=== PATIENT | female | born 1995 | race Caucasian/White ===

== ENCOUNTER 2016-11-18 17:32 | Emergency (ER) | payer OTHER ==
[~2016-11-18 17:32] MED LIST: PRENTAB40 PO
[2016-11-18] MEDS ORDERED: ACETAMINOPHEN 325 MG TAB As Ordered ONE (19:45)
[2016-11-18] MEDS ORDERED: METOCLOPRAMIDE INJ 10MG/2ML VIAL (J2765) As Ordered ONE (19:45)
[2016-11-18] MEDS ORDERED: AZITHROMYCIN 250 MG TAB As Ordered ONE (21:35)
--- NOTE | 2016-11-18 21:46 | EDDOCDS ---
Nurse's Notes [facility] Name: Debbie Akbar Age: 21 yrs Sex: Female : 1995 Arrival Date: 11/18/2016 Time: 17:32 Bed I3 / M3 Private MD: Frances Jones M. Diagnosis: Otitis media, unspecified, left ear;Nausea;Other specified related conditions Presentation: 11/18 17:36 Presenting complaint: Patient states: Patient reports that she has an earache, pain jmb present x 1 week. Patient reports feeling dizzy and nausea's. Patient reports symptoms just get worse since start. Adult Sepsis Screening: The patient does not have new or worsening altered mentation. Patient's respiratory rate is less than 22. Systolic blood pressure is greater than 100. Patient has a qSOFA score of 0- Negative Sepsis Screen. Suicide/Homicide risk assessment- the patient denies having any suicidal and/or homicidal ideations and does not present with any other emotional, behavioral or mental health complaints. Status: Patient is not a school services officer or dependent. Transition of care: patient was not received from another setting of care. 17:36 Acuity: RENEE Level 4 b 17:36 Method Of Arrival: Walkin/Carried/Asstd b Triage Assessment: 17:37 General: Appears in no apparent distress, Behavior is appropriate for age, cooperative. jmb Pain: Location: left ear Pain currently is 9 out of 10 on a pain scale. HIV screening NA for this visit Offered previously. Neurological: Level of Consciousness is awake, alert, obeys commands, Oriented to person, place, time, Speech is normal, Facial symmetry appears normal, Facial symmetry: tongue is midline. Respiratory: Airway is patent Respiratory effort is even, unlabored, Respiratory pattern is regular, symmetrical. Derm: Skin is pink, warm & dry. Musculoskeletal: Range of motion intact in all extremities. 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 albuterol sulfate 90 mcg/actuation Inhl HFAA every 4-6 hours prn 2. Vitamin Oral tab 1 tab once daily not taking due to nausea 3. Reglan 10 mg Oral tab 1 tab 4 times per day - PMHx: Asthma; Ovarian cyst; Seasonal Allergies; - PSHx: ; Tonsillectomy; - Social history: Smoking status: Patient states was never smoker of tobacco. No barriers to communication noted, The patient speaks fluent Divehi, Speaks appropriately for age. - Family history: Not pertinent. - : The pt / caregiver states he / she is not on anticoagulants. Home medication list is obtained from the patient. - Exposure Risk Screening:: None identified. Screenin:34 Infection Control. elp 19:42 Screening information is obtained from the patient. Fall risk: No risks identified. af2 Assistance ADL's: requires no assistance with activities of daily living. Abuse/DV Screen: The patient / caregiver reports he/she is: not in a situation that causes fear, pain or injury. Nutritional screening: No deficits noted. Advance Directives: Currently, there is no health care proxy. home support is adequate. Assessment: 19:43 General: Appears in no apparent distress, Behavior is appropriate for age, cooperative, af2 pleasant. Pain: Location: abdomen Pain currently is 4 out of 10 on a pain scale. Neurological: Level of Consciousness is awake, alert. Respiratory: Airway is patent Respiratory effort is even, unlabored. GI: Reports lower abdominal pain, upper abd pain. Musculoskeletal: Reports pain in back. 20:18 General: Appears in no apparent distress, Behavior is appropriate for age, pt lying on af2 stretcher resting quietly with eyes closed, offers no complaints. fluids infusing per order.. 21:42 Adult Sepsis Screening: The patient does not have new or worsening altered mentation. ms2 Patient's respiratory rate is less than 22. Systolic blood pressure is greater than 100. Patient has a qSOFA score of 0- Negative Sepsis Screen. General: Appears in no apparent distress. Pain: Pain currently is 5 out of 10 on a pain scale. Neurological: Level of Consciousness is awake, alert, obeys commands. Respiratory: No deficits noted. Airway is patent Respiratory effort is even, unlabored, Respiratory pattern is regular, symmetrical. Derm: Skin is pink, warm & dry. Musculoskeletal: Range of motion intact in all extremities. Vital Signs: 17:34 BP 132 / 63; Pulse 101; Resp 18; Temp 98.9(O); Pulse Ox 98% on R/A; Weight 61.69 kg elp (M); Height 5 ft. 3 in. (160.02 cm); Pain 9/10; 19:44 BP 94 / 52 RA Supine (auto/); Pulse 86; ajs 19:44 BP 105 / 55 RA Sitting (auto/); Pulse 86; ajs 19:44 BP 107 / 56 RA Standing (auto/); Pulse 95; ajs 21:43 BP 107 / 59; Pulse 82; Resp 20 S; Temp 96.7(O); Pulse Ox 99% on R/A; Pain 5/10; ms2 17:34 Body Mass Index 24.09 (61.69 kg, 160.02 cm) elp Vitals: 17:34 Log In Time: November 18, 2016 at 17:32. elp 20:01 Heart Tones 170BPM. af2 ED Course: 17:33 Patient visited by Iris Reno PCA. elp 17:33 Frances Jones is Private Physician. elp 17:33 Patient moved to Waiting elp 17:35 Patient visited by Iris Reno PCA. elp 17:35 Patient moved to Pre RCE elp 17:37 Triage Initiated jmb 19:08 Patient moved to Triage 3 jmb 19:21 [facility] ck7 19:21 Kory Mcmullen DO is Attending Physician. ck7 19:21 Patient visited by Justin Kaba RPA-C. ck7 19:30 Patient moved to I3 / M3 ms18 19:42 The patient / caregiver is instructed regarding the plan of care and ED course. Patient af2 has correct armband on for positive identification. Placed in gown. 19:43 Inserted saline lock: 20 gauge in left antecubital area and blood collected. The af2 patient tolerated the procedure well. 19:44 Patient visited by Nicki Mccormack RN. af2 19:45 Patient visited by Tania Gordillo. ajs 19:47 [facility] Payment Agreement was scanned into [employer] and attached to record. ks16 20:01 Patient visited by Nicki Mccormack RN. af2 20:19 Patient visited by Nicki Mccormack RN. af2 20:48 Wet Prep Sent. af2 20:48 GC & Chlamydia Amplification Sent. af2 20:50 Patient visited by Nicki MccormackRN. af2 20:51 Patient visited by Nicki Mccormack RN. af2 20:51 Assist provider with pelvic exam:. af2 21:11 Notified physician's producer assistant of PT AMBULATED AROUND ER. PT STATES SHE FEELS FINE. LJ KABA ADVISED. 21:12 Patient visited by Tania Gordillo. ajs 21:44 The patient / caregiver is instructed regarding the plan of care and ED course. ms2 21:44 Discontinued lock intact, bleeding controlled, pressure dressing applied, No ms2 redness/swelling at site. Administered Medications: 19:52 Drug: Acetaminophen 650 mg [acetaminophen 325 mg tablet (2 tabs)] Route: PO; af2 19:52 Drug: Metoclopramide 10 mg [metoclopramide 5 mg/mL injection solution] Route: IV; Rate: af2 40 mg/hr; Infused Over: 15 mins; Site: left antecubital; 20:18 Follow up: IV Status: Completed infusion af2 19:52 Drug: NS 0.9% 1000 ml [sodium chloride 0.9 % intravenous solution] Route: IV; Rate: af2 bolus; Site: left antecubital; 21:37 Drug: azithromycin 500 mg [azithromycin 250 mg tablet (2 tabs)] Route: PO; ms2 Intake: 21:43 PO: 60.00ml; IV: 0.00ml; Total: 60.00ml. ms2 Output: 21:43 Urine: 0.00ml; Total: 0.00ml. ms2 Order Results: Lab Order: Wet Prep; SPEC'M 11/18/16 20:45 Test: WET PREP; Value: WET PREP RESULT; Status: F Test: WET PREP; Value: MODERATE EPITHELIAL CELLS PRESENT; Status: F Test: WET PREP; Value: FEW WBC; Status: F Outcome: 21:35 Discharge ordered by Provider. ck7 21:44 Discharge Assessment: patient administered narcotics - no. The following High Risk ms2 Discharge criteria are identified: None. Discharged to home ambulatory, with significant other. Condition: stable. Discharge instructions given to patient, Instructed on discharge instructions, follow up and referral plans. medication usage, Demonstrated understanding of instructions, medications, Pt was receptive of discharge instructions/ teaching. Prescriptions given X 2 faxed. No special radiology studies were completed. Property sent home with patient. 21:45 Patient left the ED. ms2 Signatures: Jakub Whitehead,RN RN ms2 Duy Justin Victor, RPA-C RPA-Cck7 Patchen, Iris, INTERMEDIATE TEACHER INTERMEDIATE TEACHER elp Ernesto VillarrealRN RN Marija Salinas RN RN ms18 Nicki Mccormack RN RN af2 Lacey Guo, Reg Reg ks16 Corrections: (The following items were deleted from the chart) 17:35 17:34 BP 132 / 63; Pulse 101bpm; Resp 18bpm; Pulse Ox 98%; Temp 98.9F; Height 5 ft. 3 elp in.; Pain 9/10; elp MTDD
--- NOTE | 2016-11-18 21:46 | EDDOCDS ---
Physician Documentation [facility] Name: Debbie Akbar Age: 21 yrs Sex: Female : 1995 Arrival Date: 11/18/2016 Time: 17:32 Bed I3 / M3 Private MD: Frances Jones M. Disposition: 11/18/16 21:35 Discharged to Home/Self Care. Impression: Otitis media, unspecified, left ear, Nausea, Other specified related conditions. - Condition is Stable. - Discharge Instructions: Otitis Media, Adult, Nausea, Adult, Second Trimester of , [id number]. - Prescriptions for Zithromax 250 mg Oral Tablet - take 1 tablet by ORAL route once daily start tomorrow; 4 tablet. Reglan 10 mg Oral Tablet - take 1 tablet by ORAL route every 6 hours take 30 minutes before meals and at bedtime; 20 tablet. - Medication Reconciliation, Local Pharmacy Hours form. - Follow up: Private Physician; When: 2 - 3 days; Reason: Recheck today's complaints, Continuance of care. - Problem is new. - Symptoms have improved. Historical: - Allergies: Amoxicillin (Rash); amoxicillin or tessalon perles caused lip swelling; Latex (Rash); neosporin (Rash); med (Rash); Nuts (Rash); Tessalon Perles; - Home Meds: 1. albuterol sulfate 90 mcg/actuation Inhl HFAA every 4-6 hours prn 2. Vitamin Oral tab 1 tab once daily not taking due to nausea 3. Reglan 10 mg Oral tab 1 tab 4 times per day - PMHx: Asthma; Ovarian cyst; Seasonal Allergies; - PSHx: ; Tonsillectomy; - Social history: Smoking status: Patient states was never smoker of tobacco. No barriers to communication noted, The patient speaks fluent Maltese, Speaks appropriately for age. - Family history: Not pertinent. - : The pt / caregiver states he / she is not on anticoagulants. Home medication list is obtained from the patient. - Exposure Risk Screening:: None identified. 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 3 in. (160.02 cm); Pain 9/10; 19:44 BP 94 / 52 RA Supine (auto/); Pulse 86; ajs 19:44 BP 105 / 55 RA Sitting (auto/); Pulse 86; ajs 19:44 BP 107 / 56 RA Standing (auto/); Pulse 95; ajs 21:43 BP 107 / 59; Pulse 82; Resp 20 S; Temp 96.7(O); Pulse Ox 99% on R/A; Pain 5/10; ms2 17:34 Body Mass Index 24.09 (61.69 kg, 160.02 cm) elp MDM: 19:28 Acetaminophen Tablet 650 mg PO once ordered. ck7 19:28 Metoclopramide 10 mg IV at 40 mg/hr once over 15 mins ordered. ck7 19:28 IV Saline Lock ordered. ck7 19:28 NS 0.9% 1000 ml IV at bolus once ordered. ck7 19:28 Orthostatic VS ordered. ck7 19:28 Heart Tones ordered. ck7 19:28 Set up pelvic ordered. ck7 19:29 GC & Chlamydia Amplification Ordered. EDMS 19:29 Wet Prep Ordered. EDMS 19:47 Financial registration complete. [email or web address] 19:47 [facility] Payment Agreement was scanned into [employer] and attached to record. ks16 21:10 Ambulate Patient to Assess Patient Safety ordered. ck7 21:10 Wet Prep Reviewed. ck7 21:33 azithromycin 500 mg PO once ordered. ck7 Administered Medications: 19:52 Drug: Acetaminophen 650 mg [acetaminophen 325 mg tablet (2 tabs)] Route: PO; af2 19:52 Drug: Metoclopramide 10 mg [metoclopramide 5 mg/mL injection solution] Route: IV; Rate: af2 40 mg/hr; Infused Over: 15 mins; Site: left antecubital; 20:18 Follow up: IV Status: Completed infusion af2 19:52 Drug: NS 0.9% 1000 ml [sodium chloride 0.9 % intravenous solution] Route: IV; Rate: af2 bolus; Site: left antecubital; 21:37 Drug: azithromycin 500 mg [azithromycin 250 mg tablet (2 tabs)] Route: PO; ms2 Signatures: Dispatcher [employer] EDMS Jakub Whitehead,RN RN ms2 Justin Phillips, RPA-C RPA-Cck7 Ernesto Villarreal RN RN Nicki Enciso RN RN af2 Lacey Guo, Reg Reg ks16 The chart was reviewed and I authenticate all verbal orders and agree with the evaluation and treatment provided.Attachments: 19:47 [facility] Payment Agreement [email or web address] MTDD
--- NOTE | 2016-11-20 22:46 | EDDOCDS ---
Physician Documentation [facility] Name: Debbie Akbar Age: 21 yrs Sex: Female : 1995 Arrival Date: 11/18/2016 Time: 17:32 Bed I3 / M3 Private MD: Frances Jones M. Disposition: 11/18/16 21:35 Discharged to Home/Self Care. Impression: Otitis media, unspecified, left ear, Nausea, Other specified related conditions. - Condition is Stable. - Discharge Instructions: Otitis Media, Adult, Nausea, Adult, Second Trimester of , [id number]. - Prescriptions for Zithromax 250 mg Oral Tablet - take 1 tablet by ORAL route once daily start tomorrow; 4 tablet. Reglan 10 mg Oral Tablet - take 1 tablet by ORAL route every 6 hours take 30 minutes before meals and at bedtime; 20 tablet. - Medication Reconciliation, Local Pharmacy Hours form. - Follow up: Private Physician; When: 2 - 3 days; Reason: Recheck today's complaints, Continuance of care. - Problem is new. - Symptoms have improved. Historical: - Allergies: Amoxicillin (Rash); amoxicillin or tessalon perles caused lip swelling; Latex (Rash); neosporin (Rash); med (Rash); Nuts (Rash); Tessalon Perles; - Home Meds: 1. albuterol sulfate 90 mcg/actuation Inhl HFAA every 4-6 hours prn 2. Vitamin Oral tab 1 tab once daily not taking due to nausea 3. Reglan 10 mg Oral tab 1 tab 4 times per day - PMHx: Asthma; Ovarian cyst; Seasonal Allergies; - PSHx: ; Tonsillectomy; - Social history: Smoking status: Patient states was never smoker of tobacco. No barriers to communication noted, The patient speaks fluent Beninese, Speaks appropriately for age. - Family history: Not pertinent. - : The pt / caregiver states he / she is not on anticoagulants. Home medication list is obtained from the patient. - Exposure Risk Screening:: None identified. ARNP: 11/18 17:37 LMP N/A - 17 weeks [facility] Vital Signs: 17:34 BP 132 / 63; Pulse 101; Resp 18; Temp 98.9(O); Pulse Ox 98% on R/A; Weight 61.69 kg / elp 136 lbs (M); Height 5 ft. 3 in. (160.02 cm); Pain 9/10; 19:44 BP 94 / 52 RA Supine (auto/); Pulse 86; ajs 19:44 BP 105 / 55 RA Sitting (auto/); Pulse 86; ajs 19:44 BP 107 / 56 RA Standing (auto/); Pulse 95; ajs 21:43 BP 107 / 59; Pulse 82; Resp 20 S; Temp 96.7(O); Pulse Ox 99% on R/A; Pain 5/10; ms2 17:34 Body Mass Index 24.09 (61.69 kg, 160.02 cm) elp MDM: 19:28 Acetaminophen Tablet 650 mg PO once ordered. ck7 19:28 Metoclopramide 10 mg IV at 40 mg/hr once over 15 mins ordered. ck7 19:28 IV Saline Lock ordered. ck7 19:28 NS 0.9% 1000 ml IV at bolus once ordered. ck7 19:28 Orthostatic VS ordered. ck7 19:28 Heart Tones ordered. ck7 19:28 Set up pelvic ordered. ck7 19:29 GC & Chlamydia Amplification Ordered. EDMS 19:29 Wet Prep Ordered. EDMS 19:47 Financial registration complete. [email or web address] 19:47 [facility] Payment Agreement was scanned into [employer] and attached to record. ks16 21:10 Ambulate Patient to Assess Patient Safety ordered. ck7 21:10 Wet Prep Reviewed. ck7 21:33 azithromycin 500 mg PO once ordered. ck7 11/19 08:14 T-Sheet-- Draft Copy was scanned into [employer] and attached to record. [facility] Administered Medications: 11/18 19:52 Drug: Acetaminophen 650 mg [acetaminophen 325 mg tablet (2 tabs)] Route: PO; af2 19:52 Drug: Metoclopramide 10 mg [metoclopramide 5 mg/mL injection solution] Route: IV; Rate: af2 40 mg/hr; Infused Over: 15 mins; Site: left antecubital; 20:18 Follow up: IV Status: Completed infusion af2 19:52 Drug: NS 0.9% 1000 ml [sodium chloride 0.9 % intravenous solution] Route: IV; Rate: af2 bolus; Site: left antecubital; 21:37 Drug: azithromycin 500 mg [azithromycin 250 mg tablet (2 tabs)] Route: PO; ms2 Signatures: Dispatcher [employer] Jakub LeRN RN ms2 Justin Phillips, TOM-C RPA-Cck7 Ernesto Villarreal RN RN jmb [place], Amber, RN RN af2 Lacey Guo, Reg Reg [email or web address] Yoana Burns [facility] The chart was reviewed and I authenticate all verbal orders and agree with the evaluation and treatment provided.Attachments: 19:47 [facility] Payment Agreement [email or web address] 11/19 08:14 T-Sheet-- Draft Copy [facility] Chart Complete MTDD
--- NOTE | 2016-11-20 22:46 | EDDOCDS ---
Nurse's Notes [facility] Name: Debbie Akbar Age: 21 yrs Sex: Female : 1995 Arrival Date: 11/18/2016 Time: 17:32 Bed I3 / M3 Private MD: Frances Jones M. Diagnosis: Otitis media, unspecified, left ear;Nausea;Other specified related conditions Presentation: 11/18 17:36 Presenting complaint: Patient states: Patient reports that she has an earache, pain jmb present x 1 week. Patient reports feeling dizzy and nausea's. Patient reports symptoms just get worse since start. Adult Sepsis Screening: The patient does not have new or worsening altered mentation. Patient's respiratory rate is less than 22. Systolic blood pressure is greater than 100. Patient has a qSOFA score of 0- Negative Sepsis Screen. Suicide/Homicide risk assessment- the patient denies having any suicidal and/or homicidal ideations and does not present with any other emotional, behavioral or mental health complaints. Status: Patient is not a client service consultant or dependent. Transition of care: patient was not received from another setting of care. 17:36 Acuity: RENEE Level 4 b 17:36 Method Of Arrival: Walkin/Carried/Asstd b Triage Assessment: 17:37 General: Appears in no apparent distress, Behavior is appropriate for age, cooperative. jmb Pain: Location: left ear Pain currently is 9 out of 10 on a pain scale. HIV screening NA for this visit Offered previously. Neurological: Level of Consciousness is awake, alert, obeys commands, Oriented to person, place, time, Speech is normal, Facial symmetry appears normal, Facial symmetry: tongue is midline. Respiratory: Airway is patent Respiratory effort is even, unlabored, Respiratory pattern is regular, symmetrical. Derm: Skin is pink, warm & dry. Musculoskeletal: Range of motion intact in all extremities. DIE TURNER: 17:37 LMP N/A - 17 weeks jmb Historical: - Allergies: Amoxicillin (Rash); amoxicillin or tessalon perles caused lip swelling; Latex (Rash); neosporin (Rash); med (Rash); Nuts (Rash); Tessalon Perles; - Home Meds: 1. albuterol sulfate 90 mcg/actuation Inhl HFAA every 4-6 hours prn 2. Vitamin Oral tab 1 tab once daily not taking due to nausea 3. Reglan 10 mg Oral tab 1 tab 4 times per day - PMHx: Asthma; Ovarian cyst; Seasonal Allergies; - PSHx: ; Tonsillectomy; - Social history: Smoking status: Patient states was never smoker of tobacco. No barriers to communication noted, The patient speaks fluent Albanian, Speaks appropriately for age. - Family history: Not pertinent. - : The pt / caregiver states he / she is not on anticoagulants. Home medication list is obtained from the patient. - Exposure Risk Screening:: None identified. Screenin:34 Infection Control. elp 19:42 Screening information is obtained from the patient. Fall risk: No risks identified. af2 Assistance ADL's: requires no assistance with activities of daily living. Abuse/DV Screen: The patient / caregiver reports he/she is: not in a situation that causes fear, pain or injury. Nutritional screening: No deficits noted. Advance Directives: Currently, there is no health care proxy. home support is adequate. Assessment: 19:43 General: Appears in no apparent distress, Behavior is appropriate for age, cooperative, af2 pleasant. Pain: Location: abdomen Pain currently is 4 out of 10 on a pain scale. Neurological: Level of Consciousness is awake, alert. Respiratory: Airway is patent Respiratory effort is even, unlabored. GI: Reports lower abdominal pain, upper abd pain. Musculoskeletal: Reports pain in back. 20:18 General: Appears in no apparent distress, Behavior is appropriate for age, pt lying on af2 stretcher resting quietly with eyes closed, offers no complaints. fluids infusing per order.. 21:42 Adult Sepsis Screening: The patient does not have new or worsening altered mentation. ms2 Patient's respiratory rate is less than 22. Systolic blood pressure is greater than 100. Patient has a qSOFA score of 0- Negative Sepsis Screen. General: Appears in no apparent distress. Pain: Pain currently is 5 out of 10 on a pain scale. Neurological: Level of Consciousness is awake, alert, obeys commands. Respiratory: No deficits noted. Airway is patent Respiratory effort is even, unlabored, Respiratory pattern is regular, symmetrical. Derm: Skin is pink, warm & dry. Musculoskeletal: Range of motion intact in all extremities. Vital Signs: 17:34 BP 132 / 63; Pulse 101; Resp 18; Temp 98.9(O); Pulse Ox 98% on R/A; Weight 61.69 kg elp (M); Height 5 ft. 3 in. (160.02 cm); Pain 9/10; 19:44 BP 94 / 52 RA Supine (auto/); Pulse 86; ajs 19:44 BP 105 / 55 RA Sitting (auto/); Pulse 86; ajs 19:44 BP 107 / 56 RA Standing (auto/); Pulse 95; ajs 21:43 BP 107 / 59; Pulse 82; Resp 20 S; Temp 96.7(O); Pulse Ox 99% on R/A; Pain 5/10; ms2 17:34 Body Mass Index 24.09 (61.69 kg, 160.02 cm) elp Vitals: 17:34 Log In Time: November 18, 2016 at 17:32. elp 20:01 Heart Tones 170BPM. af2 ED Course: 17:33 Patient visited by Iris Reno PCA. elp 17:33 Frances Jones is Private Physician. elp 17:33 Patient moved to Waiting elp 17:35 Patient visited by Iris Reno PCA. elp 17:35 Patient moved to Pre RCE elp 17:37 Triage Initiated jmb 19:08 Patient moved to Triage 3 jmb 19:21 [facility] ck[facility] 19:21 Kory Mcmullen DO is Attending Physician. ck7 19:21 Patient visited by Justin Kaba RPA-C. ck7 19:30 Patient moved to I3 / M3 ms18 19:42 The patient / caregiver is instructed regarding the plan of care and ED course. Patient af2 has correct armband on for positive identification. Placed in gown. 19:43 Inserted saline lock: 20 gauge in left antecubital area and blood collected. The af2 patient tolerated the procedure well. 19:44 Patient visited by Nicki Mccormack RN. af2 19:45 Patient visited by Tania Gordillo. ajs 19:47 [facility] Payment Agreement was scanned into [employer] and attached to record. ks16 20:01 Patient visited by Nicki Mccormack RN. af2 20:19 Patient visited by Nicki Mccormack RN. af2 20:48 Wet Prep Sent. af2 20:48 GC & Chlamydia Amplification Sent. af2 20:50 Patient visited by Nicki Mccormack,RN. af2 20:51 Patient visited by Nicki MccormackRN. af2 20:51 Assist provider with pelvic exam:. af2 21:11 Notified physician's itinerant teacher assistant of PT AMBULATED AROUND ER. PT STATES SHE FEELS FINE. LJ KABA ADVISED. 21:12 Patient visited by Tania Gordillo. ajs 21:44 The patient / caregiver is instructed regarding the plan of care and ED course. ms2 21:44 Discontinued lock intact, bleeding controlled, pressure dressing applied, No ms2 redness/swelling at site. 11/19 08:14 T-Sheet-- Draft Copy was scanned into [employer] and attached to record. [facility] Administered Medications: 11/18 19:52 Drug: Acetaminophen 650 mg [acetaminophen 325 mg tablet (2 tabs)] Route: PO; af2 19:52 Drug: Metoclopramide 10 mg [metoclopramide 5 mg/mL injection solution] Route: IV; Rate: af2 40 mg/hr; Infused Over: 15 mins; Site: left antecubital; 20:18 Follow up: IV Status: Completed infusion af2 19:52 Drug: NS 0.9% 1000 ml [sodium chloride 0.9 % intravenous solution] Route: IV; Rate: af2 bolus; Site: left antecubital; 21:37 Drug: azithromycin 500 mg [azithromycin 250 mg tablet (2 tabs)] Route: PO; ms2 Intake: 21:43 PO: 60.00ml; IV: 0.00ml; Total: 60.00ml. ms2 Output: 21:43 Urine: 0.00ml; Total: 0.00ml. ms2 Order Results: Lab Order: GC & Chlamydia Amplification; SPEC'M 11/18/16 20:45 Test: CHLAMYDIA DNA AMPLIFICATION; Value: NEGATIVE; Range: NEGATIVE; Status: F Test: GC DNA AMPLIFICATION; Value: NEGATIVE; Range: NEGATIVE; Status: F Lab Order: Wet Prep; SPEC'M 11/18/16 20:45 Test: WET PREP; Value: WET PREP RESULT; Status: F Test: WET PREP; Value: MODERATE EPITHELIAL CELLS PRESENT; Status: F Test: WET PREP; Value: FEW WBC; Status: F Outcome: 21:35 Discharge ordered by Provider. ck7 21:44 Discharge Assessment: patient administered narcotics - no. The following High Risk ms2 Discharge criteria are identified: None. Discharged to home ambulatory, with significant other. Condition: stable. Discharge instructions given to patient, Instructed on discharge instructions, follow up and referral plans. medication usage, Demonstrated understanding of instructions, medications, Pt was receptive of discharge instructions/ teaching. Prescriptions given X 2 faxed. No special radiology studies were completed. Property sent home with patient. 21:45 Patient left the ED. ms2 Signatures: Jakub Whitehead,RN RN ms2 Duy, Justin Victor, RPA-C RPA-Cck7 Patchen, Iris, LENS FINISHER LENS FINISHER elp Ernesto Villarreal,RN RN Marija Salinas RN RN ms18 Nicki MccormackRN RN af2 Lacey Guo, Reg Reg ks16 Katy, Yoana ngo Corrections: (The following items were deleted from the chart) 17:35 17:34 BP 132 / 63; Pulse 101bpm; Resp 18bpm; Pulse Ox 98%; Temp 98.9F; Height 5 ft. 3 elp in.; Pain 9/10; elp Chart Complete MTDD
--- NOTE | 2016-11-20 22:46 | EDDOCDS ---
Physician Documentation [facility] Name: Debbie Akbar Age: 21 yrs Sex: Female : 1995 Arrival Date: 11/18/2016 Time: 17:32 Bed I3 / M3 Private MD: Frances Jones M. Disposition: 11/18/16 21:35 Discharged to Home/Self Care. Impression: Otitis media, unspecified, left ear, Nausea, Other specified related conditions. - Condition is Stable. - Discharge Instructions: Otitis Media, Adult, Nausea, Adult, Second Trimester of , [id number]. - Prescriptions for Zithromax 250 mg Oral Tablet - take 1 tablet by ORAL route once daily start tomorrow; 4 tablet. Reglan 10 mg Oral Tablet - take 1 tablet by ORAL route every 6 hours take 30 minutes before meals and at bedtime; 20 tablet. - Medication Reconciliation, Local Pharmacy Hours form. - Follow up: Private Physician; When: 2 - 3 days; Reason: Recheck today's complaints, Continuance of care. - Problem is new. - Symptoms have improved. Historical: - Allergies: Amoxicillin (Rash); amoxicillin or tessalon perles caused lip swelling; Latex (Rash); neosporin (Rash); med (Rash); Nuts (Rash); Tessalon Perles; - Home Meds: 1. albuterol sulfate 90 mcg/actuation Inhl HFAA every 4-6 hours prn 2. Vitamin Oral tab 1 tab once daily not taking due to nausea 3. Reglan 10 mg Oral tab 1 tab 4 times per day - PMHx: Asthma; Ovarian cyst; Seasonal Allergies; - PSHx: ; Tonsillectomy; - Social history: Smoking status: Patient states was never smoker of tobacco. No barriers to communication noted, The patient speaks fluent Israeli, Speaks appropriately for age. - Family history: Not pertinent. - : The pt / caregiver states he / she is not on anticoagulants. Home medication list is obtained from the patient. - Exposure Risk Screening:: None identified. 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 3 in. (160.02 cm); Pain 9/10; 19:44 BP 94 / 52 RA Supine (auto/); Pulse 86; ajs 19:44 BP 105 / 55 RA Sitting (auto/); Pulse 86; ajs 19:44 BP 107 / 56 RA Standing (auto/); Pulse 95; ajs 21:43 BP 107 / 59; Pulse 82; Resp 20 S; Temp 96.7(O); Pulse Ox 99% on R/A; Pain 5/10; ms2 17:34 Body Mass Index 24.09 (61.69 kg, 160.02 cm) elp MDM: 19:28 Acetaminophen Tablet 650 mg PO once ordered. ck7 19:28 Metoclopramide 10 mg IV at 40 mg/hr once over 15 mins ordered. ck7 19:28 IV Saline Lock ordered. ck7 19:28 NS 0.9% 1000 ml IV at bolus once ordered. ck7 19:28 Orthostatic VS ordered. ck7 19:28 Heart Tones ordered. ck7 19:28 Set up pelvic ordered. ck7 19:29 GC & Chlamydia Amplification Ordered. EDMS 19:29 Wet Prep Ordered. EDMS 19:47 Financial registration complete. ks16 19:47 PENDING SALE TO [facility] Payment Agreement was scanned into [employer] and attached to record. ks16 21:10 Ambulate Patient to Assess Patient Safety ordered. ck7 21:10 Wet Prep Reviewed. ck7 21:33 azithromycin 500 mg PO once ordered. ck7 11/19 08:14 T-Sheet-- Draft Copy was scanned into [employer] and attached to record. [facility] Administered Medications: 11/18 19:52 Drug: Acetaminophen 650 mg [acetaminophen 325 mg tablet (2 tabs)] Route: PO; af2 19:52 Drug: Metoclopramide 10 mg [metoclopramide 5 mg/mL injection solution] Route: IV; Rate: af2 40 mg/hr; Infused Over: 15 mins; Site: left antecubital; 20:18 Follow up: IV Status: Completed infusion af2 19:52 Drug: NS 0.9% 1000 ml [sodium chloride 0.9 % intravenous solution] Route: IV; Rate: af2 bolus; Site: left antecubital; 21:37 Drug: azithromycin 500 mg [azithromycin 250 mg tablet (2 tabs)] Route: PO; ms2 Signatures: Dispatcher [employer] Jakub LeRN RN ms2 Justin Phillips, TOM-C RPA-Cck7 Ernesto Villarreal RN RN jmb F[place]on, Amber, RN RN af2 Lacey Guo, Reg Reg ks16 Yoana Burns [facility] The chart was reviewed and I authenticate all verbal orders and agree with the evaluation and treatment provided.Attachments: 19:47 PENDING SALE TO [facility] Payment Agreement ks16 11/19 08:14 T-Sheet-- Draft Copy [facility] Chart Complete MTDD
== END 2016-11-18 21:45 | disposition home or self-care (01) ==
LOC: M ED 17:32
DX: R11.0 Nausea (principal); H66.92 Otitis media, unspecified, left ear; J45.909 Unspecified asthma, uncomplicated; Z90.89 Acquired absence of other organs; Z79.899 Other long term (current) drug therapy; Z88.1 Allergy status to other antibiotic agents; Z88.8 Allergy status to other drugs, medicaments and biological substances; Z91.040 Latex allergy status; Z91.010 Allergy to peanuts; Z91.09 Other allergy status, other than to drugs and biological substances

== ENCOUNTER → 2016-11-23 | Outpatient (REF) | payer OTHER | LOC: M LAB REF 17:10 | PROVIDERS: ATTEND Advanced Practice Midwife | DX: N39.0 Urinary tract infection, site not specified (principal); B95.2 Enterococcus as the cause of diseases classified elsewhere ==

== ENCOUNTER → 2016-12-11 | Outpatient (CLI) | payer OTHER ==
--- NOTE | 2016-12-12 03:42 | REP ---
Clinical: Anatomical evaluation. Comparison: 10/15/2016 . Findings: Examination demonstrates a single live intrauterine in breech presentation. motion is identified by technologist. Placenta is noted posteriorly and grade zero without evidence for placenta previa or abruption. Amniotic fluid volume is normal. Cervix measures 4.2 cm in length and appears closed. Gestational age by first ultrasound 20 weeks 2 days with MIR 04/28/2017 . Gestational age by current measurements 20 weeks 2 days with MIR 04/28/2017 . FHR equals 147 beats per minute. BPD 4.7 cm 20 weeks 1 day HC 18.0 cm 20 weeks 3 days AC 16.0 cm 21 weeks 1 day FL 3.4 cm 20 weeks 4 days HL 3.3 cm 21 weeks 0 days HC/AC ratio 1.13 Estimated weight 378 grams ( 62nd percentile). Anatomical assessment demonstrates normal structures including cranium, choroid plexus, cavum, cerebellum/posterior fossa, facial features, lungs, four-chamber heart/ventricular outflow tracts, diaphragm, stomach, cord insertion/three-vessel cord, kidneys/bladder, spine, and extremities. Impression: Single live intrauterine in breech presentation demonstrating appropriate interval growth. Nuchal cord cannot be excluded. Anatomical assessment is complete and normal. Signed by Juan Alberto Hobson MD 12/12/2016 03:33 A
== END ==
LOC: M SMT 12:51
PROVIDERS: ATTEND Advanced Practice Midwife
DX: Z36 Encounter for antenatal screening of mother (principal); Z3A.20 20 weeks gestation of pregnancy

== ENCOUNTER 2016-12-18 17:52 | Emergency (ER) | payer OTHER ==
--- NOTE | 2016-12-18 20:25 | EDDOCDS ---
Nurse's Notes [facility] Name: Debbie Akbar Age: 21 yrs Sex: Female : 1995 Arrival Date: 12/18/2016 Time: 17:52 Bed TR8 Private MD: [facility] Diagnosis: Other chest pain Presentation: 12/18 18:02 Presenting complaint: Patient states: Pt presents with c/o chest pain and SOB since she dls was dx with heart murmur on Sunday. Pt is scheduled for ultrasound on Sunday. Aspirin was not taken prior to arrival. Adult Sepsis Screening: The patient does not have new or worsening altered mentation. Patient's respiratory rate is less than 22. Systolic blood pressure is greater than 100. Patient has a qSOFA score of 0- Negative Sepsis Screen. Suicide/Homicide risk assessment- the patient denies having any suicidal and/or homicidal ideations and does not present with any other emotional, behavioral or mental health complaints. Status: Patient is not a teleservices representative or dependent. Transition of care: patient was not received from another setting of care. 18:02 Acuity: RENEE Level 3 dls 18:02 Method Of Arrival: Walkin/Carried/Asstd dls 18:06 Presenting complaint: Patient states: Pt is 21 weeks . dls Triage Assessment: 18:06 General: Appears in no apparent distress, well developed, well nourished, Behavior is dls cooperative. Pain: Pain currently is 8 out of 10 on a pain scale. HIV screening NA for this visit Offered previously. CAT OPERATOR: 18:06 2, Full Term 0, Premature 1, 0, Living 1, LMP 07/07/2016, dls Verified, EDC 04/13/2017, Gestational age from LMP: 23 weeks 3 days Historical: - Allergies: Amoxicillin (Rash); amoxicillin or tessalon perles caused lip swelling; Latex (Rash); neosporin (Rash); med (Rash); Nuts (Rash); Tessalon Perles; - Home Meds: 1. albuterol sulfate 90 mcg/actuation Inhl HFAA every 4-6 hours prn 2. Vitamin Oral tab 1 tab once daily not taking due to nausea 3. Reglan 10 mg Oral tab 1 tab 4 times per day - PMHx: Asthma; Ovarian cyst; Seasonal Allergies; - PSHx: ; Tonsillectomy; - Social history: Smoking status: Patient/guardian denies using No barriers to communication noted, The patient speaks fluent Pakistani. - : The pt / caregiver states he / she is not on anticoagulants. Home medication list is obtained from the patient. - Exposure Risk Screening:: None identified. Screenin:57 Infection Control. gr2 20:24 Screening information is obtained from the patient. Fall risk: No risks identified. jjr Assistance ADL's: requires no assistance with activities of daily living. Abuse/DV Screen: The patient / caregiver reports he/she is: not in a situation that causes fear, pain or injury. Nutritional screening: No deficits noted. Advance Directives: There is no active DNR order. home support is adequate. Assessment: 20:23 General: Appears in no apparent distress, well nourished, well groomed, Behavior is jjr appropriate for age. Neurological: No deficits noted. Cardiovascular: Rhythm is regular. Respiratory: Airway is patent Respiratory effort is even, unlabored, Respiratory pattern is regular. Derm: No deficits noted. Vital Signs: 17:55 BP 129 / 65; Pulse 108; Resp 18 S; Temp 98.0(O); Pulse Ox 99% on R/A; Weight 63.96 kg gr2 (R); Height 5 ft. 3 in. (160.02 cm) (R); Pain 6/10; 20:19 BP 130 / 67; Pulse 83; Resp 18; Temp 98.7(TE); Pulse Ox 99% on R/A; Pain 7/10; kb5 17:55 Body Mass Index 24.98 (63.96 kg, 160.02 cm) gr2 Vitals: 17:55 Log In Time: December 18, 2016 at 17:55. gr2 ED Course: 17:54 Patient visited by Frankie Trinh. gr2 17:54 Patient moved to Waiting gr2 17:55 [facility] is Private Physician. gr2 17:57 Patient visited by Frankie Trinh. gr2 17:57 Patient moved to Pre RCE gr2 18:04 Triage Initiated dls 19:50 Patient moved to Triage 3 ead 19:52 Stalin Ovalle PA is PHCP. mo1 19:52 Kory Mcmullen DO is Attending Physician. mo1 19:53 Patient visited by Toña Sanchez,AARON. ead 19:58 Patient visited by Stalin Ovalle PA. mo1 20:14 Patient visited by Ronald Yanez PCA. kb5 20:14 EKG done. (by ED staff). Reviewed by Stalin CALHOUN. kb5 20:15 [facility] is Referral Physician. mo1 20:20 Patient visited by Ronald Yanez PCA. kb5 20:22 Patient moved to [facility] jjr 20:24 The patient / caregiver is instructed regarding the plan of care and ED course. Cardiac jjr monitoring not applicable on this patient. 20:24 No IV's were initiated during this patient's visit. No procedures done that require jjr assistance. Order Results: There are currently no results for this order. Outcome: 20:15 Discharge ordered by Provider. mo1 20:24 Discharge Assessment: patient administered narcotics - no. The following High Risk jjr Discharge criteria are identified: None. Discharged to home ambulatory, with significant other. Condition: stable. Discharge instructions given to patient, Instructed on discharge instructions, follow up and referral plans. Demonstrated understanding of instructions. No special radiology studies were completed. Property sent home with patient. 20:24 Patient left the ED. jjr Signatures: Karina Mao, RN Ronald Hurt PCA CAP AND HAT PRODUCTION SUPERVISOR kb5 Kallie Trinh RN RN jjr Raymond, Gainslee gr2 Stalin Ovalle PA PA mo1 Toña Sanchez,AARON rubio MTDD
--- NOTE | 2016-12-18 20:25 | EDDOCDS ---
Physician Documentation [facility] Name: Debbie Akbar Age: 21 yrs Sex: Female : 1995 Arrival Date: 12/18/2016 Time: 17:52 Bed TR8 Private MD: [facility] Disposition: 12/18/16 20:15 Discharged to Home/Self Care. Impression: Other chest pain. - Condition is Stable. - Discharge Instructions: Nonspecific Chest Pain, Chest Wall Pain. - Medication Reconciliation, Local Pharmacy Hours form. - Follow up: [facility]; When: Call to arrange an appointment; Reason: Recheck today's complaints, Continuance of care. - Problem is new. - Symptoms are unchanged. Historical: - Allergies: Amoxicillin (Rash); amoxicillin or tessalon perles caused lip swelling; Latex (Rash); neosporin (Rash); med (Rash); Nuts (Rash); Tessalon Perles; - Home Meds: 1. albuterol sulfate 90 mcg/actuation Inhl HFAA every 4-6 hours prn 2. Vitamin Oral tab 1 tab once daily not taking due to nausea 3. Reglan 10 mg Oral tab 1 tab 4 times per day - PMHx: Asthma; Ovarian cyst; Seasonal Allergies; - PSHx: ; Tonsillectomy; - Social history: Smoking status: Patient/guardian denies using No barriers to communication noted, The patient speaks fluent Divehi. - : The pt / caregiver states he / she is not on anticoagulants. Home medication list is obtained from the patient. - Exposure Risk Screening:: None identified. 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 3 in. (160.02 cm) (R); Pain 6/10; 20:19 BP 130 / 67; Pulse 83; Resp 18; Temp 98.7(TE); Pulse Ox 99% on R/A; Pain 7/10; kb5 17:55 Body Mass Index 24.98 (63.96 kg, 160.02 cm) gr2 MDM: 20:02 ECG WITH READING ER PHYS+CARDIAG ordered. EDMS 20:24 Financial registration complete. zo Signatures: Dispatcher [employer] EDMS Karina Mao RN RN dls Olin, Zoeann zo Raymond, Jessica, RN RN jjr O'Hagan, Michael, PA PA mo1 MTDD
--- NOTE | 2016-12-19 08:10 | ECGEPIP ---
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
--- NOTE | 2016-12-20 21:25 | EDDOCDS ---
Physician Documentation [facility] Name: Debbie Akbar Age: 21 yrs Sex: Female : 1995 Arrival Date: 12/18/2016 Time: 17:52 Bed TR8 Private MD: [facility] - Adults Disposition: 12/18/16 20:15 Discharged to Home/Self Care. Impression: Other chest pain. - Condition is Stable. - Discharge Instructions: Nonspecific Chest Pain, Chest Wall Pain. - Medication Reconciliation, Local Pharmacy Hours form. - Follow up: [facility] - Adults; When: Call to arrange an appointment; Reason: Recheck today's complaints, Continuance of care. - Problem is new. - Symptoms are unchanged. Historical: - Allergies: Amoxicillin (Rash); amoxicillin or tessalon perles caused lip swelling; Latex (Rash); neosporin (Rash); med (Rash); Nuts (Rash); Tessalon Perles; - Home Meds: 1. albuterol sulfate 90 mcg/actuation Inhl HFAA every 4-6 hours prn 2. Vitamin Oral tab 1 tab once daily not taking due to nausea 3. Reglan 10 mg Oral tab 1 tab 4 times per day - PMHx: Asthma; Ovarian cyst; Seasonal Allergies; - PSHx: ; Tonsillectomy; - Social history: Smoking status: Patient/guardian denies using No barriers to communication noted, The patient speaks fluent Mohawk. - : The pt / caregiver states he / she is not on anticoagulants. Home medication list is obtained from the patient. - Exposure Risk Screening:: None identified. 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 3 in. (160.02 cm) (R); Pain 6/10; 20:19 BP 130 / 67; Pulse 83; Resp 18; Temp 98.7(TE); Pulse Ox 99% on R/A; Pain 7/10; kb5 17:55 Body Mass Index 24.98 (63.96 kg, 160.02 cm) gr2 MDM: 20:02 ECG WITH READING ER PHYS+CARDIAG ordered. EDMS 20:24 Financial registration complete. zo 20:58 [facility] Payment Agreement was scanned into MEDHOST and attached to record. zo 12/19 09:50 T-Sheet-- Draft Copy was scanned into MEDHOST and attached to record. gb 09:50 ECG/EKG was scanned into MEDHOST and attached to record. gb Signatures: Dispatcher MedHost EDMS Karina Mao RN RN Evangelina Ramos, Maile Guerin Jessica, RN RN fernandor Stalin Ovalle PA PA mo1 The chart was reviewed and I authenticate all verbal orders and agree with the evaluation and treatment provided.Attachments: 12/18 20:58 [facility] Payment Agreement zo 12/19 09:50 T-Sheet-- Draft Copy gb 09:50 ECG/EKG gb Chart Complete MTDD
--- NOTE | 2016-12-20 21:25 | EDDOCDS ---
Physician Documentation [facility] Name: Debbie Akbar Age: 21 yrs Sex: Female : 1995 Arrival Date: 12/18/2016 Time: 17:52 Bed TR8 Private MD: [facility] - Adults Disposition: 12/18/16 20:15 Discharged to Home/Self Care. Impression: Other chest pain. - Condition is Stable. - Discharge Instructions: Nonspecific Chest Pain, Chest Wall Pain. - Medication Reconciliation, Local Pharmacy Hours form. - Follow up: [facility] - Adults; When: Call to arrange an appointment; Reason: Recheck today's complaints, Continuance of care. - Problem is new. - Symptoms are unchanged. Historical: - Allergies: Amoxicillin (Rash); amoxicillin or tessalon perles caused lip swelling; Latex (Rash); neosporin (Rash); med (Rash); Nuts (Rash); Tessalon Perles; - Home Meds: 1. albuterol sulfate 90 mcg/actuation Inhl HFAA every 4-6 hours prn 2. Vitamin Oral tab 1 tab once daily not taking due to nausea 3. Reglan 10 mg Oral tab 1 tab 4 times per day - PMHx: Asthma; Ovarian cyst; Seasonal Allergies; - PSHx: ; Tonsillectomy; - Social history: Smoking status: Patient/guardian denies using No barriers to communication noted, The patient speaks fluent Arabic. - : The pt / caregiver states he / she is not on anticoagulants. Home medication list is obtained from the patient. - Exposure Risk Screening:: None identified. 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 3 in. (160.02 cm) (R); Pain 6/10; 20:19 BP 130 / 67; Pulse 83; Resp 18; Temp 98.7(TE); Pulse Ox 99% on R/A; Pain 7/10; kb5 17:55 Body Mass Index 24.98 (63.96 kg, 160.02 cm) gr2 MDM: 20:02 ECG WITH READING ER PHYS+CARDIAG ordered. EDMS 20:24 Financial registration complete. zo 20:58 [facility] Payment Agreement was scanned into MEDHOST and attached to record. zo 12/19 09:50 T-Sheet-- Draft Copy was scanned into MEDHOST and attached to record. gb 09:50 ECG/EKG was scanned into MEDHOST and attached to record. gb Signatures: Dispatcher MedHost EDMS Karina Mao RN RN Evangelina Ramos, Maile Guerin Jessica, RN RN fernandor Stalin Ovalle PA PA mo1 The chart was reviewed and I authenticate all verbal orders and agree with the evaluation and treatment provided.Attachments: 12/18 20:58 [facility] Payment Agreement zo 12/19 09:50 T-Sheet-- Draft Copy gb 09:50 ECG/EKG gb Chart Complete MTDD
--- NOTE | 2016-12-20 21:25 | EDDOCDS ---
Nurse's Notes [facility] Name: Debbie Young Age: 21 yrs Sex: Female : 1995 Arrival Date: 12/18/2016 Time: 17:52 Bed TR8 Private MD: [facility] - Adults Diagnosis: Other chest pain Presentation: 12/18 18:02 Presenting complaint: Patient states: Pt presents with c/o chest pain and SOB since she dls was dx with heart murmur on Sunday. Pt is scheduled for ultrasound on Sunday. Aspirin was not taken prior to arrival. Adult Sepsis Screening: The patient does not have new or worsening altered mentation. Patient's respiratory rate is less than 22. Systolic blood pressure is greater than 100. Patient has a qSOFA score of 0- Negative Sepsis Screen. Suicide/Homicide risk assessment- the patient denies having any suicidal and/or homicidal ideations and does not present with any other emotional, behavioral or mental health complaints. Status: Patient is not a automotive service consultant or dependent. Transition of care: patient was not received from another setting of care. 18:02 Acuity: RENEE Level 3 dls 18:02 Method Of Arrival: Walkin/Carried/Asstd dls 18:06 Presenting complaint: Patient states: Pt is 21 weeks . dls Triage Assessment: 18:06 General: Appears in no apparent distress, well developed, well nourished, Behavior is dls cooperative. Pain: Pain currently is 8 out of 10 on a pain scale. HIV screening NA for this visit Offered previously. 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 albuterol sulfate 90 mcg/actuation Inhl HFAA every 4-6 hours prn 2. Vitamin Oral tab 1 tab once daily not taking due to nausea 3. Reglan 10 mg Oral tab 1 tab 4 times per day - PMHx: Asthma; Ovarian cyst; Seasonal Allergies; - PSHx: ; Tonsillectomy; - Social history: Smoking status: Patient/guardian denies using No barriers to communication noted, The patient speaks fluent [place]. - : The pt / caregiver states he / she is not on anticoagulants. Home medication list is obtained from the patient. - Exposure Risk Screening:: None identified. Screenin:57 Infection Control. gr2 20:24 Screening information is obtained from the patient. Fall risk: No risks identified. jjr Assistance ADL's: requires no assistance with activities of daily living. Abuse/DV Screen: The patient / caregiver reports he/she is: not in a situation that causes fear, pain or injury. Nutritional screening: No deficits noted. Advance Directives: There is no active DNR order. home support is adequate. Assessment: 20:23 General: Appears in no apparent distress, well nourished, well groomed, Behavior is jjr appropriate for age. Neurological: No deficits noted. Cardiovascular: Rhythm is regular. Respiratory: Airway is patent Respiratory effort is even, unlabored, Respiratory pattern is regular. Derm: No deficits noted. Vital Signs: 17:55 BP 129 / 65; Pulse 108; Resp 18 S; Temp 98.0(O); Pulse Ox 99% on R/A; Weight 63.96 kg gr2 (R); Height 5 ft. 3 in. (160.02 cm) (R); Pain 6/10; 20:19 BP 130 / 67; Pulse 83; Resp 18; Temp 98.7(TE); Pulse Ox 99% on R/A; Pain 7/10; kb5 17:55 Body Mass Index 24.98 (63.96 kg, 160.02 cm) gr2 Vitals: 17:55 Log In Time: December 18, 2016 at 17:55. gr2 ED Course: 17:54 Patient visited by Frankie Trinh. gr2 17:54 Patient moved to Waiting gr2 17:55 [facility] is Private Physician. gr2 17:57 Patient visited by Frankie Trinh. gr2 17:57 Patient moved to Pre RCE gr2 18:04 Triage Initiated dls 19:50 Patient moved to Triage 3 ead 19:52 Caitlyn Ovalle PA is PHCP. mo1 19:52 Kory Mcmullen DO is Attending Physician. mo1 19:53 Patient visited by Toña Sanchez RN. ead 19:58 Patient visited by Caitlyn Ovalle PA. mo1 20:14 Patient visited by Ronald Yanez PCA. kb5 20:14 EKG done. (by ED staff). Reviewed by Caitlyn CALHOUN. kb5 20:15 [facility] is Referral Physician. mo1 20:20 Patient visited by Ronald Yanez PCA. kb5 20:22 Patient moved to TR8 jjr 20:24 The patient / caregiver is instructed regarding the plan of care and ED course. Cardiac jjr monitoring not applicable on this patient. 20:24 No IV's were initiated during this patient's visit. No procedures done that require jjr assistance. 20:58 [facility] Payment Agreement was scanned into Linch[employer] and attached to record. zo 12/19 08:40 EKG-ADULT Returned. EDMS 09:50 T-Sheet-- Draft Copy was scanned into Linchpin and attached to record. gb 09:50 ECG/EKG was scanned into Linchpin and attached to record. 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 mo1 20:24 Discharge Assessment: patient administered narcotics - no. The following High Risk jjr Discharge criteria are identified: None. Discharged to home ambulatory, with significant other. Condition: stable. Discharge instructions given to patient, Instructed on discharge instructions, follow up and referral plans. Demonstrated understanding of instructions. No special radiology studies were completed. Property sent home with patient. 20:24 Patient left the ED. [email or web address] Signatures: Dispatcher MedHost EDKarina Alegre, RN RN dls Evangelina Tejeda, Reg Reg gb Jose Angel, Maile zo Ronald Yanez, UPSETTER HELPER UPSETTER HELPER kb5 Kallie Trinh, RN RN Frankie Solorio gr2 Caitlyn Ovalle PA PA mo1 Toña Sanchez,RN RN joanne Chart Complete MTDD
== END 2016-12-18 20:24 | disposition home or self-care (01) ==
LOC: M ED 17:52
DX: O26.892 Other specified pregnancy related conditions, second trimester (principal); R07.89 Other chest pain; O99.512 Diseases of the respiratory system complicating pregnancy, second trimester; J45.909 Unspecified asthma, uncomplicated; Z87.42 Personal history of other diseases of the female genital tract; Z3A.23 23 weeks gestation of pregnancy; Z79.899 Other long term (current) drug therapy; Z88.0 Allergy status to penicillin; Z91.040 Latex allergy status; Z91.018 Allergy to other foods; Z88.8 Allergy status to other drugs, medicaments and biological substances; Z91.09 Other allergy status, other than to drugs and biological substances

== ENCOUNTER → 2016-12-20 | Outpatient (CLI) | payer OTHER ==
[2016-12-20 11:48] LABS: MEAN CORPUSCULAR HEMOGLOBIN 31.3 pg (27.0-33.0); MEAN CORPUSCULAR HGB CONC 34.9 g/dl (32.0-36.5); MEAN CORPUSCULAR VOLUME 89.4 fl (80.0-96.0); RED CELL DISTRIBUTION WIDTH 14.1 % (11.5-14.5); WHITE BLOOD COUNT 5.5 K/mm3 (4.0-10.0)
[2016-12-20 12:59] LABS: ALBUMIN 3.1 GM/DL (3.2-5.2); ALBUMIN/GLOBULIN RATIO 1.11 (1.00-1.93); ALKALINE PHOSPHATASE 64 U/L (45-117); ALT/SGPT 10 U/L (12-78); ANION GAP 6 MEQ/L (8-16); AST/SGOT 10 U/L (15-37); BILIRUBIN,TOTAL 0.2 MG/DL (0.2-1.0); BLOOD UREA NITROGEN 7 MG/DL (7-18); CALCIUM LEVEL 8.1 MG/DL (8.5-10.1); CARBON DIOXIDE LEVEL 26 MEQ/L (21-32); CHLORIDE LEVEL 108 MEQ/L (98-107); GLOMERULAR FILTRATION RATE > 60.0 (>60); GLUCOSE, FASTING 87 MG/DL (70-105); POTASSIUM SERUM 3.8 MEQ/L (3.5-5.1); SODIUM LEVEL 140 MEQ/L (136-145); TOTAL PROTEIN 5.9 GM/DL (6.4-8.2)
--- NOTE | 2016-12-21 22:26 | ECHO ---
DATE OF PROCEDURE: 12/20/2016 AGE: 21 GENDER: Female HEIGHT: 63 inches WEIGHT: 142 pounds BODY SURFACE AREA: 1.67 m/s PATIENT LOCATION: Outpatient. REFERRING PHYSICIAN: India Messina NP INDICATION: Murmur. 2-D MEASUREMENTS: RV: 2.8 cm LV: 4.2 cm Septum: 0.8 cm Posterior wall: 0.8 cm Aortic root: 2.6 cm LA: 3.2 cm LVEF: 60% DOPPLER MEASUREMENTS: AV: 1.2 m/s LVOT: 0.87 m/s LVOT diameter: 2.0 cm MV-E: 100, A: 60, EA ratio: 1.7 Early mitral deceleration time: 176 ms E prime: 8.5, A prime: 7, EE prime ratio: 12 PV: 1.0 m/s Pulmonary artery acceleration time: 137 ms RVSP: 30 mmHg IVC: 1.7 cm COMMENTS: Normal sinus rhythm without intraventricular conduction disturbance. Normal cardiac chamber sizes and wall thickness. On real-time imaging from the parasternal and apical projections wall motion was symmetrical and normal. Normal appearing mitral valvular apparatus and leaflet excursion with no posterior systolic buckling. Three equal size aortic cusps of normal thickness and cusp separation. Normal aortic root size. No apparent intracardiac mass or pericardial effusion. Color flow Doppler study taken from the parasternal and apical projection showed very mild mitral and mild tricuspid but no aortic insufficiency. These would be considered physiological findings. Guided continuous wave Doppler of her aortic valve showed a normal peak systolic velocity against LV outflow tract obstruction. Pulsed and continuous wave Doppler of her LV inflow tract taken from the apical four-chamber projection showed normal diastolic filling velocities and pattern against mitral stenosis or LV diastolic dysfunction. Pulsed and continuous wave Doppler of her pulmonary trunk showed a normal peak systolic velocity against RV outflow tract obstruction. Her pulmonary artery acceleration time was normal against an elevated pulmonary vascular resistance. Guided continuous wave Doppler of her tricuspid valve allowed our estimation of her right ventricular systolic pressure (upper limits of normal to borderline increased). Normal IVC size and collapse against an elevated central venous pressure. CONCLUSIONS: Unable to detect a structural or functional cause for the patient's heart murmur. Suspected to be physiologic or flow related. Normal-appearing echocardiogram.
== END ==
LOC: M CARPUL 10:25
PROVIDERS: ATTEND Nurse Practitioner Family
DX: O99.89 Other specified diseases and conditions complicating pregnancy, childbirth and the puerperium (principal); R01.1 Cardiac murmur, unspecified; O21.9 Vomiting of pregnancy, unspecified; Z3A.00 Weeks of gestation of pregnancy not specified

== ENCOUNTER 2017-01-22 17:34 | Emergency (ER) | payer OTHER ==
[~2017-01-22] VITALS: Ht 160 cm; Wt 66.7 kg
[2017-01-22] MEDS ORDERED: ACETAMINOPHEN 325 MG TAB PO ONE (19:45)
[2017-01-22 20:00] LABS: BASO % 0.3 % (0.0-1.0); EOS # 0.3 K/mm3 (0.0-0.50); EOS % 4.9 % (0.0-3.0); LARGE UNSTAINED CELL # 0.1 K/mm3 (0.0-0.4); LARGE UNSTAINED CELL % 1.7 % (0.0-4.0); LYMPH % 27.4 % (24.0-44.0); MEAN CORPUSCULAR HEMOGLOBIN 30.3 pg (27.0-33.0); MEAN CORPUSCULAR HGB CONC 34.4 g/dl (32.0-36.5); MEAN CORPUSCULAR VOLUME 88.1 fl (80.0-96.0); MONO # 0.5 K/mm3 (0.0-0.8); MONO % 7.9 % (0.0-5.0); NEUTROPHILS % 57.9 % (36.0-66.0); PLATELET COUNT, AUTOMATED 286 k/mm3 (150-450); RED CELL DISTRIBUTION WIDTH 13.3 % (11.5-14.5); WHITE BLOOD COUNT 6.9 K/mm3 (4.0-10.0)
[2017-01-22 20:24] LABS: ALBUMIN 3.2 GM/DL (3.2-5.2); ALBUMIN/GLOBULIN RATIO 0.84 (1.00-1.93); ALKALINE PHOSPHATASE 81 U/L (45-117); ALT/SGPT 9 U/L (12-78); ANION GAP 7 MEQ/L (8-16); AST/SGOT 12 U/L (15-37); BILIRUBIN,TOTAL 0.2 MG/DL (0.2-1.0); BLOOD UREA NITROGEN 12 MG/DL (7-18); CALCIUM LEVEL 8.4 MG/DL (8.5-10.1); CARBON DIOXIDE LEVEL 27 MEQ/L (21-32); CHLORIDE LEVEL 106 MEQ/L (98-107); CREATININE FOR GFR 0.41 MG/DL (0.55-1.02); GLOMERULAR FILTRATION RATE > 60.0 (>60); GLUCOSE, FASTING 82 MG/DL (70-105); POTASSIUM SERUM 3.9 MEQ/L (3.5-5.1); SODIUM LEVEL 140 MEQ/L (136-145)
[2017-01-22 21:00] VITALS: BP 130/59
== END 2017-01-22 21:03 | disposition home or self-care (01) ==
LOC: M ED 18:26
DX: O99.89 Other specified diseases and conditions complicating pregnancy, childbirth and the puerperium (principal); H92.02 Otalgia, left ear; R51 Headache; Z3A.25 25 weeks gestation of pregnancy; Z91.010 Allergy to peanuts; Z79.899 Other long term (current) drug therapy; Z91.040 Latex allergy status

== ENCOUNTER → 2017-01-26 | Outpatient (CLI) | payer OTHER ==
[2017-01-26 14:06] LABS: MEAN CORPUSCULAR HEMOGLOBIN 31.3 pg (27.0-33.0); MEAN CORPUSCULAR HGB CONC 34.9 g/dl (32.0-36.5); MEAN CORPUSCULAR VOLUME 89.5 fl (80.0-96.0); RED CELL DISTRIBUTION WIDTH 13.4 % (11.5-14.5); WHITE BLOOD COUNT 7.3 K/mm3 (4.0-10.0)
== END ==
LOC: M LAB 12:30
PROVIDERS: ATTEND Advanced Practice Midwife
DX: Z36 Encounter for antenatal screening of mother (principal); Z3A.00 Weeks of gestation of pregnancy not specified

== ENCOUNTER 2017-02-24 17:01 | Emergency (ER) | payer OTHER ==
[~2017-02-24] VITALS: Ht 160 cm; Wt 68.5 kg
[2017-02-24 17:01] VITALS: BP 136/64
--- NOTE | 2017-02-25 08:29 | REP ---
Fifth digit left hand four views: There is slight subluxation of the base of the distal phalange toward the radial aspect of the middle phalangeal head. This may represent ligamentous laxity or ligamentous injury. There is no fracture or dislocation. Mineralization joint spaces otherwise are unremarkable Signed by Devan Sun MD 02/25/2017 08:21 A
== END 2017-02-24 17:49 | disposition home or self-care (01) ==
LOC: M ED 17:33
DX: S60.052A Contusion of left little finger without damage to nail, initial encounter (principal); W23.0XXA Caught, crushed, jammed, or pinched between moving objects, initial encounter; Y92.019 Unspecified place in single-family (private) house as the place of occurrence of the external cause; Y93.89 Activity, other specified; Y99.8 Other external cause status; Z91.018 Allergy to other foods; Z88.1 Allergy status to other antibiotic agents; Z91.040 Latex allergy status

== ENCOUNTER 2017-02-26 12:23 | Outpatient (CLI) | payer OTHER ==
[~2017-02-26] VITALS: Ht 160 cm; Wt 65.0 kg
[2017-02-26] VITALS (10 sets, daily range): BP systolic 99–129; BP diastolic 57–78
[2017-02-26] MEDS ORDERED: ACET50TA PO (12:35)
[2017-02-26] MEDS ORDERED: MAKE250I IM (12:49)
[2017-02-26] MEDS ORDERED: MAGNESIUM SULFATE 4% INJ 20GM/500ML (40MG/ML) (J3475) As Ordered ONE (15:35)
[2017-02-26] MEDS ORDERED: LR 1,000 ML IV SCH (15:39)
[2017-02-26] MEDS ORDERED: CALCIUM GLUCONATE 1,000 MG in D5W MINI-BAG PLUS 100 ML IV PRN (15:45)
[2017-02-26] MEDS ORDERED: diphenhydrAMINE 25 MG CAP PO PRN (15:45)
[2017-02-26] MEDS ORDERED: ONDANSETRON 4MG/2ML VIAL (J2405) IV PRN (15:45)
[2017-02-26] MEDS ORDERED: MAG Sulf (OBGYN) 20GM/500ML 20,000 MG in APPROPRIATE DILUENT 1 EA IV SCH (15:59)
[2017-02-26] MEDS ORDERED: AMPICILLIN SOD 2 GM in D5W MINI-BAG PLUS 100 ML IV ONE (16:15)
[2017-02-26] MEDS ORDERED: MAG Sulf (L&D) 4 GM/100 ML 6 GM in APPROPRIATE DILUENT 1 EA IV ONE (16:15)
[2017-02-26] MEDS ORDERED: BETAMETHASONE SOLUSPAN 6MG/ML INJ 5ML (J0702) IM SCH (16:30)
[2017-02-26] MEDS ORDERED: AMPICILLIN SOD 1 GM in D5W MINI-BAG PLUS 50 ML IV SCH (20:00)
== END 2017-02-26 17:38 | disposition home or self-care (01) ==
LOC: M LDO 12:23
PROVIDERS: ATTEND Obstetrics & Gynecology
DX: O62.0 Primary inadequate contractions (principal); O26.873 Cervical shortening, third trimester; O41.8X30 Other specified disorders of amniotic fluid and membranes, third trimester, not applicable or unspecified; O34.33 Maternal care for cervical incompetence, third trimester; Z3A.31 31 weeks gestation of pregnancy

== ENCOUNTER 2017-03-04 04:27 | Inpatient (IN) | payer OTHER ==
[2017-03-04] VITALS (9 sets, daily range): BP systolic 96–125; BP diastolic 51–70
[~2017-03-04] VITALS: Ht 160 cm; Wt 69.0 kg
[~2017-03-04 04:27] MED LIST changes: +ACET50TA PO; +MAKE250I IM
[2017-03-04] MEDS ORDERED: METR500T10 PO (04:54)
[2017-03-04] MEDS ORDERED: FERR325T3 PO (04:54)
[2017-03-04] MEDS ORDERED: LACTATED RINGER'S 1000 ML IV STA (05:12)
[2017-03-04] MEDS ORDERED: LR 1,000 ML IV SCH ×2 (05:12→07:45)
[2017-03-04] MEDS ORDERED: BICITRA 30ML SOLN UDC PO ONE (05:15)
[2017-03-04] MEDS ORDERED: MORPHINE PRES-FREE INJ 10 MG/10 ML VIAL (J2274) As Ordered ONE (05:38)
[2017-03-04 05:41] LABS: MEAN CORPUSCULAR HEMOGLOBIN 29.8 pg (27.0-33.0); MEAN CORPUSCULAR HGB CONC 33.4 g/dl (32.0-36.5); MEAN CORPUSCULAR VOLUME 89.4 fl (80.0-96.0); RED CELL DISTRIBUTION WIDTH 13.1 % (11.5-14.5); WHITE BLOOD COUNT 14.8 K/mm3 (4.0-10.0)
[2017-03-04] MEDS ORDERED: METOCLOPRAMIDE INJ 10MG/2ML VIAL (J2765) IV PRN ×2 (06:00→07:45)
[2017-03-04] MEDS ORDERED: NALBUPHINE HCL 10 MG/ML AMP (J2300) IV PRN (06:00)
[2017-03-04] MEDS ORDERED: ONDANSETRON 4MG/2ML VIAL (J2405) IV PRN ×2 (06:00→07:45)
[2017-03-04] MEDS ORDERED: NALOXONE INJ 0.4 MG/1 ML VIAL (J2310) IV PRN ×2 (06:00)
[2017-03-04] MEDS ORDERED: OXYTOCIN INJ 10 UNITS/ML VIAL (J2590) As Ordered ONE (06:25)
[2017-03-04] MEDS ORDERED: ePHEDrine SULFATE 25 MG/5 ML(5MG/ML) SYRINGE As Ordered ONE (06:25)
[2017-03-04] MEDS ORDERED: PHENYLephrine HCL 500 MCG/5 ML (100MCG/ML) SYRINGE (J2370) As Ordered ONE (06:25)
[2017-03-04] MEDS ORDERED: ONDANSETRON 4MG/2ML VIAL (J2405) As Ordered ONE (06:26)
[2017-03-04] MEDS ORDERED: KETOROLAC 60 MG/2 ML VIAL (J1885) As Ordered ONE (06:26)
--- NOTE | 2017-03-04 07:19 | HPE ---
DATE OF ADMISSION: 03/04/2017 Debbie is a 21-year-old, 2, para 0-1-0-1, at 32-1/7 weeks gestation with an expected date of confinement (EDC) of 04/28/2017 based on first trimester ultrasound. She presents to labor and delivery today with a report of stabbing cramping that started at approximately 0030. She does report positive bloody show. Denies leakage of fluid, fetus has been active. care initiated at [facility] in the first trimester. course complicated by a history of a delivery at 27 weeks following premature rupture of membranes (PPROM) at [facility], prior section and asthma with rare inhaler use. Recently last week she was seen on labor and delivery for contractions and advanced dilation and was transferred to [facility]. She is beta complete. She was discharged from [place] yesterday and desires to have repeat section. OBSTETRICAL HISTORY: April 2014 at 27-2/7 weeks, she had a delivery for a 2 pound 1 ounce female following PPROM. OB LABS: Blood type is O positive, antibody screen negative, rubella immune, VDRL nonreactive. Urine culture no growth. Hepatitis B surface antigen negative. HIV negative. Hepatitis C nonreactive. Gonorrhea and chlamydia negative. Diabetic screening 98. Her GBS is unknown. PAST MEDICAL HISTORY: Asthma. SURGERIES: section, tonsillectomy and wisdom teeth. FAMILY HISTORY: Noncontributory. SOCIAL HISTORY: She is . She is a nonsmoker. Denies alcohol and drug use. No history of any sexually transmitted infections. Denies history of abuse physical, sexual and emotional. ALLERGIES: - ALMONDS - BACITRACIN - NEOMYCIN - POLYMYXIN B - LATEX CURRENT MEDICATIONS: - Lara injections - ferrous sulfate - Reglan - vitamin - Zoloft OBJECTIVE: Temperature has not been taken, pulse is 115, blood pressure 111/67. heart rate 150 with moderate variability, positive accelerations, no decelerations observed. She is rosemary every 1-3 minutes, they are lasting approximately 30 seconds. Sterile Vaginal Exam: 8-9 cm dilated, 100% effaced, -3 station, with bulging bag of water. Cephalic presentation confirmed with bedside ultrasound. Estimated weight 3-1/2 pounds. ASSESSMENT: 1. Intrauterine at 32-1/7 weeks gestation. 2. heart rate category one. 3. labor. 4. Advanced dilation. PLAN: Admit the patient to labor and delivery. Preoperative orders have been ordered. Consult Dr. Parson for surgical delivery. Neonatology and anesthesiology notified. ANJELICA
[2017-03-04] MEDS ORDERED: MOM 30ML SUSPENSION UDC PO PRN (07:30)
[2017-03-04] MEDS ORDERED: PERCOCET 5MG/325MG TAB PO PRN ×2 (07:30→07:45)
[2017-03-04] MEDS ORDERED: OXYTOCIN 30 UNITS IN 0.9% NaCl 500ML IV BAG (J2590) As Ordered ONE (07:30)
[2017-03-04] MEDS ORDERED: RHOGAM 300 MCG (1500 IU) INJ (J2790) IM SCH (07:30)
[2017-03-04] MEDS ORDERED: fentaNYL 100 MCG/2 ML INJECTION (J3010) IV PRN (07:45)
[2017-03-04] MEDS ORDERED: OXYTOCIN DRIP 30 UNITS in APPROPRIATE DILUENT 1 EA IV ONE (08:00)
[2017-03-04] MEDS: PRENATAL VITAMIN TAB PO SCH (09:00)
[2017-03-04] MEDS: LR 1,000 ML IV SCH ×3 (09:50→23:17)
[2017-03-04] MEDS: KETOROLAC 30 MG/ML VIAL (J1885) IV SCH ×2 (12:54→18:43)
[2017-03-05] MEDS: KETOROLAC 30 MG/ML VIAL (J1885) IV SCH ×2 (00:31→06:07)
[2017-03-05 01:25] VITALS: BP 111/57
[2017-03-05 05:31] VITALS: BP 106/56
--- NOTE | 2017-03-05 06:17 | RO ---
DATE OF PROCEDURE: 03/04/2017 PREPROCEDURE DIAGNOSES: 1. Active labor at 32 plus weeks. 2. History of a prior section. POSTPROCEDURE DIAGNOSES: 1. Active labor at 32 plus weeks. 2. History of a prior section. PROCEDURE: Elective repeat lower transverse section. SURGEON: Dr. Talita Parson AUTOMOTIVE PARTS COUNTER PERSON: Joanna Gloria CNM ANESTHESIA: Spinal. ESTIMATED BLOOD LOSS: 400 mL. INTRAVENOUS FLUIDS: 2 liters of lactated ringer solution. URINE OUTPUT: 400 mL. PREOPERATIVE ANTIBIOTICS: 2 grams of Ancef. OPERATIVE FINDINGS: Live born male , Apgars 8 and 9, weight 1906 grams. INDICATION FOR PROCEDURE: This patient is a 21-year-old, 2, para 0-1-0-1, that presented at 32 weeks and 1 day with complaints of cramping that started approximately at 1230 this morning. This is a patient with a history of a prior delivery at 27 weeks. She has been managed with weekly [place] injections and recently was transferred to [facility] for labor. She is status post steroids complete for lung maturity. She remained hospitalized for over a week and remained stable and was recently discharged home. On presentation, she was approximately 8 cm dilated with a bulging bag of membranes. She was thoroughly counseled throughout her as well as at the time of presentation regarding her desires for mode of delivery. We discussed trial of labor after section as well as an elective repeat lower transverse section. After consultation, the patient desires to proceed with elective repeat lower transverse section. DESCRIPTION OF PROCEDURE: After informed consent was obtained and written content was reviewed, the patient was brought to the operating room where a spinal anesthesia was placed. She was then placed in lithotomy position with left lateral tilt. A Shah catheter was placed and set to gravity. She was then prepped and draped in a normal sterile fashion. A time out in the operating room was then performed identifying the patient, the procedure to be performed, as well as drug allergies. Anesthesia was then tested and deemed to be adequate. A Pfannenstiel skin incision was made along the previous skin incision and this was carried down to the underlying rectus fascia. The rectus fascia was dissected off the underlying rectus muscles both superiorly and inferiorly. The rectus muscles were in the midline. The peritoneum was then entered sharply. The vesicouterine peritoneum was then identified, was tented and excised creating a bladder flap. The bladder blade was then placed retracting back the bladder. A curvilinear incision was then made in the lower uterine segment. Amniotomy was then performed productive of clear fluid. The head was brought to the level of the incision atraumatically and delivered, followed by delivery of shoulders and corpus. The cord was clamped times two and was cut. The was taken over to the warmer with a good cry where Dr. Snider, fur dry cleaner hand, waited secondary to infant's prematurity. Cord blood was then obtained. The placenta was then drained and delivered grossly intact. The uterus then exteriorized and cleared of all clots and debris. The uterine incision was then closed in two layers using #0 Vicryl, the first layer in a running locking fashion, followed by a second layer for imbrication in a running nonlocking fashion. Several [id number] stitches were placed for hemostasis. The uterus was then returned in the patient's abdomen, was inspected and noted to be hemostatic. The anterior peritoneum was then reapproximated with #3-0 Vicryl. The fascia was then closed using #0 Vicryl in a running nonlocking fashion. The subcutaneous tissue was then reapproximated using #3-0 Vicryl and the skin was then closed with #4-0 Monocryl in a subcuticular fashion. The incision was then cleaned and dried. Mastisol was applied above and below the incision. Steri-Strips were applied over the incision. The incision was then dressed. The patient was then taken to recovery in stable condition. Counts were correct. The couple has decided to name their son, Saud. ZAIRARamy
[2017-03-05 07:15] LABS: MEAN CORPUSCULAR HEMOGLOBIN 31.3 pg (27.0-33.0); MEAN CORPUSCULAR HGB CONC 35.8 g/dl (32.0-36.5); MEAN CORPUSCULAR VOLUME 87.4 fl (80.0-96.0); RED CELL DISTRIBUTION WIDTH 12.8 % (11.5-14.5); WHITE BLOOD COUNT 14.2 K/mm3 (4.0-10.0)
[2017-03-05] MEDS: LR 1,000 ML IV SCH ×2 (07:17→15:17)
[2017-03-05] MEDS: PRENATAL VITAMIN TAB PO SCH (09:00)
[2017-03-05 10:31] VITALS: BP 115/56
[2017-03-05 14:14] VITALS: BP 106/55
[2017-03-05] MEDS: PERCOCET 5MG/325MG TAB PO PRN ×2 (14:14→19:25)
[2017-03-05] MEDS: IBUPROFEN 800 MG TAB PO SCH ×2 (15:28→23:12)
[2017-03-05 18:00] VITALS: BP 114/62
[2017-03-05 22:04] VITALS: BP_SYST 104; BP_SYST 95; BP_DIAS 46; BP_DIAS 53
[2017-03-06 02:00] VITALS: BP_SYST 110; BP_SYST 96; BP_DIAS 54; BP_DIAS 62
[2017-03-06 05:35] VITALS: BP_SYST 102; BP_SYST 92; BP_DIAS 46; BP_DIAS 51
[2017-03-06] MEDS: PRENATAL VITAMIN TAB PO SCH (09:06)
[2017-03-06] MEDS: IBUPROFEN 800 MG TAB PO SCH ×2 (09:07→17:26)
[2017-03-06 10:00] VITALS: BP 99/52
[2017-03-06 13:59] VITALS: BP 133/68
[2017-03-06 18:08] VITALS: BP 124/68
--- NOTE | 2017-03-06 20:33 | DSES ---
DATE OF ADMISSION: 03/04/2017 DATE OF DISCHARGE: 03/06/2017 DISCHARGE DIAGNOSIS: labor with a history of prior section status post elective repeat section. DISCHARGE CONDITION: Stable. PROCEDURES PERFORMED WHILE IN HOSPITAL: 1. Spinal anesthesia. 2. section. HISTORY AND HOSPITAL COURSE: Mrs. Akbar is a 21-year-old 2, para 0-1-0-1 who presents at 32+ weeks in active labor. Her cervical exam was significant for 8 cm dilation, completely effaced, bulging bag of fluid. Her history was significant for previous delivery at 27 weeks. She underwent a section for that delivery secondary to breech presentation. This current was complicated by a labor. She was recently admitted and completed a course of steroids for lung maturity. She had remained stable for several days and was discharged home. She had previously been counseled for mode of delivery as well as on day of presentation to include elective repeat low transverse section or trial of labor after section. After consultation, she opted for elective repeat low transverse section which was uncomplicated. Mrs. Akbar did well postoperatively. She did spike a fever of 101 on her postoperative day #1, remained afebrile for greater than 24 hours, and was discharged home in stable condition. PHYSICAL EXAMINATION: On day of discharge: Her vital signs are stable. She is afebrile. General appearance is well-appearing, in no acute distress. Her abdomen is soft, nontender, nondistended. Her fundus is firm below umbilicus. Her incision is clean, dry, and intact, well-approximated, and nonerythematous. Steri-strips are in place. Extremities are negative for calf tenderness. DISCHARGE MEDICATIONS: - ibuprofen - Percocet DISCHARGE INSTRUCTIONS: 1. She was instructed to remain on pelvic rest for 6 weeks. 2. Report severe pain, heavy vaginal bleeding, fever, or incisional issues. 3. She will followup in 2 weeks for incision check.
[2017-03-06] MEDS ORDERED: ADVI200T PO (20:45)
[2017-03-06] MEDS ORDERED: OXYC1TAB23 PO (20:45)
[2017-03-06] MEDS ORDERED: MILKSUS PO (20:45)
== END 2017-03-06 21:14 | disposition home or self-care (01) | DRG 540 ==
LOC: M LDO 04:27 → M LDI 05:04 → M OBS 08:44
PROVIDERS: ADMIT Advanced Practice Midwife; ATTEND Obstetrics & Gynecology
PROC: 10D00Z1 Extraction of Products of Conception, Low, Open Approach (ICD-10-PCS; principal; 2017-03-04 06:15)
DX: O60.14X0 Preterm labor third trimester with preterm delivery third trimester, not applicable or unspecified (principal); Z3A.32 32 weeks gestation of pregnancy; O34.211 Maternal care for low transverse scar from previous cesarean delivery; O86.4 Pyrexia of unknown origin following delivery; Z37.0 Single live birth

== ENCOUNTER 2017-03-31 21:00 | Emergency (ER) | payer OTHER ==
[~2017-03-31] VITALS: Ht 160 cm; Wt 63.0 kg
[2017-03-31 21:00] VITALS: BP 120/66
[~2017-03-31 21:00] MED LIST changes: +ADVI200T PO; +FERR325T3 PO; +METR500T10 PO; +MILKSUS PO; +OXYC1TAB23 PO
[2017-03-31] MEDS ORDERED: NAPR500T PO (22:43)
[2017-03-31] MEDS ORDERED: NAPROXEN 250 MG TAB PO ONE (22:45)
== END 2017-03-31 22:55 | disposition home or self-care (01) ==
LOC: M ED 22:02
DX: S93.601A Unspecified sprain of right foot, initial encounter (principal); W10.9XXA Fall (on) (from) unspecified stairs and steps, initial encounter; Y92.019 Unspecified place in single-family (private) house as the place of occurrence of the external cause; Z88.1 Allergy status to other antibiotic agents; Z88.8 Allergy status to other drugs, medicaments and biological substances; Z91.040 Latex allergy status; Z91.018 Allergy to other foods; Z91.09 Other allergy status, other than to drugs and biological substances; Z79.899 Other long term (current) drug therapy

== ENCOUNTER 2017-04-06 21:04 | Emergency (ER) | payer OTHER ==
[~2017-04-06] VITALS: Ht 160 cm; Wt 63.0 kg
[~2017-04-06 21:04] MED LIST changes: +NAPR500T PO
[2017-04-06 21:05] VITALS: BP 122/60
--- NOTE | 2017-04-07 08:08 | REP ---
RIGHT FOOT, FOUR VIEWS: HISTORY: Pain. There is no acute fracture or dislocation. The joint spaces are normal in appearance. IMPRESSION: There is no acute fracture or dislocation. Signed by Minh Pittman MD 04/07/2017 09:01 A
== END 2017-04-07 00:06 | disposition home or self-care (01) ==
LOC: M ED 22:05
DX: S90.31XA Contusion of right foot, initial encounter (principal); W10.8XXD Fall (on) (from) other stairs and steps, subsequent encounter; Y92.009 Unspecified place in unspecified non-institutional (private) residence as the place of occurrence of the external cause; J45.909 Unspecified asthma, uncomplicated; D64.9 Anemia, unspecified; Z79.1 Long term (current) use of non-steroidal anti-inflammatories (NSAID); Z88.3 Allergy status to other anti-infective agents; Z91.040 Latex allergy status; Z91.018 Allergy to other foods; Z91.09 Other allergy status, other than to drugs and biological substances

== ENCOUNTER 2017-04-29 17:26 | Emergency (ER) | payer OTHER ==
[~2017-04-29] VITALS: Ht 162.6 cm; Wt 64.7 kg
[~2017-04-29 17:26] MED LIST changes: +METR1TAB66 PO; -METR500T10 PO
[2017-04-29 17:28] VITALS: BP 121/68
[2017-04-29] MEDS ORDERED: Birth control pill PO (17:46)
[2017-04-29] MEDS ORDERED: AMOX500C PO (17:58)
[2017-04-29] MEDS ORDERED: ACETAMINOPHEN TAB 650MG DOSE (2X325MG) PO ONE (18:00)
[2017-04-29] MEDS ORDERED: AMOXICILLIN 500 MG CAP PO ONE (18:00)
[2017-08-28] MEDS ORDERED: MECL-68 PO (19:26)
[2017-08-28] MEDS ORDERED: TRAZ50TA11 PO (19:26)
[2017-08-29] MEDS ORDERED: PERC5TAB12 PO (02:52)
== END 2017-04-29 18:08 | disposition home or self-care (01) ==
LOC: M ED 18:00
DX: J02.0 Streptococcal pharyngitis (principal); F99 Mental disorder, not otherwise specified; Z79.899 Other long term (current) drug therapy; Z91.018 Allergy to other foods; Z88.3 Allergy status to other anti-infective agents; Z91.09 Other allergy status, other than to drugs and biological substances; Z91.040 Latex allergy status

== ENCOUNTER 2017-06-01 21:54 | Emergency (ER) | payer OTHER ==
[~2017-06-01] VITALS: Ht 160 cm; Wt 65.5 kg
[~2017-06-01 21:54] MED LIST changes: +AMOX500C PO; +Birth control pill PO
[2017-06-02] MEDS ORDERED: KETOROLAC 60 MG/2 ML VIAL (J1885) IM ONE (02:00)
[2017-06-02] MEDS ORDERED: KETO10TAB PO (03:39)
[2017-06-02 03:50] VITALS: BP 124/69
--- NOTE | 2017-06-02 08:19 | REP ---
REASON: Pain. No prior right shoulder for comparison. FINDINGS: Three views of the right shoulder were performed. The acromioclavicular and glenohumeral relationships are within normal limits. There is no acute fracture or destructive osseous lesion. Signed by Bogdan Varela DO 06/02/2017 10:37 A
[2017-08-28] MEDS ORDERED: MECL-68 PO (19:26)
[2017-08-28] MEDS ORDERED: TRAZ50TA11 PO (19:26)
[2017-08-29] MEDS ORDERED: PERC5TAB12 PO (02:52)
== END 2017-06-02 03:51 | disposition home or self-care (01) ==
LOC: M ED 21:54
DX: M75.81 Other shoulder lesions, right shoulder (principal); J45.909 Unspecified asthma, uncomplicated; D64.9 Anemia, unspecified; Z79.899 Other long term (current) drug therapy; Z88.3 Allergy status to other anti-infective agents; Z91.040 Latex allergy status; Z91.09 Other allergy status, other than to drugs and biological substances; Z91.018 Allergy to other foods
CPT/HCPCS: 73030; 96372; 99283; J1885

== ENCOUNTER → 2017-06-19 | Outpatient (REF) | payer OTHER ==
[~2017-06-19] MED LIST changes: +CETI10TA; +KETO10TAB PO; +MECL-68 PO; +PERC5TAB12 PO; +TRAZ50TA11 PO
[2017-06-19 14:31] LABS: CONTROL LINE HCG INT CTR LINE PRESENT
[2017-06-19 14:42] LABS: MEAN CORPUSCULAR HEMOGLOBIN 28.1 pg (27.0-33.0); MEAN CORPUSCULAR HGB CONC 33.4 g/dl (32.0-36.5); RED CELL DISTRIBUTION WIDTH 14.6 % (11.5-14.5); WHITE BLOOD COUNT 4.9 K/mm3 (4.0-10.0)
[2017-06-19 15:09] LABS: ALBUMIN 3.8 GM/DL (3.2-5.2); ALBUMIN/GLOBULIN RATIO 1.09 (1.00-1.93); ALKALINE PHOSPHATASE 61 U/L (45-117); ALT/SGPT 26 U/L (12-78); ANION GAP 7 MEQ/L (8-16); AST/SGOT 20 U/L (15-37); BILIRUBIN,TOTAL 0.3 MG/DL (0.2-1.0); BLOOD UREA NITROGEN 11 MG/DL (7-18); CALCIUM LEVEL 8.3 MG/DL (8.5-10.1); CARBON DIOXIDE LEVEL 27 MEQ/L (21-32); CHLORIDE LEVEL 106 MEQ/L (98-107); CREATININE FOR GFR 0.53 MG/DL (0.55-1.02); GLOMERULAR FILTRATION RATE > 60.0 (>60); GLUCOSE, FASTING 78 MG/DL (70-105); POTASSIUM SERUM 3.9 MEQ/L (3.5-5.1); SODIUM LEVEL 140 MEQ/L (136-145); TOTAL PROTEIN 7.3 GM/DL (6.4-8.2)
== END ==
LOC: M LAB REF 13:22
PROVIDERS: ATTEND Nurse Practitioner Family
DX: R63.1 Polydipsia (principal); R42 Dizziness and giddiness

== ENCOUNTER → 2017-07-05 | Outpatient (CLI) | payer OTHER ==
--- NOTE | 2017-07-07 09:28 | ECGEPIP ---
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 Within normal limits for age. Electronically Signed On 07-07-2017 9:27:51 EDT by Luke Davila
== END ==
LOC: M EKG 17:00
PROVIDERS: ATTEND Nurse Practitioner Family
DX: R42 Dizziness and giddiness (principal)

== ENCOUNTER → 2017-07-26 | Outpatient (REF) | payer OTHER | LOC: M LAB REF 13:27 | PROVIDERS: ATTEND Obstetrics & Gynecology | DX: Z12.4 Encounter for screening for malignant neoplasm of cervix (principal) ==

== ENCOUNTER 2017-08-04 19:53 | Emergency (ER) | payer OTHER ==
[~2017-08-04] VITALS: Ht 160 cm; Wt 70.0 kg
[~2017-08-04 19:53] MED LIST changes: -CETI10TA; -MECL-68 PO; -PERC5TAB12 PO; -TRAZ50TA11 PO
[2017-08-04 20:08] VITALS: BP 117/67
[2017-08-04] MEDS ORDERED: CETI10TA (20:12)
[2017-08-04] MEDS ORDERED: NAPROXEN 250 MG TAB PO ONE (20:30)
--- NOTE | 2017-08-05 09:17 | REP ---
RIGHT SHOULDER, THREE VIEWS: HISTORY: Pain. COMPARISON: 06/02/2017. There is no acute fracture or dislocation. The joint spaces are normal in appearance. IMPRESSION: There is no acute fracture or dislocation. Signed by Minh Pittman MD 08/05/2017 09:20 A
[2017-08-28] MEDS ORDERED: TRAZ50TA11 PO (19:26)
[2017-08-28] MEDS ORDERED: MECL-68 PO (19:26)
[2017-08-29] MEDS ORDERED: PERC5TAB12 PO (02:52)
== END 2017-08-04 21:19 | disposition home or self-care (01) ==
LOC: M ED 19:53
DX: S46.011A Strain of muscle(s) and tendon(s) of the rotator cuff of right shoulder, initial encounter (principal); W01.198A Fall on same level from slipping, tripping and stumbling with subsequent striking against other object, initial encounter; Y92.019 Unspecified place in single-family (private) house as the place of occurrence of the external cause; Y93.01 Activity, walking, marching and hiking; Y99.8 Other external cause status; J45.909 Unspecified asthma, uncomplicated; D64.9 Anemia, unspecified; Z79.899 Other long term (current) drug therapy; Z91.018 Allergy to other foods; Z88.1 Allergy status to other antibiotic agents; Z88.8 Allergy status to other drugs, medicaments and biological substances; Z91.040 Latex allergy status; Z91.048 Other nonmedicinal substance allergy status

== ENCOUNTER → 2017-09-18 | Outpatient (CLI) | payer OTHER ==
[~2017-09-18] MED LIST changes: +CETI10TA; +CYCL10TA PO; +IBUP-1022 PO; +MECL-68 PO; +PERC5TAB12 PO; +TRAZ50TA11 PO
--- NOTE | 2017-09-18 12:02 | REP ---
ULTRASOUND RIGHT UPPER QUADRANT: Real-time sonographic evaluation of the right upper quadrant performed and correlated with the CT of 08/29/2017, which showed a hypodense nodule in the liver. The liver demonstrates a cyst in the right lobe superiorly measuring 9 mm in diameter corresponding to the CT abnormality. Gallbladder demonstrates no evidence of intraluminal sludge or calculi, wall thickening or pericholecystic fluid. There is no intrahepatic or extrahepatic biliary dilatation, common bile duct measuring 3 mm in diameter. The pancreas is unremarkable with no mass. Right kidney demonstrates no hydronephrosis or nephrolithiasis with normal size at 10.2 cm in length. IMPRESSION: Cyst in the right lobe of the liver corresponds to the abnormality on the recent CT exam of 08/29/2017. Signed by Devan Bean MD 09/18/2017 01:30 P
== END ==
LOC: M RAD 09:14
PROVIDERS: ATTEND Nurse Practitioner Adult Health
DX: R93.5 Abnormal findings on diagnostic imaging of other abdominal regions, including retroperitoneum (principal)

== ENCOUNTER 2017-09-21 19:38 | Emergency (ER) | payer OTHER ==
[~2017-09-21] VITALS: Ht 160 cm; Wt 73.6 kg
[~2017-09-21 19:38] MED LIST changes: -CYCL10TA PO; -IBUP-1022 PO
[2017-09-21 19:44] VITALS: BP 127/69
[2017-09-21] MEDS ORDERED: CYCL10TA PO (19:49)
[2017-09-21] MEDS ORDERED: IBUP-1022 PO (22:34)
[2017-09-21] MEDS ORDERED: IBUPROFEN 800 MG TAB PO ONE (22:45)
--- NOTE | 2017-09-22 14:58 | REP ---
RIGHT SHOULDER, THREE VIEWS: There is no evidence of an acute fracture, dislocation or intrinsic bone disease. IMPRESSION: No fracture or dislocation. Signed by Devan Bean MD 09/22/2017 04:19 P
--- NOTE | 2017-09-22 14:58 | REP ---
RIGHT CLAVICLE: Two views of the right clavicle are performed and demonstrate no fracture, dislocation, or intrinsic bone disease. IMPRESSION: No acute fracture or dislocation. Signed by Devan Bean MD 09/22/2017 04:19 P
== END 2017-09-21 22:55 | disposition home or self-care (01) ==
LOC: M ED 19:38
DX: S43.51XA Sprain of right acromioclavicular joint, initial encounter (principal); W19.XXXA Unspecified fall, initial encounter; Y92.009 Unspecified place in unspecified non-institutional (private) residence as the place of occurrence of the external cause; Y93.89 Activity, other specified; Y99.8 Other external cause status; J45.909 Unspecified asthma, uncomplicated; D64.9 Anemia, unspecified; Z79.899 Other long term (current) drug therapy; Z91.018 Allergy to other foods; Z88.1 Allergy status to other antibiotic agents; Z91.040 Latex allergy status; Z91.048 Other nonmedicinal substance allergy status

== ENCOUNTER → 2017-10-11 | Outpatient (CLI) | payer OTHER ==
[~2017-10-11] MED LIST changes: +CYCL10TA PO; +IBUP-1022 PO
--- NOTE | 2017-10-11 21:43 | REP ---
PELVIC ULTRASOUND: CLINICAL: Pelvic pain and history of ovarian cyst. TECHNIQUE: Transabdominal pelvic ultrasound followed by transvaginal examination for better evaluation of the endometrium and adnexa with color evaluation. FINDINGS: The bladder is normal and measures 7.8 x 6.1 x 4.9 cm. Retroverted uterus measures 7.5 x 4.7 x 6.2 cm. The endometrial complex measures 3.1 mm in thickness. No discrete uterine or endometrial abnormalities are appreciated. Bilateral ovaries are normal in appearance and without evidence for cystic abnormality. The right ovary measures 3.1 x 2.1 x 2.2 cm. Left ovary measures 3.3 x 3.1 x 2.4 cm. Trace pelvic free fluid is nonspecific and likely physiologic. No adnexal mass lesion. IMPRESSION: Essentially normal pelvic ultrasound. Signed by Juan Alberto Hobson MD 10/12/2017 07:34 A
== END ==
LOC: M RAD 15:51
PROVIDERS: ATTEND Obstetrics & Gynecology
DX: N83.201 Unspecified ovarian cyst, right side (principal)

== ENCOUNTER 2017-10-12 11:45 | Outpatient (RCR) | payer OTHER | END 2017-11-04 | LOC: M PT 11:45 | DX: Z51.89 Encounter for other specified aftercare (principal); M25.511 Pain in right shoulder ==

== ENCOUNTER 2017-11-08 17:23 | Emergency (ER) | payer OTHER ==
[2017-11-08] MEDS: ACETAMINOPHEN 325 MG TAB PO (18:27)
[2017-11-08] MEDS: diphenhydrAMINE 25 MG CAP PO (18:27)
== END 2017-11-08 18:34 | disposition home or self-care (01) ==
LOC: M ED 17:23
DX: L23.9 Allergic contact dermatitis, unspecified cause (principal); R51 Headache; Z79.899 Other long term (current) drug therapy; Z91.018 Allergy to other foods; Z88.1 Allergy status to other antibiotic agents; Z91.040 Latex allergy status; Z91.048 Other nonmedicinal substance allergy status; J45.909 Unspecified asthma, uncomplicated; Z98.890 Other specified postprocedural states; Z86.2 Personal history of diseases of the blood and blood-forming organs and certain disorders involving the immune mechanism
CPT/HCPCS: 99283

== ENCOUNTER → 2017-11-12 | Outpatient (REF) | payer OTHER ==
[2017-11-12 18:18] LABS: CONTROL LINE HCG INT CTR LINE PRESENT; HCG, SERUM QUALITATIVE POSITIVE (NEGATIVE)
[2017-11-12 18:51] LABS: IRON (FE) 76 UG/DL (50-170)
[2017-11-12 18:51] LABS: HCG, SERUM QUANTITATIVE 117 MIU/ML
[2017-11-12 19:07] LABS: BASO % 0.4 % (0.0-1.0); EOS # 0.1 10^3/uL (0.0-0.50); HEMOGLOBIN 13.7 g/dl (12.0-16.0); IMMATURE GRANULOCYTE % 0.3 % (0-0); LYMPH # 2.3 10^3/uL (1.5-6.5); LYMPH % 25.6 % (24.0-44.0); MEAN CORPUSCULAR HEMOGLOBIN 29.7 pg (27.0-33.0); MEAN CORPUSCULAR HGB CONC 34.3 g/dl (32.0-36.5); MEAN CORPUSCULAR VOLUME 86.6 fl (80.0-96.0); MONO # 0.9 10^3/uL (0.0-0.8); MONO % 9.4 % (0.0-5.0); NEUTROPHILS # 5.7 10^3/uL (1.8-7.7); NEUTROPHILS % 63.3 % (36.0-66.0); PLATELET COUNT, AUTOMATED 321 10^3/uL (150-450); RED BLOOD COUNT 4.62 10^6/uL (4.00-5.40); WHITE BLOOD COUNT 9.1 10^3/uL (4.0-10.0)
== END ==
LOC: M LAB REF 17:18
DX: N92.5 Other specified irregular menstruation (principal)
CPT/HCPCS: 83540

== ENCOUNTER 2017-11-13 14:16 | Emergency (ER) | payer OTHER | END 2017-11-13 16:30 | disposition home or self-care (01) | LOC: M ED 14:16 | DX: J02.8 Acute pharyngitis due to other specified organisms (principal); J45.909 Unspecified asthma, uncomplicated; Z98.890 Other specified postprocedural states; Z88.1 Allergy status to other antibiotic agents; Z91.040 Latex allergy status; Z91.02 Food additives allergy status; Z91.048 Other nonmedicinal substance allergy status | CPT/HCPCS: 87880 ==

== ENCOUNTER 2017-12-03 18:04 | Emergency (ER) | payer OTHER ==
[2017-12-03] MEDS: METOCLOPRAMIDE INJ 10MG/2ML VIAL (J2765) IV (21:15)
[2017-12-03] MEDS: NS 1,000 ML IV (21:15)
[2017-12-03 21:35] LABS: BASO % 0.5 % (0.0-1.0); EOS # 0.1 10^3/uL (0.0-0.50); EOS % 0.8 % (0.0-3.0); HEMATOCRIT 37.7 % (36.0-47.0); HEMOGLOBIN 13.1 g/dl (12.0-16.0); IMMATURE GRANULOCYTE % 0.4 % (0-0); LYMPH % 35.6 % (24.0-44.0); MEAN CORPUSCULAR HEMOGLOBIN 29.4 pg (27.0-33.0); MEAN CORPUSCULAR HGB CONC 34.7 g/dl (32.0-36.5); MEAN CORPUSCULAR VOLUME 84.5 fl (80.0-96.0); MONO # 0.6 10^3/uL (0.0-0.8); MONO % 7.5 % (0.0-5.0); NEUTROPHILS # 4.7 10^3/uL (1.8-7.7); NEUTROPHILS % 55.2 % (36.0-66.0); PLATELET COUNT, AUTOMATED 420 10^3/uL (150-450); RED BLOOD COUNT 4.46 10^6/uL (4.00-5.40); RED CELL DISTRIBUTION WIDTH 12.3 % (11.5-14.5); WHITE BLOOD COUNT 8.4 10^3/uL (4.0-10.0)
[2017-12-03 21:45] LABS: AMORPHOUS SEDIMENT RFX SMALL (NEGATIVE); KETONE, URINE AUTO RFX TRACE mg/dL (NEGATIVE); LEUKOCYTE ESTERASE UR AUTO RFX NEGATIVE (NEGATIVE); MUCUS, URINE RFX SMALL (NEGATIVE); NITRITE, URINE AUTO RFX NEGATIVE (NEGATIVE); RBC, URINE AUTO RFX 1 /HPF (0-3); SPECIFIC GRAVITY UR AUTO RFX 1.025 (1.002-1.035); SQUAM EPITHELIAL CELL UR AURFX 0 /HPF (0-6); WBC, URINE AUTO RFX 3 /HPF (0-3)
[2017-12-03 22:19] LABS: ANION GAP 7 MEQ/L (8-16); BLOOD UREA NITROGEN 9 MG/DL (7-18); CALCIUM LEVEL 9.1 MG/DL (8.5-10.1); CARBON DIOXIDE LEVEL 27 MEQ/L (21-32); CHLORIDE LEVEL 103 MEQ/L (98-107); CREATININE FOR GFR 0.42 MG/DL (0.55-1.30); GLOMERULAR FILTRATION RATE > 60.0 (>60); GLUCOSE, FASTING 83 MG/DL (70-100); HCG, SERUM QUANTITATIVE 84792 MIU/ML; POTASSIUM SERUM 3.7 MEQ/L (3.5-5.1); SODIUM LEVEL 137 MEQ/L (136-145)
== END 2017-12-03 23:46 | disposition home or self-care (01) ==
LOC: M ED 18:04
DX: O21.9 Vomiting of pregnancy, unspecified (principal); Z3A.00 Weeks of gestation of pregnancy not specified; O99.511 Diseases of the respiratory system complicating pregnancy, first trimester; J45.909 Unspecified asthma, uncomplicated; O99.341 Other mental disorders complicating pregnancy, first trimester; F41.9 Anxiety disorder, unspecified; F33.9 Major depressive disorder, recurrent, unspecified; Z79.899 Other long term (current) drug therapy; Z91.018 Allergy to other foods; Z88.8 Allergy status to other drugs, medicaments and biological substances; Z88.1 Allergy status to other antibiotic agents; Z91.040 Latex allergy status; Z91.048 Other nonmedicinal substance allergy status; Z98.890 Other specified postprocedural states; Z86.2 Personal history of diseases of the blood and blood-forming organs and certain disorders involving the immune mechanism; Z87.820 Personal history of traumatic brain injury
CPT/HCPCS: J2765

== ENCOUNTER → 2017-12-14 | Outpatient (CLI) | payer OTHER ==
[2017-12-14 13:00] LABS: BASO % 0.4 % (0.0-1.0); EOS # 0.2 10^3/uL (0.0-0.50); EOS % 2.9 % (0.0-3.0); HEMATOCRIT 35.6 % (36.0-47.0); HEMOGLOBIN 12.3 g/dl (12.0-16.0); IMMATURE GRANULOCYTE % 0.4 % (0-3.0); LYMPH # 2.2 10^3/uL (1.5-6.5); LYMPH % 30.9 % (24.0-44.0); MEAN CORPUSCULAR HEMOGLOBIN 29.5 pg (27.0-33.0); MEAN CORPUSCULAR HGB CONC 34.6 g/dl (32.0-36.5); MEAN CORPUSCULAR VOLUME 85.4 fl (80.0-96.0); MONO # 0.6 10^3/uL (0.0-0.8); NEUTROPHILS % 56.4 % (36.0-66.0); PLATELET COUNT, AUTOMATED 267 10^3/uL (150-450); RED BLOOD COUNT 4.17 10^6/uL (4.00-5.40); RED CELL DISTRIBUTION WIDTH 13.1 % (11.5-14.5); WHITE BLOOD COUNT 7.1 10^3/uL (4.0-10.0)
[2017-12-14 13:22] LABS: RUBELLA IgG QUALITATIVE IMMUNE (IMMUNE)
[2017-12-14 13:23] LABS: HEPATITIS B SURFACE ANTIGEN NEGATIVE (NEGATIVE)
[2017-12-14 15:05] LABS: HIV 1&2 SCREEN CENTAUR NEGATIVE (NEGATIVE)
== END ==
LOC: M RAD 10:06
DX: Z34.80 Encounter for supervision of other normal pregnancy, unspecified trimester (principal)
CPT/HCPCS: 76801

== ENCOUNTER → 2017-12-22 | Outpatient (CLI) | payer OTHER ==
[2017-12-22 12:15] LABS: APPEARANCE, URINE CLEAR (CLEAR); BACTERIA, URINE AUTO 1+ (NEGATIVE); BILIRUBIN, URINE AUTO NEGATIVE (NEGATIVE); BLOOD, URINE BLOOD NEGATIVE (NEGATIVE); COLOR, URINE YELLOW (YELLOW); GLUCOSE, URINE (UA) AUTO NEGATIVE (NEGATIVE); KETONE, URINE AUTO NEGATIVE (NEGATIVE); LEUKOCYTE ESTERASE, URINE AUTO 2+ (NEGATIVE); NITRITE, URINE AUTO NEGATIVE (NEGATIVE); PROTEIN, URINE AUTO NEGATIVE (NEGATIVE); RBC, URINE AUTO 3 /HPF (0-3); SQUAMOUS EPITHELIAL CELL UR AU 0 /HPF (0-6); UROBILINOGEN, URINE AUTO 0.2 mg/dL (0.0-2.0); WBC, URINE AUTO 2 /HPF (0-3)
== END ==
LOC: M LAB 10:30
DX: Z34.81 Encounter for supervision of other normal pregnancy, first trimester (principal)
CPT/HCPCS: 36415

== ENCOUNTER 2017-12-29 15:12 | Emergency (ER) | payer OTHER ==
[2017-12-29 18:22] LABS: INFLUENZA A AMPLIFICATION POSITIVE (NEGATIVE); INFLUENZA B AMPLIFICATION NEGATIVE (NEGATIVE)
[2017-12-29] MEDS: NS 1,000 ML IV (18:45)
[2017-12-29 19:00] LABS: BASO % 0.3 % (0.0-1.0); HEMATOCRIT 33.1 % (36.0-47.0); HEMOGLOBIN 11.5 g/dl (12.0-16.0); IMMATURE GRANULOCYTE % 0.5 % (0-3.0); LYMPH # 0.7 10^3/uL (1.5-6.5); LYMPH % 20.2 % (24.0-44.0); MEAN CORPUSCULAR HEMOGLOBIN 29.6 pg (27.0-33.0); MEAN CORPUSCULAR HGB CONC 34.7 g/dl (32.0-36.5); MEAN CORPUSCULAR VOLUME 85.3 fl (80.0-96.0); MONO # 0.5 10^3/uL (0.0-0.8); MONO % 14.2 % (0.0-5.0); NEUTROPHILS # 2.4 10^3/uL (1.8-7.7); NEUTROPHILS % 64.8 % (36.0-66.0); PLATELET COUNT, AUTOMATED 217 10^3/uL (150-450); RED BLOOD COUNT 3.88 10^6/uL (4.00-5.40); RED CELL DISTRIBUTION WIDTH 13.2 % (11.5-14.5); WHITE BLOOD COUNT 3.7 10^3/uL (4.0-10.0)
[2017-12-29 19:07] LABS: APPEARANCE, URINE CLEAR (CLEAR); BACTERIA, URINE AUTO NEGATIVE (NEGATIVE); BILIRUBIN, URINE AUTO NEGATIVE (NEGATIVE); BLOOD, URINE BLOOD NEGATIVE (NEGATIVE); COLOR, URINE YELLOW (YELLOW); GLUCOSE, URINE (UA) AUTO NEGATIVE (NEGATIVE); KETONE, URINE AUTO 2+ mg/dL (NEGATIVE); LEUKOCYTE ESTERASE, URINE AUTO TRACE (NEGATIVE); MUCUS, URINE SMALL (NEGATIVE); NITRITE, URINE AUTO NEGATIVE (NEGATIVE); PROTEIN, URINE AUTO 1+ mg/dL (NEGATIVE); RBC, URINE AUTO 3 /HPF (0-3); SPECIFIC GRAVITY URINE AUTO 1.027 (1.002-1.035); SQUAMOUS EPITHELIAL CELL UR AU 0 /HPF (0-6); UROBILINOGEN, URINE AUTO 0.2 mg/dL (0.0-2.0); WBC, URINE AUTO 3 /HPF (0-3)
[2017-12-29 19:27] LABS: ALBUMIN/GLOBULIN RATIO 1.25 (1.00-1.93); ALKALINE PHOSPHATASE 47 U/L (45-117); ALT/SGPT 16 U/L (12-78); ANION GAP 11 MEQ/L (8-16); AST/SGOT 11 U/L (7-37); BILIRUBIN,TOTAL 0.2 MG/DL (0.2-1.0); BLOOD UREA NITROGEN 6 MG/DL (7-18); CALCIUM LEVEL 8.5 MG/DL (8.5-10.1); CARBON DIOXIDE LEVEL 23 MEQ/L (21-32); CHLORIDE LEVEL 101 MEQ/L (98-107); CREATININE FOR GFR 0.47 MG/DL (0.55-1.30); GLOMERULAR FILTRATION RATE > 60.0 (>60); GLUCOSE, FASTING 77 MG/DL (70-100); POTASSIUM SERUM 3.6 MEQ/L (3.5-5.1); SODIUM LEVEL 135 MEQ/L (136-145); TOTAL PROTEIN 7.2 GM/DL (6.4-8.2)
[2017-12-29] MEDS: OSELTAMIVIR PHOSPHATE 75 MG CAP (TAMIFLU) PO (19:45)
== END 2017-12-29 20:02 | disposition home or self-care (01) ==
LOC: M ED 20:02
DX: O99.511 Diseases of the respiratory system complicating pregnancy, first trimester (principal); J09.X2 Influenza due to identified novel influenza A virus with other respiratory manifestations; J45.909 Unspecified asthma, uncomplicated; O99.341 Other mental disorders complicating pregnancy, first trimester; F41.9 Anxiety disorder, unspecified; F33.9 Major depressive disorder, recurrent, unspecified; O99.011 Anemia complicating pregnancy, first trimester; D64.9 Anemia, unspecified; Z3A.11 11 weeks gestation of pregnancy; Z79.899 Other long term (current) drug therapy; Z91.018 Allergy to other foods; Z88.1 Allergy status to other antibiotic agents; Z88.8 Allergy status to other drugs, medicaments and biological substances; Z91.048 Other nonmedicinal substance allergy status; Z91.040 Latex allergy status; Z87.09 Personal history of other diseases of the respiratory system; Z98.890 Other specified postprocedural states
CPT/HCPCS: 76801

== ENCOUNTER → 2018-03-12 | Outpatient (CLI) | payer OTHER | LOC: M RAD 16:34 | DX: Z36.89 Encounter for other specified antenatal screening (principal); Z3A.21 21 weeks gestation of pregnancy | CPT/HCPCS: 76816 ==

== ENCOUNTER 2018-03-16 10:41 | Emergency (ER) | payer OTHER ==
[2018-03-16] MEDS: diphenhydrAMINE 25 MG CAP PO (11:12)
== END 2018-03-16 11:14 | disposition home or self-care (01) ==
LOC: M ED 10:41
DX: O99.89 Other specified diseases and conditions complicating pregnancy, childbirth and the puerperium (principal); T80.89XA Other complications following infusion, transfusion and therapeutic injection, initial encounter; Y92.9 Unspecified place or not applicable; Y93.9 Activity, unspecified; Z3A.21 21 weeks gestation of pregnancy; Z79.899 Other long term (current) drug therapy; Z91.040 Latex allergy status; Z91.018 Allergy to other foods; Z88.8 Allergy status to other drugs, medicaments and biological substances; Z91.89 Other specified personal risk factors, not elsewhere classified; Z88.1 Allergy status to other antibiotic agents
CPT/HCPCS: 99283

== ENCOUNTER → 2018-04-24 | Outpatient (CLI) | payer OTHER ==
[2018-04-24 13:53] LABS: BASO % 0.2 % (0.0-1.0); EOS # 0.1 10^3/uL (0.0-0.50); EOS % 0.9 % (0.0-3.0); HEMATOCRIT 30.4 % (36.0-47.0); HEMOGLOBIN 10.3 g/dl (12.0-15.5); IMMATURE GRANULOCYTE % 0.5 % (0-3.0); LYMPH # 1.8 10^3/uL (1.5-6.5); LYMPH % 21.9 % (24.0-44.0); MEAN CORPUSCULAR HEMOGLOBIN 29.9 pg (27.0-33.0); MEAN CORPUSCULAR HGB CONC 33.9 g/dl (32.0-36.5); MEAN CORPUSCULAR VOLUME 88.1 fl (80.0-96.0); MONO # 0.6 10^3/uL (0.0-0.8); MONO % 7.5 % (0.0-5.0); NEUTROPHILS # 5.6 10^3/uL (1.8-7.7); PLATELET COUNT, AUTOMATED 226 10^3/uL (150-450); RED BLOOD COUNT 3.45 10^6/uL (4.00-5.40); RED CELL DISTRIBUTION WIDTH 13.2 % (11.5-14.5); WHITE BLOOD COUNT 8.1 10^3/uL (4.0-10.0)
[2018-04-24 14:15] LABS: GLUCOSE CHALLENGE TEST 1 HOUR 109 MG/DL (LESS THAN 140)
== END ==
LOC: M LAB 11:49
DX: O09.212 Supervision of pregnancy with history of pre-term labor, second trimester (principal); Z3A.00 Weeks of gestation of pregnancy not specified
CPT/HCPCS: 82950

== ENCOUNTER 2018-05-29 10:55 | Outpatient (CLI) | payer OTHER ==
[2018-05-29 13:17] LABS: AMORPHOUS SEDIMENT SMALL (NEGATIVE); APPEARANCE, URINE CLEAR (CLEAR); BACTERIA, URINE AUTO NEGATIVE (NEGATIVE); BILIRUBIN, URINE AUTO NEGATIVE (NEGATIVE); BLOOD, URINE BLOOD NEGATIVE (NEGATIVE); COLOR, URINE YELLOW (YELLOW); GLUCOSE, URINE (UA) AUTO NEGATIVE (NEGATIVE); KETONE, URINE AUTO NEGATIVE (NEGATIVE); LEUKOCYTE ESTERASE, URINE AUTO 2+ (NEGATIVE); NITRITE, URINE AUTO NEGATIVE (NEGATIVE); PROTEIN, URINE AUTO NEGATIVE (NEGATIVE); RBC, URINE AUTO 1 /HPF (0-3); SPECIFIC GRAVITY URINE AUTO 1.009 (1.002-1.035); SQUAMOUS EPITHELIAL CELL UR AU 1 /HPF (0-6); UROBILINOGEN, URINE AUTO 0.2 mg/dL (0.0-2.0); WBC, URINE AUTO 33 /HPF (0-3)
== END 2018-05-29 13:29 | disposition home or self-care (01) ==
LOC: M LDO 10:55
DX: O99.89 Other specified diseases and conditions complicating pregnancy, childbirth and the puerperium (principal); Z3A.31 31 weeks gestation of pregnancy; O23.13 Infections of bladder in pregnancy, third trimester; Z87.51 Personal history of pre-term labor
CPT/HCPCS: 76817

== ENCOUNTER 2018-08-17 13:22 | Emergency (ER) | payer OTHER | END 2018-08-17 14:02 | disposition home or self-care (01) | LOC: M ED 13:22 | DX: S90.112A Contusion of left great toe without damage to nail, initial encounter (principal); W22.8XXA Striking against or struck by other objects, initial encounter; Y92.019 Unspecified place in single-family (private) house as the place of occurrence of the external cause | CPT/HCPCS: 73630 ==

== ENCOUNTER 2018-09-17 18:51 | Emergency (ER) | payer OTHER ==
[2018-09-17 19:48] LABS: BASO # 0.1 10^3/uL (0.0-0.2); BASO % 0.8 % (0.0-1.0); EOS # 0.3 10^3/uL (0.0-0.50); EOS % 3.8 % (0.0-3.0); HEMATOCRIT 36.7 % (36.0-47.0); HEMOGLOBIN 12.2 g/dl (12.0-15.5); IMMATURE GRANULOCYTE % 0.4 % (0-3.0); LYMPH # 3.3 10^3/uL (1.5-6.5); LYMPH % 42.9 % (24.0-44.0); MEAN CORPUSCULAR HGB CONC 33.2 g/dl (32.0-36.5); MEAN CORPUSCULAR VOLUME 87.2 fl (80.0-96.0); MONO # 0.8 10^3/uL (0.0-0.8); NEUTROPHILS # 3.2 10^3/uL (1.8-7.7); NEUTROPHILS % 42.1 % (36.0-66.0); PLATELET COUNT, AUTOMATED 315 10^3/uL (150-450); RED BLOOD COUNT 4.21 10^6/uL (4.00-5.40); RED CELL DISTRIBUTION WIDTH 14.1 % (11.5-14.5); WHITE BLOOD COUNT 7.6 10^3/uL (4.0-10.0)
[2018-09-17 20:08] LABS: ALBUMIN 4.1 GM/DL (3.2-5.2); ALBUMIN/GLOBULIN RATIO 1.24 (1.00-1.93); ALKALINE PHOSPHATASE 81 U/L (45-117); ALT/SGPT 39 U/L (12-78); ANION GAP 6 MEQ/L (8-16); AST/SGOT 20 U/L (7-37); BILIRUBIN,DIRECT < 0.1 MG/DL (0.0-0.2); BILIRUBIN,TOTAL 0.1 MG/DL (0.2-1.0); BLOOD UREA NITROGEN 12 MG/DL (7-18); CALCIUM LEVEL 9.1 MG/DL (8.5-10.1); CARBON DIOXIDE LEVEL 28 MEQ/L (21-32); CHLORIDE LEVEL 105 MEQ/L (98-107); CREATININE FOR GFR 0.62 MG/DL (0.55-1.30); GLOMERULAR FILTRATION RATE > 60.0 (>60); GLUCOSE, FASTING 103 MG/DL (70-100); LIPASE 102 U/L (73-393); POTASSIUM SERUM 3.9 MEQ/L (3.5-5.1); SODIUM LEVEL 139 MEQ/L (136-145); TOTAL PROTEIN 7.4 GM/DL (6.4-8.2)
[2018-09-17 22:04] LABS: D-DIMER QUANT 315.3 ng/ml (<500)
[2018-09-17 22:16] LABS: CK-MB VALUE MASS < 1.0 NG/ML (<3.6); CPK CREATINE PHOSPHOKINASE 73 U/L (26-192); MB/CK RELATIVE INDEX 1.37 (< OR =4); TROPONIN I < 0.02 NG/ML (< 0.10)
== END 2018-09-17 23:15 | disposition home or self-care (01) ==
LOC: M ED 18:51
DX: R07.89 Other chest pain (principal); R06.02 Shortness of breath; Z91.018 Allergy to other foods; Z88.1 Allergy status to other antibiotic agents; Z91.040 Latex allergy status; Z91.048 Other nonmedicinal substance allergy status; Z79.899 Other long term (current) drug therapy; Z79.1 Long term (current) use of non-steroidal anti-inflammatories (NSAID); Z79.3 Long term (current) use of hormonal contraceptives
CPT/HCPCS: 71046

== ENCOUNTER 2018-10-01 21:28 | Emergency (ER) | payer OTHER ==
[2018-10-01] MEDS: predniSONE 20 MG TAB PO (23:38)
== END 2018-10-01 23:47 | disposition home or self-care (01) ==
LOC: M ED 21:28
DX: G56.01 Carpal tunnel syndrome, right upper limb (principal); J45.909 Unspecified asthma, uncomplicated; D64.9 Anemia, unspecified; F41.9 Anxiety disorder, unspecified; F32.9 Major depressive disorder, single episode, unspecified; Z91.018 Allergy to other foods; Z88.1 Allergy status to other antibiotic agents; Z91.048 Other nonmedicinal substance allergy status; Z91.040 Latex allergy status; Z79.899 Other long term (current) drug therapy; Z79.1 Long term (current) use of non-steroidal anti-inflammatories (NSAID)
CPT/HCPCS: 99284

== ENCOUNTER 2018-10-17 14:24 | Outpatient (RCR) | payer OTHER ==
[~2018-10-17 14:24] MED LIST changes: -ACET50TA PO; +BENA25CA4 PO; +MACR100C43 PO; +MAPA500T17 PO; +MECL1CHW2 PO; +MILK12002 PO; -MILKSUS PO; +NAPR-49 PO; +NAPR1TAB86 PO; -NAPR500T PO; +ONDA4TAB5; +OSEL75CA PO; +PRED20TA PO; +PRENCHW PO; +PROT1TAB2 PO; +SALI0.6528; +SERT25TA88; +TRAZ-160 PO; -TRAZ50TA11 PO; +TRI-1TAB5 PO; +TRIA1CR TOP; +TYLE325T5 PO; +ZOLO25TA PO
[2018-11-03] MEDS ORDERED: ROBA500T PO (21:58)
[2018-11-03] MEDS ORDERED: NAPR1TAB86 PO (21:58)
== END 2018-11-04 ==
LOC: M PT 14:24
PROVIDERS: ATTEND Physician Assistant
DX: M54.2 Cervicalgia (principal)

== ENCOUNTER 2018-11-03 18:33 | Emergency (ER) | payer OTHER ==
[~2018-11-03] VITALS: Ht 160 cm; Wt 76.4 kg
[~2018-11-03 18:33] MED LIST changes: -MAPA500T17 PO; +MAPA500T2 PO; +METR-201 PO; -METR1TAB66 PO; +MILK120011 PO; -MILK12002 PO; -NAPR-49 PO; +NAPR-50 PO
[2018-11-03 18:34] VITALS: BP 143/70
[2018-11-03] MEDS ORDERED: NAPROXEN 250 MG TAB PO ONE (20:30)
[2018-11-03] MEDS ORDERED: METHOCARBAMOL 500 MG TAB PO ONE (20:30)
[2018-11-03] MEDS ORDERED: PERCOCET 5MG/325MG TAB PO ONE (20:30)
--- NOTE | 2018-11-03 20:46 | REP ---
Clinical: Sudden cervical neck pain. Technique: Axial noncontrast images from the skull base to the thoracic inlet with coronal and sagittal re-formations Findings: Sagittal re-formations demonstrate very subtle reversal of normal lordosis which may be secondary to positioning versus pain/spasm. Normal alignment is maintained and there is no evidence for acute fracture / compression injury or subluxation. Cervical vertebral bodies including transverse processes and spinous processes are intact. Spinal canal is patent. Posterior elements are intact. Paravertebral soft tissues are normal. Impression: Subtle reversal of normal lordosis may be secondary to positioning versus pain/spasm. Otherwise normal noncontrast cervical spine CT. Electronically Signed by Juan Alberto Hobson MD 11/03/2018 08:37 P
[2018-11-03] MEDS ORDERED: NAPR1TAB86 PO (21:58)
[2018-11-03] MEDS ORDERED: ROBA500T PO (21:58)
[2018-11-03] MEDS ORDERED: OXYCODONE/APAP 5MG/325MG(BULK FOR ED) 1 TABLET PO ONE (22:00)
== END 2018-11-03 22:15 | disposition home or self-care (01) ==
LOC: M ED 18:33
DX: S16.1XXA Strain of muscle, fascia and tendon at neck level, initial encounter (principal); X50.1XXA Overexertion from prolonged static or awkward postures, initial encounter; Y92.89 Other specified places as the place of occurrence of the external cause; M54.2 Cervicalgia; G89.29 Other chronic pain; F32.9 Major depressive disorder, single episode, unspecified; F41.9 Anxiety disorder, unspecified; D64.9 Anemia, unspecified; Z86.69 Personal history of other diseases of the nervous system and sense organs; Z91.018 Allergy to other foods; Z88.1 Allergy status to other antibiotic agents; Z91.040 Latex allergy status; Z91.048 Other nonmedicinal substance allergy status; Z79.899 Other long term (current) drug therapy; Z79.3 Long term (current) use of hormonal contraceptives

== ENCOUNTER 2018-11-07 19:18 | Emergency (ER) | payer OTHER ==
[~2018-11-07] VITALS: Ht 160 cm; Wt 81.4 kg
[~2018-11-07 19:18] MED LIST changes: +ROBA500T PO
[2018-11-07 19:19] VITALS: BP 134/77
[2018-11-07] MEDS ORDERED: AMOX500C PO (20:26)
[2018-11-07] MEDS ORDERED: NAPROXEN 250 MG TAB PO ONE (20:30)
[2018-11-07] MEDS ORDERED: AMOXICILLIN 500 MG CAP PO ONE (20:30)
== END 2018-11-07 20:53 | disposition home or self-care (01) ==
LOC: M ED 19:18
DX: J02.0 Streptococcal pharyngitis (principal); J45.909 Unspecified asthma, uncomplicated; F41.9 Anxiety disorder, unspecified; F32.9 Major depressive disorder, single episode, unspecified; Z79.899 Other long term (current) drug therapy; Z91.018 Allergy to other foods; Z91.89 Other specified personal risk factors, not elsewhere classified; Z88.1 Allergy status to other antibiotic agents; Z88.8 Allergy status to other drugs, medicaments and biological substances; Z91.040 Latex allergy status

== ENCOUNTER 2018-12-12 12:06 | Emergency (ER) | payer OTHER ==
[~2018-12-12] VITALS: Ht 160 cm; Wt 81.8 kg
[2018-12-12] MEDS ORDERED: VENTAER (12:12)
[2018-12-12] MEDS ORDERED: FERR1TAB8 (12:12)
[2018-12-12] MEDS ORDERED: PRENTAB29 (12:12)
[2018-12-12] MEDS ORDERED: MECL-68 (12:12)
[2018-12-12] MEDS ORDERED: NAPR-885 (12:12)
[2018-12-12] MEDS ORDERED: SERT-155 (12:12)
[2018-12-12 13:02] LABS: INFLUENZA A AMPLIFICATION NEGATIVE (NEGATIVE); INFLUENZA B AMPLIFICATION NEGATIVE (NEGATIVE)
[2018-12-12] MEDS ORDERED: PROAAER10 INH (13:38)
[2018-12-12] MEDS ORDERED: ZITHTAB PO (13:38)
[2018-12-12] MEDS ORDERED: CLAR5TAB7 PO (13:38)
[2018-12-12 13:47] VITALS: BP 129/64
== END 2018-12-12 13:49 | disposition home or self-care (01) ==
LOC: M ED 12:06
DX: J41.1 Mucopurulent chronic bronchitis (principal); J01.90 Acute sinusitis, unspecified; R06.02 Shortness of breath; Z79.899 Other long term (current) drug therapy; Z91.018 Allergy to other foods; Z91.040 Latex allergy status; Z91.89 Other specified personal risk factors, not elsewhere classified; Z88.8 Allergy status to other drugs, medicaments and biological substances

== ENCOUNTER 2019-01-14 17:54 | Emergency (ER) | payer OTHER ==
[~2019-01-14 17:54] MED LIST changes: +CLAR5TAB7 PO; +FERR1TAB8; +MECL-68; +NAPR-885; +PRENTAB29; +PROAAER10 INH; +SERT-155; +VENTAER; +ZITHTAB PO
[2019-01-14] MEDS ORDERED: IBUPROFEN 800 MG TAB PO ONE (18:45)
--- NOTE | 2019-01-14 19:10 | REP ---
Right ankle four views : There is no fracture or dislocation. Mineralization and joint spaces are normal. There are no calcifications or foreign bodies. Impression: Negative right ankle . Electronically Signed by Devan Sun MD 01/14/2019 07:01 P
[2019-01-14 20:10] VITALS: BP 124/63
== END 2019-01-14 20:10 | disposition home or self-care (01) ==
LOC: M ED 17:54
DX: S93.401A Sprain of unspecified ligament of right ankle, initial encounter (principal); X50.9XXA Other and unspecified overexertion or strenuous movements or postures, initial encounter; Y92.018 Other place in single-family (private) house as the place of occurrence of the external cause; D64.9 Anemia, unspecified; Z79.899 Other long term (current) drug therapy; Z88.1 Allergy status to other antibiotic agents; Z88.8 Allergy status to other drugs, medicaments and biological substances; Z91.018 Allergy to other foods; Z91.040 Latex allergy status; Z91.048 Other nonmedicinal substance allergy status

== ENCOUNTER 2019-01-23 10:12 | Emergency (ER) | payer OTHER ==
[~2019-01-23] VITALS: Ht 160 cm; Wt 84.2 kg
[~2019-01-23 10:12] MED LIST changes: +TRIA0.1C60 TOP; -TRIA1CR TOP
[2019-01-23] MEDS ORDERED: [UNRECOGNIZED DRUG - OTHER] (10:19)
[2019-01-23] MEDS ORDERED: NS 1,000 ML IV ONE ×2 (10:45)
[2019-01-23 11:04] LABS: BASO % 0.6 % (0.0-1.0); EOS # 0.3 10^3/uL (0.0-0.50); EOS % 4.2 % (0.0-3.0); HEMATOCRIT 36.3 % (36.0-47.0); HEMOGLOBIN 12.5 g/dl (12.0-15.5); LYMPH % 31.2 % (24.0-44.0); MEAN CORPUSCULAR HEMOGLOBIN 29.6 pg (27.0-33.0); MEAN CORPUSCULAR HGB CONC 34.4 g/dl (32.0-36.5); MONO # 0.5 10^3/uL (0.0-0.8); MONO % 8.3 % (0.0-5.0); NEUTROPHILS # 3.5 10^3/uL (1.8-7.7); NEUTROPHILS % 55.2 % (36.0-66.0); PLATELET COUNT, AUTOMATED 332 10^3/uL (150-450); RED BLOOD COUNT 4.22 10^6/uL (4.00-5.40); WHITE BLOOD COUNT 6.4 10^3/uL (4.0-10.0)
[2019-01-23 11:29] LABS: ALBUMIN 3.7 GM/DL (3.2-5.2); ALT/SGPT 43 U/L (12-78); AMYLASE 23 U/L (25-115); BILIRUBIN,DIRECT < 0.1 MG/DL (0.0-0.2); BILIRUBIN,TOTAL 0.3 MG/DL (0.2-1.0); BLOOD UREA NITROGEN 12 MG/DL (7-18); CALCIUM LEVEL 8.6 MG/DL (8.5-10.1); CARBON DIOXIDE LEVEL 27 MEQ/L (21-32); CHLORIDE LEVEL 106 MEQ/L (98-107); CREATININE FOR GFR 0.51 MG/DL (0.55-1.30); GLOMERULAR FILTRATION RATE > 60.0 (>60); GLUCOSE, FASTING 85 MG/DL (70-100); LIPASE 58 U/L (73-393); POTASSIUM SERUM 4.1 MEQ/L (3.5-5.1); SODIUM LEVEL 140 MEQ/L (136-145); TOTAL PROTEIN 7.1 GM/DL (6.4-8.2)
[2019-01-23 12:12] LABS: HCG, SERUM QUALITATIVE NEGATIVE (NEGATIVE)
[2019-01-23] MEDS ORDERED: KETOROLAC 30 MG/ML VIAL (J1885) IV ONE (12:15)
--- NOTE | 2019-01-23 13:17 | REP ---
Pelvic sonography: History: Pelvic pain. Findings: Transabdominal and transvaginal scanning are performed. Uterine dimensions are 8.5 x 4.5 x 6.3 cm. Endometrial echo 0.7 cm thick. There is a trace of physiologic fluid in the cul-de-sac. No focal uterine mass mass is seen. scar is seen. Right ovary measures 3.6 x 3.0 3.2 cm. There is a 1.2 cm involuting follicle cyst in the right ovary. Doppler flow is normal in the right ovary. Resistive index is 0.58. Left ovary dimensions are 3.5 x 2.4 x 2.0 cm. Its Doppler flow is normal, resistive index 0.43. Impression: No significant morphologic abnormality. Electronically Signed by Javy Hansen MD 01/23/2019 01:09 P
[2019-01-23 13:31] VITALS: BP 120/65
[2019-01-23] MEDS ORDERED: MIRA3350 PO (13:40)
[2019-01-23] MEDS ORDERED: SIME180C PO (13:40)
--- NOTE | 2019-01-23 13:47 | REP ---
KUB ABDOMEN AND PELVIS: Two KUB films of the abdomen and pelvis performed. The stomach is not dilated. There is mild air and fecal material scattered throughout the colon. I do not see significantly dilated small bowel loops, with no evidence of small bowel obstruction. No abnormal calcifications are seen. Visualized osseous structures are unremarkable. IMPRESSION: No evidence of bowel obstruction. Electronically Signed by Devan Bean MD 01/23/2019 04:05 P
== END 2019-01-23 13:50 | disposition home or self-care (01) ==
LOC: M ED 10:12
DX: R10.30 Lower abdominal pain, unspecified (principal); K59.00 Constipation, unspecified; J45.909 Unspecified asthma, uncomplicated; D64.9 Anemia, unspecified; F41.9 Anxiety disorder, unspecified; F32.9 Major depressive disorder, single episode, unspecified; Z91.018 Allergy to other foods; Z88.1 Allergy status to other antibiotic agents; Z91.040 Latex allergy status; Z91.048 Other nonmedicinal substance allergy status; Z79.899 Other long term (current) drug therapy; Z79.3 Long term (current) use of hormonal contraceptives
CPT/HCPCS: 74018; 76830; 76856; 80048; 80076; 81001; 82150; 83690; 84703; 85025; 93976; 96374; 99284; J1885

== ENCOUNTER 2019-05-28 20:53 | Emergency (ER) | payer OTHER ==
[~2019-05-28] VITALS: Ht 157.5 cm; Wt 94.3 kg
[~2019-05-28 20:53] MED LIST changes: +MECL1CHW PO; -MECL1CHW2 PO; -METR-201 PO; +METR-265 PO; +MIRA3350 PO; -NAPR-50 PO; +NAPR-837 PO; +SIME180C PO; -TRAZ-160 PO; +TRAZ-252 PO; +[UNRECOGNIZED DRUG - OTHER]
[2019-05-28] MEDS ORDERED: NS 1,000 ML IV ONE (21:30)
[2019-05-28 21:49] LABS: BASO % 0.5 % (0.0-1.0); EOS # 0.1 10^3/uL (0.0-0.50); EOS % 1.6 % (0.0-3.0); HEMATOCRIT 34.8 % (36.0-47.0); HEMOGLOBIN 11.9 g/dl (12.0-15.5); LYMPH # 3.1 10^3/uL (1.5-6.5); LYMPH % 35.4 % (24.0-44.0); MEAN CORPUSCULAR HEMOGLOBIN 28.8 pg (27.0-33.0); MEAN CORPUSCULAR HGB CONC 34.2 g/dl (32.0-36.5); MEAN CORPUSCULAR VOLUME 84.3 fl (80.0-96.0); MONO # 0.6 10^3/uL (0.0-0.8); MONO % 6.6 % (0.0-5.0); NEUTROPHILS # 4.8 10^3/uL (1.8-7.7); NEUTROPHILS % 55.4 % (36.0-66.0); PLATELET COUNT, AUTOMATED 317 10^3/uL (150-450); RED BLOOD COUNT 4.13 10^6/uL (4.00-5.40); WHITE BLOOD COUNT 8.6 10^3/uL (4.0-10.0)
[2019-05-28 22:18] LABS: ACETAMINOPHEN LEVEL < 2.0 UG/ML (10.0-30.0); ALBUMIN 3.8 GM/DL (3.2-5.2); ALT/SGPT 31 U/L (12-78); BILIRUBIN,DIRECT < 0.1 MG/DL (0.0-0.2); BILIRUBIN,TOTAL 0.1 MG/DL (0.2-1.0); BLOOD UREA NITROGEN 13 MG/DL (7-18); C REACTIVE PROTEIN QUANTITATIV 0.92 MG/DL (0.00-0.30); CALCIUM LEVEL 8.5 MG/DL (8.5-10.1); CARBON DIOXIDE LEVEL 28 MEQ/L (21-32); CHLORIDE LEVEL 107 MEQ/L (98-107); CK-MB VALUE MASS < 1.0 NG/ML (<3.6); CPK CREATINE PHOSPHOKINASE 99 U/L (26-192); CREATININE FOR GFR 0.72 MG/DL (0.55-1.30); ETHYL ALCOHOL (ETHANOL) < 0.003 % (0.000-0.010); GLOMERULAR FILTRATION RATE > 60.0 (>60); GLUCOSE, FASTING 96 MG/DL (70-100); MB/CK RELATIVE INDEX 1.01 (< OR =4); SALICYLATE LEVEL < 1.7 MG/DL (5.0-30.0); SODIUM LEVEL 140 MEQ/L (136-145); TOTAL PROTEIN 7.3 GM/DL (6.4-8.2); TROPONIN I < 0.02 NG/ML (< 0.10)
[2019-05-28 22:22] LABS: AMPHETAMINES LEVEL URINE NEGATIVE (NEGATIVE); BARBITURATES URINE NEGATIVE (NEGATIVE); BENZODIAZEPINES URINE NEGATIVE (NEGATIVE); CANNABINOIDS URINE NEGATIVE (NEGATIVE); COCAINE METABOLITE URINE NEGATIVE (NEGATIVE); METHADONE URINE NEGATIVE (NEGATIVE); OPIATES URINE NEGATIVE (NEGATIVE); PHENCYCLIDINE URINE NEGATIVE (NEGATIVE)
--- NOTE | 2019-05-28 23:48 | REPVR ---
EXAM: CT Head Without Contrast EXAM DATE/TIME: 05/28/2019 10:49 PM CLINICAL HISTORY: 23 years old, female; Altered mental status/memory loss TECHNIQUE: Imaging protocol: Computed tomography images of the head without contrast. Radiation optimization: All CT scans at this facility use at least one of these dose optimization techniques: automated exposure control; mA and/or kV adjustment per patient size (includes targeted exams where dose is matched to clinical indication); or iterative reconstruction. COMPARISON: CT Head without contrast 08/16/2015 9:41 PM FINDINGS: Brain: No CT evidence of acute intracranial hemorrhage or acute territorial infarction. No significant mass effect or midline shift. Basal cisterns patent. Ventricles: Normal in size and configuration. Bones/joints: No acute osseous abnormality. Sinuses: Grossly unremarkable. Mastoid air cells: Grossly unremarkable. Soft tissues: Right frontal scalp sebaceous cyst. IMPRESSION: 1. No CT evidence of acute intracranial pathology. 2. Additional findings, as above. Electronically signed by: Stalin Brooke On 05/28/2019 23:48:13 PM
--- NOTE | 2019-05-28 23:53 | REPVR ---
EXAM: CT Cervical Spine Without Contrast EXAM DATE/TIME: 05/28/2019 10:49 PM CLINICAL HISTORY: 23 years old, female; Other: AMS; Additional info: Neck pain, AMS TECHNIQUE: Imaging protocol: Computed tomography images of the cervical spine without contrast. Coronal and sagittal reformatted images were created and reviewed. Radiation optimization: All CT scans at this facility use at least one of these dose optimization techniques: automated exposure control; mA and/or kV adjustment per patient size (includes targeted exams where dose is matched to clinical indication); or iterative reconstruction. COMPARISON: CT Spine,cervical w/o contrast 11/03/2018 8:22 PM FINDINGS: Vertebrae: Straightening of the normal cervical lordosis. Alignment anatomic. No CT evidence of acute fracture, dislocation or subluxation. Vertebral body heights maintained. Discs/Spinal canal/Neural foramina: Intervertebral disc spaces preserved. No significant spinal canal or neural foraminal stenosis. Soft tissues: Grossly unremarkable. Lungs: Grossly unremarkable. IMPRESSION: 1. No CT evidence of acute cervical spine traumatic injury. 2. Additional findings, as above. Electronically signed by: Stalin Brooke On 05/28/2019 23:53:14 PM
--- NOTE | 2019-05-29 01:51 | REP ---
Clinical: Altered mental status . Comparison: 09/17/2018 . Findings: The mediastinum and cardiac silhouette are stable and within normal limits for portable technique. The lung gregory are clear without acute consolidation, effusion, or pneumothorax. Skeletal structures are intact. Impression: No acute cardiopulmonary process appreciated. Electronically Signed by Juan Alberto Hobson MD 05/29/2019 01:44 A
[2019-05-29 02:06] VITALS: BP 140/80
--- NOTE | 2019-05-29 05:42 | ECGEPIP ---
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
== END 2019-05-29 02:04 | disposition home or self-care (01) ==
LOC: M ED 20:53
DX: F44.6 Conversion disorder with sensory symptom or deficit (principal); J45.909 Unspecified asthma, uncomplicated; L72.3 Sebaceous cyst; Z79.899 Other long term (current) drug therapy; Z91.018 Allergy to other foods; Z91.040 Latex allergy status; Z91.89 Other specified personal risk factors, not elsewhere classified; Z88.1 Allergy status to other antibiotic agents; Z88.8 Allergy status to other drugs, medicaments and biological substances
CPT/HCPCS: 51701; 70450; 71045; 72125; 80047; 80048; 80076; 80307; 81001; 82140; 82550; 82553; 83605; 84443; 84702; 85025; 86140; 87088; 87186; 93005; 93041; 94760; 99285; G0480

== ENCOUNTER 2019-07-07 09:11 | Emergency (ER) | payer OTHER ==
[~2019-07-07] VITALS: Ht 160 cm; Wt 91.1 kg
[2019-07-07 09:11] VITALS: BP 145/78
[2019-07-07] MEDS ORDERED: VITA1CAP25 (09:23)
[2019-07-07] MEDS ORDERED: SERT-138 (09:23)
[2019-07-07] MEDS ORDERED: MELO15TA28 (09:23)
[2019-07-07] MEDS ORDERED: TRI-1TAB20 (09:23)
[2019-07-07] MEDS ORDERED: TRAZ-252 (09:23)
[2019-07-07] MEDS ORDERED: CYCL5TAB PO (09:56)
[2019-07-07] MEDS ORDERED: LIDO5DIS41 TD (09:56)
[2019-07-07] MEDS ORDERED: IBUP-1022 PO (09:56)
[2019-07-07] MEDS ORDERED: ACET-683 PO (09:56)
[2019-07-07] MEDS ORDERED: CYCLOBENZAPRINE 5MG TABLET PO ONE (10:00)
[2019-07-07] MEDS ORDERED: IBUPROFEN 800 MG TAB PO ONE (10:00)
[2019-07-07] MEDS ORDERED: LIDOCAINE 5% (LIDODERM) PATCH TD ONE (10:00)
== END 2019-07-07 10:17 | disposition home or self-care (01) ==
LOC: M ED 09:11
DX: M50.10 Cervical disc disorder with radiculopathy, unspecified cervical region (principal); M25.511 Pain in right shoulder; J45.909 Unspecified asthma, uncomplicated; D64.9 Anemia, unspecified; Z91.018 Allergy to other foods; Z88.1 Allergy status to other antibiotic agents; Z91.048 Other nonmedicinal substance allergy status; Z91.040 Latex allergy status

== ENCOUNTER 2019-07-22 20:05 | Emergency (ER) | payer OTHER ==
[~2019-07-22] VITALS: Ht 160 cm; Wt 92.3 kg
[~2019-07-22 20:05] MED LIST changes: +ACET-683 PO; +CYCL5TAB PO; +LIDO5DIS41 TD; +MELO15TA28; +SERT-138; +TRAZ-252; +TRI-1TAB20; +VITA1CAP25
[2019-07-23] MEDS ORDERED: AMOX875T PO (00:49)
[2019-07-23 00:59] VITALS: BP 131/60
[2019-07-23] MEDS ORDERED: AMOXICILLIN 500 MG CAP PO ONE (01:00)
--- NOTE | 2019-07-23 01:51 | REP ---
Clinical: Cough . Comparison: 05/28/2019 . Technique: PA and lateral. Findings: The mediastinum and cardiac silhouette are normal. The lung gregory are clear and without acute consolidation, effusion, or pneumothorax. The skeletal structures are intact and normal. Impression: 1. No acute cardiopulmonary process. Electronically Signed by Juan Alberto Hobson MD 07/23/2019 01:42 A
== END 2019-07-23 01:00 | disposition home or self-care (01) ==
LOC: M ED 20:05
DX: J06.9 Acute upper respiratory infection, unspecified (principal); J45.20 Mild intermittent asthma, uncomplicated; Z88.3 Allergy status to other anti-infective agents; Z91.018 Allergy to other foods; Z91.040 Latex allergy status; Z91.048 Other nonmedicinal substance allergy status; Z79.899 Other long term (current) drug therapy; Z79.3 Long term (current) use of hormonal contraceptives

== ENCOUNTER 2019-08-12 20:55 | Emergency (ER) | payer OTHER ==
[~2019-08-12] VITALS: Ht 160 cm; Wt 90.0 kg
[~2019-08-12 20:55] MED LIST changes: +AMOX875T PO; -SERT-155; +SERT25TA21; -SERT25TA88; +SERT50TA29
[2019-08-12 21:29] LABS: BASO # 0.1 10^3/uL (0.0-0.2); BASO % 0.7 % (0.0-1.0); EOS # 0.2 10^3/uL (0.0-0.5); EOS % 1.8 % (0.0-3.0); HEMATOCRIT 36.3 % (36.0-47.0); HEMOGLOBIN 12.4 g/dl (12.0-15.5); LYMPH # 3.4 10^3/uL (1.5-5.0); LYMPH % 36.3 % (24.0-44.0); MEAN CORPUSCULAR HEMOGLOBIN 28.7 pg (27.0-33.0); MEAN CORPUSCULAR HGB CONC 34.2 g/dl (32.0-36.5); MONO # 0.9 10^3/uL (0.0-0.8); MONO % 9.2 % (0.0-5.0); NEUTROPHILS # 4.8 10^3/uL (1.5-8.5); NEUTROPHILS % 51.7 % (36.0-66.0); PLATELET COUNT, AUTOMATED 332 10^3/uL (150-450); RED BLOOD COUNT 4.32 10^6/uL (4.00-5.40); WHITE BLOOD COUNT 9.2 10^3/uL (4.0-10.0)
[2019-08-12 21:50] LABS: ALBUMIN 3.9 GM/DL (3.2-5.2); ALT/SGPT 22 U/L (12-78); BILIRUBIN,DIRECT < 0.1 MG/DL (0.0-0.2); BILIRUBIN,TOTAL 0.2 MG/DL (0.2-1.0); BLOOD UREA NITROGEN 11 MG/DL (7-18); CALCIUM LEVEL 8.7 MG/DL (8.5-10.1); CARBON DIOXIDE LEVEL 29 MEQ/L (21-32); CHLORIDE LEVEL 105 MEQ/L (98-107); GLOMERULAR FILTRATION RATE > 60.0 (>60); GLUCOSE, FASTING 86 MG/DL (70-100); LIPASE 51 U/L (73-393); POTASSIUM SERUM 3.8 MEQ/L (3.5-5.1); SODIUM LEVEL 140 MEQ/L (136-145); TOTAL PROTEIN 7.1 GM/DL (6.4-8.2)
[2019-08-12 22:15] LABS: URINE PREG TEST NEGATIVE (NEGATIVE)
[2019-08-12] MEDS ORDERED: KETOROLAC 30 MG/ML VIAL (J1885) IV ONE (22:30)
[2019-08-12] MEDS ORDERED: HYDR50CA2 PO (23:31)
--- NOTE | 2019-08-13 00:35 | REPVR ---
PROCEDURE INFORMATION: Exam: US Abdomen Limited, Right Upper Quadrant Exam date and time: 08/12/2019 12:03 AM Clinical history: 23 years old, female; Abdominal pain; Acute; Additional info: Ruq pain R/O cholecystitis TECHNIQUE: Imaging protocol: Real-time ultrasound of the abdomen with image documentation. Examination was focused on the right upper quadrant. COMPARISON: Abdomen, limited US 09/18/2017 9:36 AM FINDINGS: Liver: Hypoechoic area in the right lobe of the liver measuring 9.4 x 6.5 x 8.6 mm. Gallbladder: Evaluation of the gallbladder is difficult secondary to contracted gallbladder. No obvious stones are seen. Gallbladder wall thickness is normal measuring 2.1 mm. No pericholecystic fluid. Common bile duct: Common bile duct is normal measuring up to 4 mm. Pancreas: Visualized pancreas is unremarkable. Right kidney: Right kidney is unremarkable measuring 11.1 cm. IMPRESSION: Hypoechoic area in the right lobe of the liver measuring 9.4 x 6.5 x 8.6 mm. findings appears to be stable and likely cyst. Electronically signed by: Marbella Hopper On 08/13/2019 00:34:56 AM
[2019-08-13 01:55] VITALS: BP 120/64
--- NOTE | 2019-08-13 07:09 | ECGEPIP ---
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
--- NOTE | 2019-08-13 08:01 | REP ---
PA and lateral chest: Comparison is 07/22/2019. The lung gregory are clear. The cardiac size is normal. The thierno, mediastinum, and skeletal structures are unremarkable. Impression: Negative PA and lateral chest. There is no interval change. Electronically Signed by Devan Sun MD 08/13/2019 07:53 A
== END 2019-08-13 01:55 | disposition home or self-care (01) ==
LOC: M ED 20:55
DX: R10.9 Unspecified abdominal pain (principal); J45.909 Unspecified asthma, uncomplicated; F41.9 Anxiety disorder, unspecified; F32.9 Major depressive disorder, single episode, unspecified; Z91.018 Allergy to other foods; Z88.1 Allergy status to other antibiotic agents; Z91.048 Other nonmedicinal substance allergy status; Z91.040 Latex allergy status; Z79.899 Other long term (current) drug therapy
CPT/HCPCS: 36415; 71046; 76705; 80048; 80076; 81001; 83690; 84703; 85025; 85379; 93005; 96374; 99284; J1885

== ENCOUNTER 2019-09-08 18:49 | Emergency (ER) | payer OTHER ==
[~2019-09-08] VITALS: Ht 160 cm; Wt 90.1 kg
[~2019-09-08 18:49] MED LIST changes: +HYDR50CA2 PO
[2019-09-08 19:37] LABS: BASO # 0.1 10^3/uL (0.0-0.2); BASO % 0.7 % (0.0-1.0); EOS # 0.1 10^3/uL (0.0-0.5); EOS % 1.6 % (0.0-3.0); HEMATOCRIT 38.6 % (36.0-47.0); HEMOGLOBIN 12.8 g/dl (12.0-15.5); LYMPH # 3.2 10^3/uL (1.5-5.0); LYMPH % 46.4 % (24.0-44.0); MEAN CORPUSCULAR HEMOGLOBIN 28.2 pg (27.0-33.0); MEAN CORPUSCULAR HGB CONC 33.2 g/dl (32.0-36.5); MONO # 0.6 10^3/uL (0.0-0.8); MONO % 7.9 % (0.0-5.0); NEUTROPHILS % 43.1 % (36.0-66.0); PLATELET COUNT, AUTOMATED 352 10^3/uL (150-450); RED BLOOD COUNT 4.54 10^6/uL (4.00-5.40); WHITE BLOOD COUNT 6.9 10^3/uL (4.0-10.0)
[2019-09-08 20:10] LABS: ALBUMIN 4.2 GM/DL (3.2-5.2); ALT/SGPT 21 U/L (12-78); BILIRUBIN,DIRECT < 0.1 MG/DL (0.0-0.2); BILIRUBIN,TOTAL 0.3 MG/DL (0.2-1.0); LIPASE 71 U/L (73-393)
--- NOTE | 2019-09-08 20:35 | REPVR ---
PROCEDURE INFORMATION: Exam: CT Abdomen And Pelvis Without Contrast Exam date and time: 09/08/2019 7:51 PM Clinical history: 23 years old, female; Abdominal pain; Flank; Left; Additional info: Left flank pain R/O kidney stone TECHNIQUE: Imaging protocol: Computed tomography of the abdomen and pelvis without contrast. Radiation optimization: All CT scans at this facility use at least one of these dose optimization techniques: automated exposure control; mA and/or kV adjustment per patient size (includes targeted exams where dose is matched to clinical indication); or iterative reconstruction. COMPARISON: CT ABD PELVIS W/O CONTRAST 07/13/2016 2:51 PM FINDINGS: Lungs: Minimal right middle lobe atelectasis or scar. Liver: There are a few probable hepatic cysts measuring up to 12 mm with a Hounsfield measurement of -4. Gallbladder and bile ducts: The gallbladder is contracted with no stones. Pancreas: Normal. No ductal dilation. Spleen: Normal. No splenomegaly. Adrenals: Normal. No mass. Kidneys and ureters: There is a left renal cyst measuring up to 2.4 cm. Stomach and bowel: Unremarkable. No obstruction. No mucosal thickening. Appendix: A normal appendix is seen. Intraperitoneal space: Trace fluid in the pelvis which is physiologic in amount. Vasculature: Unremarkable. No abdominal aortic aneurysm. Lymph nodes: Small central mesenteric nodes which are within normal limits. Bladder: Unremarkable as visualized. Reproductive: Unremarkable as visualized. Bones/joints: Unremarkable. No acute fracture. Soft tissues: Unremarkable. IMPRESSION: Negative CT abdomen/pelvis. No renal or ureteral calculi are evident and there is no evidence of obstructive uropathy. Electronically signed by: Herson De La Torre On 09/08/2019 20:34:58 PM
[2019-09-08 20:54] VITALS: BP 117/64
== END 2019-09-08 20:57 | disposition home or self-care (01) ==
LOC: M ED 18:49
DX: R10.9 Unspecified abdominal pain (principal); Z79.899 Other long term (current) drug therapy

== ENCOUNTER 2019-09-12 18:26 | Emergency (ER) | payer OTHER ==
[~2019-09-12] VITALS: Ht 160 cm; Wt 90.5 kg
[2019-09-12 18:27] VITALS: BP 129/72
[2019-09-12] MEDS ORDERED: MUCI60TA7 PO (19:18)
== END 2019-09-12 19:23 | disposition home or self-care (01) ==
LOC: M ED 18:26
DX: J20.9 Acute bronchitis, unspecified (principal)

== ENCOUNTER 2019-10-03 09:09 | Emergency (ER) | payer OTHER ==
[~2019-10-03] VITALS: Ht 160 cm; Wt 90.2 kg
[~2019-10-03 09:09] MED LIST changes: +MUCI60TA7 PO
[2019-10-03] MEDS ORDERED: FLUO10CA8 (09:22)
[2019-10-03 10:27] LABS: BILIRUBIN, URINE MANUAL NEGATIVE (NEGATIVE); GLUCOSE, URINE (UA) MANUAL NEGATIVE (NEGATIVE); KETONE, URINE MANUAL NEGATIVE (NEGATIVE); UROBILINOGEN, URINE MANUAL NORMAL (NORMAL)
[2019-10-03 10:46] LABS: RBC, URINE NONE SEEN /hpf (0-3); SQUAMOUS EPITHELIAL CELL URINE SMALL AMOUNT /hpf (SMALL AMT)
[2019-10-03 10:47] LABS: BACTERIA, URINE MOD AMOUNT; HYALINE CAST, URINE NONE SEEN /lpf (0-1); MUCUS, URINE MOD AMOUNT (NEGATIVE)
[2019-10-03] MEDS ORDERED: CIPR-249 PO (10:58)
[2019-10-03 11:02] VITALS: BP 130/83
== END 2019-10-03 11:03 | disposition home or self-care (01) ==
LOC: M ED 09:09
DX: N39.0 Urinary tract infection, site not specified (principal); Z32.02 Encounter for pregnancy test, result negative; Z79.899 Other long term (current) drug therapy; Z91.018 Allergy to other foods; Z91.040 Latex allergy status; Z91.89 Other specified personal risk factors, not elsewhere classified; Z88.8 Allergy status to other drugs, medicaments and biological substances; Z88.1 Allergy status to other antibiotic agents

== ENCOUNTER 2019-10-05 16:58 | Emergency (ER) | payer OTHER ==
[~2019-10-05] VITALS: Ht 160 cm; Wt 90.7 kg
[~2019-10-05 16:58] MED LIST changes: +CIPR-249 PO; +FLUO10CA8
[2019-10-05] MEDS ORDERED: NS 1,000 ML IV ONE (17:45)
[2019-10-05] MEDS ORDERED: KETOROLAC 30 MG/ML VIAL (J1885) IV ONE (17:45)
[2019-10-05 18:09] LABS: BASO # 0.1 10^3/uL (0.0-0.2); BASO % 0.7 % (0.0-1.0); EOS # 0.2 10^3/uL (0.0-0.5); EOS % 2.2 % (0.0-3.0); HEMATOCRIT 39.4 % (36.0-47.0); LYMPH # 3.2 10^3/uL (1.5-5.0); LYMPH % 46.5 % (24.0-44.0); MEAN CORPUSCULAR HEMOGLOBIN 27.8 pg (27.0-33.0); MEAN CORPUSCULAR VOLUME 84.2 fl (80.0-96.0); MONO # 0.5 10^3/uL (0.0-0.8); MONO % 7.4 % (0.0-5.0); NEUTROPHILS # 2.9 10^3/uL (1.5-8.5); NEUTROPHILS % 42.9 % (36.0-66.0); PLATELET COUNT, AUTOMATED 359 10^3/uL (150-450); RED BLOOD COUNT 4.68 10^6/uL (4.00-5.40); WHITE BLOOD COUNT 6.8 10^3/uL (4.0-10.0)
[2019-10-05 18:49] LABS: ALT/SGPT 30 U/L (12-78); BILIRUBIN,DIRECT < 0.1 MG/DL (0.0-0.2); BILIRUBIN,TOTAL 0.3 MG/DL (0.2-1.0); BLOOD UREA NITROGEN 11 MG/DL (7-18); CALCIUM LEVEL 9.5 MG/DL (8.5-10.1); CARBON DIOXIDE LEVEL 28 MEQ/L (21-32); CHLORIDE LEVEL 104 MEQ/L (98-107); CREATININE FOR GFR 0.67 MG/DL (0.55-1.30); GLOMERULAR FILTRATION RATE > 60.0 (>60); GLUCOSE, FASTING 82 MG/DL (70-100); LIPASE 64 U/L (73-393); POTASSIUM SERUM 4.3 MEQ/L (3.5-5.1); SODIUM LEVEL 142 MEQ/L (136-145); TOTAL PROTEIN 7.6 GM/DL (6.4-8.2)
[2019-10-05 18:53] LABS: HCG, SERUM QUALITATIVE NEGATIVE (NEGATIVE)
[2019-10-05] MEDS ORDERED: ISOVUE-370 76% 100ML VIAL (Q9967) As Ordered ONE (19:09)
--- NOTE | 2019-10-05 20:21 | REPVR ---
PROCEDURE INFORMATION: Exam: CT Abdomen And Pelvis With Contrast Exam date and time: 10/05/2019 7:19 PM Age: 23 years old Clinical history: Abdominal pain; Flank; Right; Additional info: Right flank/abdomen pain TECHNIQUE: Imaging protocol: Computed tomography of the abdomen and pelvis with intravenous contrast. Radiation optimization: All CT scans at this facility use at least one of these dose optimization techniques: automated exposure control; mA and/or kV adjustment per patient size (includes targeted exams where dose is matched to clinical indication); or iterative reconstruction. Contrast material: ISOVUE 370; Contrast volume: 100 ml; Contrast route: IV; COMPARISON: CT ABD PELVIS W/O CONTRAST 09/08/2019 7:50 PM FINDINGS: Lungs: Minimal bibasilar fibro-atelectatic change, greatest in the right middle lobe. Liver: Small hepatic cysts measuring up to 13 mm adjacent to the falciform ligament with a Hounsfield measurement of 4. The liver attenuation is 83 Hounsfield units and the spleen is 118 Hounsfield units. Gallbladder and bile ducts: The gallbladder is contracted with no stones. Pancreas: Normal. No ductal dilation. Spleen: Normal. No splenomegaly. Adrenals: Normal. No mass. Kidneys and ureters: There is a left renal cyst measuring up to 24 mm. Stomach and bowel: Unremarkable. No obstruction. No mucosal thickening. Appendix: A normal appendix is seen. Intraperitoneal space: Trace fluid in the cul-de-sac which is physiologic in amount. Vasculature: Unremarkable. No abdominal aortic aneurysm. Lymph nodes: Unremarkable. No enlarged lymph nodes. Bladder: Unremarkable as visualized. Reproductive: Left ovarian cysts or follicles measuring up to 30 mm. Bones/joints: Unremarkable. No acute fracture. Soft tissues: Unremarkable. IMPRESSION: 1. Left ovarian cyst measuring 30 mm, slightly increased since 09/08/2019. 2. Mild fatty infiltration of the liver. 3. Otherwise negative CT abdomen/pelvis. No renal or ureteral calculi are evident and there is no evidence of obstructive uropathy. Electronically signed by: Herson De La Torre On 10/05/2019 20:20:40 PM
[2019-10-05] MEDS ORDERED: NAPR-837 PO (20:49)
[2019-10-05] MEDS ORDERED: CYCL5TAB PO (20:49)
[2019-10-05 21:15] VITALS: BP 110/61
== END 2019-10-05 21:16 | disposition home or self-care (01) ==
LOC: M ED 16:58
DX: R10.9 Unspecified abdominal pain (principal); J45.909 Unspecified asthma, uncomplicated; M54.9 Dorsalgia, unspecified; F41.9 Anxiety disorder, unspecified; F32.9 Major depressive disorder, single episode, unspecified; N83.292 Other ovarian cyst, left side; Z79.899 Other long term (current) drug therapy; Z91.018 Allergy to other foods; Z88.8 Allergy status to other drugs, medicaments and biological substances; Z91.89 Other specified personal risk factors, not elsewhere classified; Z88.1 Allergy status to other antibiotic agents
CPT/HCPCS: 36415; 74177; 80048; 80076; 81001; 83690; 84703; 85025; 96361; 96374; 99284; J1885; Q9967

== ENCOUNTER 2019-11-16 17:11 | Emergency (ER) | payer OTHER ==
[~2019-11-16] VITALS: Ht 160 cm; Wt 94.1 kg
[~2019-11-16 17:11] MED LIST changes: +FLUO10CA15; -FLUO10CA8; -MECL-68; -MECL-68 PO; +MECL1TAB31; +MECL1TAB31 PO; +ONDA-83; -ONDA4TAB5
[2019-11-16] MEDS ORDERED: ONDANSETRON 4 MG ORAL DISINTEGRATING TAB (Q0162 PER 1MG) PO ONE (18:15)
--- NOTE | 2019-11-16 19:16 | REPVR ---
PROCEDURE INFORMATION: Exam: US Pelvis Complete, Transabdominal Exam date and time: 11/16/2019 6:29 PM Age: 24 years old Clinical indication: Pelvic pain; Additional info: Lower abd pain/hx ovarian cyst TECHNIQUE: Imaging protocol: Real-time transabdominal pelvic ultrasound with image documentation. Complete exam. COMPARISON: US PELVIC NON-OB COMPLETE 01/23/2019 12:28 PM FINDINGS: Uterus measures 8.8 x 4.6 x 4.6 cm in size. No focal uterine mass. There may be punctate uterine calcifications. Endometrial stripe appears homogeneous, measuring 12 mm in thickness. Right ovary measures 2.9 x 2.3 x 2.9 cm in size. No dominant mass or cyst. Left ovary measures 3.8 x 2.9 x 3.2 cm in size. 19 mm left ovary simple cyst. Doppler flow is documented in both ovaries. Resistive indices 0.51 right and 0.61 left No abnormal volume of free fluid within the pelvis. IMPRESSION: Left ovarian 2 cm simple cyst without evidence of torsion or other complication. Electronically signed by: Oscar Lay On 11/16/2019 19:15:52 PM
[2019-11-16 19:46] VITALS: BP 113/68
== END 2019-11-16 19:47 | disposition home or self-care (01) ==
LOC: M ED 17:11
DX: N83.202 Unspecified ovarian cyst, left side (principal); Z91.040 Latex allergy status; Z88.8 Allergy status to other drugs, medicaments and biological substances; Z91.010 Allergy to peanuts
CPT/HCPCS: 36415; 76830; 76856; 81001; 84702; 93976; 99284; Q0162

== ENCOUNTER 2019-11-25 13:30 | Emergency (ER) | payer OTHER ==
[~2019-11-25] VITALS: Ht 160 cm; Wt 90.0 kg
[2019-11-25 13:31] VITALS: BP 126/76
[2019-11-25] MEDS ORDERED: ONDA4TAB6 PO (21:48)
== END 2019-11-25 17:42 | disposition left against medical advice (07) ==
LOC: M ED 13:30
DX: Z53.21 Procedure and treatment not carried out due to patient leaving prior to being seen by health care provider (principal)

== ENCOUNTER 2019-11-25 17:53 | Emergency (ER) | payer OTHER ==
[~2019-11-25] VITALS: Ht 160 cm; Wt 90.0 kg
[2019-11-25] MEDS ORDERED: ONDA4TAB6 PO (21:48)
[2019-11-25 22:10] VITALS: BP 133/85
== END 2019-11-25 22:12 | disposition home or self-care (01) ==
LOC: M ED 17:53
DX: R19.7 Diarrhea, unspecified (principal); R11.0 Nausea; Z79.51 Long term (current) use of inhaled steroids; Z79.899 Other long term (current) drug therapy; Z88.8 Allergy status to other drugs, medicaments and biological substances; Z91.040 Latex allergy status; Z91.018 Allergy to other foods

== ENCOUNTER 2019-12-09 19:06 | Emergency (ER) | payer OTHER ==
[~2019-12-09] VITALS: Ht 160 cm; Wt 89.2 kg
[~2019-12-09 19:06] MED LIST changes: +ONDA4TAB6 PO
[2019-12-09 19:07] VITALS: BP 138/74
[2019-12-09] MEDS ORDERED: NAPR-837 PO (22:03)
[2019-12-09] MEDS ORDERED: NAPROXEN 250 MG TAB PO ONE (22:15)
== END 2019-12-09 22:18 | disposition home or self-care (01) ==
LOC: M ED 19:06
DX: M25.512 Pain in left shoulder (principal); Z79.899 Other long term (current) drug therapy; Z88.8 Allergy status to other drugs, medicaments and biological substances; Z91.040 Latex allergy status; Z91.010 Allergy to peanuts

== ENCOUNTER 2020-01-13 19:05 | Emergency (ER) | payer OTHER ==
[~2020-01-13] VITALS: Ht 160 cm; Wt 88.6 kg
[~2020-01-13 19:05] MED LIST changes: +NORG1TAB37 PO; -TRI-1TAB5 PO
[2020-01-13 20:03] LABS: BASO # 0.1 10^3/uL (0.0-0.2); BASO % 0.9 % (0.0-1.0); EOS # 0.3 10^3/uL (0.0-0.5); EOS % 3.7 % (0.0-3.0); HEMATOCRIT 35.9 % (36.0-47.0); HEMOGLOBIN 12.3 g/dl (12.0-15.5); LYMPH # 3.4 10^3/uL (1.5-5.0); LYMPH % 50.9 % (24.0-44.0); MEAN CORPUSCULAR HEMOGLOBIN 28.3 pg (27.0-33.0); MEAN CORPUSCULAR HGB CONC 34.3 g/dl (32.0-36.5); MEAN CORPUSCULAR VOLUME 82.5 fl (80.0-96.0); MONO # 0.6 10^3/uL (0.0-0.8); MONO % 8.5 % (0.0-5.0); NEUTROPHILS # 2.4 10^3/uL (1.5-8.5); NEUTROPHILS % 35.7 % (36.0-66.0); PLATELET COUNT, AUTOMATED 358 10^3/uL (150-450); RED BLOOD COUNT 4.35 10^6/uL (4.00-5.40); WHITE BLOOD COUNT 6.7 10^3/uL (4.0-10.0)
[2020-01-13 20:36] LABS: ALT/SGPT 59 U/L (12-78); BILIRUBIN,DIRECT < 0.1 MG/DL (0.0-0.2); BILIRUBIN,TOTAL 0.2 MG/DL (0.2-1.0); LIPASE 64 U/L (73-393); TOTAL PROTEIN 7.2 GM/DL (6.4-8.2)
[2020-01-13 21:54] VITALS: BP 112/61
[2020-01-13] MEDS ORDERED: NAPR-837 PO (22:08)
--- NOTE | 2020-01-13 22:18 | REPVR ---
PROCEDURE INFORMATION: Exam: US Pelvis Complete, Transabdominal and US Pelvis, Transvaginal and US Duplex Artery and Vein, Ovaries, Complete Exam date and time: 01/13/2020 9:13 PM Age: 24 years old Clinical indication: Pelvic pain; Prior surgery; Surgery date: 6+ months; Surgery type: x3; Additional info: Rlq pain and a HX of ovarian cysts. TECHNIQUE: Imaging protocol: Real-time transabdominal and transvaginal pelvic ultrasound (complete) with image documentation. Transvaginal imaging was used for better evaluation of the endometrium and adnexa. Real-time duplex ultrasound scan of the arterial and venous flow of the ovaries with B-mode, color Doppler flow and spectral waveform analysis. COMPARISON: US PELVIC NON-OB COMPLETE 11/16/2019 6:32 PM FINDINGS: Uterus size: 8.6 cm x 4.2 cm x 5.1 cm Right ovary size: 4.2 cm x 2.1 cm x 3.1 cm Endometrial stripe thickness: 6 mm Left ovary size: 4 cm x 2.8 cm x 3.3 cm Uterus/cervix: The anteverted uterus is normal in appearance. No myometrial mass is noted. The endometrial stripe is normal in appearance. The cervix is unremarkable. Right adnexa: The right ovary is normal in appearance. No right ovarian cyst or right adnexal mass is noted. The arterial and venous color Doppler flow and spectral waveforms within the right ovary are within normal limits, without evidence for right ovarian torsion. Left adnexa: The left ovary is normal in appearance. No left ovarian cyst or left adnexal mass is noted. There is a 10 mm x 8 mm x 8 mm dominant follicle in the left ovary. The arterial and venous color Doppler flow and spectral waveforms within the left ovary are within normal limits, without evidence for left ovarian torsion. Free fluid: None. Bladder: The partially distended urinary bladder is unremarkable. IMPRESSION: Normal pelvic ultrasound without evidence for ovarian torsion or an ovarian cyst. Electronically signed by: Stiven Balderas On 01/13/2020 22:17:42 PM
== END 2020-01-13 22:17 | disposition home or self-care (01) ==
LOC: M ED 19:05
DX: N94.0 Mittelschmerz (principal); L72.3 Sebaceous cyst; M54.9 Dorsalgia, unspecified; R51 Headache; R11.2 Nausea with vomiting, unspecified; R19.7 Diarrhea, unspecified; J45.909 Unspecified asthma, uncomplicated; Z88.1 Allergy status to other antibiotic agents; Z88.8 Allergy status to other drugs, medicaments and biological substances; Z91.018 Allergy to other foods; Z91.048 Other nonmedicinal substance allergy status; Z79.899 Other long term (current) drug therapy; Z79.2 Long term (current) use of antibiotics

== ENCOUNTER 2020-02-16 13:21 | Emergency (ER) | payer OTHER ==
[~2020-02-16] VITALS: Ht 160 cm; Wt 94.0 kg
[~2020-02-16 13:21] MED LIST changes: +CYCL-707 PO; -CYCL10TA PO
[2020-02-16] MEDS ORDERED: MECL-86 (13:54)
[2020-02-16] MEDS ORDERED: KETOROLAC TROMETHAMINE 10 MG TAB PO ONE (14:00)
[2020-02-16 14:18] LABS: BASO # 0.1 10^3/uL (0.0-0.2); BASO % 0.7 % (0.0-1.0); EOS # 0.2 10^3/uL (0.0-0.5); EOS % 3.3 % (0.0-3.0); HEMATOCRIT 38.9 % (36.0-47.0); HEMOGLOBIN 13.1 g/dl (12.0-15.5); LYMPH # 2.7 10^3/uL (1.5-5.0); LYMPH % 39.3 % (24.0-44.0); MEAN CORPUSCULAR HEMOGLOBIN 27.9 pg (27.0-33.0); MEAN CORPUSCULAR HGB CONC 33.7 g/dl (32.0-36.5); MEAN CORPUSCULAR VOLUME 82.9 fl (80.0-96.0); MONO # 0.6 10^3/uL (0.0-0.8); MONO % 8.5 % (0.0-5.0); NEUTROPHILS # 3.3 10^3/uL (1.5-8.5); NEUTROPHILS % 47.9 % (36.0-66.0); PLATELET COUNT, AUTOMATED 340 10^3/uL (150-450); RED BLOOD COUNT 4.69 10^6/uL (4.00-5.40); WHITE BLOOD COUNT 6.9 10^3/uL (4.0-10.0)
[2020-02-16 14:46] LABS: ALT/SGPT 55 U/L (12-78); BILIRUBIN,DIRECT < 0.1 MG/DL (0.0-0.2); BILIRUBIN,TOTAL 0.2 MG/DL (0.2-1.0); LIPASE 74 U/L (73-393)
[2020-02-16] MEDS ORDERED: BACT800T5 PO (15:47)
[2020-02-16 15:57] VITALS: BP 121/73
--- NOTE | 2020-02-16 17:10 | REP ---
REASON: Lower abdominal pain. History of ovarian cysts. COMPARISON: 01/13/2020 which was normal. Transvesical imaging only was performed. The uterus is unchanged in size, shape, and echo pattern measuring 7.8 x 4.3 x 5 cm. The endometrial echo complex is again seen to be unremarkable with a maximal thickness of 2 mm. There is no free fluid in the cul-de-sac. Right ovary measures 3.7 x 2.6 x 3.2 cm with an RI of 0.54. Within the right ovary, there is a complex 2.3 cm sized structure. Left ovary measures 3.8 x 2.7 x 2.3 cm with an RI of 0.62. Left ovary is normal. There is no free fluid in the cul-de-sac. IMPRESSION: Probably resolving small right ovarian cyst or dominant follicle as described above. Electronically Signed by Bogdan Varela DO 02/17/2020 10:53 A
== END 2020-02-16 15:58 | disposition home or self-care (01) ==
LOC: M ED 13:21
DX: N39.0 Urinary tract infection, site not specified (principal); N83.201 Unspecified ovarian cyst, right side; J45.909 Unspecified asthma, uncomplicated; D64.9 Anemia, unspecified; F41.9 Anxiety disorder, unspecified; F32.9 Major depressive disorder, single episode, unspecified; Z88.8 Allergy status to other drugs, medicaments and biological substances; Z88.3 Allergy status to other anti-infective agents; Z91.048 Other nonmedicinal substance allergy status; Z91.040 Latex allergy status; Z91.018 Allergy to other foods; Z79.899 Other long term (current) drug therapy; Z79.1 Long term (current) use of non-steroidal anti-inflammatories (NSAID)

== ENCOUNTER 2020-04-23 22:49 | Emergency (ER) | payer OTHER ==
[~2020-04-23] VITALS: Ht 160 cm; Wt 100.0 kg
[~2020-04-23 22:49] MED LIST changes: +BACT800T5 PO; +MECL-86
[2020-04-24 01:17] VITALS: BP 135/84
[2020-04-24] MEDS ORDERED: IBUPROFEN 600MG TAB PO ONE (01:30)
--- NOTE | 2020-04-24 08:15 | REP ---
Left ankle series: Four views. History: Pain and swelling after inversion injury. Comparison left ankle radiographs are from the second 2016. Findings: Four views of the left ankle demonstrate an intact ankle mortise. No fractures seen. Calcifications are seen along the course of peroneal tendon (os perineum). These were not apparent in 2016. Nevertheless, they are not acute findings. Impression: No fracture or acute bony abnormalities seen. Electronically Signed by Javy Hansen MD 04/24/2020 08:07 A
== END 2020-04-24 01:36 | disposition home or self-care (01) ==
LOC: M ED 22:49
DX: S93.402A Sprain of unspecified ligament of left ankle, initial encounter (principal); X50.1XXA Overexertion from prolonged static or awkward postures, initial encounter; Y92.009 Unspecified place in unspecified non-institutional (private) residence as the place of occurrence of the external cause; D64.9 Anemia, unspecified; F17.200 Nicotine dependence, unspecified, uncomplicated; J45.909 Unspecified asthma, uncomplicated; F41.9 Anxiety disorder, unspecified; F32.9 Major depressive disorder, single episode, unspecified; Z88.1 Allergy status to other antibiotic agents; Z88.8 Allergy status to other drugs, medicaments and biological substances; Z91.018 Allergy to other foods; Z91.040 Latex allergy status; Z91.09 Other allergy status, other than to drugs and biological substances; Z79.899 Other long term (current) drug therapy

== ENCOUNTER 2020-05-11 18:00 | Emergency (ER) | payer OTHER ==
[~2020-05-11] VITALS: Ht 160 cm; Wt 95.6 kg
[~2020-05-11 18:00] MED LIST changes: -FLUO10CA15; +FLUO10CA16
[2020-05-11] MEDS ORDERED: ALBU8.5H (18:30)
[2020-05-11 19:11] LABS: BASO # 0.1 10^3/uL (0.0-0.2); BASO % 0.6 % (0.0-1.0); EOS # 0.1 10^3/uL (0.0-0.5); EOS % 1.3 % (0.0-3.0); HEMATOCRIT 35.4 % (36.0-47.0); HEMOGLOBIN 11.9 g/dl (12.0-15.5); LYMPH # 3.1 10^3/uL (1.5-5.0); MEAN CORPUSCULAR HEMOGLOBIN 27.9 pg (27.0-33.0); MEAN CORPUSCULAR HGB CONC 33.6 g/dl (32.0-36.5); MEAN CORPUSCULAR VOLUME 83.1 fl (80.0-96.0); MONO # 0.7 10^3/uL (0.0-0.8); MONO % 8.4 % (0.0-5.0); NEUTROPHILS # 3.8 10^3/uL (1.5-8.5); NEUTROPHILS % 49.4 % (36.0-66.0); PLATELET COUNT, AUTOMATED 348 10^3/uL (150-450); RED BLOOD COUNT 4.26 10^6/uL (4.00-5.40); WHITE BLOOD COUNT 7.8 10^3/uL (4.0-10.0)
[2020-05-11] MEDS ORDERED: ISOVUE-370 76% 100ML VIAL As Ordered ONE (19:32)
[2020-05-11 19:41] LABS: ALBUMIN 4.1 GM/DL (3.2-5.2); ALT/SGPT 26 U/L (12-78); BILIRUBIN,DIRECT < 0.1 MG/DL (0.0-0.2); BILIRUBIN,TOTAL 0.2 MG/DL (0.2-1.0); LIPASE 73 U/L (73-393); TOTAL PROTEIN 7.5 GM/DL (6.4-8.2)
--- NOTE | 2020-05-11 20:03 | REPVR ---
PROCEDURE INFORMATION: Exam: CT Abdomen And Pelvis With Contrast Exam date and time: 05/11/2020 7:36 PM Age: 24 years old Clinical indication: Abdominal pain; Generalized; Additional info: Abdominal pain; R/O colitis TECHNIQUE: Imaging protocol: Computed tomography of the abdomen and pelvis with intravenous contrast. Radiation optimization: All CT scans at this facility use at least one of these dose optimization techniques: automated exposure control; mA and/or kV adjustment per patient size (includes targeted exams where dose is matched to clinical indication); or iterative reconstruction. Contrast material: ISOVUE 370; Contrast volume: 100 ml; Contrast route: INTRAVENOUS (IV); COMPARISON: CT ABD/PEL W/IV CONTRAST ONLY 10/05/2019 7:16 PM FINDINGS: Liver: There are cysts in the liver measuring up to 1.4 cm in the left lobe. No complex features demonstrated. The liver is otherwise unremarkable. Gallbladder and bile ducts: The gallbladder is incompletely distended. This is most likely related to incomplete fasting. Clinical correlation to exclude gallbladder pathology suggested. Pancreas: Normal. No ductal dilation. Spleen: There is mild splenomegaly with a maximum span of 14 centimeters. No focal abnormalities demonstrated. Adrenals: Normal. No mass. Kidneys and ureters: 2.6 cm simple cyst left kidney. No follow-up suggested. Stomach and bowel: Colon is collapsed with a somewhat boggy appearance of the transverse, left, and sigmoid colon. There is no gross pericolonic inflammation however clinical correlation to exclude colitis suggested. Appendix: No evidence of appendicitis. Intraperitoneal space: There is minimal fluid in the cul-de-sac most likely physiologic. Clinical correlation to exclude other causes of cul-de-sac fluid suggested including endometriosis/PID. Vasculature: Unremarkable. No abdominal aortic aneurysm. Lymph nodes: Unremarkable. No enlarged lymph nodes. Bladder: Unremarkable as visualized. Reproductive: 3.9 cm cyst right ovary likely functional. Bones/joints: Moderate to severe central spinal stenosis L4-L5. Soft tissues: Unremarkable. IMPRESSION: 1. The gallbladder is incompletely distended. This is most likely related to incomplete fasting. Clinical correlation to exclude gallbladder pathology suggested. 2. There is mild splenomegaly with a maximum span of 14 centimeters. No focal abnormalities demonstrated. 3. 2.6 cm simple cyst left kidney. No follow-up suggested. 4. Numerous hepatic cysts measuring up to 1.4 cm as described above. No follow-up suggested. COMMENTS: Consistent with the [employer]'s Incidental Findings Committee white paper (J Am Steven Radiol 2018): Any incidental renal lesion less than 1.0 cm or classified as too small to characterize, or any incidental cystic renal lesion characterized as simple-appearing, is likely benign. No follow-up imaging is recommended for these lesions per consensus recommendations based on imaging criteria. Electronically signed by: Richard Valenzuela On 05/11/2020 20:02:43 PM
[2020-05-11] MEDS ORDERED: DICY20TA11 PO (20:12)
[2020-05-11 20:16] VITALS: BP 122/75
--- NOTE | 2020-05-13 15:13 | ED PDOC ---
Post-Departure Follow-Up huey bland faxed formal report of ct abd/p for fu Jean Shea MD May 13, 2020 15:13
== END 2020-05-11 20:22 | disposition home or self-care (01) ==
LOC: M ED 18:00
DX: R19.7 Diarrhea, unspecified (principal); R10.9 Unspecified abdominal pain; D64.9 Anemia, unspecified; F41.9 Anxiety disorder, unspecified; Z79.899 Other long term (current) drug therapy; Z88.1 Allergy status to other antibiotic agents; Z88.8 Allergy status to other drugs, medicaments and biological substances; Z91.018 Allergy to other foods; Z91.040 Latex allergy status
CPT/HCPCS: 36415; 74177; 80047; 80076; 81001; 83690; 84702; 85025; 99284; Q9967

== ENCOUNTER → 2020-05-13 | Outpatient (REF) | payer OTHER ==
[~2020-05-13] MED LIST changes: +ALBU8.5H; +BUDE10.2; +DICY20TA11 PO; +LORA-674 PO; +M-NA1TAB PO; +PYRI25TA2 PO
== END ==
LOC: M LAB REF 18:23
PROVIDERS: ATTEND Emergency Medicine
DX: Z00.00 Encounter for general adult medical examination without abnormal findings (principal)

== ENCOUNTER 2020-05-16 19:20 | Emergency (ER) | payer OTHER ==
[~2020-05-16] VITALS: Ht 160 cm; Wt 93.2 kg
[~2020-05-16 19:20] MED LIST changes: -BUDE10.2; -LORA-674 PO; -M-NA1TAB PO; -PYRI25TA2 PO
[2020-05-16] MEDS ORDERED: ULIPRISTAL ACETATE 30 MG TAB (ELLA) PO ONE (23:15)
[2020-05-16 23:57] VITALS: BP 120/68
== END 2020-05-17 00:23 | disposition home or self-care (01) ==
LOC: M ED 19:20
DX: T74.21XA Adult sexual abuse, confirmed, initial encounter (principal); S20.01XA Contusion of right breast, initial encounter; S20.02XA Contusion of left breast, initial encounter; Y07.59 Other non-family member, perpetrator of maltreatment and neglect; Y92.9 Unspecified place or not applicable; Y93.9 Activity, unspecified; G89.29 Other chronic pain; J45.909 Unspecified asthma, uncomplicated; Z91.018 Allergy to other foods; Z88.1 Allergy status to other antibiotic agents; Z91.040 Latex allergy status; Z91.048 Other nonmedicinal substance allergy status

== ENCOUNTER 2020-05-22 21:18 | Emergency (ER) | payer OTHER ==
[~2020-05-22] VITALS: Ht 160 cm; Wt 95.5 kg
[2020-05-22] MEDS ORDERED: IBUP-1022 PO (23:12)
[2020-05-22 23:22] VITALS: BP 154/87
== END 2020-05-22 23:25 | disposition home or self-care (01) ==
LOC: M ED 21:18
DX: R09.1 Pleurisy (principal); J45.909 Unspecified asthma, uncomplicated; F41.9 Anxiety disorder, unspecified; Z88.3 Allergy status to other anti-infective agents; Z91.048 Other nonmedicinal substance allergy status; Z91.018 Allergy to other foods; Z91.040 Latex allergy status; Z79.899 Other long term (current) drug therapy

== ENCOUNTER → 2020-06-01 | Emergency (ER) | payer OTHER ==
[~2020-06-01] MED LIST changes: +FLUO10CA15; -FLUO10CA16
== END | disposition left against medical advice (07) ==
LOC: M ED 17:50
DX: Z53.20 Procedure and treatment not carried out because of patient's decision for unspecified reasons (principal)

== ENCOUNTER → 2020-07-16 | Outpatient (CLI) | payer OTHER ==
[~2020-07-16] MED LIST changes: +BUDE10.2; -FLUO10CA15; +FLUO10CA16; +LORA-674 PO; +M-NA1TAB PO; +PYRI25TA2 PO
--- NOTE | 2020-08-06 09:02 | REP ---
RIGHT SHOULDER SERIES CLINICAL: Right shoulder pain. TECHNIQUE: Internal rotation, external rotation, and Y view of the right shoulder. FINDINGS: The acromioclavicular and glenohumeral joints are intact and normal. No acute fracture or dislocation. No overt arthritic changes. The subacromial space is normal. No periarticular calcifications or loose bodies. IMPRESSION: Normal right shoulder radiographs. MTDD
== END ==
LOC: M LAB 08:36
PROVIDERS: ATTEND Family Medicine Addiction Medicine
DX: M25.511 Pain in right shoulder (principal)

== ENCOUNTER 2020-08-27 17:55 | Emergency (ER) | payer OTHER ==
[~2020-08-27] VITALS: Ht 160 cm; Wt 92.2 kg
[~2020-08-27 17:55] MED LIST changes: -BUDE10.2; -LORA-674 PO; -M-NA1TAB PO; -PYRI25TA2 PO
[2020-08-27] MEDS ORDERED: PYRI25TA2 PO (18:53)
[2020-08-27] MEDS ORDERED: M-NA1TAB PO (18:53)
[2020-08-27] MEDS ORDERED: LORA-674 PO (18:53)
[2020-08-27 18:58] LABS: HEMATOCRIT 38.8 % (36.0-47.0); MEAN CORPUSCULAR HEMOGLOBIN 27.3 pg (27.0-33.0); MEAN CORPUSCULAR HGB CONC 33.5 g/dl (32.0-36.5); MEAN CORPUSCULAR VOLUME 81.3 fl (80.0-96.0); PLATELET COUNT, AUTOMATED 361 10^3/uL (150-450); RED BLOOD COUNT 4.77 10^6/uL (4.00-5.40); WHITE BLOOD COUNT 9.9 10^3/uL (4.0-10.0)
[2020-08-27] MEDS ORDERED: NS 1,000 ML IV ONE (19:15)
[2020-08-27] MEDS ORDERED: ONDANSETRON 4MG/2ML VIAL IV ONE (19:15)
[2020-08-27] MEDS ORDERED: ONDA4TAB6 PO (21:19)
[2020-08-27 21:24] VITALS: BP 115/60
== END 2020-08-27 21:48 | disposition home or self-care (01) ==
LOC: M ED 17:55
DX: O21.9 Vomiting of pregnancy, unspecified (principal); O99.511 Diseases of the respiratory system complicating pregnancy, first trimester; O99.011 Anemia complicating pregnancy, first trimester; D64.9 Anemia, unspecified; Z3A.09 9 weeks gestation of pregnancy; Z87.42 Personal history of other diseases of the female genital tract; Z91.018 Allergy to other foods; Z88.8 Allergy status to other drugs, medicaments and biological substances; Z88.3 Allergy status to other anti-infective agents; Z91.040 Latex allergy status; Z91.048 Other nonmedicinal substance allergy status; Z79.899 Other long term (current) drug therapy
CPT/HCPCS: 80047; 81001; 84702; 85027; 96361; 96374; 99284; J2405

== ENCOUNTER 2020-09-14 18:04 | Emergency (ER) | payer OTHER ==
[~2020-09-14] VITALS: Ht 160 cm; Wt 92.3 kg
[~2020-09-14 18:04] MED LIST changes: +LORA-674 PO; +M-NA1TAB PO; +PYRI25TA2 PO
[2020-09-14] MEDS ORDERED: BUDE10.2 (18:18)
[2020-09-14] MEDS ORDERED: ALBU8.5H (18:18)
[2020-09-14 19:16] LABS: BASO % 0.6 % (0.0-1.0); EOS # 0.1 10^3/uL (0.0-0.5); EOS % 0.8 % (0.0-3.0); HEMOGLOBIN 11.1 g/dl (12.0-15.5); LYMPH # 2.9 10^3/uL (1.5-5.0); LYMPH % 39.4 % (24.0-44.0); MEAN CORPUSCULAR HEMOGLOBIN 27.1 pg (27.0-33.0); MEAN CORPUSCULAR HGB CONC 32.6 g/dl (32.0-36.5); MEAN CORPUSCULAR VOLUME 82.9 fl (80.0-96.0); MONO # 0.7 10^3/uL (0.0-0.8); NEUTROPHILS # 3.6 10^3/uL (1.5-8.5); NEUTROPHILS % 49.9 % (36.0-66.0); PLATELET COUNT, AUTOMATED 281 10^3/uL (150-450); WHITE BLOOD COUNT 7.3 10^3/uL (4.0-10.0)
[2020-09-14 19:28] LABS: APPEARANCE, URINE HAZY (CLEAR); BACTERIA, URINE AUTO 1+ (NEGATIVE); BILIRUBIN, URINE AUTO NEGATIVE (NEGATIVE); BLOOD, URINE BLOOD NEGATIVE (NEGATIVE); COLOR, URINE YELLOW (YELLOW); GLUCOSE, URINE (UA) AUTO NEGATIVE (NEGATIVE); KETONE, URINE AUTO NEGATIVE (NEGATIVE); LEUKOCYTE ESTERASE, URINE AUTO NEGATIVE (NEGATIVE); MUCUS, URINE SMALL (NEGATIVE); NITRITE, URINE AUTO NEGATIVE (NEGATIVE); PROTEIN, URINE AUTO NEGATIVE (NEGATIVE); RBC, URINE AUTO 2 /HPF (0-3); SPECIFIC GRAVITY URINE AUTO 1.018 (1.002-1.035); SQUAMOUS EPITHELIAL CELL UR AU 2 /HPF (0-6); WBC, URINE AUTO 1 /HPF (0-3)
[2020-09-14 19:50] LABS: ALBUMIN 3.7 GM/DL (3.2-5.2); ALT/SGPT 27 U/L (12-78); BILIRUBIN,DIRECT < 0.1 MG/DL (0.0-0.2); BILIRUBIN,TOTAL 0.3 MG/DL (0.2-1.0); BLOOD UREA NITROGEN 7 MG/DL (7-18); CALCIUM LEVEL 8.9 MG/DL (8.5-10.1); CARBON DIOXIDE LEVEL 25 MEQ/L (21-32); CHLORIDE LEVEL 105 MEQ/L (98-107); CREATININE FOR GFR 0.56 MG/DL (0.55-1.30); GLOMERULAR FILTRATION RATE > 60.0 (>60); GLUCOSE, FASTING 81 MG/DL (70-100); LIPASE 43 U/L (73-393); POTASSIUM SERUM 3.7 MEQ/L (3.5-5.1); SODIUM LEVEL 137 MEQ/L (136-145); TOTAL PROTEIN 6.8 GM/DL (6.4-8.2)
[2020-09-14 20:10] LABS: HCG, SERUM QUANTITATIVE 117138 MIU/ML
--- NOTE | 2020-09-14 21:01 | REPVR ---
PROCEDURE INFORMATION: Exam: US First Trimester, Transabdominal Exam date and time: 09/14/2020 8:52 PM Age: 24 years old Clinical indication: complicated by abdominal or pelvic pain; Lower; First trimester; Gestational age or lmp: 06/19/20; ; Additional info: Low abd pain preg eval for iup TECHNIQUE: Imaging protocol: Real-time transabdominal obstetrical ultrasound of the maternal pelvis and a first trimester , less than 14 weeks 0 days, with image documentation. COMPARISON: TRANSVAGINAL US 05/29/2018 12:24 PM FINDINGS: Gestation: Single gestational sac within the uterus. Embryonic/ heart rate: heart rate 158 bpm. Placenta: Unremarkable. No subchorionic bleed. Amniotic fluid: Amniotic fluid is normal for gestational age. BIOMETRY: Gestational age (AUA): Gestational age based on crown-rump length is 10 weeks 5 days versus 12 weeks 3 days using LMP of 06/19/2020. [place]-Rump length: Single fetus within this a small sac with a crown-rump length of 3.8 cm. MATERNAL: Uterus: Unremarkable. Cervix: Unremarkable. Right adnexa: Unremarkable. Left adnexa: Unremarkable. Intraperitoneal space: No intraperitoneal free fluid. IMPRESSION: Unremarkable 1st trimester scan at 10 weeks 5 days using crown-rump length versus 12 weeks 3 days based on LMP. Detailed structural survey can be performed between 19-20 weeks if clinically desired. Electronically signed by: Richard Valenzuela On 09/14/2020 21:00:55 PM
--- NOTE | 2020-09-14 21:01 | REPVR ---
PROCEDURE INFORMATION: Exam: US Abdomen; Limited Exam date and time: 09/14/2020 8:52 PM Age: 24 years old Clinical indication: Abdominal pain; Generalized; ; Additional info: Fast exam - [facility] [place] yesterday TECHNIQUE: Imaging protocol: US abdomen. Real time ultrasound with image documentation. Limited exam focused on the region of clinical interest. COMPARISON: GALLBLADDER US 08/12/2019 11:44 PM FINDINGS: Intraperitoneal space: No evidence of ascites demonstrated. IMPRESSION: No ascites demonstrated. Electronically signed by: Richard Valenzuela On 09/14/2020 21:01:41 PM
[2020-09-14 21:45] VITALS: BP 126/69
== END 2020-09-14 21:55 | disposition home or self-care (01) ==
LOC: M ED 18:04
DX: O20.0 Threatened abortion (principal); V43.52XA Car driver injured in collision with other type car in traffic accident, initial encounter; Y92.410 Unspecified street and highway as the place of occurrence of the external cause; O26.891 Other specified pregnancy related conditions, first trimester; M54.5 Low back pain; Z3A.12 12 weeks gestation of pregnancy; Z88.1 Allergy status to other antibiotic agents; Z91.018 Allergy to other foods; Z91.048 Other nonmedicinal substance allergy status; Z79.899 Other long term (current) drug therapy

== ENCOUNTER → 2020-09-21 | Outpatient (CLI) | payer OTHER ==
[~2020-09-21] MED LIST changes: +BUDE10.2
[2020-09-21 11:15] LABS: BASO % 0.3 % (0.0-1.0); EOS # 0.1 10^3/uL (0.0-0.5); EOS % 0.9 % (0.0-3.0); HEMATOCRIT 35.6 % (36.0-47.0); HEMOGLOBIN 11.9 g/dl (12.0-15.5); LYMPH % 30.5 % (24.0-44.0); MEAN CORPUSCULAR HEMOGLOBIN 27.5 pg (27.0-33.0); MEAN CORPUSCULAR HGB CONC 33.4 g/dl (32.0-36.5); MEAN CORPUSCULAR VOLUME 82.2 fl (80.0-96.0); MONO # 0.5 10^3/uL (0.0-0.8); MONO % 7.2 % (0.0-5.0); NEUTROPHILS % 60.8 % (36.0-66.0); PLATELET COUNT, AUTOMATED 302 10^3/uL (150-450); RED BLOOD COUNT 4.33 10^6/uL (4.00-5.40); WHITE BLOOD COUNT 6.6 10^3/uL (4.0-10.0)
[2020-09-21 11:48] LABS: GLUCOSE CHALLENGE TEST 1 HOUR 97 MG/DL (LESS THAN 140)
[2020-09-21 11:56] LABS: CHLAMYDIA DNA AMPLIFICATION NEGATIVE (NEGATIVE); GC DNA AMPLIFICATION NEGATIVE (NEGATIVE)
[2020-09-21 12:05] LABS: HEMOGLOBIN A1c 4.9 %
[2020-09-21 12:39] LABS: HEPATITIS C VIRUS ABY INDEX < 0.0 INDEX (<0.8)
[2020-09-21 12:40] LABS: HIV 1&2 SCREEN CENTAUR NEGATIVE (NEGATIVE)
== END ==
LOC: M LAB 08:44
PROVIDERS: ATTEND Advanced Practice Midwife
DX: O34.211 Maternal care for low transverse scar from previous cesarean delivery (principal); Z3A.00 Weeks of gestation of pregnancy not specified

== ENCOUNTER 2020-10-11 19:41 | Emergency (ER) | payer OTHER ==
[~2020-10-11] VITALS: Ht 160 cm; Wt 89.0 kg
[2020-10-11 21:44] LABS: BASO % 0.4 % (0.0-1.0); EOS # 0.1 10^3/uL (0.0-0.5); EOS % 1.8 % (0.0-3.0); HEMATOCRIT 32.6 % (36.0-47.0); HEMOGLOBIN 11.1 g/dl (12.0-15.5); LYMPH # 2.9 10^3/uL (1.5-5.0); LYMPH % 40.8 % (24.0-44.0); MEAN CORPUSCULAR HEMOGLOBIN 28.1 pg (27.0-33.0); MEAN CORPUSCULAR VOLUME 82.5 fl (80.0-96.0); MONO # 0.6 10^3/uL (0.0-0.8); MONO % 8.5 % (0.0-5.0); NEUTROPHILS # 3.4 10^3/uL (1.5-8.5); NEUTROPHILS % 48.2 % (36.0-66.0); PLATELET COUNT, AUTOMATED 313 10^3/uL (150-450); RED BLOOD COUNT 3.95 10^6/uL (4.00-5.40); WHITE BLOOD COUNT 7.1 10^3/uL (4.0-10.0)
--- NOTE | 2020-10-11 22:16 | REPVR ---
PROCEDURE INFORMATION: Exam: US , Limited Exam date and time: 10/11/2020 9:55 PM Age: 24 years old Clinical indication: complicated by abdominal or pelvic pain; Lower; Second trimester; Gestational age or lmp: 14w4d; ; Additional info: Preg suprapubic pain eval for iup TECHNIQUE: Imaging protocol: Real-time ultrasound of the maternal uterus with image documentation. Exam focused on the clinical indication. COMPARISON: US OB 09/14/2020 8:50 PM FINDINGS: Gestation: Single intrauterine gestation. heart rate: heart rate 147 bpm. Placenta: Anterior placenta. No placenta previa. Amniotic fluid: Normal amniotic fluid. GA 7.1 cm. BIOMETRY: Gestational age (AUA): Gestational age based on LMP of 06/19/2020 is 16 weeks 2 days versus 14 weeks 4 days based on earlier ultrasound. MATERNAL: Cervix: Cervix measures 4.2 cm without evidence of funneling or bulging membranes. Vasculature: Ovary/Vasculature: Right and left ovaries unremarkable. Normal flow. IMPRESSION: Unremarkable limited survey. Electronically signed by: Richard Valenzuela On 10/11/2020 22:16:30 PM
[2020-10-11 22:30] LABS: ALBUMIN 3.3 GM/DL (3.2-5.2); ALT/SGPT 17 U/L (12-78); BILIRUBIN,DIRECT < 0.1 MG/DL (0.0-0.2); BLOOD UREA NITROGEN 10 MG/DL (7-18); CALCIUM LEVEL 8.9 MG/DL (8.5-10.1); CARBON DIOXIDE LEVEL 24 MEQ/L (21-32); CHLORIDE LEVEL 107 MEQ/L (98-107); CREATININE FOR GFR 0.54 MG/DL (0.55-1.30); GLOMERULAR FILTRATION RATE > 60.0 (>60); GLUCOSE, FASTING 83 MG/DL (70-100); HCG, SERUM QUANTITATIVE 51357 MIU/ML; LIPASE 61 U/L (73-393); POTASSIUM SERUM 3.7 MEQ/L (3.5-5.1); SODIUM LEVEL 138 MEQ/L (136-145); TOTAL PROTEIN 6.6 GM/DL (6.4-8.2)
[2020-10-11 22:49] LABS: BILIRUBIN,TOTAL < 0.1 MG/DL (0.2-1.0)
[2020-10-11 23:41] VITALS: BP 123/68
== END 2020-10-11 23:50 | disposition home or self-care (01) ==
LOC: M ED 19:41
DX: O26.892 Other specified pregnancy related conditions, second trimester (principal); R10.9 Unspecified abdominal pain; Z3A.16 16 weeks gestation of pregnancy; Z91.018 Allergy to other foods; Z88.1 Allergy status to other antibiotic agents; Z91.040 Latex allergy status; Z91.048 Other nonmedicinal substance allergy status; Z79.899 Other long term (current) drug therapy

== ENCOUNTER → 2020-11-15 | Outpatient (CLI) | payer OTHER ==
--- NOTE | 2020-11-15 10:37 | REP ---
INDICATION: anatomy scan, EDC 04/09/2021 COMPARISON: 10/11/2020 TECHNIQUE: Transabdominal obstetrical ultrasound with color Doppler evaluation. FINDINGS: Examination demonstrates a single live intrauterine in cephalic presentation. motion is identified by technologist. Placenta is noted anterior and grade 0 without evidence for placenta previa or abruption. Amniotic fluid volume is normal. Cervix measures 3.8 cm in length and appears closed.. Gestational age by LMP 21 weeks 2 days with MIR 03/26/2021. Gestational age by current measurements 19 weeks 2 days with MIR 04/09/2021. FHR equals 139 beats per minute. BPD: 4.3 cm 19 weeks 1 day HC: 16.7 cm 19 weeks 3 days AC: 14.0 cm 19 weeks 3 days FL: 3.0 cm 19 weeks 1 day HL: 2.9 cm 19 weeks 4 days HC/AC: 1.19 Estimated weight 286 grams (32nd percentile based on age by 1st ultrasound and current measurements). Anatomical assessment demonstrates normal structures including cranium, choroid plexus, cavum, cerebellum/posterior fossa, lungs, diaphragm, stomach, cord insertion/three-vessel cord, kidneys/bladder, and lower extremities. Limited evaluation of the facial features, heart/ventricular outflow tracts, spine upper extremities due to motion and maternal body habitus. IMPRESSION: Single live intrauterine in cephalic presentation demonstrating appropriate interval growth compared to 1st ultrasound. Anatomical limitations as noted above may warrant re-evaluation and follow-up. <Electronically signed by Juan Alberto Hobson > 11/15/20 [id number]
== END ==
LOC: M RAD 08:12
PROVIDERS: ATTEND Advanced Practice Midwife
DX: O34.212 Maternal care for vertical scar from previous cesarean delivery (principal); Z3A.19 19 weeks gestation of pregnancy

== ENCOUNTER → 2020-12-23 | Outpatient (CLI) | payer OTHER ==
--- NOTE | 2020-12-23 10:01 | REP ---
INDICATION: F/U ANATOMY COMPARISON: 11/15/2020 TECHNIQUE: Transabdominal obstetrical ultrasound with color Doppler evaluation. FINDINGS: Examination demonstrates a single live intrauterine in cephalic presentation. motion is identified by technologist. Placenta is noted anterior and grade 1 without evidence for placenta previa or abruption. Amniotic fluid volume is normal. Cervix measures 3.8 cm in length and appears closed.. Gestational age by LMP 26 weeks 5 days with MIR 03/26/2021. Gestational age by current measurements 24 weeks 4 days with MIR 04/10/2021. FHR equals 135 beats per minute. Estimated weight 705 grams (32ndpercentile based on age by current measurements). Anatomical assessment demonstrates normal structures including cranium, cerebellum, facial profile, nose/lips, heart/ventricular outflow tracts, diaphragm, stomach, kidneys/bladder, spine, extremities, three-vessel cord and abdominal wall. IMPRESSION: Single live intrauterine in cephalic presentation demonstrating appropriate estimated weight to current age measurements. In conjunction with prior examination anatomical assessment is complete and normal. <Electronically signed by Juan Alberto Hobson > 12/23/20 0948
== END ==
LOC: M WHC 08:37
PROVIDERS: ATTEND Specialist
DX: Z34.92 Encounter for supervision of normal pregnancy, unspecified, second trimester (principal); Z3A.24 24 weeks gestation of pregnancy

== ENCOUNTER → 2021-01-07 | Outpatient (REF) | payer OTHER | LOC: M PLALAB 12:51 | PROVIDERS: ATTEND Obstetrics & Gynecology | DX: Z34.92 Encounter for supervision of normal pregnancy, unspecified, second trimester (principal); Z3A.27 27 weeks gestation of pregnancy; Z53.9 Procedure and treatment not carried out, unspecified reason ==

== ENCOUNTER → 2021-01-21 | Outpatient (CLI) | payer OTHER ==
[2021-01-21 10:40] LABS: HEMATOCRIT 29.3 % (36.0-47.0); HEMOGLOBIN 9.8 g/dl (12.0-15.5); MEAN CORPUSCULAR HEMOGLOBIN 28.5 pg (27.0-33.0); MEAN CORPUSCULAR HGB CONC 33.4 g/dl (32.0-36.5); MEAN CORPUSCULAR VOLUME 85.2 fl (80.0-96.0); PLATELET COUNT, AUTOMATED 250 10^3/uL (150-450); RED BLOOD COUNT 3.44 10^6/uL (4.00-5.40); WHITE BLOOD COUNT 7.9 10^3/uL (4.0-10.0)
== END ==
LOC: M LAB 08:53
PROVIDERS: ATTEND Obstetrics & Gynecology
DX: Z34.92 Encounter for supervision of normal pregnancy, unspecified, second trimester (principal); Z3A.27 27 weeks gestation of pregnancy

== ENCOUNTER → 2021-01-25 | Outpatient (REF) | payer OTHER ==
[2021-01-25 18:46] LABS: AMORPHOUS SEDIMENT LARGE (NEGATIVE); APPEARANCE, URINE TURBID (CLEAR); BACTERIA, URINE AUTO NEGATIVE (NEGATIVE); BILIRUBIN, URINE AUTO NEGATIVE (NEGATIVE); BLOOD, URINE BLOOD NEGATIVE (NEGATIVE); COLOR, URINE YELLOW (YELLOW); GLUCOSE, URINE (UA) AUTO NEGATIVE (NEGATIVE); KETONE, URINE AUTO NEGATIVE (NEGATIVE); LEUKOCYTE ESTERASE, URINE AUTO 2+ (NEGATIVE); MUCUS, URINE SMALL (NEGATIVE); NITRITE, URINE AUTO NEGATIVE (NEGATIVE); PROTEIN, URINE AUTO 1+ mg/dL (NEGATIVE); RBC, URINE AUTO 3 /HPF (0-3); SQUAMOUS EPITHELIAL CELL UR AU 2 /HPF (0-6); WBC, URINE AUTO 1 /HPF (0-3)
== END ==
LOC: M SFHCWAGY 16:46
PROVIDERS: ATTEND Obstetrics & Gynecology
DX: R10.9 Unspecified abdominal pain (principal)

== ENCOUNTER 2021-02-14 14:10 | Outpatient (CLI) | payer OTHER ==
[~2021-02-14] VITALS: Ht 160 cm; Wt 93.4 kg
[~2021-02-14 14:10] MED LIST changes: -SIME180C PO; +SIME180C25 PO
[2021-02-14 14:31] VITALS: BP 116/58
[2021-02-14] MEDS ORDERED: MULTTAB20 PO (14:37)
[2021-02-14] MEDS ORDERED: ACET325C5 PO (14:37)
[2021-02-14] MEDS ORDERED: IRON27TA2 PO (14:37)
--- NOTE | 2021-02-14 15:02 | IPNPDOC ---
Text Note Date of Service The patient was seen on 02/14/21. NOTE Subjective: Saad is a 25-year-old female who is a at 32.2 weeks gestation with an MIR of 04/09/21 based off of her first trimester ultrasound. her has been complicated by 2 deliveries (which she is doing Tammy injections weekly for); stable asthma, anxiety and bipolar disorder, and previous sections x3. She is taking Prozac for anxiety and bipolar. She presents to L&D with complaints of pink spotting this morning and some back pain. Denies bright red bleeding and only noted pink when she wiped. Reports back pain has been ongoing for 2 weeks and hasn't gotten worse. Denies contractions or leaking of fluid. Denies having intercourse in the last 48 hours. Reports active movement. PMHx: asthma, anxiety, depression, anemia SHx: c/s x3; wisdom teeth extraction, tonsillectomy, cyst removed from head FHx: unknown Social Hx: denies being a smoker, denies alcohol use or drug use OB Hx: -04/30/14: 27 weeks c/s of female weighting 2 lbs 1 oz -03/04/17: 32 weeks c/s of male weighting 4 lbs 13 oz -07/15/18: 39 week c/s of female weighting 5 lbs 3 oz Objective: FHR: 130, moderate variability, positive accelerations, no decelerations. [place]: occasional contractions General: Does not appear to be in any distress. Respiratory: Regular rate and rhythm, no use of accessory muscles. Abdomen: gravid and soft to palpation. No tenderness with palpation VS, labs, US: see below. Assessment: IUP at 32.2 weeks , not in labor Plan: UA and culture obtained. Transvaginal US done for cervical length ordered. Reviewed findings with patient and SO. Reviewed comfort measures for back pain. Reviewed with patient that she is dehydrated. Encouraged to increase fluid intake. Discharged to home. Has an appointment this week and encouraged to attend. Reviewed access to care, kick count, labor signs and danger signs to report. VS,Fishbone, I+O VS, Fishbone, I+O Vital Signs Date Time Temp Pulse Resp B/P (MAP) Pulse Ox O2 Delivery O2 Flow Rate FiO2 02/14/21 14:31 97.8 86 16 116/58 (77) Item Value Date Time Urine Color YELLOW 02/14/21 1458 Urine Appearance HAZY 02/14/21 1458 Urine pH 7.0 UNITS 02/14/21 1458 Urine Specific [place] 1.030 02/14/21 1458 Urine Protein 1+ mg/dL H 02/14/21 1458 Urine Glucose (Auto)(UA) NEGATIVE mg/dL 02/14/21 1458 Urine Ketones (Auto) NEGATIVE mg/dL 02/14/21 1458 Urine Blood NEGATIVE 02/14/21 1458 Urine Nitrite NEGATIVE 02/14/21 1458 Urine Bilirubin NEGATIVE 02/14/21 1458 Urine Urobilinogen 2.0 mg/dL H 02/14/21 1458 Urine Leukocyte Esterase (Auto) TRACE H 02/14/21 1458 Urine WBC (Auto) 5 /HPF H 02/14/21 1458 Urine RBC (Auto) 1 /HPF 02/14/21 1458 Urine Hyaline Casts (Auto) 0 /LPF 02/14/21 1458 Urine Bacteria (Auto) NEGATIVE 02/14/21 1458 Urine Squamous Epithelial Cells 2 /HPF 02/14/21 1458 Urine Mucus (Auto) SMALL 02/14/21 1458 NAME: SAAD YOUNG DATE OF : 1995 AGE: 25 SEX: F REPORT #: [id number] [facility]OM: [facility] TECHNOLOGIST: [facility] DOCTOR: BREA PARSON CNM Ordered for Date&Time: 02/14/21 1446 cc: [~ rep ct ivnm] Service Date&Time: 02/14/21 1541 EXAMINATION REQUESTED: TRANSVAGINAL US REASON FOR PATIENT VISIT: LABOR CHECK/BACK PAIN REASON FOR EXAM/COMMENT: spotting and history of -cervical length INDICATION: spotting and history of -cervical length. COMPARISON: 12/23/2020. TECHNIQUE: Real-time sonographic evaluation of gravid uterus performed utilizing transabdominal and endovaginal technique. FINDINGS: There is a single living intrauterine gestation. The estimated gestational age is 32 weeks 2 days, EDC 04/09/2021. position is cephalic. Placenta is anterior and grade 1 with no previa or abruption. heart rate 139 beats per minute. Amniotic fluid within normal limits, GA 12.7, normal range 8.5-24.3. The SD ratio in the umbilical artery is 3.37, normal 1.83-3.84. RI 0.70, normal 0.49-0.75. Cervix is closed and measures 3.4 cm in length. IMPRESSION: Cervix is closed and measures 3.4 cm in length. No placenta previa or abruption. <Electronically signed by Devan Bean > 02/14/21 1607 BREA PARSON CNM Feb 14, 2021 15:02
[2021-02-14 15:15] LABS: APPEARANCE, URINE HAZY (CLEAR); BACTERIA, URINE AUTO NEGATIVE (NEGATIVE); BILIRUBIN, URINE AUTO NEGATIVE (NEGATIVE); BLOOD, URINE BLOOD NEGATIVE (NEGATIVE); COLOR, URINE YELLOW (YELLOW); GLUCOSE, URINE (UA) AUTO NEGATIVE (NEGATIVE); KETONE, URINE AUTO NEGATIVE (NEGATIVE); LEUKOCYTE ESTERASE, URINE AUTO TRACE (NEGATIVE); MUCUS, URINE SMALL (NEGATIVE); NITRITE, URINE AUTO NEGATIVE (NEGATIVE); PROTEIN, URINE AUTO 1+ mg/dL (NEGATIVE); RBC, URINE AUTO 1 /HPF (0-3); SQUAMOUS EPITHELIAL CELL UR AU 2 /HPF (0-6); WBC, URINE AUTO 5 /HPF (0-3)
--- NOTE | 2021-02-14 16:10 | REP ---
INDICATION: spotting and history of -cervical length. COMPARISON: 12/23/2020. TECHNIQUE: Real-time sonographic evaluation of gravid uterus performed utilizing transabdominal and endovaginal technique. FINDINGS: There is a single living intrauterine gestation. The estimated gestational age is 32 weeks 2 days, EDC 04/09/2021. position is cephalic. Placenta is anterior and grade 1 with no previa or abruption. heart rate 139 beats per minute. Amniotic fluid within normal limits, GA 12.7, normal range 8.5-24.3. The SD ratio in the umbilical artery is 3.37, normal 1.83-3.84. RI 0.70, normal 0.49-0.75. Cervix is closed and measures 3.4 cm in length. IMPRESSION: Cervix is closed and measures 3.4 cm in length. No placenta previa or abruption. <Electronically signed by Devan Bean > 02/14/21 1988
[2021-02-14 16:30] VITALS: BP 122/63
== END 2021-02-14 16:38 | disposition home or self-care (01) ==
LOC: M LDO 14:10
PROVIDERS: ATTEND Advanced Practice Midwife
DX: O26.893 Other specified pregnancy related conditions, third trimester (principal); M54.9 Dorsalgia, unspecified; Z3A.32 32 weeks gestation of pregnancy; O26.853 Spotting complicating pregnancy, third trimester; O99.343 Other mental disorders complicating pregnancy, third trimester; F31.9 Bipolar disorder, unspecified; F41.9 Anxiety disorder, unspecified; J45.909 Unspecified asthma, uncomplicated; O34.211 Maternal care for low transverse scar from previous cesarean delivery; O99.513 Diseases of the respiratory system complicating pregnancy, third trimester

== ENCOUNTER → 2021-02-18 | Outpatient (REF) | payer OTHER ==
[~2021-02-18] MED LIST changes: +ACET325C5 PO; +IRON27TA2 PO; +MULTTAB20 PO
== END ==
LOC: M SFHCWAGY 12:52
PROVIDERS: ATTEND Advanced Practice Midwife
DX: Z36.85 Encounter for antenatal screening for Streptococcus B (principal); O34.219 Maternal care for unspecified type scar from previous cesarean delivery; Z3A.00 Weeks of gestation of pregnancy not specified

== ENCOUNTER 2021-02-24 09:25 | Outpatient (CLI) | payer OTHER ==
[~2021-02-24] VITALS: Ht 165.1 cm; Wt 92.4 kg
[2021-02-24 09:36] VITALS: BP 127/69
--- NOTE | 2021-02-24 11:44 | IPNPDOC ---
Text Note Date of Service The patient was seen on 02/24/21. NOTE Labor and Delivery Triage Note: S: 23yo at 33w5d presents with c/o contractions x82dpwd and pelvic pressure. Denies vaginal bleeding or LOF. Reports active movement. O: vss, AF no ctx Cat 1 tracing Gen: well appearing, NAD Abd: gravid, soft, nttp cx: long/ closed SSE: GC culture collected A/P: 23yo not in PTL reassuring status -home with PTL precautions and FKCs. -f/u at nxt OB appt Talita Parson MD VS,Martha, I+O VS, Martha, I+O Vital Signs Date Time Temp Pulse Resp B/P (MAP) Pulse Ox O2 Delivery O2 Flow Rate FiO2 02/24/21 09:36 97.9 82 16 127/69 (88) Room Air TALITA PARSON MD. Feb 24, 2021 11:44
[2021-02-24 13:46] LABS: CHLAMYDIA DNA AMPLIFICATION NEGATIVE (NEGATIVE); GC DNA AMPLIFICATION NEGATIVE (NEGATIVE)
== END 2021-02-24 11:50 | disposition home or self-care (01) ==
LOC: M LDO 09:25
PROVIDERS: ATTEND Obstetrics & Gynecology
DX: O47.03 False labor before 37 completed weeks of gestation, third trimester (principal); Z3A.33 33 weeks gestation of pregnancy; Z91.040 Latex allergy status; Z88.8 Allergy status to other drugs, medicaments and biological substances; Z88.6 Allergy status to analgesic agent; Z91.048 Other nonmedicinal substance allergy status

== ENCOUNTER → 2021-03-17 | Outpatient (REF) | payer OTHER | LOC: M SFHCWAGY 16:48 | PROVIDERS: ATTEND Advanced Practice Midwife | DX: O34.211 Maternal care for low transverse scar from previous cesarean delivery (principal) ==

== ENCOUNTER 2021-03-18 10:05 | Outpatient (CLI) | payer OTHER ==
[~2021-03-18] VITALS: Ht 160 cm; Wt 94.5 kg
[2021-03-18] MEDS ORDERED: LACTATED RINGER'S 1000 ML IV ONE (10:40)
[2021-03-18 11:40] LABS: APPEARANCE, URINE CLEAR (CLEAR); BACTERIA, URINE AUTO 2+ (NEGATIVE); BILIRUBIN, URINE AUTO NEGATIVE (NEGATIVE); BLOOD, URINE BLOOD NEGATIVE (NEGATIVE); COLOR, URINE YELLOW (YELLOW); GLUCOSE, URINE (UA) AUTO NEGATIVE (NEGATIVE); KETONE, URINE AUTO NEGATIVE (NEGATIVE); LEUKOCYTE ESTERASE, URINE AUTO 3+ (NEGATIVE); MUCUS, URINE SMALL (NEGATIVE); NITRITE, URINE AUTO NEGATIVE (NEGATIVE); PROTEIN, URINE AUTO NEGATIVE (NEGATIVE); RBC, URINE AUTO 2 /HPF (0-3); SPECIFIC GRAVITY URINE AUTO 1.006 (1.002-1.035); SQUAMOUS EPITHELIAL CELL UR AU 1 /HPF (0-6); UROBILINOGEN, URINE AUTO 0.2 mg/dL (0.0-2.0); WBC, URINE AUTO 33 /HPF (0-3)
--- NOTE | 2021-03-18 11:54 | IPNPDOC ---
Text Note Date of Service The patient was seen on 03/18/21. NOTE Outpatient 25yo MIR 04/09/2021. Presents @ 36w6d with complaints of lower abdominal cramping "constant" and back/rectal pressure. Reports unable to count contractions "because I hurt all the time." Denies LOF, bleeding. Fetus is active No distress, smiling Cat I tracing, no UC SVE FT/long/-2, midline UA 3+ leuk esterase, 33WBC and 2+ bacteria. Reviewed UTI treatment, need to complete antibiotic series and increase hydration Started keflex in hospital Discharge home. Keep appointment next week. RONN, routine precautions reviewed. Katiuska Bocanegra CNM March 18, 2021 11:54
[2021-03-18] MEDS ORDERED: CEPHALEXIN 500 MG CAP PO SCH ×2 (12:45→16:00)
== END 2021-03-18 13:00 | disposition home or self-care (01) ==
LOC: M LDO 10:05
PROVIDERS: ATTEND Advanced Practice Midwife
DX: O23.43 Unspecified infection of urinary tract in pregnancy, third trimester (principal); Z3A.36 36 weeks gestation of pregnancy; Z91.018 Allergy to other foods; Z91.040 Latex allergy status; Z91.048 Other nonmedicinal substance allergy status; Z88.8 Allergy status to other drugs, medicaments and biological substances

== ENCOUNTER 2021-03-23 15:56 | Outpatient (CLI) | payer OTHER ==
[~2021-03-23] VITALS: Ht 160 cm; Wt 94.6 kg
[2021-03-23 16:19] VITALS: BP 110/56
[2021-03-23] MEDS ORDERED: CEPH500C PO (16:23)
[2021-03-23] MEDS ORDERED: LACTATED RINGER'S 1000 ML IV ONE (16:45)
[2021-03-23] MEDS ORDERED: ONDANSETRON 4MG/2ML VIAL IV PRN (16:45)
[2021-03-23 17:36] LABS: INR 1.01; PARTIAL THROMBOPLASTIN TIME 26.1 SECONDS (24.2-38.5); PROTHROMBIN TIME 13.5 SECONDS (12.5-14.3)
[2021-03-23 18:18] LABS: APPEARANCE, URINE HAZY (CLEAR); BACTERIA, URINE AUTO NEGATIVE (NEGATIVE); BILIRUBIN, URINE AUTO NEGATIVE (NEGATIVE); BLOOD, URINE BLOOD NEGATIVE (NEGATIVE); COLOR, URINE AMBER (YELLOW); GLUCOSE, URINE (UA) AUTO NEGATIVE (NEGATIVE); KETONE, URINE AUTO TRACE mg/dL (NEGATIVE); LEUKOCYTE ESTERASE, URINE AUTO TRACE (NEGATIVE); MUCUS, URINE MODERATE (NEGATIVE); NITRITE, URINE AUTO NEGATIVE (NEGATIVE); PROTEIN, URINE AUTO 1+ mg/dL (NEGATIVE); RBC, URINE AUTO 0 /HPF (0-3); SPECIFIC GRAVITY URINE AUTO 1.029 (1.002-1.035); SQUAMOUS EPITHELIAL CELL UR AU 2 /HPF (0-6); WBC, URINE AUTO 2 /HPF (0-3)
[2021-03-23] MEDS ORDERED: LR 1,000 ML IV SCH (18:30)
[2021-03-23] MEDS ORDERED: D5W 1000ML IV ONE (18:35)
[2021-03-23] MEDS ORDERED: MVI -ADULT INJECTION 10ML VIAL IV ONE (18:35)
[2021-03-23 18:57] VITALS: BP 108/60
--- NOTE | 2021-03-23 22:36 | IPN ---
PROGRESS NOTE DATE: 03/23/2021 SUBJECTIVE: Debbie is a 25-year-old 4, para 1, 2, 0, 3, at 37 weeks gestation, EDC of 04/09/2021 based on first trimester ultrasound. She presents to labor and delivery today with report of nausea, vomiting and dizziness. She does report that she fell and struck her abdomen today just because she was lightheaded. She denies contractions, vaginal bleeding and leakage of fluid. The fetus has been active. [facility] care [facility] at [facility] in the first trimester. Her course was complicated by prior section x3 with plan for a repeat section at term, history of PROM at 27 weeks and a severe first vaginal delivery. She also has had another delivery at 32 weeks. She has been receiving [place] progesterone injections since week 16. She has asthma, anxiety and bipolar; currently stable on 40 mg of Prozac, and anemia which she is taking iron for. OBSTETRIC HISTORY: 1. April 2014 at 27 weeks; 2 pound 1 ounce female section at [facility]. 2. February 2017 at 32 weeks; 4 pounds 13 ounces section at [facility]. 3. July 2018 at 39 weeks; 5 pounds 13 ounces female section at [place]. 4. Current . PAST MEDICAL HISTORY: Bipolar, anxiety, asthma. PAST SURGICAL HISTORY: section, wisdom tooth extraction, tonsillectomy and cyst removal. FAMILY HISTORY: Unknown. SOCIAL HISTORY: She is a nonsmoker. She is . Denies alcohol and drug use. No history of sexually transmitted infections, and she does deny history of abuse, physical, sexual and emotion. MEDICATIONS: Prozac 40 mg, vitamin. ALLERGIES: Benzonatate, Neosporin and latex. OBJECTIVE: Temperature 98.8, pulse 89, respirations 18, blood pressure 110/56. She is alert and oriented x3. She is smiling and talkative, in no distress. She has been here for approximately 5-1/2 hours, has not vomited one time. She has received I.V. Zofran and I.V. fluid bolus. LABORATORY DATA: Her urinalysis returned +1 glucose and negative nitrates. Her KB is 0.0000. PT 13.5, APTT 26.1. Fibrinogen 453. IMPRESSION: Intrauterine at 37 weeks, heart rate category 1, gastroenteritis. PLAN: Discharge the patient home. She is to follow-up at her next scheduled appointment. I did review signs and symptoms of labor, movement counts. Danger signs to report. I reviewed access to care. The patient and her have had their questions answered and are desiring to be discharged home today. ANJELICA
== END 2021-03-23 21:48 | disposition home or self-care (01) ==
LOC: M LDO 15:56
PROVIDERS: ATTEND Advanced Practice Midwife
DX: O21.8 Other vomiting complicating pregnancy (principal); Z3A.37 37 weeks gestation of pregnancy; O26.893 Other specified pregnancy related conditions, third trimester; R42 Dizziness and giddiness; O34.211 Maternal care for low transverse scar from previous cesarean delivery; O99.343 Other mental disorders complicating pregnancy, third trimester; F41.9 Anxiety disorder, unspecified; F31.9 Bipolar disorder, unspecified; O99.513 Diseases of the respiratory system complicating pregnancy, third trimester; J45.909 Unspecified asthma, uncomplicated; O9A.213 Injury, poisoning and certain other consequences of external causes complicating pregnancy, third trimester; S30.1XXA Contusion of abdominal wall, initial encounter; X58.XXXA Exposure to other specified factors, initial encounter; Y92.9 Unspecified place or not applicable; Z88.8 Allergy status to other drugs, medicaments and biological substances; Z91.018 Allergy to other foods; Z91.048 Other nonmedicinal substance allergy status
CPT/HCPCS: 59025; 81001; 85384; 85460; 85610; 85730; 96374; 96375; J2405

== ENCOUNTER 2021-03-27 21:43 | Outpatient (CLI) | payer OTHER ==
[~2021-03-27] VITALS: Ht 160 cm; Wt 93.6 kg
[~2021-03-27 21:43] MED LIST changes: +CEPH500C PO
--- NOTE | 2021-03-27 23:46 | IPNPDOC ---
Text Note Date of Service The patient was seen on 03/27/21. NOTE S: 25 yo female at 38 1/7 weeks by 9 week ultrasound presents with sharp, intermittent pelvic pains today. good movement. no bleeding. O: AVSS NAD Abd: NT, gravid FHT: category one toco: none cx: 1 cm/50%/-2 firm ext: NT A/P 25 yo female at 38 1/7 weeks, not in labor discharge home plan delivery via section as scheduled JERED MONROE MD March 27, 2021 23:34
== END 2021-03-28 00:40 | disposition home or self-care (01) ==
LOC: M LDO 21:43
PROVIDERS: ATTEND Specialist
DX: O26.893 Other specified pregnancy related conditions, third trimester (principal); R10.2 Pelvic and perineal pain; Z3A.38 38 weeks gestation of pregnancy

== ENCOUNTER → 2021-03-31 | Outpatient (CLI) | payer OTHER | LOC: M LABSMTC 09:34 | PROVIDERS: ATTEND Anesthesiology | DX: Z01.812 Encounter for preprocedural laboratory examination (principal); Z11.52 Encounter for screening for COVID-19 ==

== ENCOUNTER 2021-04-05 04:56 | Inpatient (IN) | payer OTHER ==
[2021-04-05] VITALS (7 sets, daily range): BP systolic 110–134; BP diastolic 56–71
[~2021-04-05] VITALS: Ht 160 cm; Wt 93.0 kg
[2021-04-05] MEDS ORDERED: LACTATED RINGER'S 1000 ML IV STA (05:17)
[2021-04-05] MEDS ORDERED: LR 1,000 ML IV SCH ×2 (05:20→09:20)
[2021-04-05] MEDS ORDERED: ceFAZolin SOD 2 GM in IV 1 EA IV ONE (05:20)
[2021-04-05] MEDS ORDERED: BICITRA 30ML SOLN UDC PO ONE (05:20)
[2021-04-05] MEDS ORDERED: TRANEXAMIC ACID INJection 1,000 MG in NS 100 ML IV PRN (05:20)
[2021-04-05] MEDS ORDERED: OXYTOCIN DRIP 30 UNITS in IV 1 EA IV PRN ×4 (05:20)
[2021-04-05] MEDS ORDERED: METHYLERGONOVINE MALEATE 0.2 MG/ML VIAL (J2210) IM PRN (05:20)
[2021-04-05] MEDS ORDERED: CARBOPROST TROMETHAMINE 250 MCG/ML AMP IM PRN (05:20)
[2021-04-05 06:02] LABS: HEMOGLOBIN 10.6 g/dl (12.0-15.5); MEAN CORPUSCULAR HEMOGLOBIN 27.4 pg (27.0-33.0); MEAN CORPUSCULAR HGB CONC 33.1 g/dl (32.0-36.5); MEAN CORPUSCULAR VOLUME 82.7 fl (80.0-96.0); PLATELET COUNT, AUTOMATED 266 10^3/uL (150-450); RED BLOOD COUNT 3.87 10^6/uL (4.00-5.40); WHITE BLOOD COUNT 6.6 10^3/uL (4.0-10.0)
--- NOTE | 2021-04-05 07:17 | HPEPDOC ---
Obstetrical History & Physical General Date of Admission Apr 05, 2021 at 04:56 History of Present Illness 25 yo female at 39 3/7 weeks gestation by 9 week ultrasound (EDC+04/09/2021) presents for a repeat section. She has had 3 prior sections. 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 27 week PPROM 2. 32 week 3. 39 week Social History Marital Status: Single Family situation: Spouse/partner home Psychosocial History: No pertinent psych hx Allergies Coded Allergies: [place] (Verified Allergy, Intermediate, MOUTH SWELLS, 03/22/21) bacitracin (Verified Allergy, Mild, RASH, 03/22/21) latex (Verified Allergy, Mild, RASH, 03/22/21) neomycin (Verified Allergy, Mild, RASH, 03/22/21) nickel (Verified Allergy, Mild, Rash, 03/23/21) polymyxin B (Verified Allergy, Mild, RASH, 03/22/21) benzonatate (Verified Allergy, Unknown, 03/22/21) hard time breathing Medications Scheduled Ferrous Gluconate (Iron) 236 Mg Tablet, 1 TAB PO DAILY No122/Iron/Folic Acid ( Multi Tablet) 1 Each Tablet, 1 TAB PO DAILY Scheduled PRN Acetaminophen (Tylenol) 325 Mg Capsule, 500 MG PO Q6HP PRN for PAIN OR FEVER Miscellaneous Medications Albuterol Sulfate (Albuterol Sulfate Hfa) 8.5 Gm Hfa.aer.ad Physical Examination Physical Examination GENERAL: Alert and oriented times three. BREAST: . ABDOMEN: Gravid and non-tender to touch. FETUS: Is vertex (VTX) by sterile vaginal examination (SVE), fetus is vertex (VTX) by Ozzie. HEART RATE: Regular rate and rhythm. LUNGS: Clear to auscultation (CTA). EXTREMITIES: No edema. No clonus. Deep tendon reflexes (DTRs) + . Vital Signs/I&O Vital Signs Date Time Temp Pulse Resp B/P (MAP) Pulse Ox O2 Delivery O2 Flow Rate FiO2 04/05/21 05:26 98.1 17 Laboratory Data 24H LABS Laboratory Tests 2 04/04/21 21:40: Serology Scanned Report Hepatitis B Testing 04/05/21 05:50: Nucleated Red Blood Cells % (auto) 0.0 CBC/BMP Laboratory Tests 04/05/21 05:50 Assessment Variability: Moderate Accelerations: Positive Decelerations: None Tocometer Contractions: No Assessment/Plan Assessment Pt is a 25-year-old (G)4 para (P)1-2-0-3 at 39+3 weeks by 9-week ultrasound. Presents for repeat section Plan Admit and orient. Sap Pi Architect and consent. plan repeat today JERED MONROE MD Apr 05, 2021 07:17
[2021-04-05] MEDS ORDERED: NALOXONE INJ 0.4MG/1ML VIAL (J2310 PER 1MG) IV PRN ×2 (07:46)
[2021-04-05] MEDS ORDERED: NALBUPHINE HCL 10 MG/ML AMP (J2300) IV PRN (07:46)
[2021-04-05] MEDS ORDERED: ONDANSETRON 4MG/2ML VIAL IV PRN ×3 (07:46→09:20)
[2021-04-05] MEDS ORDERED: METOCLOPRAMIDE INJ 10MG/2ML VIAL (J2765 PER 1) IV PRN ×2 (07:46→09:20)
[2021-04-05] MEDS ORDERED: diphenhydrAMINE 50MG/ML VIAL (J1200) IV PRN (07:46)
[2021-04-05] MEDS ORDERED: MORPHINE PRES-FREE INJ 10 MG/10 ML VIAL (J2274) As Ordered ONE (07:51)
[2021-04-05] MEDS ORDERED: OXYTOCIN INJ 10 UNITS/ML VIAL (J2590) As Ordered ONE (07:51)
[2021-04-05] MEDS ORDERED: ONDANSETRON 4MG/2ML VIAL As Ordered ONE ×2 (07:54→09:49)
[2021-04-05] MEDS ORDERED: FAMOTIDINE/NS 20 MG/50 ML BAG (S0028) As Ordered ONE (07:57)
[2021-04-05] MEDS ORDERED: PHENYLephrine 500MCG 5ML (100MCG/ML) SYRINGE As Ordered ONE (07:58)
[2021-04-05] MEDS ORDERED: MEASLES,MUMPS,RUBELLA VACCINE INJ (MMR-II) (90707) SC SCH (09:10)
[2021-04-05] MEDS ORDERED: RHOGAM 300 MCG (1500 IU) INJ (J2790) IM SCH (09:10)
[2021-04-05] MEDS ORDERED: PERCOCET 5MG/325MG TAB PO PRN ×3 (09:10→09:20)
[2021-04-05] MEDS ORDERED: SIMETHICONE 80MG CHEW TAB PO PRN (09:10)
[2021-04-05] MEDS ORDERED: OXYTOCIN DRIP 30 UNITS in IV 1 EA IV SCH (09:10)
[2021-04-05] MEDS ORDERED: MEPERIDINE INJ 25 MG/ML VIAL (J2175) IV PRN (09:20)
[2021-04-05] MEDS ORDERED: fentaNYL 100 MCG/2 ML INJECTION (J3010) IV PRN (09:20)
[2021-04-05] MEDS ORDERED: KETOROLAC 30 MG/ML 1ML VIAL As Ordered ONE (09:43)
[2021-04-05] MEDS ORDERED: OXYTOCIN 30 UNITS IN 0.9% NaCl 500ML IV BAG (J2590) As Ordered ONE (09:43)
[2021-04-05] MEDS: KETOROLAC 30 MG/ML 1ML VIAL IV SCH ×3 (09:48→21:31)
--- NOTE | 2021-04-05 10:08 | ROOPDOC ---
[facility] Report Of Operation Report of Operation DATE OF PROCEDURE: 04/05/21 Report of operation Preoperative diagnosis: 39 3/7 weeks, prior section x 3 Postoperative diagnosis: same Procedure: Repeat low transverse section Surgeon: Minh Monroe M.D. Asst.: Elsie Javier CNM EBL: 600 ml. Urine output: 100 mL's. Findings: 6 lbs. 7 oz. female infant, 's 9 and 9 g , dense adhesions of uterus to anterior abdominal wall and omentum. Dense adhesion of bladder to lower uterine segment. Surgically absent left fallopian tube. normal ovaries bilaterally. Normal appearing right fallopian tube. Operative summary: Patient taken to the operating room where spinal anesthesia was induced. She was prepped draped sterile fashion in the supine position. A Shah catheter was placed. A Pfannenstiel skin incision was made with scalpel. Fascia was incised and extended bilaterally. The peritoneal cavity was entered. Dense adhesions of the uterus to the anterior abdominal wall and omentum were taken down sharply. A Mobius retractor was placed. A bladder flap was created. A curvilinear incision was made in lower uterine segment until Clear fluid was noted. The incision was extended manually. The infant was delivered from the vertex position without difficulty. Cord was doubly clamped and cut. The infant was handed to the awaiting nurses. The placenta was expressed. Uterus was closed with O-Vicryl in a running locked fashion. A second imbricating layer of Vicryl was placed. Peritoneum was closed with 2-0 Vicryl a running fashion. Fascia was closed with 0 Vicryl in running fashion. Skin was closed 4-0 Monocryl subcuticular sutures. Sponge, instrument and needle counts were correct. Kristine Javier CNM, assisted with all aspects of the procedure. She helped close each layer of the incision and deliver the fetus. MINH MONROE MD Apr 05, 2021 10:08
[2021-04-05] MEDS: LR 1,000 ML IV SCH ×2 (14:24→21:32)
[2021-04-05] MEDS ORDERED: LR 500 ML IV ONE (19:35)
[2021-04-06 02:00] VITALS: BP 122/59
[2021-04-06] MEDS: KETOROLAC 30 MG/ML 1ML VIAL IV SCH (04:06)
[2021-04-06 06:00] VITALS: BP 121/60
[2021-04-06 07:50] LABS: HEMATOCRIT 26.4 % (36.0-47.0); MEAN CORPUSCULAR HEMOGLOBIN 27.3 pg (27.0-33.0); MEAN CORPUSCULAR HGB CONC 32.2 g/dl (32.0-36.5); MEAN CORPUSCULAR VOLUME 84.9 fl (80.0-96.0); PLATELET COUNT, AUTOMATED 237 10^3/uL (150-450); RED BLOOD COUNT 3.11 10^6/uL (4.00-5.40); WHITE BLOOD COUNT 7.7 10^3/uL (4.0-10.0)
[2021-04-06 08:06] LABS: HEMOGLOBIN 8.5 g/dl (12.0-15.5)
[2021-04-06] MEDS ORDERED: IBUP80TA PO (08:13)
[2021-04-06] MEDS ORDERED: OXYC1TAB23 PO (08:13)
[2021-04-06] MEDS ORDERED: PRENATAL VITAMINS CHEWABLE TABLET PO SCH (09:00)
[2021-04-06 10:00] VITALS: BP 132/68
[2021-04-06] MEDS ORDERED: IBUPROFEN 800 MG TAB PO SCH (12:00)
--- NOTE | 2021-04-06 16:40 | DSES ---
DISCHARGE SUMMARY DATE OF ADMISSION: 04/05/2021 DATE OF DISCHARGE: 04/06/2021 DISCHARGE DIAGNOSIS: Repeat section at term, postop day 1, stable for discharge. SURGEON: Dr. Minh Del Cid. BLACK OXIDE OPERATOR: Elsie Javier CNM. HISTORY: Debbie is a 25-year-old 4, para 2-2-0-4 now. She underwent a repeat section at term due to prior section. Her surgery was uncomplicated. She did deliver a live female weighing 6 pounds 7 ounces, Apgars 9 and 9. Estimated blood loss was 600 mL. Her postoperative course has been uncomplicated. She has been out of bed for self care, j luis care, and care. She is ambulating without difficulty, voiding without difficulty, passing flatus, tolerating a regular diet and p.o. fluids. Her pain has been well managed with p.o. pain medications, and she is requesting discharge to home today. PHYSICAL EXAMINATION: Vital signs: Temperature 97.5, pulse 90, respirations 16, BP 132/68. General: She is alert and oriented x3. Breasts: Soft, nontender. Abdomen: Fundus firm at umbilicus. Incision dressing is in place. No drainage observed. Perineum: Intact. Lochia rubra scant. Extremities: Bilateral lower extremities with +1 pitting edema. LABORATORY DATA: CBC preoperatively on 04/05 with hemoglobin 10.6, hematocrit 32. Postoperatively on 04/06 hemoglobin 8.5, hematocrit 26.4, platelets 237. PLAN: Discharged the patient home today. She is to follow up for her two week incision check and an eight week visit at [facility]. Discharge instructions have been reviewed with the patient including breast care, incision care, j luis care, pelvic rest, activity and lifting restrictions, access to care, and other danger signs in which to report. E-prescriptions have been prescribed by Dr. Minh Del Cid to her pharmacy. The patient has had all of her questions answered and requests discharge.
== END 2021-04-06 14:55 | disposition home or self-care (01) | DRG 540 ==
LOC: EEVIPCON 04:56 → M LDI 04:56 → M OBS 10:35
PROVIDERS: ADMIT Specialist; ATTEND Specialist
PROC: 10D00Z1 Extraction of Products of Conception, Low, Open Approach (ICD-10-PCS; principal; 2021-04-05 07:30)
DX: O34.211 Maternal care for low transverse scar from previous cesarean delivery (principal); Z3A.39 39 weeks gestation of pregnancy; Z37.0 Single live birth

== ENCOUNTER 2021-06-19 17:51 | Emergency (ER) | payer OTHER ==
[~2021-06-19] VITALS: Ht 160 cm; Wt 93.7 kg
[2021-06-19 17:51] VITALS: BP 134/87
[~2021-06-19 17:51] MED LIST changes: +IBUP80TA PO
== END 2021-06-19 19:54 | disposition left against medical advice (07) ==
LOC: M ED 17:51
DX: Z53.21 Procedure and treatment not carried out due to patient leaving prior to being seen by health care provider (principal)

== ENCOUNTER 2021-10-06 07:47 | Emergency (ER) | payer OTHER ==
[~2021-10-06] VITALS: Ht 160 cm; Wt 100.1 kg
[2021-10-06] MEDS ORDERED: HYDR50TA70 (07:54)
[2021-10-06] MEDS ORDERED: SERTRALINE (07:54)
[2021-10-06] MEDS ORDERED: BUDE10.2 (07:54)
--- OUTSIDE RECORDS SUMMARY | 2021-10-06 07:54 | CCD | Continuity of Care Document ---
Author Author Debbie WOODS PA Organization Unknown Address [address] [facility] e [address] [place] [address] Phone [phone] Care Team Providers Care Hyster Driver Name Role Phone Lluvia Bee ALFREDO AUTM Problems Active Problems Provider Date Allergic rhinitis Onset: 12/13/2016 Anemia Onset: 01/03/2017 Backache Onset: 05/20/2019 Body mass index 25-29 - overweight Onset : 08/07/2017 Carpal tunnel syndrome Onset: 03/26/2018 Constipation Onset: 12/13/2016 CT of abdomen abnormal Onset: 09/04/2017 Cyst of uterine adnexa Onset: 09/04/2017 Dizziness Onset: 06/19/2017 Generalized anxiety disorder Onset: 02/2017 Headache Onset: 12/13/2016 Heart murmur Onset: 12/13/2016 Inappropriate illness behavior Onset: Influenza vaccine needed Onset: 09/02/20 18 Insomnia Onset: 08/15/2017 Knee pain Onset: 05/20/2019 Major depressive disorder Onset: 017 Menstrual period late Onset: 03/03/2019 Non-allergic rhinitis Onset: 04/10/2018 Otalgia Onset: 06/11/2017 Otalgia Onset: 05/20/2019 Overweight Onset: 08/07/2017 Shoulder joint pain Onset: 09/24/2017 Contact dermatitis Onset: 05/22/2017 Vitamin D deficiency Onset: 04/22/2019 Vomiting of Onset: 12/13/2016 Social History Type Date Description Comments Sex Unknown ETOH Use Rarely consumes alcohol Tobacco Use Start: Unknown Denies Smoking Allergies and adverse reactions Active Allergies Criticality Reaction | Severity Comments Date Bacitracin Unable to assess criticality Rash | Mild 04/27/2014 Neosporin Unable to assess criticality 04/29/2015 Neomycin Unable to assess criticality Rash | Mild 04/27/2014 nuts Unable to assess criticality 04/29/2015 Polymyxin B Unable to assess criticality Rash | Mild 04/27/2014 Nickel Unable to assess criticality 10/15/2015 Latex Unable to assess criticality 10/13/2015 Amoxicillin Unable to assess criticality Lips swell and go numb 10/14/2015 Inactive Allergies NKDA Unable to assess criticality 04/21/2015 Medications Active Medications SIG Qnty Indications Ordering Provide r Date Mobic 7.5mg Tablets 1 by mouth after meals twice a day 60tabs M22.2x2 Aric Mendez MD 09/07/2021 Hydroxyzine HCL 50mg Tablets Take One Tablet By Mouth Twice A Day as Needed For Increased Anxiety Unknown Sertraline HCL 100mg Tablets Lluvia Bee FNP Albuterol Sulfate HFA 108(90Base) mcg/Act Aerosol Inhale 2 Puffs By Mouth Every 4 Hours as Needed For Sh ortness Of Breath Unknown Immunizations CPT Code Status Date Vaccine Lot # [id number] Given 09/02/2018 Influenza Virus Split 3 Yrs And Above Dosage Vital Signs Date Vital Result Comment 05/17/2021 2:55pm Body Temperature 96.6 F Height 63.25 inches 5'3.25" Weight 199.00 lb BMI (Body Mass Index) 35.0 kg/m2 06/05/2019 10:19am Height 63 inches 5'3" Weight 202.00 lb BMI (Body Mass Index) 35.8 kg/m2 Results Description No Information Available Procedures Date Code Description Status 09/07/2021 90304 Office/Outpatient Established Mo d MDM 30-39 Min Completed 09/07/2021 54927 X-Ray Knee Complete W/Obliques & Tunnel And/Or Standing Views Completed 08/31/2021 29230 X-Ray Spine Cervical 6 Or More V iews Completed 08/31/2021 62372 X-Ray Spine Cervical 6 Or More V iews Completed 08/18/2021 44787 Office/Outpatient Established Lo w MDM 20-29 Min Completed 08/09/2021 30428 MRI Upper Extremity Any Joint Co mpleted 07/21/2021 79853 Office/Outpatient Established Mo d MDM 30-39 Min Completed 07/21/2021 10318 X-Ray Knee Complete W/Obliques & Tunnel And/Or Standing Views Completed 05/17/2021 28860 Office/Outpatient Established Lo w MDM 20-29 Min Completed 05/17/2021 12318 X-Ray Wrist Complete Completed Medical Devices Description No Information Available Encounters Type Date Location Provider Dx Diagnosis Office Visit 09/07[place]2021 [place] M22.2x2 Patellofemoral disorders, left knee Office Visit 08/31/2021 12:[facility]p [place] [facility] P.[facility] M47.892 Other spondylosis, cervical region M43.12 Spondylolisthesis, cervical region M50.320 Other cerv disc degeneration , mid-cervical rgn, unsp level Office Visit 08/18/2021 8:00a [place] S63.501D Unspecified sprain of right wrist, subsequent encounter M47.892 Other spondylosis, cervical region M50.320 Other cerv disc degeneration , mid-cervical rgn, unsp level M43.12 Spondylolisthesis, cervical region Office Visit 07/21/2021 4:15p [place] [facility] S63.501D Unspecified sprain of right wrist, subsequent encounter S80.02xA Contusion of left knee, init ial encounter Office Visit 05/17/2021 2:30p [place] Ar[place] S63.50 1A Unspecified sprain of right wrist, initial encounter Assessments Date Code Description Provider 09/07/2021 M22.2x2 Patellofemoral disorders, left k nee LJ Salinas 08/31/2021 M47.892 Other spondylosis, cervical henry on Stalin Felix P.A. 08/31/2021 M43.12 Spondylolisthesis, cervical henry on Stalin Felix P.A. 08/31/2021 M50.320 Other cervical disc degeneration , mid-cervical region, unspe Stalin Felix P.A. 08/18/2021 S63.501D Unspecified sprain of right wris t, subsequent encounter Stalin Felix, P.A. 08/18/2021 M47.892 Other spondylosis, cervical henry on Stalin Felix, P.A. 08/18/2021 M50.320 Other cervical disc degeneration , mid-cervical region, unspe Stalin Felix, P.A. 08/18/2021 M43.12 Spondylolisthesis, cervical henry on Stalin Felix, P.A. 08/09/2021 S63.501D Unspecified sprain of right wris t, subsequent encounter Stalin Felix P.A. 08/09/2021 S63.501D Unspecified sprain of right wris t, subsequent encounter MRI 07/21/2021 S63.501D Unspecified sprain of right wris t, subsequent encounter Stalin Felix P.A. 07/21/2021 S80.02xA Contusion of left knee, initial encounter Stalin Felix P.A. 05/17/2021 S63.501A Unspecified sprain of right wris t, initial encounter Herson Arambula MD 05/17/2021 S63.501A Unspecified sprain of right wris t, initial encounter Herson Arambula MD Plan of Treatment Future Appointment(s):* 10/10/2021 10:30 am - Stalin Felix, P.A. at [place] * 10/19/2021 9:15 am - LJ Salinas at [place] 09/07/2021 - LJ Salinas* M22.2x2 Patellofemoral disorders, left knee* New Medication:* Mobic 7.5 mg - 1 by mouth after meals twice a day * Follow up:* 6 week left knee recheck with IID Functional Status Description No Information Available Mental Status Description No Information Available Referrals Refer to Dr Reason for Referral Status Appt Date Michael Woods Pac PT ALLOWED EVAL THEN NEEDS AUTH TO PT DEPT. NT Created [address] [id number] [phone] Michael Woods I, [facility] MRI APPROVED PER [employer] FOR MRI OF CERVICAL SPINE (20339) TO HONORIO E. DG Created [address] [place] [address] [phone] Stalin Felix PA MRI APPROVED PER [employer] FOR MRI OF RIGHT WRIST (06147) TO MRI. DG Created [address] [place] [address] [phone] Herson Arambula MD DME PER MANAN AT [facility] NO AUTH REQUIRED FOR APOLLO WRIST BRACE ([id number]) TO HONORIO NT CALL REF IS MANAN Stewart AT 3:29pm ON 05/17/[address] [place] [address] [phone]
--- OUTSIDE RECORDS SUMMARY | 2021-10-06 07:54 | CCD | Continuity of Care Document ---
Author Author Debbie WOODS PA Organization Unknown Address [address] [facility] e [address] [place] [address] Phone [phone] Care Team Providers Care Die Cast Patternmaker Name Role Phone Lluvia Bee ALFREDO AUTM [...] CPT Code Status Date Vaccine Lot # [id number] Given 09/02/2018 Influenza Virus Split 3 Yrs And Above Dosage Vital Signs Date Vital Result Comment 05/17/2021 2:55pm Body Temperature 96.6 F Height 63.25 inches 5'3.25" Weight 199.00 lb BMI (Body Mass Index) 35.0 kg/m2 06/05/2019 10:19am Height 63 inches 5'3" Weight 202.00 lb BMI (Body Mass Index) 35.8 kg/m2 Results Description No Information Available Procedures Date Code Description Status 09/07/2021 85528 Office/Outpatient Established Mo d MDM 30-39 Min Completed 09/07/2021 45259 X-Ray Knee Complete W/Obliques & Tunnel And/Or Standing Views Completed 08/31/2021 88663 X-Ray Spine Cervical 6 Or More V iews Completed 08/18/2021 12554 Office/Outpatient Established Lo w MDM 20-29 Min Completed 08/09/2021 38754 MRI Upper Extremity Any Joint Co mpleted 07/21/2021 01126 Office/Outpatient Established Mo d MDM 30-39 Min Completed 07/21/2021 46221 X-Ray Knee Complete W/Obliques & Tunnel And/Or Standing Views Completed 05/17/2021 27439 Office/Outpatient Established Lo w MDM 20-29 Min Completed 05/17/2021 70573 X-Ray Wrist Complete Completed Medical Devices Description No Information Available Encounters Type Date Location Provider Dx Diagnosis Office Visit 09/07/2021 10:[place] M22.2x2 Patellofemoral disorders, left knee Office Visit 08/18/2021 8:00a [place] Stalin Felix P.A. S63.501D Unspecified sprain of right wrist, subsequent encounter M47.892 Other spondylosis, cervical region M50.320 Other cerv disc degeneration , mid-cervical rgn, unsp level M43.12 Spondylolisthesis, cervical region Office Visit 07/21/2021 4:15p [place] P.[place]. S63.501D Unspecified sprain of right wrist, subsequent encounter S80.02xA Contusion of left knee, init ial encounter Office Visit 05/17/2021 2:30p [place] Ar[place] S63.50 1A Unspecified sprain of right wrist, initial encounter Assessments Date Code Description Provider 09/07/2021 M22.2x2 Patellofemoral disorders, left k nee LJ Salinas 08/18/2021 S63.501D Unspecified sprain of right wris t, subsequent encounter Stalin Felix, P.A. 08/18/2021 M47.892 Other spondylosis, cervical henry on Stalin Felix P.A. 08/18/2021 M50.320 Other cervical disc degeneration , mid-cervical region, unspe Stalin Felix, P.A. 08/18/2021 M43.12 Spondylolisthesis, cervical henry on Stalin Felix P.A. 08/09/2021 S63.501D Unspecified sprain of right wris t, subsequent encounter Jessika Amezcua.A. 08/09/2021 S63.501D Unspecified sprain of right wris t, subsequent encounter MRI 07/21/2021 S63.501D Unspecified sprain of right wris t, subsequent encounter Stalin Felix, P.A. 07/21/2021 S80.02xA Contusion of left knee, initial encounter Stalin Felix P.A. 05/17/2021 S63.501A Unspecified sprain of right wris t, initial encounter Herson Arambula MD 05/17/2021 S63.501A Unspecified sprain of right wris t, initial encounter Herson Arambula MD Plan of Treatment Future Appointment(s):* 10/19/2021 9:15 am - LJ Salinas at [place] 09/07/2021 - LJ Salinas* M22.2x2 Patellofemoral disorders, left knee* New Medication:* Mobic 7.5 mg - 1 by mouth after meals twice a day * Follow up:* 6 week left knee recheck with IID Functional Status Description No Information Available Mental Status Description No Information Available Referrals Refer to Dr Reason for Referral Status Appt Date Michael Woods Pac MRI APPROVED PER [facility] FOR MRI OF CERVICAL SPINE (54624) TO HONORIO Garnica. DG Created [address] [place] [address] [phone] Stalin Felix PA MRI APPROVED PER [employer] FOR MRI OF RIGHT WRIST (15601) TO MRI. DG Created [address] [place] [address] [phone] Herson Arambula MD DME PER MANAN AT [facility] AUTH REQUIRED FOR APOLLO WRIST BRACE ([id number]) TO [facility]IO NT CALL REF IS MANAN Stewart AT 3:29pm ON 05/17/[address] [place] [address] [phone]
--- OUTSIDE RECORDS SUMMARY | 2021-10-06 07:54 | CCD | Continuity of Care Document ---
Author Author Debbie WOODS PA Organization Unknown Address [address] [facility] e [address] [place] [address] Phone [phone] Care Team Providers Care Cake Tester Name Role Phone Lluvia Bee ALFREDO AUTM [phone] Problems Active Problems Provider Date Allergic rhinitis [...] CPT Code Status Date Vaccine Lot # [id number] Given 09/02/2018 Influenza Virus Split 3 Yrs And Above Dosage Vital Signs Date Vital Result Comment 05/17/2021 2:55pm Body Temperature 96.6 F Height 63.25 inches 5'3.25" Weight 199.00 lb BMI (Body Mass Index) 35.0 kg/m2 06/05/2019 10:19am Height 63 inches 5'3" Weight 202.00 lb BMI (Body Mass Index) 35.8 kg/m2 Results Description No Information Available Procedures Date Code Description Status 09/07/2021 77100 Office/Outpatient Established Mo d MDM 30-39 Min Completed 09/07/2021 72381 X-Ray Knee Complete W/Obliques & Tunnel And/Or Standing Views Completed 08/31/2021 31729 X-Ray Spine Cervical 6 Or More V iews Completed 08/18/2021 27793 Office/Outpatient Established Lo w MDM 20-29 Min Completed 08/09/2021 12292 MRI Upper Extremity Any Joint Co mpleted 07/21/2021 11180 Office/Outpatient Established Mo d MDM 30-39 Min Completed 07/21/2021 59156 X-Ray Knee Complete W/Obliques & Tunnel And/Or Standing Views Completed 05/17/2021 20455 Office/Outpatient Established Lo w MDM 20-29 Min Completed 05/17/2021 93343 X-Ray Wrist Complete Completed Medical Devices Description No Information Available Encounters Type Date Location Provider Dx Diagnosis Office Visit 09/07/2021 10[place] M22.2x2 Patellofemoral disorders, left knee Office Visit 08/18/2021 8:00a [place] Stalin Felix P.A. S63.501D Unspecified sprain of right wrist, subsequent encounter M47.892 Other spondylosis, cervical region M50.320 Other cerv disc degeneration , mid-cervical rgn, unsp level M43.12 Spondylolisthesis, cervical region Office Visit 07/21/2021 4:15p [place] [facility].[place] S63.501D Unspecified sprain of right wrist, subsequent encounter S80.02xA Contusion of left knee, init ial encounter Office Visit 05/17/2021 2:30p [place] S63.50 1A Unspecified sprain of [...] 10/19/2021 9:15 am - LJ Salinas at [place] 09/07/2021 - LJ Salinas* M22.2x2 Patellofemoral disorders, left knee* New Medication:* Mobic 7.5 mg - 1 by mouth after meals twice a day * Follow up:* 6 week left knee recheck with IID Functional Status Description No Information Available Mental Status Description No Information Available Referrals Refer to Dr Reason for Referral Status Appt Date Michael Woods Pac MRI APPROVED PER [facility] FOR MRI OF CERVICAL SPINE (66115) TO HONORIO Garnica. DG Created [address] [place] [address] [phone] Stalin Felix PA MRI APPROVED PER [employer] FOR MRI OF RIGHT WRIST (83989) TO MRI. DG Created [address] [place] [address] [phone] Herson Arambula MD DME PER MANAN AT [facility] AUTH REQUIRED FOR APOLLO WRIST BRACE ([id number]) TO [facility]IO NT CALL REF IS MANAN Stewart AT 3:29pm ON 05/17/[address] [place] [address] [phone]
--- OUTSIDE RECORDS SUMMARY | 2021-10-06 07:54 | CCD | Continuity of Care Document ---
Author Author Debbie FELIX P.A. Organization Unknown Address [address] [facility] e [address] [place] [address] Phone [phone] Care Team Providers Care Day Care Supervisor Name Role Phone Lluvia Bee CRM CONSULTANT AUTM Problems Active Problems Provider Date Allergic [...] behavior Onset: Influenza vaccine needed Onset: 09/02/20 Insomnia Onset: 08/15/2017 Knee pain Onset: 05/20/2019 [...] SIG Qnty Indications Ordering Provide r Date Control Unknown Sertraline HCL 25mg Tablets Daily 30tabs Unknown Immunizations CPT Code Status Date Vaccine Lot # [id number] Given 09/02/2018 Influenza Virus Split 3 Yrs And Above Dosage Vital Signs Date Vital Result Comment 05/17/2021 2:55pm Body Temperature 96.6 F Height 63.25 inches 5'3.25" Weight 199.00 lb BMI (Body Mass Index) 35.0 kg/m2 06/05/2019 10:19am Height 63 inches 5'3" Weight 202.00 lb BMI (Body Mass Index) 35.8 kg/m2 Results Description No Information Available Procedures Date Code Description Status 08/31/2021 81670 X-Ray Spine Cervical 6 Or More V iews Completed 08/18/2021 62989 Office/Outpatient Established Lo w MDM 20-29 Min Completed 08/09/2021 08978 MRI Upper Extremity Any Joint Co mpleted 07/21/2021 54589 Office/Outpatient Established Mo d MDM 30-39 Min Completed 07/21/2021 55159 X-Ray Knee Complete W/Obliques & Tunnel And/Or Standing Views Completed 05/17/2021 18032 Office/Outpatient Established Lo w MDM 20-29 Min Completed 05/17/2021 20293 X-Ray Wrist Complete Completed Medical Devices Description No Information Available Encounters Type Date Location Provider Dx Diagnosis Office Visit 08/18/2021 8:00a [place] Felix, P.A. S63.501D Unspecified sprain of right wrist, subsequent encounter M47.892 Other spondylosis, cervical region M50.320 Other cerv disc degeneration , mid-cervical rgn, unsp level M43.12 Spondylolisthesis, cervical region Office Visit 07/21/2021 4:15p [place] Stalin Felix, P.A. S63.501D Unspecified sprain of right wrist, subsequent encounter S80.02xA Contusion of left knee, init ial encounter Office Visit 05/17/2021 2:30p [place] Herson Arambula MD S63.50 1A Unspecified sprain of right wrist, initial encounter Assessments Date Code Description Provider 08/18/2021 S63.501D Unspecified sprain of right wris t, subsequent encounter Stalin Felix, P.A. 08/18/2021 M47.892 Other spondylosis, cervical henry on Stalin Felix, P.A. 08/18/2021 M50.320 Other cervical disc degeneration , mid-cervical region, unspe Stalin Felix, P.A. 08/18/2021 M43.12 Spondylolisthesis, cervical henry on Stalin Felix, P.A. 08/09/2021 S63.501D Unspecified sprain of right wris t, subsequent encounter Stalin Felix, P.A. 08/09/2021 S63.501D Unspecified sprain of right wris t, subsequent encounter MRI 07/21/2021 S63.501D Unspecified sprain of right wris t, subsequent encounter Stalin Felix P.A. 07/21/2021 S80.02xA Contusion of left knee, initial encounter Stalin Felix, P.A. 05/17/2021 S63.501A Unspecified sprain of right wris t, initial encounter Herson Arambula MD 05/17/2021 S63.501A Unspecified sprain of right wris t, initial encounter Herson Arambula MD Plan of Treatment Future Appointment(s):* 09/07/2021 10:00 am - LJ Salinas at [place] 08/18/2021 - Stalin Felix P.A.* S63.501D Unspecified sprain of right wrist, subsequent encounter * M47.892 Other spondylosis, cervical region* New Xrays:* MRI Cervical Spine, Ordered: 08/18/21 * M50.320 Other cervical disc degeneration, mid-cervical region, unspe * M43.12 Spondylolisthesis, cervical region Functional Status Description No Information Available Mental Status Description No Information Available Referrals Refer to Reason for Referral Status Appt Date Stalin Felix, PA MRI APPROVED PER [employer] FOR MRI OF RIGHT WRIST (44476) TO MRI. DG Created [address] [place] [address] [address] [place], [place] [id number] [phone] Herson Arambula MD DME PER MANAN AT [facility] AUTH REQUIRED FOR APOLLO WRIST BRACE ([id number]) TO [facility] NT CALL REF IS MANAN Stewart AT 3:29pm ON 05/17/[address] [place] [address] [place] [address] [phone]
--- OUTSIDE RECORDS SUMMARY | 2021-10-06 07:55 | CCD | Continuity of Care Document ---
Author Author Debbie YUEN Organization Unknown Address [address] [place] [address] Phone [phone] Care Team Providers Care Mixing House Operator Name Role Phone Lluvia Bee Josue FUENTES AUTM [phone] Problems Active Problems Provider Date Allergic [...] alcohol Tobacco Use Start: Unknown Denies Smoking Allergies, Adverse Reactions, Alerts Active Allergies Criticality Reaction | Severity Comments [...] CPT Code Status Date Vaccine Lot # [id number] Given 09/02/2018 Influenza Virus Split 3 Yrs And Above Dosage Vital Signs Date Vital Result Comment 05/17/2021 2:55pm Body Temperature 96.6 F Height 63.25 inches 5'3.25" Weight 199.00 lb BMI (Body Mass Index) 35.0 kg/m2 06/05/2019 10:19am Height 63 inches 5'3" Weight 202.00 lb BMI (Body Mass Index) 35.8 kg/m2 Results Description No Information Available Procedures Date Code Description Status 07/21/2021 50773 Office/Outpatient Established Mo d MDM 30-39 Min Completed 07/21/2021 86493 X-Ray Knee Complete W/Obliques & Tunnel And/Or Standing Views Completed 05/17/2021 01956 Office/Outpatient Established Lo w MDM 20-29 Min Completed 05/17/2021 67651 X-Ray Wrist Complete Completed Medical Devices Description No Information Available Encounters Type Date Location Provider Dx Diagnosis Office Visit 07/21/2021 4:15p [place] Stalin Felix, P.A. S63.501D Unspecified sprain of right wrist, subsequent encounter S80.02xA Contusion of left knee, init ial encounter Office Visit 05/17/2021 2:30p [place] Herson Arambula MD S63.50 1A Unspecified sprain of right wrist, initial encounter Assessments Date Code Description Provider 07/21/2021 S63.501D Unspecified sprain of right wris t, subsequent encounter Stalin Felix, P.A. 07/21/2021 S80.02xA Contusion of left knee, initial encounter Rose Marie Amezcua 05/17/2021 S63.501A Unspecified sprain of right wris t, initial encounter Herson Arambula MD 05/17/2021 S63.501A Unspecified sprain of right wris t, initial encounter Herson Arambula MD Plan of Treatment 07/21/2021 - Jermain Amezcua.* S63.501D Unspecified sprain of right wrist, subsequent encounter* Follow up:* [facility] rt wrist mri results with [facility] * S80.02xA Contusion of left knee, initial encounter Functional Status Description No Information Available Mental Status Description No Information Available Referrals Refer to Reason for Referral Status Appt Date Stalin Felix PA MRI APPROVED PER [employer] FOR MRI OF RIGHT WRIST (34934) TO MRI. DG Created [address] [place] [address] [address] [place] [address] [phone] Herson Arambula MD DME PER MANAN AT [facility] AUTH REQUIRED FOR APOLLO WRIST BRACE ([id number]) TO HON[facility]IO NT CALL REF IS MANAN Stewart AT 3:29pm ON 05/17/[address] [place] [address], [address] [place] [address] [phone]
--- OUTSIDE RECORDS SUMMARY | 2021-10-06 07:55 | CCD ---
Continuity of Care Document (CCD) Created on: 08/01/2021 Debbie Akbra External Reference #: [id number] : [id number] Sex: Female Author Author Debbie FELIX P.A. Organization Unknown Address [address] [place] [address] Phone [phone] Care Team Providers Care Rope Tow Operator Name Role Phone Lluvia Bee ALFREDO AUTM [phone] Problems Active Problems Provider Date Allergic [...] Allergies Criticality Reaction | Severity Comments Date Baccarolina Unable to assess criticality Rash | Mild [...] CPT Code Status Date Vaccine Lot # [id number] Given 09/02/2018 Influenza Virus Split 3 Yrs And Above Dosage Vital Signs Date Vital Result Comment 05/17/2021 2:55pm Body Temperature 96.6 F Height 63.25 inches 5'3.25" Weight 199.00 lb BMI (Body Mass Index) 35.0 kg/m2 06/05/2019 10:19am Height 63 inches 5'3" Weight 202.00 lb BMI (Body Mass Index) 35.8 kg/m2 Results Description No Information Available Procedures Date Code Description Status 07/21/2021 74489 Office/Outpatient Established Mo d MDM 30-39 Min Completed 07/21/2021 77746 X-Ray Knee Complete W/Obliques & Tunnel And/Or Standing Views Completed 05/17/2021 33308 Office/Outpatient Established Lo w MDM 20-29 Min Completed 05/17/2021 14462 X-Ray Wrist Complete Completed Medical Devices Description No Information Available Encounters Type Date Location Provider Dx Diagnosis Office Visit 07/21/2021 4:15p [place] Stalin Felix, P.A. S63.501D Unspecified sprain of right wrist, subsequent encounter S80.02xA Contusion of left knee, init ial encounter Office Visit 05/17/2021 2:30p [place] Herson Arambula MD S63.50 1A Unspecified sprain of right wrist, initial encounter Assessments Date Code Description Provider 07/21/2021 S63.501D Unspecified sprain of right wris t, subsequent encounter Jermain Amezcua. 07/21/2021 S80.02xA Contusion of left knee, initial encounter Rose Marie Amezcua 05/17/2021 S63.501A Unspecified sprain of right wris t, initial encounter Herson Arambula MD 05/17/2021 S63.501A Unspecified sprain of right wris t, initial encounter Herson Arambula MD Plan of Treatment Future Appointment(s):* 08/09/2021 9:00 am - MRI at MRI 07/21/2021 - Jermain Amezcua.* S63.501D Unspecified sprain of right wrist, subsequent encounter* New Xrays:* mri rt wrist, Scheduled: 08/09/21 * Follow up:* [facility] rt wrist mri results with MKM * S80.02xA Contusion of left knee, initial encounter Functional Status Description No Information Available Mental Status Description No Information Available Referrals Refer to Dr Reason for Referral Status Appt Date Stalin Felix PA MRI APPROVED PER [employer] (P) FOR MRI OF RIGHT WRIST (46380) TO MRI. DG Created [address] [place], [place] [id number] [place] [address] [phone] Herson Arambula MD DME PER MANAN AT [facility] AUTH REQUIRED FOR APOLLO WRIST BRACE ([id number]) TO [facility] NT CALL REF IS MANAN Stewart AT 3:29pm ON 05/17/[address] [place] [address], [address] [place] [phone]
--- OUTSIDE RECORDS SUMMARY | 2021-10-06 07:55 | CCD | Continuity of Care Document ---
Author Author Debbie FELIX P.A. 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 Name Role Phone Lluvia Bee ALFREDO AUTM [...] CPT Code Status Date Vaccine Lot # [id number] Given 09/02/2018 Influenza Virus Split 3 Yrs And Above Dosage Vital Signs Date Vital Result Comment 05/17/2021 2:55pm Body Temperature 96.6 F Height 63.25 inches 5'3.25" Weight 199.00 lb BMI (Body Mass Index) 35.0 kg/m2 06/05/2019 10:19am Height 63 inches 5'3" Weight 202.00 lb BMI (Body Mass Index) 35.8 kg/m2 Results Description No Information Available Procedures Date Code Description Status 07/21/2021 78084 X-Ray Knee Complete W/Obliques & Tunnel And/Or Standing Views Completed 05/17/2021 91040 Office/Outpatient Established Lo w MDM 20-29 Min Completed 05/17/2021 50330 X-Ray Wrist Complete Completed Medical Devices Description No Information Available Encounters Type Date Location Provider Dx Diagnosis Office Visit 05/17/2021 2:30p [place] Herson Arambula MD S63.50 1A Unspecified sprain [...] subsequent encounter* New Xrays:* mri rt wrist, Ordered: 07/21/21 * Follow up:* [facility] rt wrist mri results with MKM * S80.02xA Contusion of left knee, initial encounter Functional Status Description No Information Available Mental Status Description No Information Available Referrals Refer to Dr Reason for Referral Status Appt Date Herson Arambula MD DME PER MANAN AT [facility] NO AUTH REQUIRED FOR APOLLO WRIST BRACE ([id number]) TO [facility]IO NT CALL REF IS MANAN Stewart AT 3:29pm ON 05/17/21 Created [address] [facility], [address] [place] [phone]
--- OUTSIDE RECORDS SUMMARY | 2021-10-06 07:55 | CCD | Continuity of Care Document ---
Author Author Debbie FELIX P.A. Organization Unknown Address [address] [facility] [address] [place] [phone] Phone [phone] Care Team Providers Care Broommaking Supervisor Name Role Phone Lluvia Bee ART APPRAISER AUTM Problems Active Problems Provider Date Allergic [...] CPT Code Status Date Vaccine Lot # [id number] Given 09/02/2018 Influenza Virus Split 3 Yrs And Above Dosage Vital Signs Date Vital Result Comment 05/17/2021 2:55pm Body Temperature 96.6 F Height 63.25 inches 5'3.25" Weight 199.00 lb BMI (Body Mass Index) 35.0 kg/m2 06/05/2019 10:19am Height 63 inches 5'3" Weight 202.00 lb BMI (Body Mass Index) 35.8 kg/m2 Results Description No Information Available Procedures Date Code Description Status 08/31/2021 44675 X-Ray Spine Cervical 6 Or More V iews Completed 08/18/2021 40576 Office/Outpatient Established Lo w MDM 20-29 Min Completed 08/09/2021 70469 MRI Upper Extremity Any Joint Co mpleted 07/21/2021 85409 Office/Outpatient Established Mo d MDM 30-39 Min Completed 07/21/2021 40394 X-Ray Knee Complete W/Obliques & Tunnel And/Or Standing Views Completed 05/17/2021 63871 Office/Outpatient Established Lo w MDM 20-29 Min Completed 05/17/2021 95329 X-Ray Wrist Complete Completed Medical Devices Description No Information Available Encounters Type Date Location Provider Dx Diagnosis Office Visit 08/18/2021 8:00a Una Felix, P.A. 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 S63.501D Unspecified sprain of right wrist, subsequent encounter S80.02xA Contusion of left knee, init ial encounter Office Visit 05/17/2021 2:30p [place] Herson Arambula MD S63.50 1A Unspecified sprain [...] 09/07/2021 10:00 am - [facility] [place] 08/18/2021 - Stalin Felix P.A.* S63.501D Unspecified [...] Date Stalin Felix, PA MRI APPROVED PER [employer] FOR MRI OF RIGHT WRIST (07112) TO MRI. DG Created [address] [place] [address] [address] [place], [place] [id number] [phone] Herson Arambula MD DME PER MANAN AT [facility] AUTH REQUIRED FOR APOLLO WRIST BRACE ([id number]) TO [facility]ONORIO NT CALL REF IS MANAN Stewart AT 3:29pm ON 05/17/[address] [place] [address] [place] [phone]
--- OUTSIDE RECORDS SUMMARY | 2021-10-06 07:55 | CCD | Continuity of Care Document ---
Author Author Debbei YUEN Organization Unknown Address [address] [place] [phone] Phone [phone] Care Team Providers Care Voip Engineer Name Role Phone Lluvia Bee ALFREDO AUTM [...] CPT Code Status Date Vaccine Lot # [id number] Given 09/02/2018 Influenza Virus Split 3 Yrs And Above Dosage Vital Signs Date Vital Result Comment 05/17/2021 2:55pm Body Temperature 96.6 F Height 63.25 inches 5'3.25" Weight 199.00 lb BMI (Body Mass Index) 35.0 kg/m2 06/05/2019 10:19am Height 63 inches 5'3" Weight 202.00 lb BMI (Body Mass Index) 35.8 kg/m2 Results Description No Information Available Procedures Date Code Description Status 08/09/2021 74724 MRI Upper Extremity Any Joint Co mpleted 07/21/2021 81812 Office/Outpatient Established Mo d MDM 30-39 Min Completed 07/21/2021 85097 X-Ray Knee Complete W/Obliques & Tunnel And/Or Standing Views Completed 05/17/2021 29714 Office/Outpatient Established Lo w MDM 20-29 Min Completed 05/17/2021 94695 X-Ray Wrist Complete Completed Medical Devices Description No Information Available Encounters Type Date Location Provider Dx Diagnosis Office Visit 07/21/2021 4:15p [place] Stalin Felix, P.A. S63.501D Unspecified sprain of right wrist, subsequent encounter S80.02xA Contusion of left knee, init ial encounter Office Visit 05/17/2021 2:30p [place] Herson Arambula MD S63.50 1A Unspecified sprain of right wrist, initial encounter Assessments Date Code Description Provider 08/09/2021 S63.501D Unspecified sprain of right wris t, subsequent encounter Stalin Felix, P.A. 08/09/2021 S63.501D Unspecified sprain of right wris t, subsequent encounter [facility] 07/21/2021 S63.501D Unspecified sprain of right wris t, subsequent encounter Jessika Amezcua.A. 07/21/2021 S80.02xA Contusion of left knee, initial encounter Marco AmezcuaA. 05/17/2021 S63.501A Unspecified sprain of right wris t, initial encounter Herson Arambula MD 05/17/2021 S63.501A Unspecified sprain of right wris t, initial encounter Herson Arambula MD Plan of Treatment Future Appointment(s):* 09/07/2021 10:00 am - [facility] 07/21/2021 - Stalin Felix P.A.* S63.501D Unspecified sprain of right wrist, subsequent encounter* Follow up:* [facility] rt wrist mri results with MKM * S80.02xA Contusion of left knee, initial encounter Functional Status Description No Information Available Mental Status Description No Information Available Referrals Refer to Dr Reason for Referral Status Appt Date Stalin Felix PA MRI APPROVED PER [employer] FOR MRI OF RIGHT WRIST (88645) TO MRI. Created [address] [place] [address] [place] [phone] Herson Arambula MD DME PER MANAN AT [facility] AUTH REQUIRED FOR APOLLO WRIST BRACE ([id number]) TO [facility]ORIO NT CALL REF IS MANAN Stewart AT 3:29pm ON 05/17/[address] [place] [address], [address] [place] [phone]
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
--- OUTSIDE RECORDS SUMMARY | 2021-10-06 07:55 | CCD | Continuity of Care Document ---
Author Author Debbie FELIX P.A. Organization Unknown Address [address] [facility] e [address] [place] [id number] Phone [phone] Care Team Providers Care Char Belt Operator Name Role Phone Lluvia Bee [employer] Problems Active Problems Provider Date Allergic [...] CPT Code Status Date Vaccine Lot # [id number] Given 09/02/2018 Influenza Virus Split 3 Yrs And Above Dosage Vital Signs Date Vital Result Comment 05/17/2021 2:55pm Body Temperature 96.6 F Height 63.25 inches 5'3.25" Weight 199.00 lb BMI (Body Mass Index) 35.0 kg/m2 06/05/2019 10:19am Height 63 inches 5'3" Weight 202.00 lb BMI (Body Mass Index) 35.8 kg/m2 Results Description No Information Available Procedures Date Code Description Status 08/18/2021 03822 Office/Outpatient Established Lo w MDM 20-29 Min Completed 08/09/2021 54075 MRI Upper Extremity Any Joint Co mpleted 07/21/2021 54930 Office/Outpatient Established Mo d MDM 30-39 Min Completed 07/21/2021 77979 X-Ray Knee Complete W/Obliques & Tunnel And/Or Standing Views Completed 05/17/2021 67598 Office/Outpatient Established Lo w MDM 20-29 Min Completed 05/17/2021 54728 X-Ray Wrist Complete Completed Medical Devices Description No Information Available Encounters Type Date Location Provider Dx Diagnosis Office Visit 08/18/2021 8:00a Una Feilx, P.A. S63.501D Unspecified sprain of right wrist, subsequent encounter M47.892 Other spondylosis, cervical region M50.320 Other cerv disc degeneration , mid-cervical rgn, unsp level M43.12 Spondylolisthesis, cervical region Office Visit 07/21/2021 4:15p [place] Stalin Felix P.A. S63.501D Unspecified sprain of right wrist, subsequent encounter S80.02xA Contusion of left knee, init ial encounter Office Visit 05/17/2021 2:30p [place] Herson Arambula MD S63.50 1A Unspecified sprain [...] 09/07/2021 10:00 am - [facility] at [place] 08/18/2021 - Stalin Felix, P.A.* S63.501D Unspecified sprain of right wrist, subsequent encounter * M47.892 Other spondylosis, cervical region* New Xrays:* MRI Cervical Spine, Ordered: 08/18/21 * M50.320 Other cervical disc degeneration, mid-cervical region, unspe * M43.12 Spondylolisthesis, cervical region Functional Status Description No Information Available Mental Status Description No Information Available Referrals Refer to Reason for Referral Status Appt Date Stalin Felix PA MRI APPROVED PER [employer] FOR MRI OF RIGHT WRIST ([id number]) TO MRI. DG Created [address] [place] [address] [address] [place] [address] [phone] Herson Arambula MD DME PER MANAN AT [facility] AUTH REQUIRED FOR APOLLO WRIST BRACE ([id number]) TO [facility] NT CALL REF IS MANAN Stewart AT 3:29pm ON 05/17/[address] [place] [address], [address] [place] [phone]
--- OUTSIDE RECORDS SUMMARY | 2021-10-06 07:56 | CCD ---
Author Author [facility] Organization [facility] Address Unknown Phone Unavailable Support Name Relationship Address Phone CRISTA BARRETT Next Of Kin [address] [facility] [address] [place] [address] CRISTA HOLLOWAY Next Of Kin [address] [facility] [address] [place] [address] Herson Young Next Of Kin Unknown Unavailable Lluvia Yao Next Of Kin [address] [place] [address] UN Next Of Kin Unknown Unavailable Alma Simpson Next Of Kin [address] [place], [place] [id number] GITA HORTONS Next Of Kin [address] [place] [address] [place] [address] HERSON YOUNG Next Of Kin [address] [place] [address] NOAH Next Of Kin [address] [place] [address] SIMON THORNE Next Of Kin [address] [address] NO ONE, [place] [address] Next Of Kin Unknown Unavailable HILTON MCINTOSH Next Of Kin [address] [place] [address] SHASHI ELAINE Next Of Kin Unknown SHASHI MUÑOZ Next [place] Kin [address] [place] [address] SHASHI JENKINS Next Of Kin [address] [facility] [address] UE Next Of Kin Unknown Unavailable YOLIHERSON EDWARDS Next Of Kin [address] [place] [address] VICKJAZIEL Carrington Next Of Kin [address] [place] [address] [place] [address] - DAYNAJAZIEL Josue Next Of Kin [address] [place] [address] DAYNAJAZIEL ECON [address] [place] [address] [phone] HERSON YOUNG [address] [place] [address] Care Team Providers Care Human Service Worker Name Role Phone Rohit, Lluvia DIE BAKER DIE BAKER Unavailable Unavailable Ted Mary MD Unavailable Unavailable Ted Mary MD Unavailable Unavailable Ted Mary MD Unavailable Unavailable Ted Mary MD Unavailable Unavailable Ted Mary MD Unavailable Unavailable Ted Mary MD Unavailable Unavailable Pendleton, A Lluvia DIE BAKER Unavailable Unavailable Pendleton, A Lluvia DIE BAKER Unavailable Unavailable Pendleton, A Lluvia DIE BAKER Unavailable Unavailable Pendleton, A Lluvia DIE BAKER Unavailable Unavailable Pendleton, A Lluvia DIE BAKER Unavailable Unavailable Pendleton, A Lluvia DIE BAKER Unavailable Unavailable Pendleton, A Lluvia DIE BAKER Unavailable Unavailable Pendleton, A Lluvia DIE BAKER Unavailable Unavailable Pendleton, A Lluvia DIE BAKER Unavailable Unavailable Pendleton, A Lluvia DIE BAKER Unavailable Unavailable Pendleton, A Lluvia DIE BAKER Unavailable Unavailable Pendleton, A Lluvia DIE BAKER Unavailable Unavailable Pendleton, A Lluvia DIE BAKER Unavailable Unavailable Pendleton, A Lluvia DIE BAKER Unavailable Unavailable Pendleton, A Lluvia DIE BAKER Unavailable Unavailable Pendleton, A Lluvia DIE BAKER Unavailable Unavailable Pendleton, A Lluvia DIE BAKER Unavailable Unavailable Pendleton, A Lluvia DIE BAKER Unavailable Unavailable Pendleton, A Lluvia DIE BAKER Unavailable Unavailable Rohit, A Lluvia DIE BAKER Unavailable Unavailable Pendleton, A Lluvia DIE BAKER Unavailable Unavailable Pendleton, A Lluvia DIE BAKER Unavailable Unavailable Pendleton, A Lluvia DIE BAKER Unavailable Unavailable Rohit, A Lluvia DIE BAKER Unavailable Unavailable Rohit, A Lluvia DIE BAKER Unavailable Unavailable Rohit, A Lluvia DIE BAKER Unavailable Unavailable Rohit, A Lluvia DIE BAKER Unavailable Unavailable Rohit, A Lluvia DIE BAKER Unavailable Unavailable Rohit, A Lluvia DIE BAKER Unavailable Unavailable Pendleton, A Lluvia DIE BAKER Unavailable Unavailable Pendleton, A Lluvia DIE BAKER Unavailable Unavailable Eve Quick Unavailable Rohit, A Lluvia DIE BAKER Unavailable Unavailable Pendleton, A Lluvia DIE BAKER Unavailable Unavailable Pendleton, A Lluvia DIE BAKER Unavailable Unavailable Pendleton, A Lluvia DIE BAKER Unavailable Unavailable Pendleton, A Lluvia DIE BAKER Unavailable Unavailable Pendleton, A Lluvia DIE BAKER Unavailable Unavailable Pendleton, A Lluvia DIE BAKER Unavailable Unavailable Pendleton, A Lluvia DIE BAKER Unavailable Unavailable Pendleton, A Lluvia DIE BAKER Unavailable Unavailable Pendleton, A Lluvia DIE BAKER Unavailable Unavailable Pendleton, A Lluvia DIE BAKER Unavailable Unavailable Pendleton, A Lluvia DIE BAKER Unavailable Unavailable Pendleton, A Lluvia DIE BAKER Unavailable Unavailable Pendleton, A Lluvia DIE BAKER Unavailable Unavailable Pendleton, A Lluvia DIE BAKER Unavailable Unavailable Pendleton, A Lluvia DIE BAKER Unavailable Unavailable Pendleton, A Lluvia DIE BAKER Unavailable Unavailable Pendleton, A Lluvia DIE BAKER Unavailable Unavailable Pendleton, A Lluvia DIE BAKER Unavailable Unavailable Pendleton, A Lluvia DIE BAKER Unavailable Unavailable Pendleton, A Lluvia DIE BAKER Unavailable Unavailable Pendleton, A Lluvia DIE BAKER Unavailable Unavailable Pendleton, A Lluvia DIE BAKER Unavailable Unavailable Pendleton, A Lluvia DIE BAKER Unavailable Unavailable Pendleton, A Lluvia DIE BAKER Unavailable Unavailable Pendleton, A Lluvia DIE BAKER Unavailable Unavailable Pendleton, A Lluvia DIE BAKER Unavailable Unavailable Pendleton, A Lluvia DIE BAKER Unavailable Unavailable Pendleton, A Lluvia DIE BAKER Unavailable Unavailable Pendleton, A Lluvia DIE BAKER Unavailable Unavailable Pendleton, A Lluvia DIE BAKER Unavailable Unavailable Maring, Gita PA Unavailable Unavailable Maring, Gita PA Unavailable Unavailable Maring, Gita PA Unavailable Unavailable Maring, Gita PA Unavailable Unavailable Maring, Gita PA Unavailable Unavailable Maring, Gita PA Unavailable Unavailable Maring, Gita PA Unavailable Unavailable Maring, Gita PA Unavailable Unavailable Maring, Gita PA Unavailable Unavailable Maring, Gita PA Unavailable Unavailable Maring, Gita PA Unavailable Unavailable Maring, Gita PA Unavailable Unavailable Maring, Gita PA Unavailable Unavailable Maring, Gita PA Unavailable Unavailable Maring, Gita PA Unavailable Unavailable Maring, Gita PA Unavailable Unavailable Tri Arambula MD Unavailable Unavailable Tri Arambula MD Unavailable Unavailable Tri Arambula MD Unavailable Unavailable Tri Arambula MD Unavailable Unavailable Tri Arambula MD Unavailable Unavailable Tri Arambula MD Unavailable Unavailable Tri Arambula MD Unavailable Unavailable Tri Arambula MD Unavailable Unavailable Tri Arambula MD Unavailable Unavailable Tri Arambula MD Unavailable Unavailable Tri Arambula MD Unavailable Unavailable MCELHERAN, CAITLYN PA Unavailable Unavailable MCELHERAN, CAITLYN PA Unavailable Unavailable MCELHERAN, CAITLYN PA Unavailable Unavailable MCELHERAN, CAITLYN PA Unavailable Unavailable MCELHERAN, CAITLYN PA Unavailable Unavailable MCELHERAN, CAITLYN PA Unavailable Unavailable MCELHERAN, CAITLYN PA Unavailable Unavailable MCELHERAN, CAITLYN PA Unavailable Unavailable MCELHERAN, CAITLYN PA Unavailable Unavailable MCELHERAN, CAITLYN PA Unavailable Unavailable MCELHERAN, CAITLYN PA Unavailable Unavailable MCELHERAN, CAITLYN PA Unavailable Unavailable MCELHERAN, CAITLYN PA Unavailable Unavailable MCELHERAN, CAITLYN PA Unavailable Unavailable MCELHERAN, CAITLYN PA Unavailable Unavailable MCELHERAN, CAITLYN PA Unavailable Unavailable MCELHERAN, CAITLYN PA Unavailable Unavailable MCELHERAN, CAITLYN PA Unavailable Unavailable MCELHERAN, CAITLYN PA Unavailable Unavailable MCELHERAN, CAITLYN PA Unavailable Unavailable MCELHERAN, CAITLYN PA Unavailable Unavailable MCELHERAN, CAITLYN PA Unavailable Unavailable MCELHERAN, CAITLYN PA Unavailable Unavailable MCELHERAN, CAITLYN PA Unavailable Unavailable MCELHERAN, CAITLYN PA Unavailable Unavailable MCELHERAN, CAITLYN PA Unavailable Unavailable MCELHERAN, CAITLYN PA Unavailable Unavailable MCELHERAN, CAITLYN PA Unavailable Unavailable MCELHERAN, CAITLYN PA Unavailable Unavailable MCELHERAN, CAITLYN PA Unavailable Unavailable MCELHERAN, CAITLYN PA Unavailable Unavailable MCELHERAN, CAITLYN PA Unavailable Unavailable MCELHERAN, CAITLYN PA Unavailable Unavailable MCELHERAN, CAITLYN PA Unavailable Unavailable MCELHERAN, CAITLYN PA Unavailable Unavailable MCELHERAN, CAITLYN PA Unavailable Unavailable MCELAN, CAITLYN PA Unavailable Unavailable MCELHERAN, CAITLYN PA Unavailable Unavailable MCELAN, CAITLYN PA Unavailable Unavailable MCELHERAN, CAITLYN PA Unavailable Unavailable MCELHERAN, CAITLYN PA Unavailable Unavailable MCELHERAN, CAITLYN PA Unavailable Unavailable MCELHERAN, CAITLYN PA Unavailable Unavailable MCELHERAN, CAITLYN PA Unavailable Unavailable MCELHERAN, CAITLYN PA Unavailable Unavailable MCELHERAN, CAITLYN PA Unavailable Unavailable MCELHERAN, CAITLYN PA Unavailable Unavailable MCELHERAN, CAITLYN PA Unavailable Unavailable MCELHERAN, CAITLYN PA Unavailable Unavailable MCELHERAN, CAITLYN PA Unavailable Unavailable MCELHERFATUMA, CAITLYN PA Unavailable Unavailable MCELHERAN, CAITLYN PA Unavailable Unavailable MCELHERAN, CAITLYN PA Unavailable Unavailable MCELHERFATUMA, CAITLYN PA Unavailable Unavailable MCELHERAN, CAITLYN PA Unavailable Unavailable MCELHERFATUMA, CAITLYN PA Unavailable Unavailable MCELHERAN, CAITLYN PA Unavailable Unavailable MCELHERAN, CAITLYN PA Unavailable Unavailable Feola, T Patricia PA Unavailable Unavailable Feola, T Patricia PA Unavailable Unavailable Feola, T Patricia PA Unavailable Unavailable Feola, T Patricia PA Unavailable Unavailable Feola, T Patricia PA Unavailable Unavailable Feola, T Patricia PA Unavailable Unavailable Feola, T Patricia PA Unavailable Unavailable Feola, T Patricia PA Unavailable Unavailable Feola, T Patricia PA Unavailable Unavailable Feola, T Patricia PA Unavailable Unavailable Feola, T Patricia PA Unavailable Unavailable Feola, T Patricia PA Unavailable Unavailable Feola, T Patricia PA Unavailable Unavailable Feola, T Patricia PA Unavailable Unavailable Feola, T Patricia PA Unavailable Unavailable Feola, T Patricia PA Unavailable Unavailable Feola, T Patricia PA Unavailable Unavailable Feola, T Patricia PA Unavailable Unavailable Feola, T Patricia PA Unavailable Unavailable Feola, T Patricia PA Unavailable Unavailable Feola, T Patricia PA Unavailable Unavailable Feola, T Patricia PA Unavailable Unavailable Feola, T Patricia PA Unavailable Unavailable Feola, T Patricia PA Unavailable Unavailable Feola, T Patricia PA Unavailable Unavailable Feola, T Patricia PA Unavailable Unavailable Feola, T Patricia PA Unavailable Unavailable Feola, T Patricia PA Unavailable Unavailable Feola, T Patricia PA Unavailable Unavailable Feola, T Patricia PA Unavailable Unavailable Feola, T Patricia PA Unavailable Unavailable Feola, T Patricia PA Unavailable Unavailable Feola, T Patricia PA Unavailable Unavailable Feola, T Patricia PA Unavailable Unavailable Feola, T Patricia PA Unavailable Unavailable Feola, T Patricia PA Unavailable Unavailable Feola, T Patricia PA Unavailable Unavailable Feola, T Patricia PA Unavailable Unavailable Feola, T Patricia PA Unavailable Unavailable Feola, T Patricia PA Unavailable Unavailable Feola, T Patricia PA Unavailable Unavailable Rohit, Josue GruberLluvia DIE BAKER Unavailable Unavailable Rohit, Josue Lluvia DIE BAKER Unavailable Unavailable Rohit, A Lluvia DIE BAKER Unavailable Unavailable Rohit, A Lluvia DIE BAKER Unavailable Unavailable Rohit, A Lluvia DIE BAKER Unavailable Unavailable Rohit, A Lluvia DIE BAKER Unavailable Unavailable Rohit, A Lluvia DIE BAKER Unavailable Unavailable Rohit, A Lluvia DIE BAKER Unavailable Unavailable Rohit, A Lluvia DIE BAKER Unavailable Unavailable Rohit, A Lluvia DIE BAKER Unavailable Unavailable Rohit, A Lluvia DIE BAKER Unavailable Unavailable Rohit, A Lluvia DIE BAKER Unavailable Unavailable Rohit, A Lluvia DIE BAKER Unavailable Unavailable Rohit, A Lluvia DIE BAKER Unavailable Unavailable Rohit, A Lluvia DIE BAKER Unavailable Unavailable Rohit, A Lluvia DIE BAKER Unavailable Unavailable Rohit, A Lluvia DIE BAKER Unavailable Unavailable Rohit, A Lluvia DIE BAKER Unavailable Unavailable Rohit, A Lluvia DIE BAKER Unavailable Unavailable Rohit, A Lluvia DIE BAKER Unavailable Unavailable Rohit, A Lluvia DIE BAKER Unavailable Unavailable Rohit, A Lluvia DIE BAKER Unavailable Unavailable Rohit, A Lluvia DIE BAKER Unavailable Unavailable Rohit, A Lluvia DIE BAKER Unavailable Unavailable Rohit, A Lluvia DIE BAKER Unavailable Unavailable Rohit, A Lluvia DIE BAKER Unavailable Unavailable Rohit, A Lluvia DIE BAKER Unavailable Unavailable Orhit, A Lluvia DIE BAKER Unavailable Unavailable Rohit, A Lluvia DIE BAKER Unavailable Unavailable Rohit, A Lluvia DIE BAKER Unavailable Unavailable Rohit, A Lluvia DIE BAKER Unavailable Unavailable Clarissa Chamberlain Unavailable DRAZEK, I ADDI PA Unavailable Unavailable DRAZEK, I ADDI PA Unavailable Unavailable DRAZEK, I ADDI PA Unavailable Unavailable DRAZEK, I ADDI PA Unavailable Unavailable DRAZEK, I ADDI PA Unavailable Unavailable DRAZEK, I ADDI PA Unavailable Unavailable DRAZEK, I ADDI PA Unavailable Unavailable DRAZEK, I ADDI PA Unavailable Unavailable DRAZEK, I ADDI PA Unavailable Unavailable DRAZEK, I ADDI PA Unavailable Unavailable DRAZEK, I ADDI PA Unavailable Unavailable DRAZEK, I ADDI PA Unavailable Unavailable DRAZEK, I ADDI PA Unavailable Unavailable DRAZEK, I ADDI PA Unavailable Unavailable DRAZEK, I ADDI PA Unavailable Unavailable DRAZEK, I ADDI PA Unavailable Unavailable DRAZEK, I ADDI PA Unavailable Unavailable DRAZEK, I ADDI PA Unavailable Unavailable DRAZEK, I ADDI PA Unavailable Unavailable DRAZEK, I ADDI PA Unavailable Unavailable DRAZEK, I ADDI PA Unavailable Unavailable DRAZEK, I ADDI PA Unavailable Unavailable DRAZEK, I ADDI PA Unavailable Unavailable DRAZEK, I ADDI PA Unavailable Unavailable DRAZEK, I ADDI PA Unavailable Unavailable DRAZEK, I ADDI PA Unavailable Unavailable DRAZEK, I ADDI PA Unavailable Unavailable DRAZEK, I ADDI PA Unavailable Unavailable DRAZEK, I ADDI PA Unavailable Unavailable DRAZEK, I ADDI PA Unavailable Unavailable So, M Christopher PA-C Unavailable Unavailable So, M Christopher PA-C Unavailable Unavailable So, M Christopher PA-C Unavailable Unavailable So, M Christopher PA-C Unavailable Unavailable So, M Christopher PA-C Unavailable Unavailable So, M Christopher PA-C Unavailable Unavailable So, M Christopher PA-C Unavailable Unavailable So, M Christopher PA-C Unavailable Unavailable So, M Christopher PA-C Unavailable Unavailable So, M Christopher PA-C Unavailable Unavailable So, M Christopher PA-C Unavailable Unavailable So, M Christopher PA-C Unavailable Unavailable So, M Christopher PA-C Unavailable Unavailable So, M Christopher PA-C Unavailable Unavailable So, M Christopher PA-C Unavailable Unavailable So, M Christopher PA-C Unavailable Unavailable So, M Christopher PA-C Unavailable Unavailable So, M Christopher PA-C Unavailable Unavailable So, M Christopher PA-C Unavailable Unavailable So, M Christopher PA-C Unavailable Unavailable So, M Christopher PA-C Unavailable Unavailable So, M Christopher PA-C Unavailable Unavailable So, M Christopher PA-C Unavailable Unavailable So, M Christopher PA-C Unavailable Unavailable So, M Christopher PA-C Unavailable Unavailable So, M Christopher PA-C Unavailable Unavailable Re-disclosure Warning The records that you are about to access may contain information from federally-assisted alcohol or drug abuse programs. If such information is present, then the following federally mandated warning applies: This information has been disclosed to you from records protected by federal confidentiality rules (42 CFR part 2). The federal rules prohibit you from making any further disclosure of this information unless further disclosure is expressly permitted by the written consent of the person to whom it pertains or as otherwise permitted by 42 CFR part 2. A general authorization for the release of medical or other information is NOT sufficient for this purpose. The Federal rules restrict any use of the information to criminally investigate or prosecute any alcohol or drug abuse patient.The records that you are about to access may contain highly sensitive health information, the redisclosure of which is protected by Article 27-F of the [facility] Public Health law. If you continue you may have access to information: Regarding HIV / AIDS; Provided by facilities licensed or operated by the [facility] Office of Mental Health; or Provided by the [facility] Office for People With Developmental Disabilities. If such information is present, then the following [facility] mandated warning applies: This information has been disclosed to you from confidential records which are protected by state law. State law prohibits you from making any further disclosure of this information without the specific written consent of the person to whom it pertains, or as otherwise permitted by law. Any unauthorized further disclosure in violation of state law may result in a fine or group home sentence or both. A general authorization for the release of medical or other information is NOT sufficient authorization for further disc losure. Allergies and Adverse Reactions Type Description Substance Reaction Status Data Source(s ) Drug allergy PEROXIDE PEROXIDE [facility] Propensity to adverse reactions NEOSPORIN NEOSPORIN [facility] Propensity to adverse reactions MARYCRUZ MARYCRUZ [facility] Drug allergy NICKEL NICKEL [facility] Food allergy NUTS NUTS [facility] Propensity to adverse reactions LATEX LATEX RASH [facility] Propensity to adverse reactions Benzonatate benzonatate tongue swelling Unknown Active [facility] Family History Family Member Name Family Member Gender Family Member Status Date o f Status Description Data Source(s) Unknown Male Problem [facility] ([facility]) Encounters Encounter Providers Location Date Indications Data Source(s ) Outpatient Attender: CAITLYN MARTIN PAConsultant: Tamir Bee DIE BAKER 09/28/2021 07:21:00 AM EST - 09/28/2021 08:21:00 AM [facility] Outpatient Attender: ADDI CALHOUN Physical Therapy 09/07/2021 1 0:00:00 AM EDT [facility] ([facility]) Office Visit Attender: CAITLYN CALHOUN Physical Therapy 08/31/2021 12:00:00 PM EDT [facility] ([facility]) OFFICE OUTPATIENT VISIT 15 MINUTES Attender: CAITLYN CALHOUN Physical Therapy 08/18/2021 08:00:00 AM EDT [facility] ([facility]) [facility] [address] [place] [address], Ph. Attender: Lluvia Bee [facility] 08/03/2021 12:00:00 AM EDT NATASHA ([facility]) Outpatient Attender: CAITLYN CALHOUN Physical Therapy 07/21/2021 04:15:00 PM EDT [facility] ([facility]) Emergency Attender: Ted Mary MDConsultant: Lluvia bautista [facility] 06/19/2021 07:42:00 PM EDT - 06/19/2021 09:29:00 PM EDT [facility] Patient discharged. Outpatient Attender: Justin CALHOUN-C 06/19/2021 02:40:15 PM EDT - 06/19/2021 03:35:51 PM EDT [facility]ap ([facility]) (WC ESTOB) [address]Center Est [address] [place] [address] 06/14/2021 12:00:00 AM EDT eCW1 ([facility]) Lluvia Bee [facility]: [address], [place] [address], Ph. Attender: Lluvia Bee [facility] 06/10/2021 12:00:00 AM EDT NATASHA ([facility]) Lluvia Bee [facility]: [address] [place] [address], Ph. Attender: Lluvia eBe [facility] 06/10/2021 12:00:00 AM EDT NATASHA ([facility]) OFFICE OUTPATIENT VISIT 15 MINUTES Attender: Herson Rosen hysical Therapy 05/17/2021 02:30:00 PM EDT [facility] ([facility]) Outpatient Attender: Patricia CALHOUN 021 11:55:43 AM EDT - 05/14/2021 02:00:00 PM EDT [facility] ([facility] ) Outpatient Attender: Gita CALHOUN 05/10/20 05:00:43 PM EDT - 05/10/2021 05:18:14 PM EDT [facility] ([facility] ) [facility] [address] [place] [address], Ph. Attender: Lluvia Bee [facility] 04/22/2021 12:00:00 AM EDT [facility] ([facility]) [facility] [address] [place] [address], Ph. Attender: Lluvia Bee [facility] 04/22/2021 12:00:00 AM EDT [facility] ([facility]) [facility] [address] [place] [address], Ph. Attender: Lluvia Bee [facility] 04/22/2021 12:00:00 AM EDT NATASHA ([facility]) ( ESTOB) enter Est OB [address] [place] [address] 04/21/2021 12:00:00 AM EDT eCW1 ([facility]) Unknown [address] [facility] [address] 04/07/2021 12:00:00 AM EDT eCW1 ([facility]) ( ESTOB) [address]Center Est [address] [place] [address] 03/29/2021 12:00:00 AM EDT eCW1 ([facility]) (WC ESTOB) [address] [place] [address] 03/21/2021 12:00:00 AM EDT eCW1 ([facility]) [place] [address] [facility] [address] 03/18/2021 12:00:00 AM EDT eCW1 ([facility]) (WC ESTOB) [address]Center Est OB [address] [place] [address] 03/17/2021 12:00:00 AM EDT eCW1 ([facility]) (WC ESTOB) [address]Center Est OB [address] [place] [address] 03/04/2021 12:00:00 AM EDT eCW1 ([facility]) [place] [address] [facility] [address] 02/24/2021 12:00:00 AM EDT eCW1 ([facility]) [place] [address] [facility] [address] 02/22/2021 12:00:00 AM EDT eCW1 ([facility]) (WC ESTOB) [address]Center Est OB [address] [place] [address] 02/18/2021 12:00:00 AM EDT eCW1 ([facility]) [place] [address] [facility] [address] 02/14/2021 12:00:00 AM EDT eCW1 ([facility]) (WC ESTOB) [address]Center Est OB [address] [place] [address] 02/04/2021 12:00:00 AM EDT eCW1 ([facility]) [place] [address] [facility] [address] 01/28/2021 12:00:00 AM EDT eCW1 ([facility]) (WC ESTOB) [address] Est OB [address] [place] [address] 01/25/2021 12:00:00 AM EDT eCW1 ([facility]) [place] [address] [facility] [address] 01/25/2021 12:00:00 AM EDT eCW1 ([facility]) ( ESTOB) WCenter Est OB [address] [place] [address] 01/24/2021 12:00:00 AM EDT eCW1 ([facility]) [place] [address] [facility] [address] 01/21/2021 12:00:00 AM EDT eCW1 ([facility]) [place] [address] [facility] [address] 01/12/2021 12:00:00 AM EST eCW1 ([facility]) ( ESTOB) [address] Est OB [address] [place] [address] 01/10/2021 12:00:00 AM EST eCW1 ([facility]) [place] [address] [facility] [address] 12/30/2020 12:00:00 AM EST eCW1 ([facility]) Extended Individual Psychotherapy - 45 min Attender: Nany Chamberlain [facility] 12/24/2020 03:00:00 AM EST - 12/24/2020 03:00:00 AM EST [facility] ([facility]) Attender: Clarissa Chamberlain 12/24/2020 12:00:00 AM EST [facility] ([facility]) ( ESTOB) enter Est OB [address] [place] [address] 12/13/2020 12:00:00 AM EST eCW1 ([facility]) [facility] Ricarda Eval no med Attender: Clarissa Chamberlain [facility] 12/10/2020 08:30:00 AM EST - 12/10/2020 08:30:00 AM EST [facility] ([facility]) Attender: Clarissa Chamberlain 12/10/2020 12:00:00 AM EST [facility] ([facility]) Extended Individual Psychotherapy - 45 min Attender: Lizzie Quick [facility] 11/19/2020 09:30:00 AM EST - 11/19/2020 09:30:00 AM EST [facility] ([facility]) Attender: Eve Quick 11/19/2020 12:00:00 AM EST [facility] ([facility]) ( ESTOB) [facility] Est OB [address] [place] [address] 11/16/2020 12:00:00 AM EST eCW1 ([facility]) ( [place]) [facility] Nurse Visit [address] [place] [address] 10/26/2020 12:00:00 AM EST eCW1 ([facility]) ( ESTOB) [facility] Est OB [address] [place] [address] 10/18/2020 12:00:00 AM EST eCW1 ([facility]) Unknown [address] [facility] [address] 09/10/2020 12:00:00 AM EST eCW1 ([facility]) Unknown [address] [facility] [address] 09/09/2020 12:00:00 AM EST eCW1 ([facility]) ( NEWOB) [facility] New OB Visit [address] [place] [address] 09/09/2020 12:00:00 AM EST eCW1 ([facility]) Outpatient Attender: Lluvia MCKEON 08/25/2020 07:4 0:59 AM EDT [facility] Outpatient Attender: ALFREDO MCKEON 08/18/2020 11:22:02 A M EDT [facility] Outpatient Attender: Lluvia MCKEON 08/18/2020 11:2 1:02 AM EDT [facility] Outpatient Attender: ALFREDO MCKEON 08/18/2020 09:14:00 A M EDT [facility] Outpatient Attender: Lluvia Bee DIE BAKER FP 08/16/2020 09:5 5:01 AM EDT [facility] Immunizations Vaccine Date Status Description Data Source(s) 10/26/2020 01:30:00 PM EST completed e CW1 ([facility]) 10/26/2020 01:30:00 PM EST completed e CW1 ([facility]) 10/26/2020 01:30:00 PM EST completed e CW1 ([facility]) 10/26/2020 01:30:00 PM EST completed e CW1 ([facility]) 10/26/2020 01:30:00 PM EST completed e CW1 ([facility]) 10/26/2020 01:30:00 PM EST completed e CW1 ([facility]) 10/26/2020 01:30:00 PM EST completed e CW1 ([facility]) 10/26/2020 01:30:00 PM EST completed e CW1 ([facility]) 10/26/2020 01:30:00 PM EST completed e CW1 ([facility]) 10/26/2020 01:30:00 PM EST completed e CW1 ([facility]) 10/26/2020 01:30:00 PM EST completed e CW1 ([facility]) 10/26/2020 01:30:00 PM EST completed e CW1 ([facility]) 10/26/2020 01:30:00 PM EST completed e CW1 ([facility]) 10/26/2020 01:30:00 PM EST completed e CW1 ([facility]) 10/26/2020 01:30:00 PM EST completed e CW1 ([facility]) 10/26/2020 01:30:00 PM EST completed e CW1 ([facility]) 10/26/2020 01:30:00 PM EST completed e CW1 ([facility]) 10/26/2020 01:30:00 PM EST completed e CW1 ([facility]) 10/26/2020 01:30:00 PM EST completed e CW1 ([facility]) 10/26/2020 01:30:00 PM EST completed e CW1 ([facility]) 10/26/2020 01:30:00 PM EST completed e CW1 ([facility]) 10/26/2020 01:30:00 PM EST completed e CW1 ([facility]) 10/26/2020 01:30:00 PM EST completed e CW1 ([facility]) 10/26/2020 01:30:00 PM EST completed e CW1 ([facility]) Medications Medication Brand Name Start Date Product Form Dose Route Admi nistrative Instructions Pharmacy Instructions Status Indications Reaction Description Data Source(s) meloxicam 7.5 MG Oral Tablet [Mobic] Mobic 09/07/2021 12:00:00 AM EDT ORAL active MEDENT ([facility] ) Cephalexin 500 MG Oral Capsule Cephalexin 500 MG 03/18/2021 12:00:0 0 AM EDT 1.0 {capsule} suspended Cephalexin 500 M G eCW1 ([facility]) Cephalexin 500 MG Oral Capsule Cephalexin 500 MG 03/18/2021 12:00:0 0 AM EDT 1.0 {capsule} suspended eCW1 ([facility]) Cephalexin 500 MG Oral Capsule Cephalexin 500 MG 03/18/2021 12:00:0 0 AM EDT 1.0 {capsule} active Cephalexin 500 MG eCW1 ([facility]) Cephalexin 500 MG Oral Capsule Cephalexin 500 MG 03/18/2021 12:00:0 0 AM EDT 1.0 {capsule} suspended Cephalexin 500 M G eCW1 ([facility]) Cephalexin 500 MG Oral Capsule Cephalexin 500 MG 03/18/2021 12:00:0 0 AM EDT 1.0 {capsule} suspended Cephalexin 500 M G eCW1 ([facility]) Cephalexin 500 MG Oral Capsule Cephalexin 500 MG 03/18/2021 12:00:0 0 AM EDT 1.0 {capsule} suspended Cephalexin 500 M G eCW1 ([facility]) Cephalexin 500 MG Oral Capsule Cephalexin 500 MG 03/18/2021 12:00:0 0 AM EDT 1.0 {capsule} suspended Cephalexin 500 M G eCW1 ([facility]) 325 mg (65 mg iron) 01/22/2021 12:00:00 AM EDT tablet 60 TAKE ONE TABLET BY MOUTH TWICE A DAY TAKE ONE TABLET BY MOUTH TWICE A DAY SOLD: 02/23/2021 [facility] 325 mg (65 mg iron) 01/22/2021 12:00:00 AM EDT tablet 60 TAKE ONE TABLET BY MOUTH TWICE A DAY TAKE ONE TABLET BY MOUTH TWICE A DAY SOLD: 01/23/2021 [facility] ferrous sulfate 325 MG Oral Tablet Ferrous Sulfate 325 (65 Fe) MG Ferrous Sulfate 325 (65 Fe) MG 01/21/2021 12:00:00 AM EDT 1.0 {tablet} active Ferrous Sulfate 325 (65 Fe) MG eCW1 ([facility]) ferrous sulfate 325 MG Oral Tablet Ferrous Sulfate 325 (65 Fe) MG Ferrous Sulfate 325 (65 Fe) MG 01/21/2021 12:00:00 AM EDT 1.0 {tablet} active Ferrous Sulfate 325 (65 Fe) MG eCW1 ([facility]) ferrous sulfate 325 MG Oral Tablet Ferrous Sulfate 325 (65 Fe) MG Ferrous Sulfate 325 (65 Fe) MG 01/21/2021 12:00:00 AM EDT 1.0 {tablet} active Ferrous Sulfate 325 (65 Fe) MG eCW1 ([facility]) ferrous sulfate 325 MG Oral Tablet Ferrous Sulfate 325 (65 Fe) MG Ferrous Sulfate 325 (65 Fe) MG 01/21/2021 12:00:00 AM EDT 1.0 {tablet} active Ferrous Sulfate 325 (65 Fe) MG eCW1 ([facility]) ferrous sulfate 325 MG Oral Tablet Ferrous Sulfate 325 (65 Fe) MG Ferrous Sulfate 325 (65 Fe) MG 01/21/2021 12:00:00 AM EDT 1.0 {tablet} active Ferrous Sulfate 325 (65 Fe) MG eCW1 ([facility]) ferrous sulfate 325 MG Oral Tablet Ferrous Sulfate 325 (65 Fe) MG Ferrous Sulfate 325 (65 Fe) MG 01/21/2021 12:00:00 AM EDT 1.0 {tablet} active Ferrous Sulfate 325 (65 Fe) MG eCW1 ([facility]) ferrous sulfate 325 MG Oral Tablet Ferrous Sulfate 325 (65 Fe) MG Ferrous Sulfate 325 (65 Fe) MG 01/21/2021 12:00:00 AM EDT 1.0 {tablet} active Ferrous Sulfate 325 (65 Fe) MG eCW1 ([facility]) ferrous sulfate 325 MG Oral Tablet Ferrous Sulfate 325 (65 Fe) MG Ferrous Sulfate 325 (65 Fe) MG 01/21/2021 12:00:00 AM EDT 1.0 {tablet} active Ferrous Sulfate 325 (65 Fe) MG eCW1 ([facility]) ferrous sulfate 325 MG Oral Tablet Ferrous Sulfate 325 (65 Fe) MG Ferrous Sulfate 325 (65 Fe) MG 01/21/2021 12:00:00 AM EDT 1.0 {tablet} active Ferrous Sulfate 325 (65 Fe) MG eCW1 ([facility]) ferrous sulfate 325 MG Oral Tablet Ferrous Sulfate 325 (65 Fe) MG Ferrous Sulfate 325 (65 Fe) MG 01/21/2021 12:00:00 AM EDT 1.0 {tablet} active Ferrous Sulfate 325 (65 Fe) MG eCW1 ([facility]) ferrous sulfate 325 MG Oral Tablet Ferrous Sulfate 325 (65 Fe) MG Ferrous Sulfate 325 (65 Fe) MG 01/21/2021 12:00:00 AM EDT 1.0 {tablet} active Ferrous Sulfate 325 (65 Fe) MG eCW1 ([facility]) ferrous sulfate 325 MG Oral Tablet Ferrous Sulfate 325 (65 Fe) MG Ferrous Sulfate 325 (65 Fe) MG 01/21/2021 12:00:00 AM EDT 1.0 {tablet} active eCW1 ([facility]) ferrous sulfate 325 MG Oral Tablet Ferrous Sulfate 325 (65 Fe) MG Ferrous Sulfate 325 (65 Fe) MG 01/21/2021 12:00:00 AM EDT 1.0 {tablet} active Ferrous Sulfate 325 (65 Fe) MG eCW1 ([facility]) ferrous sulfate 325 MG Oral Tablet Ferrous Sulfate 325 (65 Fe) MG Ferrous Sulfate 325 (65 Fe) MG 01/21/2021 12:00:00 AM EDT 1.0 {tablet} active Ferrous Sulfate 325 (65 Fe) MG eCW1 ([facility]) ferrous sulfate 325 MG Oral Tablet Ferrous Sulfate 325 (65 Fe) MG Ferrous Sulfate 325 (65 Fe) MG 01/21/2021 12:00:00 AM EDT 1.0 {tablet} active Ferrous Sulfate 325 (65 Fe) MG eCW1 ([facility]) ferrous sulfate 325 MG Oral Tablet Ferrous Sulfate 325 (65 Fe) MG Ferrous Sulfate 325 (65 Fe) MG 01/21/2021 12:00:00 AM EDT 1.0 {tablet} active Ferrous Sulfate 325 (65 Fe) MG eCW1 ([facility]) ferrous sulfate 325 MG Oral Tablet Ferrous Sulfate 325 (65 Fe) MG Ferrous Sulfate 325 (65 Fe) MG 01/21/2021 12:00:00 AM EDT 1.0 {tablet} active Ferrous Sulfate 325 (65 Fe) MG eCW1 ([facility]) ferrous sulfate 325 MG Oral Tablet Ferrous Sulfate 325 (65 Fe) MG Ferrous Sulfate 325 (65 Fe) MG 01/21/2021 12:00:00 AM EDT 1.0 {tablet} active Ferrous Sulfate 325 (65 Fe) MG eCW1 ([facility]) 4 mg 11/18/2020 12:00:00 AM EST tablet 30 TAKE ONE TABLET BY MOUTH EVERY 6 HOURS NEEDED TAKE ONE TABLET BY MOUTH EVERY 6 HOURS NEEDED SOLD: 11/18/2020 [facility] 27 mg iron- 1 mg 11/01/2020 12:00:00 AM EST tablet 30 TAKE ONE TABLET BY MOUTH ONCE DAILY TAKE ONE TABLET BY MOUTH ONCE DAILY SOLD: 11/13/2020 [facility] 27 mg iron- 1 mg 11/01/2020 12:00:00 AM EST tablet 30 TAKE ONE TABLET BY MOUTH ONCE DAILY TAKE ONE TABLET BY MOUTH ONCE DAILY SOLD: 02/23/2021 [facility] 27 mg iron- 1 mg 11/01/2020 12:00:00 AM EST tablet 30 TAKE ONE TABLET BY MOUTH ONCE DAILY TAKE ONE TABLET BY MOUTH ONCE DAILY SOLD: 01/07/2021 [facility] 160-4.5 mcg/actuation 10/20/2020 12:00:00 AM EST HFA aerosol inhaler 10 INHALE TWO PUFFS BY MOUTH TWICE A DAY INHALE TWO PUFFS BY MOUTH TWICE A DAY SOLD: 10/23/2020 [facility] 160-4.5 mcg/actuation 10/20/2020 12:00:00 AM EST HFA aerosol inhaler 10 INHALE TWO PUFFS BY MOUTH TWICE A DAY INHALE TWO PUFFS BY MOUTH TWICE A DAY SOLD: 11/27/2020 [facility] 160-4.5 mcg/actuation 10/20/2020 12:00:00 AM EST HFA aerosol inhaler 10 INHALE TWO PUFFS BY MOUTH TWICE A DAY INHALE TWO PUFFS BY MOUTH TWICE A DAY SOLD: 01/07/2021 [facility] Fluoxetine 40 MG Oral Capsule [Prozac] PROzac 40 MG PROzac 4 0 MG 10/18/2020 12:00:00 AM EST 1.0 {capsule} suspended PROzac 40 MG eCW1 ([facility]) Fluoxetine 40 MG Oral Capsule [Prozac] PROzac 40 MG PROzac 4 0 MG 10/18/2020 12:00:00 AM EST 1.0 {capsule} active P ROzac 40 MG eCW1 ([facility]) Fluoxetine 40 MG Oral Capsule [Prozac] PROzac 40 MG PROzac 4 0 MG 10/18/2020 12:00:00 AM EST 1.0 {capsule} active P ROzac 40 MG eCW1 ([facility]) Fluoxetine 40 MG Oral Capsule [Prozac] PROzac 40 MG PROzac 4 0 MG 10/18/2020 12:00:00 AM EST 1.0 {capsule} suspended PROzac 40 MG eCW1 ([facility]) Fluoxetine 40 MG Oral Capsule [Prozac] PROzac 40 MG PROzac 4 0 MG 10/18/2020 12:00:00 AM EST 1.0 {capsule} active P ROzac 40 MG eCW1 ([facility]) Fluoxetine 40 MG Oral Capsule [Prozac] PROzac 40 MG PROzac 4 0 MG 10/18/2020 12:00:00 AM EST 1.0 {capsule} suspended PROzac 40 MG eCW1 ([facility]) Fluoxetine 40 MG Oral Capsule [Prozac] PROzac 40 MG PROzac 4 0 MG 10/18/2020 12:00:00 AM EST 1.0 {capsule} suspended PROzac 40 MG eCW1 ([facility]) 40 mg 10/18/2020 12:00:00 AM EST capsule 30 TAKE 1 CAPSULE BY MOUTH ONCE A DAY TAKE 1 CAPSULE BY MOUTH ONCE A DAY SOLD: 01/07/2021 [facility] 40 mg 10/18/2020 12:00:00 AM EST capsule 30 TAKE 1 CAPSULE BY MOUTH ONCE A DAY TAKE 1 CAPSULE BY MOUTH ONCE A DAY SOLD: 10/18/2020 [facility] Fluoxetine 40 MG Oral Capsule [Prozac] PROzac 40 MG PROzac 4 0 MG 10/18/2020 12:00:00 AM EST 1.0 {capsule} suspended PROzac 40 MG eCW1 ([facility]) Fluoxetine 40 MG Oral Capsule [Prozac] PROzac 40 MG PROzac 4 0 MG 10/18/2020 12:00:00 AM EST 1.0 {capsule} suspended PROzac 40 MG eCW1 ([facility]) Fluoxetine 40 MG Oral Capsule [Prozac] PROzac 40 MG PROzac 4 0 MG 10/18/2020 12:00:00 AM EST 1.0 {capsule} suspended PROzac 40 MG eCW1 ([facility]) 40 mg 10/18/2020 12:00:00 AM EST capsule 30 TAKE 1 CAPSULE BY MOUTH ONCE A DAY TAKE 1 CAPSULE BY MOUTH ONCE A DAY SOLD: 11/16/2020 [facility] Fluoxetine 40 MG Oral Capsule [Prozac] PROzac 40 MG PROzac 4 0 MG 10/18/2020 12:00:00 AM EST 1.0 {capsule} suspended PROzac 40 MG eCW1 ([facility]) Fluoxetine 40 MG Oral Capsule [Prozac] PROzac 40 MG PROzac 4 0 MG 10/18/2020 12:00:00 AM EST 1.0 {capsule} suspended PROzac 40 MG eCW1 ([facility]) Fluoxetine 40 MG Oral Capsule [Prozac] PROzac 40 MG PROzac 4 0 MG 10/18/2020 12:00:00 AM EST 1.0 {capsule} suspended PROzac 40 MG eCW1 ([facility]) Fluoxetine 40 MG Oral Capsule [Prozac] PROzac 40 MG PROzac 4 0 MG 10/18/2020 12:00:00 AM EST 1.0 {capsule} suspended PROzac 40 MG eCW1 ([facility]) Fluoxetine 40 MG Oral Capsule [Prozac] PROzac 40 MG PROzac 4 0 MG 10/18/2020 12:00:00 AM EST 1.0 {capsule} suspended PROzac 40 MG eCW1 ([facility]) Fluoxetine 40 MG Oral Capsule [Prozac] PROzac 40 MG PROzac 4 0 MG 10/18/2020 12:00:00 AM EST 1.0 {capsule} suspended PROzac 40 MG eCW1 ([facility]) 40 mg 10/18/2020 12:00:00 AM EST capsule 30 TAKE 1 CAPSULE BY MOUTH ONCE A DAY TAKE 1 CAPSULE BY MOUTH ONCE A DAY SOLD: 02/23/2021 [facility] Fluoxetine 40 MG Oral Capsule [Prozac] PROzac 40 MG PROzac 4 0 MG 10/18/2020 12:00:00 AM EST 1.0 {capsule} suspended PROzac 40 MG eCW1 ([facility]) Fluoxetine 40 MG Oral Capsule [Prozac] PROzac 40 MG PROzac 4 0 MG 10/18/2020 12:00:00 AM EST 1.0 {capsule} active P ROzac 40 MG eCW1 ([facility]) Fluoxetine 40 MG Oral Capsule [Prozac] PROzac 40 MG PROzac 4 0 MG 10/18/2020 12:00:00 AM EST 1.0 {capsule} suspended PROzac 40 MG eCW1 ([facility]) Fluoxetine 40 MG Oral Capsule [Prozac] PROzac 40 MG PROzac 4 0 MG 10/18/2020 12:00:00 AM EST 1.0 {capsule} suspended PROzac 40 MG eCW1 ([facility]) 90 mcg/actuation 10/08/2020 12:00:00 AM EST HFA aerosol inha ler 18 INHALE 2 PUFFS BY MOUTH EVERY 4 HOURS NEEDED FOR SHORTNESS OF BREATH INHALE 2 PUFFS BY MOUTH EVERY 4 HOURS NEEDED FOR SHORTNESS OF BREATH SOLD: 10/11/2020 [facility] 90 mcg/actuation 10/08/2020 12:00:00 AM EST HFA aerosol inha ler 18 INHALE 2 PUFFS BY MOUTH EVERY 4 HOURS NEEDED FOR SHORTNESS OF BREATH INHALE 2 PUFFS BY MOUTH EVERY 4 HOURS NEEDED FOR SHORTNESS OF BREATH SOLD: 11/13/2020 [facility] 90 mcg/actuation 10/08/2020 12:00:00 AM EST HFA aerosol inha ler 18 INHALE 2 PUFFS BY MOUTH EVERY 4 HOURS NEEDED FOR SHORTNESS OF BREATH INHALE 2 PUFFS BY MOUTH EVERY 4 HOURS NEEDED FOR SHORTNESS OF BREATH SOLD: 01/07/2021 [facility] 90 mcg/actuation 10/08/2020 12:00:00 AM EST HFA aerosol inha ler 18 INHALE 2 PUFFS BY MOUTH EVERY 4 HOURS NEEDED FOR SHORTNESS OF BREATH INHALE 2 PUFFS BY MOUTH EVERY 4 HOURS NEEDED FOR SHORTNESS OF BREATH SOLD: 11/27/2020 [facility] 4 mg 09/10/2020 12:00:00 AM EST tablet 14 TAKE ONE TABLET BY MOUTH EVERY 6 HOURS NEEDED TAKE ONE TABLET BY MOUTH EVERY 6 HOURS NEEDED SOLD: 09/21/2020 [facility] 4 mg 09/10/2020 12:00:00 AM EST tablet 14 TAKE ONE TABLET BY MOUTH EVERY 6 HOURS NEEDED TAKE ONE TABLET BY MOUTH EVERY 6 HOURS NEEDED SOLD: 10/05/2020 [facility] 4 mg 09/10/2020 12:00:00 AM EST tablet 14 TAKE ONE TABLET BY MOUTH EVERY 6 HOURS NEEDED TAKE ONE TABLET BY MOUTH EVERY 6 HOURS NEEDED SOLD: 09/10/2020 [facility] 4 mg 09/10/2020 12:00:00 AM EST tablet 14 TAKE ONE TABLET BY MOUTH EVERY 6 HOURS NEEDED TAKE ONE TABLET BY MOUTH EVERY 6 HOURS NEEDED SOLD: 10/24/2020 [facility] 27 mg iron- 1 mg 08/21/2020 12:00:00 AM EDT tablet 30 TAKE ONE TABLET BY MOUTH ONCE DAILY TAKE ONE TABLET BY MOUTH ONCE DAILY SOLD: 10/01/2020 [facility] 27 mg iron- 1 mg 08/21/2020 12:00:00 AM EDT tablet 30 TAKE ONE TABLET BY MOUTH ONCE DAILY TAKE ONE TABLET BY MOUTH ONCE DAILY SOLD: 08/28/2020 [facility] 25 mg 08/19/2020 12:00:00 AM EDT tablet 60 TAKE 1/2 TABLET BY MOUTH UP TO FOUR TIMES A DAY NEEDED FOR NAUSEA TAKE 1/2 TABLET BY MOUTH UP TO FOUR TIME S A DAY NEEDED FOR NAUSEA SOLD: 08/28/2020 [facility] 10 mg 08/18/2020 12:00:00 AM EDT tablet 30 TAKE 1 TABLET BY MOUTH ONCE DAILY TAKE 1 TABLET BY MOUTH ONCE DAILY SOLD: 08/18/2020 [facility] 50 mcg/actuation 08/18/2020 12:00:00 AM EDT spray,suspension 16 SPRAY ONE SPRAY IN EACH NOSTRIL EVERY DAY NEEDED SPRAY ONE SPRAY IN EACH NOSTRIL EVERY DAY NEEDED SOLD: 08/18/2020 [facility] 4 % 08/18/2020 12:00:00 AM EDT adhesive patch,medicate d 30 APPLY 1 PATCH TO AFFECTED SHOULDER FOR UP TO 12 HOURS A DAY, MAX OF 1 PATCH DAILY APPLY 1 PATCH TO AFFECTED SHOULDER FOR UP TO 12 HOURS A DAY, MAX OF 1 PATCH DAILY SOLD: 08/18/2020 [facility] 160-4.5 mcg/actuation 07/14/2020 12:00:00 AM EDT HFA aerosol inhaler 10 INHALE TWO PUFFS BY MOUTH TWICE A DAY INHALE TWO PUFFS BY MOUTH TWICE A DAY SOLD: 08/18/2020 [facility] 160-4.5 mcg/actuation 07/14/2020 12:00:00 AM EDT HFA aerosol inhaler 10 INHALE TWO PUFFS BY MOUTH TWICE A DAY INHALE TWO PUFFS BY MOUTH TWICE A DAY SOLD: 09/23/2020 [facility] 90 mcg/actuation 07/01/2020 12:00:00 AM EDT HFA aerosol inha ler 18 INHALE 2 PUFFS BY MOUTH EVERY 4 HOURS NEEDED FOR SHORTNESS OF BREATH INHALE 2 PUFFS BY MOUTH EVERY 4 HOURS NEEDED FOR SHORTNESS OF BREATH SOLD: 09/23/2020 [facility] 90 mcg/actuation 07/01/2020 12:00:00 AM EDT HFA aerosol inha ler 18 INHALE 2 PUFFS BY MOUTH EVERY 4 HOURS NEEDED FOR SHORTNESS OF BREATH INHALE 2 PUFFS BY MOUTH EVERY 4 HOURS NEEDED FOR SHORTNESS OF BREATH SOLD: 08/18/2020 [facility] 10 mg 05/24/2020 12:00:00 AM EDT capsule 30 TAKE 1 CAPSULE BY MOUTH DAILY TAKE 1 CAPSULE BY MOUTH DAILY SOLD: 08/18/2020 [facility] methylprednisolone 4 mg tablets in a dose pack TAKE BY MOUTH DIRECTED [id number] completed methylpredniso lone 4 mg tablets in a dose pack NATASHA ([facility]) Methocarbamol 500 MG Oral Tablet methoca rbamol 500 mg tablet TAKE ONE TABLET BY MOUTH THREE TIMES A DAY methocarbamol 500 mg tablet TAKE ONE TAB LET BY MOUTH THREE TIMES A DAY completed meth ocarbamol 500 MG Oral Tablet NATASHA ([facility]) Hydroxyzine Hydrochloride 50 MG Oral Tab let hydroxyzine HCl 50 mg tablet TAKE 1 2 TABLETS BY MOUTH THREE TIMES A DAY NEEDED FOR INCREASED ANXIETY hydroxyzine HCl 50 mg tablet TAKE 1 2 TABLETS BY MOUTH THREE TIMES A DAY NEEDED FOR INCREASED ANXIETY completed hydroxyzine hydrochloride 50 MG Oral Tablet NATASHA ([facility]) Ibuprofen 600 MG Oral Tablet ibuprofen 6 00 mg tablet TAKE ONE TABLET BY MOUTH EVERY 6 HOURS NEEDED FOR PAIN ibuprofen 600 mg tablet TAKE ONE TABLET BY MOUTH EVERY 6 HOURS NEEDED FOR PAIN completed ibuprofen 600 MG Oral Tablet NATASHA ([facility]) Loratadine 10 MG Oral Tablet loratadine 10 mg tablet TAKE 1 TABLET BY MOUTH ONCE DAILY loratadine 10 mg tablet TAKE 1 TABLET BY MOUTH ONCE DAILY completed loratadine 10 MG Oral Tablet [facility]TH [facility] ([facility]) Naproxen 500 MG Oral Tablet naproxen 500 mg tablet TAKE ONE TABLET BY MOUTH TWO TIMES A DAY WITH FOOD naproxen 500 mg tablet TAKE ONE TABLET B Y MOUTH TWO TIMES A DAY WITH FOOD completed naprox en 500 MG Oral Tablet SECOND MESA ([facility]) Cyclobenzaprine hydrochloride 10 MG Oral Tablet cyclobenzaprine 10 mg tablet TAKE ONE TABLET BY MOUTH THREE TIMES A DAY NEEDED SPASM cyclobenzaprine 10 mg tablet TAKE ONE TABLET BY MOUTH THREE TIMES A DAY NEEDED SPASM completed cyclobenzaprine hydrochloride 10 MG Oral Tablet SECOND MESA ([facility]) Fluoxetine 10 MG Oral Capsule fluoxetine 10 mg capsule TAKE 1 CAPSULE BY MOUTH DAILY fluoxetine 10 mg capsule TAKE 1 CAPSULE BY MOUTH DAILY completed fluoxetine 10 MG Oral Capsule AT [facility]) Prednisone 10 MG Oral Tablet prednisone 10 mg tablet TAKE 40MG 4 TABLETS BY MOUTH ONCE DAILY AND DECREASE BY 10MG 1 TABLET DAILY EVERY 3 DAYS prednisone 10 mg tablet TAKE 40MG 4 TABLETS BY MOUTH ONCE DAILY AND DECREASE BY 10MG 1 TABLET DAILY EVERY 3 DAYS completed prednisone 10 MG Oral Tablet SECOND MESA ([facility]) Fluoxetine 10 MG Oral Capsule fluoxetine 10 mg capsule TAKE 1 CAPSULE BY MOUTH DAILY fluoxetine 10 mg capsule TAKE 1 CAPSULE BY MOUTH DAILY completed fluoxetine 10 MG Oral Capsule AT [facility]) Fluoxetine 10 MG Oral Capsule fluoxetine 10 mg capsule TAKE 1 CAPSULE BY MOUTH DAILY fluoxetine 10 mg capsule TAKE 1 CAPSULE BY MOUTH DAILY completed fluoxetine 10 MG Oral Capsule AT [facility] ([facility]) Pyridoxine Hydrochloride 25 MG Oral Tabl et Vitamin B-6 25 mg tablet TAKE 1/2 TABLET BY MOUTH UP TO FOUR TIMES A DAY NEEDED FOR NAUSEA Vitamin B-6 25 mg tablet TAKE 1/2 TABLET BY MOUTH UP TO FOUR TIMES A DAY NEEDED FOR NAUSEA completed pyridoxine hydrochlori de 25 MG Oral Tablet NATASHA ([facility]) Fluoxetine 40 MG Oral Capsule fluoxetine 40 mg capsule TAKE ONE CAPSULE BY MOUTH EVERY DAY fluoxetine 40 mg capsule TAKE ONE CAPSULE BY MOUTH EVERY DAY completed fluoxetine 40 MG Oral Cap spike NATASHA ([facility]) Sertraline 25 MG Oral Tablet sertraline 25 mg tablet TAKE ONE TABLET BY MOUTH EVERY DAY sertraline 25 mg tablet TAKE ONE TABLET BY MOUTH EVERY DAY completed sertraline 25 MG Oral Tablet NATASHA ([facility]) meloxicam 15 MG Oral Tablet meloxicam 15 mg tablet TAKE ONE TABLET BY MOUTH EVERY DAY WITH FOOD OR MILK meloxicam 15 mg tablet TAKE ONE TABLET B Y MOUTH EVERY DAY WITH FOOD OR MILK completed meloxicam 15 MG Oral Tablet NATASHA ([facility]) Naproxen 500 MG Oral Tablet naproxen 500 mg tablet TAKE ONE TABLET BY MOUTH TWO TIMES A DAY WITH FOOD naproxen 500 mg tablet TAKE ONE TABLET B Y MOUTH TWO TIMES A DAY WITH FOOD completed naprox en 500 MG Oral Tablet NATASHA ([facility]) Ondansetron 4 MG Disintegrating Oral Tab let ondansetron 4 mg disintegrating tablet TAKE 1 TABLET BY MOUTH EVERY 4 TO 6 HOURS NEEDED FOR NAUSEA AND VOMITING ondansetron 4 mg disintegrating tablet T CECILIO 1 TABLET BY MOUTH EVERY 4 TO 6 HOURS NEEDED FOR NAUSEA AND VOMITING completed ondansetron 4 MG Disintegrating Oral Tablet NATASHA ([facility]) Aspercreme (lidocaine) 4 % topical patch APPLY 1 PATCH TO AFFECTED SHOULDER FOR UP TO 12 HOURS A DAY MAX OF 1 PATCH DAILY [id number] completed lidocaine 0.04 MG/MG Medicated Patch NATASHA ([facility]) Fluoxetine 40 MG Oral Capsule fluoxetine 40 mg capsule TAKE ONE CAPSULE BY MOUTH EVERY DAY fluoxetine 40 mg capsule TAKE ONE CAPSULE BY MOUTH EVERY DAY completed fluoxetine 40 MG Oral Cap spike NATASHA ([facility]) Cephalexin 500 MG Oral Capsule cephalexi n 500 mg capsule TAKE ONE CAPSULE BY MOUTH EVERY 6 HOURS FOR 10 DAYS cephalexin 500 mg capsule TAKE ONE CAPSU LE BY MOUTH EVERY 6 HOURS FOR 10 DAYS comple ryan cephalexin 500 MG Oral Capsule NATASHA ([facility]) Hydroxyzine Hydrochloride 50 MG Oral Tab let hydroxyzine HCl 50 mg tablet TAKE 1 2 TABLETS BY MOUTH THREE TIMES A DAY NEEDED FOR INCREASED ANXIETY hydroxyzine HCl 50 mg tablet TAKE 1 2 TABLETS BY MOUTH THREE TIMES A DAY NEEDED FOR INCREASED ANXIETY completed hydroxyzine hydrochloride 50 MG Oral Tablet NATASHA ([facility]) Trazodone Hydrochloride 50 MG Oral Table t trazodone 50 mg tablet TAKE 1 TABLET BY MOUTH NIGHTLY AT BEDTIME NEEDED FOR INSOMNIA trazodone 50 mg tablet TAKE 1 TABLET BY MOUTH NIGHTLY AT BEDTIME NEEDED FOR INSOMNIA completed trazodone hydrochloride 50 MG Or al Tablet NATASHA ([facility]) Meclizine Hydrochloride 25 MG Oral Table t meclizine 25 mg tablet TAKE ONE TABLET BY MOUTH THREE TIMES A DAY NEEDED meclizine 25 mg tablet TAKE ONE TABLET B Y MOUTH THREE TIMES A DAY NEEDED comp leted meclizine hydrochloride 25 MG Oral Tablet NATASHA ([facility]) Methocarbamol 500 MG Oral Tablet methoca rbamol 500 mg tablet TAKE ONE TABLET BY MOUTH THREE TIMES A DAY methocarbamol 500 mg tablet TAKE ONE TAB LET BY MOUTH THREE TIMES A DAY completed meth ocarbamol 500 MG Oral Tablet NATASHA ([facility]) Ciprofloxacin 500 MG Oral Tablet ciprofloxacin 500 mg tablet ciprofloxacin 500 mg tablet completed ciprofloxaci n 500 MG Oral Tablet NATASHA ([facility]) Cyclobenzaprine hydrochloride 10 MG Oral Tablet cyclobenzaprine 10 mg tablet TAKE ONE TABLET BY MOUTH THREE TIMES A DAY NEEDED SPASM cyclobenzaprine 10 mg tablet TAKE ONE TABLET BY MOUTH THREE TIMES A DAY NEEDED SPASM completed cyclobenzaprine hydrochloride 10 MG Oral Tablet NATASHA ([facility]) Dicyclomine Hydrochloride 20 MG Oral Tab let dicyclomine 20 mg tablet TAKE ONE TABLET BY MOUTH TWICE A DAY FOR CRAMPING / DIARRHEA dicyclomine 20 mg tablet TAKE ONE TABLET BY MOUTH TWICE A DAY FOR CRAMPING / DIARRHEA completed dicyclomine hydrochloride 20 MG Oral Tablet NATASHA ([facility]) Loratadine 10 MG Oral Tablet loratadine 10 mg tablet TAKE 1 TABLET BY MOUTH ONCE DAILY loratadine 10 mg tablet TAKE 1 TABLET BY MOUTH ONCE DAILY completed loratadine 10 MG Oral Tablet ATH JUWAN ([facility]) Aspercreme (lidocaine) 4 % topical patch APPLY 1 PATCH TO AFFECTED SHOULDER FOR UP TO 12 HOURS A DAY MAX OF 1 PATCH DAILY [id number] completed lidocaine 0.04 MG/MG Medicated Patch NATASHA ([facility]) methylprednisolone 4 mg tablets in a dose pack TAKE BY MOUTH DIRECTED [id number] completed methylpredniso lone 4 mg tablets in a dose pack NATASHA ([facility]) Pyridoxine Hydrochloride 25 MG Oral Tabl et Vitamin B-6 25 mg tablet TAKE 1/2 TABLET BY MOUTH UP TO FOUR TIMES A DAY NEEDED FOR NAUSEA Vitamin B-6 25 mg tablet TAKE 1/2 TABLET BY MOUTH UP TO FOUR TIMES A DAY NEEDED FOR NAUSEA completed pyridoxine hydrochlori de 25 MG Oral Tablet NATASHA ([facility]) Ibuprofen 600 MG Oral Tablet ibuprofen 6 00 mg tablet TAKE ONE TABLET BY MOUTH EVERY 6 HOURS NEEDED FOR PAIN ibuprofen 600 mg tablet TAKE ONE TABLET BY MOUTH EVERY 6 HOURS NEEDED FOR PAIN completed ibuprofen 600 MG Oral Tablet NATASHA ([facility]) Fluoxetine 40 MG Oral Capsule fluoxetine 40 mg capsule TAKE ONE CAPSULE BY MOUTH EVERY DAY fluoxetine 40 mg capsule TAKE ONE CAPSULE BY MOUTH EVERY DAY completed fluoxetine 40 MG Oral Cap spike NATASHA ([facility]) Cephalexin 500 MG Oral Capsule cephalexi n 500 mg capsule TAKE ONE CAPSULE BY MOUTH EVERY 6 HOURS FOR 10 DAYS cephalexin 500 mg capsule TAKE ONE CAPSU LE BY MOUTH EVERY 6 HOURS FOR 10 DAYS comple ryan cephalexin 500 MG Oral Capsule NATASHA ([facility]) Ciprofloxacin 500 MG Oral Tablet ciprofloxacin 500 mg tablet ciprofloxacin 500 mg tablet completed ciprofloxaci n 500 MG Oral Tablet NATASHA ([facility]) Sulfamethoxazole 800 MG / Trimethoprim 1 60 MG Oral Tablet sulfamethoxazole 800 mg-trimethoprim 160 mg tablet TAKE ONE TABLET BY MOUTH EVERY 12 HOURS sulfamethoxazole 800 mg-trimethoprim 160 mg tablet TAKE ONE TABLET BY MOUTH EVERY 12 HOURS completed sulfamethoxazole 800 MG / trimethoprim 160 MG Oral Tablet NATASHA ([facility]) Ondansetron 4 MG Oral Tablet ondansetron HCl 4 mg tabl et ondansetron HCl 4 mg tablet completed ondansetron 4 M G Oral Tablet NATASHA ([facility]) Cyclobenzaprine hydrochloride 5 MG Oral Tablet cyclobenzaprine 5 mg tablet TAKE 1 TABLET 5MG BY MOUTH THREE TIMES A DAY NEEDED FOR MUSCLE SPASMS cyclobenzaprine 5 mg tablet TAKE 1 TABLET 5MG BY MOUTH THREE TIMES A DAY NEEDED FOR MUSCLE SPASMS completed cyclobenzaprine hydrochloride 5 MG Oral Tablet NATASHA ([facility]) Cephalexin 500 MG Oral Capsule cephalexi n 500 mg capsule TAKE ONE CAPSULE BY MOUTH EVERY 6 HOURS FOR 10 DAYS cephalexin 500 mg capsule TAKE ONE CAPSU LE BY MOUTH EVERY 6 HOURS FOR 10 DAYS comple ryan cephalexin 500 MG Oral Capsule NATASHA ([facility]) Naproxen 500 MG Oral Tablet naproxen 500 mg tablet TAKE ONE TABLET BY MOUTH TWO TIMES A DAY WITH FOOD naproxen 500 mg tablet TAKE ONE TABLET B Y MOUTH TWO TIMES A DAY WITH FOOD completed naprox en 500 MG Oral Tablet NATASHA ([facility]) Trazodone Hydrochloride 50 MG Oral Table t trazodone 50 mg tablet TAKE 1 TABLET BY MOUTH NIGHTLY AT BEDTIME NEEDED FOR INSOMNIA trazodone 50 mg tablet TAKE 1 TABLET BY MOUTH NIGHTLY AT BEDTIME NEEDED FOR INSOMNIA completed trazodone hydrochloride 50 MG Or al Tablet NATASHA ([facility]) Sulfamethoxazole 800 MG / Trimethoprim 1 60 MG Oral Tablet sulfamethoxazole 800 mg-trimethoprim 160 mg tablet TAKE ONE TABLET BY MOUTH EVERY 12 HOURS sulfamethoxazole 800 mg-trimethoprim 160 mg tablet TAKE ONE TABLET BY MOUTH EVERY 12 HOURS completed sulfamethoxazole 800 MG / trimethoprim 160 MG Oral Tablet NATASHA ([facility]) Ciprofloxacin 500 MG Oral Tablet ciprofloxacin 500 mg tablet ciprofloxacin 500 mg tablet completed ciprofloxaci n 500 MG Oral Tablet NATASHA ([facility]) Loratadine 10 MG Oral Tablet loratadine 10 mg tablet TAKE 1 TABLET BY MOUTH ONCE DAILY loratadine 10 mg tablet TAKE 1 TABLET BY MOUTH ONCE DAILY completed loratadine 10 MG Oral Tablet ATH JUWAN ([facility]) Trazodone Hydrochloride 50 MG Oral Table t trazodone 50 mg tablet TAKE 1 TABLET BY MOUTH NIGHTLY AT BEDTIME NEEDED FOR INSOMNIA trazodone 50 mg tablet TAKE 1 TABLET BY MOUTH NIGHTLY AT BEDTIME NEEDED FOR INSOMNIA completed trazodone hydrochloride 50 MG Or al Tablet NATASHA ([facility]) Sulfamethoxazole 800 MG / Trimethoprim 1 60 MG Oral Tablet sulfamethoxazole 800 mg-trimethoprim 160 mg tablet TAKE ONE TABLET BY MOUTH EVERY 12 HOURS sulfamethoxazole 800 mg-trimethoprim 160 mg tablet TAKE ONE TABLET BY MOUTH EVERY 12 HOURS completed sulfamethoxazole 800 MG / trimethoprim 160 MG Oral Tablet NATASHA ([facility]) Meclizine Hydrochloride 25 MG Oral Table t meclizine 25 mg tablet TAKE ONE TABLET BY MOUTH THREE TIMES A DAY NEEDED meclizine 25 mg tablet TAKE ONE TABLET B Y MOUTH THREE TIMES A DAY NEEDED comp leted meclizine hydrochloride 25 MG Oral Tablet [facility] ([facility]) Aspercreme (lidocaine) 4 % topical patch APPLY 1 PATCH TO AFFECTED SHOULDER FOR UP TO 12 HOURS A DAY MAX OF 1 PATCH DAILY [id number] completed lidocaine 0.04 MG/MG Medicated Patch SECOND MESA ([facility]) Pyridoxine Hydrochloride 25 MG Oral Tabl et Vitamin B-6 25 mg tablet TAKE 1/2 TABLET BY MOUTH UP TO FOUR TIMES A DAY NEEDED FOR NAUSEA Vitamin B-6 25 mg tablet TAKE 1/2 TABLET BY MOUTH UP TO FOUR TIMES A DAY NEEDED FOR NAUSEA completed pyridoxine hydrochlori de 25 MG Oral Tablet [facility]A ([facility]) Prednisone 10 MG Oral Tablet prednisone 10 mg tablet TAKE 40MG 4 TABLETS BY MOUTH ONCE DAILY AND DECREASE BY 10MG 1 TABLET DAILY EVERY 3 DAYS prednisone 10 mg tablet TAKE 40MG 4 TABLETS BY MOUTH ONCE DAILY AND DECREASE BY 10MG 1 TABLET DAILY EVERY 3 DAYS completed prednisone 10 MG Oral Tablet NATASHA ([facility]) meloxicam 15 MG Oral Tablet meloxicam 15 mg tablet TAKE ONE TABLET BY MOUTH EVERY DAY WITH FOOD OR MILK meloxicam 15 mg tablet TAKE ONE TABLET B Y MOUTH EVERY DAY WITH FOOD OR MILK completed meloxicam 15 MG Oral Tablet [facility]A ([facility]) Meclizine Hydrochloride 25 MG Oral Table t meclizine 25 mg tablet TAKE ONE TABLET BY MOUTH THREE TIMES A DAY NEEDED meclizine 25 mg tablet TAKE ONE TABLET B Y MOUTH THREE TIMES A DAY NEEDED comp leted meclizine hydrochloride 25 MG Oral Tablet NATASHA ([facility]) Ondansetron 4 MG Oral Tablet ondansetron HCl 4 mg tabl et ondansetron HCl 4 mg tablet completed ondansetron 4 M G Oral Tablet NATASHA ([facility]) Ondansetron 4 MG Disintegrating Oral Tab let ondansetron 4 mg disintegrating tablet TAKE 1 TABLET BY MOUTH EVERY 4 TO 6 HOURS NEEDED FOR NAUSEA AND VOMITING ondansetron 4 mg disintegrating tablet T CECILIO 1 TABLET BY MOUTH EVERY 4 TO 6 HOURS NEEDED FOR NAUSEA AND VOMITING completed ondansetron 4 MG Disintegrating Oral Tablet NATASHA ([facility]) methylprednisolone 4 mg tablets in a dose pack TAKE BY MOUTH DIRECTED [id number] completed methylpredniso lone 4 mg tablets in a dose pack SECOND MESA ([facility]) Cyclobenzaprine hydrochloride 5 MG Oral Tablet cyclobenzaprine 5 mg tablet TAKE 1 TABLET 5MG BY MOUTH THREE TIMES A DAY NEEDED FOR MUSCLE SPASMS cyclobenzaprine 5 mg tablet TAKE 1 TABLET 5MG BY MOUTH THREE TIMES A DAY NEEDED FOR MUSCLE SPASMS completed cyclobenzaprine hydrochloride 5 MG Oral Tablet NATASHA ([facility]) Cyclobenzaprine hydrochloride 5 MG Oral Tablet cyclobenzaprine 5 mg tablet TAKE 1 TABLET 5MG BY MOUTH THREE TIMES A DAY NEEDED FOR MUSCLE SPASMS cyclobenzaprine 5 mg tablet TAKE 1 TABLET 5MG BY MOUTH THREE TIMES A DAY NEEDED FOR MUSCLE SPASMS completed cyclobenzaprine hydrochloride 5 MG Oral Tablet NATASHA ([facility]) Ondansetron 4 MG Oral Tablet ondansetron HCl 4 mg tabl et ondansetron HCl 4 mg tablet completed ondansetron 4 M G Oral Tablet NATASHA ([facility]) Dicyclomine Hydrochloride 20 MG Oral Tab let dicyclomine 20 mg tablet TAKE ONE TABLET BY MOUTH TWICE A DAY FOR CRAMPING / DIARRHEA dicyclomine 20 mg tablet TAKE ONE TABLET BY MOUTH TWICE A DAY FOR CRAMPING / DIARRHEA completed dicyclomine hydrochloride 20 MG Oral Tablet NATASHA ([facility]) Dicyclomine Hydrochloride 20 MG Oral Tab let dicyclomine 20 mg tablet TAKE ONE TABLET BY MOUTH TWICE A DAY FOR CRAMPING / DIARRHEA dicyclomine 20 mg tablet TAKE ONE TABLET BY MOUTH TWICE A DAY FOR CRAMPING / DIARRHEA completed dicyclomine hydrochloride 20 MG Oral Tablet NATASHA ([facility]) Methocarbamol 500 MG Oral Tablet methoca rbamol 500 mg tablet TAKE ONE TABLET BY MOUTH THREE TIMES A DAY methocarbamol 500 mg tablet TAKE ONE TAB LET BY MOUTH THREE TIMES A DAY completed meth ocarbamol 500 MG Oral Tablet NATASHA ([facility]) meloxicam 15 MG Oral Tablet meloxicam 15 mg tablet TAKE ONE TABLET BY MOUTH EVERY DAY WITH FOOD OR MILK meloxicam 15 mg tablet TAKE ONE TABLET B Y MOUTH EVERY DAY WITH FOOD OR MILK completed meloxicam 15 MG Oral Tablet NATASHA ([facility]) Prednisone 10 MG Oral Tablet prednisone 10 mg tablet TAKE 40MG 4 TABLETS BY MOUTH ONCE DAILY AND DECREASE BY 10MG 1 TABLET DAILY EVERY 3 DAYS prednisone 10 mg tablet TAKE 40MG 4 TABLETS BY MOUTH ONCE DAILY AND DECREASE BY 10MG 1 TABLET DAILY EVERY 3 DAYS completed prednisone 10 MG Oral Tablet NATASHA ([facility]) Ondansetron 4 MG Disintegrating Oral Tab let ondansetron 4 mg disintegrating tablet TAKE 1 TABLET BY MOUTH EVERY 4 TO 6 HOURS NEEDED FOR NAUSEA AND VOMITING ondansetron 4 mg disintegrating tablet T CECILIO 1 TABLET BY MOUTH EVERY 4 TO 6 HOURS NEEDED FOR NAUSEA AND VOMITING completed ondansetron 4 MG Disintegrating Oral Tablet NATASHA ([facility]) Insurance Providers Payer name Policy type / Coverage type Policy ID Covered alliance party ID Covered alliance party's relationship to doyle Policy Doyle Plan Information [facility] I [id number] Self [id number] [facility] Community Plan Medigap Part B [id number] Self [id number] [facility] Community Plan Commercial [id number] Self MEDICAID M [id number] Self [id number] [place] Medig[place] Part B [id number] Family Dependent [id number] [place] Medicaid/CHP/FHP Medigap Part B [id number] Self [id number] [place] Medicaid/CHP/FHP Medigap Part B [id number] Self [id number] [place] Medicaid/CHP/FHP Medigap Part B [id number] Self [id number] [place] I [id number] Self [id number] [place] [id number] SP [id number] [place] Medicaid/CHP/FHP Medigap Part B [id number] Self [id number] [place] Medicaid/CHP/FHP Medigap Part B [id number] Self [id number] [place] Medicaid/CHP/FHP Medigap Part B [id number] Self [id number] [place] Medicaid/CHP/FHP Commercial [id number] Self [id number] [place] Medicaid/CHP/FHP Medigap Part B [id number] Self [id number] [place] Medicaid/CHP/FHP Medigap Part B [id number] Self [id number] [place] [id number] SP [id number] Managed Care [place] P [id number] S [id number] [place] Medicaid/CHP/FHP Commercial [id number] Self [id number] Medicaid S [id number] S [id number] Medicaid S [id number] S [id number] [place] [id number] SP [id number] [place] [id number] SP [id number] [place] [id number] SP [id number] Medicaid S [id number] S [id number] Medicaid S [id number] S [id number] [place] [employer]. [id number] Self [id number] MEDICAID [id number] SP [id number] Medicaid [facility] Part B [id number] Self [id number] [place] Care [place] Medicaid [id number] Self [id number] UNAVAILABLE UNAVAILA BLE MEDICAID GME [id number] [facility] [id number] [facility] [id number] Medicaid [facility] Part [id number] Self [place] Care [place] Medicaid [id number] Self MEDICAID [id number] SP [id number] SELF PAY ONLY 111 SP 111 SELF PAY ONLY UNAVAILABLE UNAV AILABLE UN COMMUNITY PLAN MCDO [id number] SP [id number] O UNAVAILABLE UNAVAILA BLE SELF PAY UNAVAILABLE SP UNAVAILA BLE KG BLAIR SERVIC O [id number] S [id number] [facility](MCAID) O [id number] S [id number] 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 [id number] SP [id number] MEDICAID LEFTY [id number] [place] [id number] SP [id number] [facility] MEDICAID LEFTY HMO [id number] S [id number] MEDICAID GME W [id number] S [id number] [facility] COMM PLAN LEFTY W [id number] S [id number] [facility] COMM PLAN CHP O [id number] S [id number] [facility] COMM PLAN CHP O [id number] S [id number] [facility] COMM PLAN CHP O UNAVAILABLE S UNAVAILABLE SELF PAY SP [id number] S [id number] BLUE CROSS JACOBO PLAN [id number] SP [id number] HMO BLUE [id number] SP [id number] [place] [id number] SP [id number] MEDICAID - CLINIC [id number] [place] [place] [id number] 18 [id number] [place] [facility] [place] [id number] S [id number] [place] [id number] SP [id number] [facility] [id number] 18 [id number] [facility] [place] XIX [place] -PHYSICIAN [place] [id number] 18 [id number] [facility] [id number] SP [id number] 800 [place] [place] XIX MAN -I/P [id number] 18 [id number] [place] Care [place] Commercial [id number] Self [id number] [place] [id number] 18 [id number] [place] Commercial [id number] Self [id number] [place] Care [place] Commercial [id number] Self [id number] [place] [facility] [place] [id number] Self [id number] [place] [facility] [place] [id number] Self [id number] [place] Care [place] [id number] Self [id number] [place] [facility] [place] [id number] [id number] Self [id number] [place] [id number] [id number] Self [id number] [place] Care [place] Commercial [id number] [id number] Self [id number] [place] [id number] [id number] Self [id number] [place] Care [place] Commercial [id number] [id number] Self [id number] [place] Care [place] Commercial [id number] [id number] Self [id number] [place] [id number] [id number] Self [id number] [place] [id number] [id number] Self [id number] [place] [facility] [place] [id number] [id number] Self [id number] [place] Care [place] Commercial [id number] [id number] Self [id number] [place] [facility] [place] [id number] [id number] Self [id number] [place] Care [place] Commercial [id number] [id number] Self [id number] Problems, Conditions, and Diagnoses Code Display Name Description Problem Type Effective Dates Data Source(s) M22860 Latex allergy status Latex allergy status Diagnosis 06/19/2021 07:42:00 PM EDT [facility] [id number] Unspecified asthma, uncomplicated Unspecified as thma, uncomplicated Diagnosis 06/19/2021 07:42:00 PM EDT [facility] M940 Chondrocostal junction syndrome [Tietze] Chondrocostal junction syndrome [Tietze] Diagnosis 06/19/2021 07:42:00 PM EDT [facility] R079 Chest pain, unspecified Chest pain, unspecified Diagno sis 06/19/2021 07:42:00 PM EDT [facility] O99.213 Maternal obesity complicatin g , childbirth and the puerperium, antepartum Obesity affecting in third trimester Problem 01/24/2021 12:00:00 AM EDT eCW1 ([facility]) O99.019 Anemia in mother complicating , childbirth AND/OR puerperium Anemia affecting Problem 01/21/2021 12:00:00 AM EDT eCW1 ( [facility]) E66.9 Obesity Obesity Problem 01/07/2021 12:00:00 AM ES T eCW1 ([facility]) O99.212 Maternal obesity complicatin g , childbirth and the puerperium, antepartum Obesity complicating in second trimester Problem 01/07/2021 12:00:00 AM EST eCW1 ([facility]) F43.9 Reaction to severe stress, unspecified U nspecified Trauma- and Stressor- Related Disorder Condition 12/24/2020 12:00:00 AM EST [facility] ([facility]) O99.211 Obesity complicating , first tr imester Obesity complicating in first trimester Problem 09/09/2020 12:00:00 AM EST eCW1 ([facility]) Z34.80 care Supervision of other normal P papito 08/24/2020 12:00:00 AM EDT eCW1 ([facility]) V22.2 08/18/2020 11:20:06 AM ED T [facility] 388.70 Otalgia, right ear Otalgia, right ear 0 11:20:06 AM EDT [facility] [id number] Clinical finding Clinical Finding Problem 08/18/2020 12 :00:00 AM EDT SEC[facility]ESA ([facility]) [id number] Clinical finding Clinical Finding Problem 08/18/2020 12 :00:00 AM EDT [facility] ([facility]) [id number] Clinical finding Clinical Finding Problem 08/18/2020 12 :00:00 AM EDT [facility] ([facility]) Surgeries/Procedures Procedure Description Date Indications Data Source(s) RADIOLOGIC EXAM KNEE COMPLETE 4/MORE VIEWS 09/07/2021 12:00:00 AM EDT [facility] ([facility] ) OFFICE OUTPATIENT VISIT 25 MINUTES 09/07/2021 12:00:00 AM EDT [facility] ([facility] ) RADEX SPINE CRV COMPL W/OBLQ&FLEX&/XTN STDS 08/31/2021 12:00:00 AM EDT [facility] ([facility] ) RADEX SPINE CRV COMPL W/OBLQ&FLEX&/XTN STDS 08/31/2021 12:00:00 AM EDT [facility] ([facility] ) OFFICE OUTPATIENT VISIT 15 MINUTES 08/18/2021 12:00:00 AM EDT [facility] ([facility] ) MRI Upper Extremity Any Joint 08/09/2021 12:00:00 AM E DT [facility] ([facility] ) RADIOLOGIC EXAM KNEE COMPLETE 4/MORE VIEWS 07/21/2021 12:00:00 AM EDT [facility] ([facility] ) OFFICE OUTPATIENT VISIT 25 MINUTES 07/21/2021 12:00:00 AM EDT [facility] ([facility] ) RADEX WRIST COMPLETE MINIMUM 3 VIEWS 05/17/2021 12:00: 00 AM EDT [facility] ([facility] ) OFFICE OUTPATIENT VISIT 15 MINUTES 05/17/2021 12:00:00 AM EDT [facility] ([facility] ) Extended Individual Psychotherapy - 45 min 12/24/2020 12:00:00 AM EST - 12/24/2020 12:00:00 AM EST [facility] ([facility]) Extended Individual Psychotherapy - 45 min 12:00:00 AM EST [facility] ([facility]) [facility] Telemed Diag Eval no med 12/10/2020 12:00:00 AM EST - 12/10/2020 12:00:00 AM EST [facility] ([facility]) [facility] Telemed Diag Eval no med 12/10/2020 12:00:00 AM ES T [facility] ([facility]) Extended Individual Psychotherapy - 45 min 11/19/2020 12:00:00 AM EST - 11/19/2020 12:00:00 AM EST [facility] ([facility]) Extended Individual Psychotherapy - 45 min 12:00:00 AM EST [facility] ([facility]) Medication: [place] 250 mg/mL IM (Hydroxyprogesterone) 10/26/2020 12:00:00 AM EST eC1 ([facility]) Results ID Date Data Source [id number] 09/28/2021 03:35:00 [place] [address] PHONE: [phone] FAX: [phone] Name .................. : HECTOR [facility] Acct Number.................. : [id number] ROOM. ................. : MR Number ................... : [id number] Stay type ............. : O/P Discharge Date......... ... : 09/28/21 Admit Date ......... : 09/28/21 Admit Phys .................... : MARIO Date of ....... : 1995 Family Phys ................... : ROHIT PARRA Phone .................. : [phone] Age ................................ : 25 Film# .................. .:[id number] Sex ................................. : F Unsigned transcriptions are preliminary reports and do not represent a medical or legal document MRI CERVICAL SPINE W/O CONTRA [id number] COMPLETE:09/28/21 09:19 [facility] [id number] Reason for Exam: SPONDYLOSIS R/O HNP MRI CERVICAL SPINE WITHOUT IV CONTRAST INDICATION: Neck pain into right hand with numbness COMPARISON: None CONTRAST: None TECHNIQUE: Multiple MRI sequences of the cervical spine were obtained in the sagittal and axial planes. FINDINGS: The examination is degraded by patient motion. The visualized vertebral bodies are normal height. No fracture or focal bone lesion. Cervical spinal cord is normal in course, caliber, and signal intensity. The disk spaces are well preserved. No disk herniation, spinal canal narrowing, or compression of the thecal sac. IMPRESSION: Negative exam. Electronically Reviewed and Signed By Luke Riley MD , 09/28/21 15:35, MICHAEL Transcribe Initials: RENEE, Transcribe Date: 09/28/21 11:46, Dictation Date: Copy for: MARIO Hsu via fax Copy for: [facility] Page 1 of 1 Name Value Range Interpretation Code Description Data Dina rce(s) Supporting Document(s) ID Date Data Source [id number] 06/20/2021 10:07:00 PM EDT [facility] [address] [place] [address] PHONE: [phone] FAX: [phone] Name .................. : HECTOR [facility] Acct Number.................. : [id number] ROOM. ................. : TR-03 MR Number ................... : [id number] Stay type ............. : E/R Discharge Date......... ... : 06/19/21 Admit Date ......... : 06/19/21 Admit Phys .................... : KRISTIN Swan Date of ....... : 1995 Family Phys ................... : ROHIT PARRA Phone .................. : [phone] Age ................................ : 25 Film# .................. .:[id number] Sex ................................. : F Unsigned transcriptions are preliminary reports and do not represent a medical or legal document CHEST 2 VIEWS [id number] COMPLETE:06/19/21 20:53 DLA 18151 Reason(s): Chest Pain FRONTAL AND LATERAL CHEST TWO VIEWS INDICATION: Chest and rib pain COMPARISON: 12/27/19 FINDINGS: Mediastinal and hilar structures are normal. Cardiac silhouette is unremarkable. Lungs are clear. No pulmonary edema. No pleural effusions or pneumothorax. No rib abnormalities are identified. IMPRESSION: Normal exam. Electronically Reviewed and Signed By Mayco Nassar MD , 06/20/21 22:07, SCB Transcribe Initials: HAYDER , Transcribe Date: 06/19/21 21:33, Dictation Date: Copy for: EMERGENCY DEPT via modem Copy for: 710 [facility] REC DISCHARGED Page 1 of 1 Name Value Range Interpretation Code Description Data Dina rce(s) Supporting Document(s) ID Date Data Source [id number] 06/19/2021 07:42:00 PM EDT [facility] 1 OrderSheet [facility] Emergency Department [address] [place] [address] Phone #: [phone] 06/19/2021 19:38 Patient: SAAD YOUNG Sex: F : 1995 Age: 25yWEIGHT:94.3 kg (S) HEIGHT:63 inches (S) BMI:36.8ALLERGIES: Almonds, Benzonatate, Latex, Neosporan, NickelCHIEF COMPLAINT: chest painDIAGNOSIS: Costal chondritisLAB ORDERSOrder Description Priority Entered Acknowledged InitialedCMP STAT 20:20 06/19/2021 20:24 Ted Matt ; phone manager, [facility] [id number] w Diff STAT 20:20 06/19/2021 20:24 Ted Matt ; phone manager, [facility] [id number] STAT 20:20 06/19/2021 20:24 Ted Matt ; phone manager, [facility] [id number] STUDY ORDERSOrder Description Priority Entered Acknowledged InitialedChest 2 View STAT 20:20 06/19/2021 Ack'd: 20:26 20:33 Nadira,(Oxygen?(No)) Ted Mary ; Joyce Cobian R.N. Reason for Study: Chest PainMEDICATION/IV/DRIP/FLUID ORDERSOrder Description Priority Entered Acknowledged InitialedToradol IVP 30 mg 20:20 06/19/2021 Ack'd: 20:26 20:34 Mango,(NOW x1) Ted Mary ; Joyce Cobian R.N., R.N.GENERAL ORDERSOrder Description Priority Entered Acknowledged Initialed[Electronically signed by Lulu Waddell (21:29 06/19/2021)][Electronically signed by Ted Mary (23:18 06/19/20)][Electronically locked by Lulu Waddell (21:29 06/19/2021)] 2 OrderSheet [facility] Emergency Department [address] [place] [address] Phone #: ext- [phone] 06/19/2021 19:38 Patient: SAAD YOUNG Sex: F : 1995 Age: 25y Name Value Range Interpretation Code Description Data Dina rce(s) Supporting Document(s) ID Date Data Source [id number] 06/19/2021 07:42:00 PM EDT [facility] 1 Medication Reconciliation Report [facility] Emergency Department [address] [place] [address] Phone #: ext- [phone] 06/19/2021 19:38 Patient: SAAD YOUNG Sex: F : 1995 Age: 25yWeight: 94.3 kgHeight/Length: 63 in.BMI: 36.8ALLERGIES: Almonds, Benzonatate, Latex, Neosporan, NickelThe patient's Home Medications are listed below:CONTINUE TAKING THE FOLLOWING MEDICATIONS: Albuterol Sulfate Inhalation Ibuprofen Oral 800 mg, prn ProAir HFA Inhalation Sertraline HCl Oral 50 mg, daily Tylenol Oral (325 mg), prnThe source(s) of the original Home Medication information:Not obtained.The following Medications were given to the patient in the Emergency Department:Toradol [IVP] IVP 30 mg, administered: 20:33 06/19/2021The following Medications were prescribed to the patient:cyclobenzaprine 10 mg tablet Take 1 tablet three times a day for 5 days -- Dispense 15 tablet. Refills:0. Substitution permitted.Pharmacy - [facility] - [id number] ; [place], [place] [phone]. . -- Ted Mary Name Value Range Interpretation Code Description Data [facility](s) Supporting Document(s) ID Date Data Source [id number] 06/19/2021 07:42:00 PM EDT [facility] 1 Medication Administration Record [facility] Emergency Department [address] [place] [address] Phone #: ext- [phone] 06/19/2021 19:38 Patient: SAAD YOUNG Sex: F : 1995 Age: 25yWeight: 94.3 kgHeight/Length: 63 inBMI: 36.8ALLERGIES: Benzonatate, Almonds, Neosporan, Nickel, Latex Date/Time Medication Administered Medication OrderedGiven TORADOL [IVP] (KETOROLAC Toradol IVP 30 mg (NOW x1)20:33 06/19/2021 TROMETHAMINE)Joyce Cobian R.N. Dose: 30 mg IVP Site: 1 [facility] Name Value Range Interpretation Code Description Data Dina rce(s) Supporting Document(s) ID Date Data Source [id number] 06/19/2021 07:42:00 PM EDT [facility] 1 General Instructions [facility] Emergency Department [address] [place] [address] Phone #: ext- [phone] 06/19/2021 19:38 Patient: SAAD YOUNG Sex: F : 1995 Age: 25yCostochondritisINSTRUCTIONSWarnings: Further evaluation is necessary.GENERAL WARNINGS: Return or contact your physician immediately if your condition worsens orchanges unexpectedly, if not improving as expected, or if other problems arise.Your Current Medications: Your current home medications have been reviewed.CONTINUE TAKING THE FOLLOWING MEDICATIONS:Albuterol Sulfate Inhalation.Ibuprofen Oral : 800 mg, prn.ProAir HFA Inhalation.Sertraline HCl Oral : 50 mg daily.Tylenol Oral : Tablet 325 mg, prn.Prescription Medications:cyclobenzaprine 10 mg tablet Take 1 tablet three times a day for 5 days -- Dispense 15 tablet. Refills:0. Substitution permitted.Pharmacy - [facility] - [id number] ; [place], [place] [phone]. Phone: .Understanding of the discharge instructions verbalized by patient. ADDITIONAL INFORMATIONChest Wall Pain: Costochondritis 2 General Instructions [facility] Emergency Department [address] [place] [address] Phone #: ext- [phone] 06/19/2021 19:38 Patient: SAAD YOUNG Sex: F : 1995 Age: 25yThe chest pain that you have had today is caused by costochondritis. This condition is caused by aninflammation of the cartilage joining your ribs to your breastbone. It's not caused by heart or lungproblems. Your healthcare team has made sure that the chest pain you feel is not from a lifethreatening cause of chest pain such as heart attack, collapsed lung, blood clot in the lung, tear in theaorta, or esophageal rupture. The inflammation may have been brought on by a blow to the chest,lifting heavy objects, intense exercise, or an illness that made you cough and sneeze a lot. It oftenoccurs during times of emotional stress. It can be painful, but it's not dangerous. It usually goes awayin 1 to 2 weeks. But it may happen again. Rarely, a more serious condition may cause symptomssimilar to costochondritis. That's why it's important to watch for the warning signs listed below.Home careFollow these guidelines when caring for yourself at home: If you feel that emotional stress is a cause of your condition, try to figure out the sources of that stress. It may not be obvious. Learn ways to deal with the stress in your life. This can include regular exercise, muscle relaxation, meditation, or simply taking time out for y ourself. You may use acetaminophen, ibuprofen, or naproxen to control pain, unless another pain medicine was prescribed. If you have liver or kidney disease or ever had a stomach ulcer, talk with your healthcare provider before using these medicines. You can also help ease pain by using a hot, wet compress or heating pad. Use this with or without a medicated skin cream that helps relieves pain. Do stretching exercise as advised by your provider. Typically rest is beneficial for the first few days. Avoid strenuous activity that worsens the pain. 3 General Instructions [facility] Emergency Department [address] [place] [address] Phone #: ext- [phone] 06/19/2021 19:38 Patient: SAAD YOUNG Sex: F : 1995 Age: 25y Take any prescribed medicines as directed.Follow-up careFollow up with your healthcare provider, or as advised.When to seek medical adviceCall your healthcare provider right away if any of these occur: A change in the type of pain. Call if it feels different, becomes more serious, lasts longer, or spreads into your shoulder, arm, neck, jaw, or back. Shortness of breath or pain gets worse when you breathe Weakness, dizziness, or fainting Cough with dark- colored sputum (phlegm) or blood Abdominal pain Dark red or black stools Fever of 100.4F (38C) or higher, or as directed by your healthcare provider [id number] [employer]. [address] [place] [address]. All rights reserved. This information is not intended as asubstitute for professional medical care. Always follow your healthcare professional's instructions. You have been given the following additional information: Chest Wall Pain, Costochondritis(Electronically signed by Ted Mary 06/19/2021 23:18) Name Value Range Interpretation Code Description Data Dina rce(s) Supporting Document(s) ID Date Data Source [id number] 06/19/2021 07:42:00 PM EDT [facility] 1 Clinical Report - Nurses [facility] Emergency Department [address] [place] [address] Phone #: ext- [phone] 06/19/2021 19:38 Patient: SAAD YOUNG Sex: F : 1995 Age: 25yTRIAGEArrived by private vehicle. Historian: patient. Accompanied by family.Acuity: LEVEL 4.Chief Complaint: (Right sided rib pain).Alert. No acute distress.Onset. (2 weeks). ( Patient arrives c/o rib pain. Pt reports right sided rib pain x 2 weeks. Pt reportsatraumatic pain, worsening when she moves in certain position or takes deep breath in. 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 (last dose 0800). --19:45 06/19/21 Joyce Cobian R.N.19:38 06/19/21. BP: 132/71. MAP: 91. HR: 65. RR: 17. O2 saturation: 100% on room air. Temp: 97.6 F(oral). Pain level now: 07/15. --19:45 06/19/21 Joyce Cobian R.N.Weight: 94.3 kg stated. Height/Length: 63 inches Per Patient. BMI: 36.8. --19:38 06/19/21 Joyce Cobian R.N.MedicationsAlbuterol Sulfate Inhalation. --19:42 06/19/21 Joyce Cobian R.N. ProAir HFA Inhalation. --19:43 06/19/21 Joyce Cobian R.N. Sertraline HCl Oral 50 mg, daily. --19:43 06/19/21 Joyce Cobian R.N. Tylenol Oral (Tablet 325 mg), as needed. --19:43 06/19/21 Joyce Cobian R.N. Ibuprofen Oral 800 mg, as needed. --19:43 06/19/21 Joyce Cobian R.N.AllergiesLatex. --19:41 06/19/21 Joyce Cobian R.N.Nickel. --19:41 06/19/21 Joyce Cobian R.N.Neosporan. --19:41 06/19/21 Joyce Cobian R.N.Almonds. --19:41 06/19/21 Joyce Cobian R.N.Benzonatate. --19:42 06/19/21 Joyce Cobian R.N.HistoryPAST MEDICAL HX: Immunizations: up-to-date.SOCIAL HX: Never smoker. No alcohol use or drug use. The patient has not traveled outside the [place]Infectious disease exposure: No infectious disease exposure. The patient was not exposed to Coronavirus.Patient is not a known carrier of tuberculosis, hepatitis, HIV, MRSA or VRE. Patient is not a known carrierof CRE. 2 Clinical Report - Nurses [facility] Emergency Department [address] [place] [address] Phone #: ext- [phone] 06/19/2021 19:38 [id number] Sex: F : 1995 Age: 25y SELF HARM ASSESSMENT: Self harm assessment was performed. The patient answered "no" to the question(s) "Have you recently felt down, depressed, or hopeless?", "Do you have thoughts of harming or killing yourself?", "Do you have a plan for harming or killing yourself?", "Have you recently had thoughts about harming or killing others?", "Do you have any dangerous items in your possession?", "Have you noticed less interest or pleasure in doing things?", "Are you here because you tried to hurt yourself?" and "Have you ever tried to hurt yourself before today?". ABUSE ASSESSMENT: Abuse assessment. The patient had positive responses to the question(s) "Do you feel safe in your home?", "Are you afraid to go home?", "Has anyone hurt you or threatened to hurt you?", "Are you afraid of your partner?" and "Have children witnessed violence in the home?". Abuse denied. NUTRITIONAL RISK ASSESSMENT: The nutritional risk assessment revealed no deficiencies. FUNCTIONAL ASSESSMENT: Functional assessment: no impairments noted. LEARNING NEEDS ASSESSMENT: The learning needs assessment revealed no barriers. FALL RISK ASSESSMENT: Fall risk assessment completed. No risk factors identified. SKIN INTEGRITY ASSESSMENT: Skin integrity risk assessment completed. No skin integrity risk identified. --19:45 06/19/21 Joyce Cobian R.N. FAMILY HX: No significant family medical history. --20:42 06/19/21 Ted Mary. Interventions Identification band on patient. To treatment room. --19:45 06/19/21 Joyce Cobian R.N.PHYSICAL ASSESSMENTAmbulatory to room. Patient gowned.GENERAL / NEURO / PSYCH: Alert. Oriented X 4. Appears in no acute distress.HEENT: Pupils equal, round and reactive to light. No facial asymmetry noted. Mucous membranes arepink.RESPIRATORY: Respirations not labored. Chest nontender. Right -sided tenderness. Breath soundswithin normal limits. ( right sided rib pain x2 weeks).CVS: Normal sinus rhythm noted. Capillary refill less than 2 seconds. Pulses within normal limits.GI / : Abdomen soft and nontender and normal bowel sounds.SKIN: Skin intact. Skin is warm and dry. Normal skin turgor. --19:46 06/19/21 Joyce Cobian R.N.NURSING PROGRESS NOTESPatient gowned. Head of bed elevated. Reassurance given. Two patient identifiers checked. Call lightplaced in reach. Side rails up x 2. Bed placed in lowest position. Brakes of bed on. --19:46 06/19/21Joyce Cobian R.N. 3 Clinical Report - Nurses [facility] Emergency Department [address] [place] [address] Phone #: ext- [phone] 06/19/2021 19:38 Patient: SAAD YOUNG Sex: F : 1995 Age: 25y 20:33 06/19/2021 Site #1 started via IV in the right antecubital space with an 20g angiocath, with aseptic technique; one attempt. Blood drawn: rainbow set. Sent to the lab. Saline lock flushed with 10 mL saline. --20:33 06/19/21 Joyce Cobian R.N. 20:33 06/19/2021 Toradol (Ketorolac Tromethamine) IVP 30 mg given via site #1. Allergies verified and confirmed 5 rights. IV patency established. IV site checked: no pain, redness, or swelling. IV flushed thoroughly pre- and post-medication administration. IVP given by RN. Information reviewed with patient. Verbalizes understanding. --20:34 06/19/21 Joyce Cobian R.N. Reassurance given. Rounding: Pain: assessed pain level. Position: states comfortable. Personal care / toileting: denies toileting needs. Proximity of possessions / care items: call light within easy reach. --20:43 06/19/21 Lulu Waddell.DISPOSITION / DISCHARGE Departure time: 21:29 06/19/2021. Condition at departure: stable. No learning barriers present. Discharge instructions provided and reviewed with the patient. Reviewed warnings. Reviewed medication(s). Reviewed referrals. Patient verbalized understanding. Written instructions provided in Danish. The patient was discharged by the physician. She was discharged home and accompanied by spouse. She left ambulatory and via private vehicle. Spouse driving. --21:29 06/19/21 Lulu Waddell 21:28 06/19/21. BP: 121/68. HR: 71. RR: 17. O2 saturation: 100%. Temp: 98.0 F. Pain level now 2/10. --21:29 06/19/21 Lulu Waddell.Locked/Released at 06/19/2021 21:29 by Lulu Waddell Name Value Range Interpretation Code Description Data Dina rce(s) Supporting Document(s) ID Date Data Source [id number] 06/19/2021 07:42:00 PM EDT [facility] 1 Clinical Report - Physicians/Mid Levels [facility] Emergency Department [address] [place] [address] Phone #: ext- [phone] 06/19/2021 19:38 Patient: SAAD YOUNG Sex: F : 1995 Age: 25y Time Seen: 20:25 06/19/2021. Arrived- By private vehicle. Historian- patient.HISTORY OF PRESENT ILLNESS Chief Complaint: CHEST PAIN. It is described as sharp and it is described as located in the right chest area and radiating to the epigastrum. This started 2 weeks. At its maximum, severity described as mild. When seen in the E.D., severity described as moderate. Modifying factors- worsened by movement, cough and deep breaths. No nausea, v omiting, difficulty breathing or diaphoresis. (Last couple of days, the right lower rib pain has gotten worse. Went to [facility] and was referred for possible GB disease). No additional chest pain. Similar symptoms previously. None. Recent medical care: The patient was seen recently in a clinic. ( Referred to ED from [facility]).REVIEW OF SYSTEMSNo fever, cough, calf pain, headache or sore throat. No blurred vision, black stools, difficulty with urinationor enlarged lymph nodes. All other systems reviewed and are negative.PAST HISTORYSee nurses notes. No history of hypertension. Problems: Asthma. Anxiety Reaction. Anemia. Depression. Ovarian Cyst. Additional Surgeries: . (X 3) Tonsillectomy. Medications: Ibuprofen Oral 800 mg, as needed. Tylenol Oral (Tablet 325 mg), as needed. Sertraline HCl Oral 50 mg, daily. ProAir HFA Inhalation. Albuterol Sulfate Inhalation. Allergies: Almonds. 2 Clinical Report - Physicians/Mid Levels [facility] Emergency Department [address] [place] [address] Phone #: ext- [phone] 06/19/2021 19:38 Patient: SAAD YOUNG Sex: F : 1995 Age: 25y Benzonatate. Latex. Neosporan. Nickel.SOCIAL HISTORYNever smoker. No alcohol use.FAMILY HISTORYNo significant family medical history.ADDITIONAL NOTESThe nursing notes have been reviewed.PHYSICAL EXAMVital Signs: 06/19/2021 19:38 BP: 132/71. MAP: 91. HR: 65. RR: 17. O2 saturation: 100% on room air.Temp: 97.6 F. Pain level now: 910.Appearance: Alert. Oriented X3. No acute distress.Eyes: Pupils equal, round and reactive to light.ENT: Ears normal. Nose normal.Neck: Normal inspection. Neck supple.CVS: Normal heart rate and rhythm. Heart sounds normal. Pulses normal.Respiratory: No respiratory distress. Splinting present. Chest pain reproducible with palpation of thecostochondral junction and lateral chest wall and ribs, with movement of the trunk and with d eep breathing.Breath sounds normal. No decreased air movement or crackles. (Tenderness over the lower ribs alongthe mid axillary line).Abdomen: Soft. Mild tenderness in the epigastric area. Bowel sounds normal.Back: Normal external inspection. No CVA tenderness.Skin: Skin warm and dry. Normal skin color. Normal skin turgor.Extremities: Extremities exhibit normal ROM. No lower extremity edema.Neuro: Oriented X 3. No motor deficit. No sensory deficit.LABS, X-RAYS, AND EKGChest X-ray: No acute disease. Normal lung markings present. Mediastinum normal. No infiltrate. Nopleural effusion.Laboratory Tests: CMP: (DARLENE: 06/19/2021 20:27) ( MsgRcvd 06/19/2021 21:07) Final results Test Result Flag Units (Reference) COMPREHENSIVE METABOLIC PANEL COMPREHENSIVE METABOLIC PANEL SODIUM 137 mEq/L (134 - 153) POTASSIUM 3.8 mEq/L (3.6 - 5.0) CHLORIDE 104 mEq/L (98 - 107) CO2 23 MEQ/L (22 - 30) GLUCOSE 96 MG/DL (70 - 99) 3 Clinical Report - Physicians/Mid Levels [facility] Emergency Department [address] [place] [address] Phone #: ext- [phone] 06/19/2021 19:38 Patient: SAAD YOUNG Sex: F : 1995 Age: 25y BUN 15 MG/DL (7 - 21) CREATININE 0.6 L MG/DL (0.7 - 1.5) BUN/CREAT 25 (8 - 27) TOTAL PROTEIN 6.6 G/DL (6.3 - 8.2) ALBUMIN 4.1 G/DL (3.9 - 5.0) GLOBULIN 2.5 GM/DL (2.4 - 3.2) A/G RATIO 1.6 (0.8 - 2.0) CALCIUM 9.1 MG/DL (8.4 - 10.2) TOTAL BILI <0.7 MG/DL (0.2 - 1.3) ALKALINE PHOS 79 U/L (38 - 126) SGOT/AST 25 U/L (5 - 40) SGPT/ALT 37 U/L (7 - 56) ANION GAP 10.0 mmol/L (8.0 - 16.0) AGE 25 yrs NON-AA GFR >60 mL/min AFR AMER GFR >60 mL/min Male GFR Interprentation 20-49 yrs >60 mL/min [id number] yrs >56 mL/min Normal 60-69 yrs >49 mL/min Normal 70-79yrs>42 mL/min Normal 80 and above >35 mL/min Normal Female GFRInterpretation 20-39 yrs >60 mL/min Normal 40-49 yrs >58 mL/minNormal 50-59 yrs >51 mL/min Normal 60-69 yrs >45 mL/min Itcgcx48-14 yrs >39 mL/min Normal 80 and above >32 mL/min NormalCBC w Diff: (DARLENE: 06/19/2021 20:27) ( MsgRcvd 06/19/2021 20:39) Final results Test Result Flag Units (Reference) CBC W/AUTOMATED DIFF COMPLETE BLOOD COUNT WBC 6.2 10/uL (4.2 - 11.0) RBC 3.92 L 10/uL (4.20 - 5.40) HEMOGLOBIN 10.5 L g/dL (12.0 - 16.0) HEMATOCRIT 32.0 L % (37.0 - 47.0) MCV 81.6 fL (81.0 - 101) MCH 26.8 L pg (27.0 - 34.0) MCHC 32.8 g/dL (31.0 - 36.0) RDW 14.1 % (11.5 - 14.5) PLATELETS 295 10/uL (150 - 450) MPV 9.1 fL (7.4 - 10.4) NEUT 44.3 % (37.0 - 80.0) LYMPH 41.6 H % (25.0 - 40.0) MONO 8.8 H % (3.0 - 8.0) EOS 4.2 % (0.0 - 7.0) BASO 0.8 % (0.0 - 2.5) %IG 0.3 H % (0.0 - 0.0) %NRBC 0.0 % (0.0 - 0.0) #NEUT 2.75 10/uL (2.00 - 6.90) #LYMPH 2.59 10/uL (0.60 - 3.40) #MONO 0.55 10/uL (0.00 - 0.90) #EOS 0.26 10/uL (0.00 - 0.70) #BASO 0.05 10/uL (0.00 - 0.20) #IG 0.02 10/uL (0.00 - 0.10) #NRBC 0.00 10/uL (0.00 - 0.00) MANUAL DIFF NOT INDICATED RBC MORPH NOT INDICATEDLipase: (DARLENE: 06/19/2021 20:27) ( MsgRcvd 06/19/2021 20:49) Final results Test Result Flag Units (Reference) LIPASE 17 U/L (13 - 60) 4 Clinical Report - Physicians/Mid Levels [facility] Emergency Department [address] [place] [address] Phone #: ext- [phone] 06/19/2021 19:38 Patient: SAAD YOUNG Sex: F : 1995 Age: 25y Chest 2 View: (DARLENE: 06/19/2021 20:20) ( MsgRcvd 06/19/2021 20:53) In Progress CHEST 2 VIEWS Reason(s): Chest Pain TRANSPORTATION: S IV? O2? Oxygen?(No) Room: ED.PROGRESS AND PROCEDURESCourse of Care: 20:46 06/19/21. Despite the pain along the ribs and RUQ, patient has has no vomiting,dyspepsia, diarrhea or post-prandial abdominal pain. 21:17 06/19/21. Pleuritic pain and costochrondritis. CT scan done in 12/2020 showed normal GB and liver. We will add flexeril to her NSAID's. Old medical records ordered. Disposition: Discharged. Condition: stable.CLINICAL IMPRESSION CostochondritisINSTRUCTIONS Warnings: Further evaluation is necessary. GENERAL WARNINGS: Return or contact your physician immediately if your condition worsens or changes unexpectedly, if not improving as expected, or if other problems arise. Your Current Medications: Your current home medications have been reviewed. CONTINUE TAKING THE FOLLOWING MEDICATIONS: Albuterol Sulfate Inhalation. Ibuprofen Oral : 800 mg, prn. ProAir HFA Inhalation. Sertraline HCl Oral : 50 mg daily. Tylenol Oral : Tablet 325 mg, prn. Prescription Medications: cyclobenzaprine 10 mg tablet Take 1 tablet three times a day for 5 days -- Dispense 15 tablet. Refills: 0. Substitution permitted. Pharmacy - [facility] - [address] ; [place], [place] [id number]. . 5 Clinical Report - Physicians/Mid Levels [facility] Emergency Department [address] [place] [address] Phone #: ext- [phone] 06/19/2021 19:38 Patient: SAAD YOUNG [facility]#: [id number] Sex: F : 1995 Age: 25y Understanding of the discharge instructions verbalized by patient.(Electronically signed by Ted Mary 06/19/2021 23:18) Name Value Range Interpretation Code Description Data Dina rce(s) Supporting Document(s) ID Date Data Source [id number] 06/19/2021 09:07:00 PM EDT [facility] Name Value Range Interpretation Code Description Data Dina rce(s) Supporting Document(s) COMPREHENSIVE METABOLIC PANEL [facility] COMPREHENSIVE METABOLIC PANEL Sodium [Moles/volume] in Serum or Plasma 137 mEq/L 134 - 153 [facility] Potassium [Moles/volume] in Serum or Plasma 3.8 mEq/L 3.6 - 5.0 [facility] Chloride [Moles/volume] in Serum or Plasma 104 mEq/L 98 - 107 [facility] Carbon dioxide, total [Moles/volume] in Serum or Plasma 23 MEQ/L 22 - 30 [facility] Glucose [Mass/volume] in Serum or Plasma 96 MG/DL 70 - 99 [facility] BUN 15 MG/DL 7 - 21 [facility] Creatinine [Mass/volume] in Serum or Plasma 0.6 MG/DL 0.7 - 1.5 L [facility] BUN/CREAT 25 8 - 27 [facility] al Protein [Mass/volume] in Serum or Plasma 6.6 G/DL 6.3 - 8.2 [facility] Albumin [Mass/volume] in Serum or Plasma 4.1 G/DL 3.9 - 5.0 [facility] Globulin [Mass/volume] in Serum by calculation 2.5 GM/DL 2.4 - 3.2 [facility] A/G RATIO 1.6 0.8 - 2.0 [facility] Calcium [Mass/volume] in Serum or Plasma 9.1 MG/DL 8.4 - 10.2 [facility] Bilirubin.total [Mass/volume] in Serum or Plasma <0.7 MG/DL 0.2 - 1.3 [facility] Alkaline phosphatase [Enzymatic activity/volume] in Serum or Plasma 79 U/L 38 - 126 [facility] Aspartate aminotransferase [Enzymatic activity/volume] in Serum or Plasma 25 U/L 5 - 40 [facility] Alanine aminotransferase [Enzymatic activity/volume] in Seru m or Plasma 37 U/L 7 - 56 [facility] Anion gap 3 in Serum or Plasma 10.0 mmol/L 8.0 - 16.0 [facility] AGE 25 yrs [facility] NON-AA GFR >60 mL/min [facility] ital AFR AMER GFR >60 mL/min [facility] Male GFR In terprentation 20-49 yrs >60 mL/min Normal 50-59 yrs >56 mL/min Normal 60-69 yrs >49 mL/min Normal 70-79yrs >42 mL/min Normal 80 and above >35 mL/min Normal Female GFR Interpretation 20-39 yrs >60 mL/min Normal 40-49 yrs >58 mL/min Normal 50-59 yrs >51 mL/min Normal 60-69 yrs >45 mL/min Normal 70-79 yrs >39 mL/min Normal 80 and above >32 mL/min Normal ID Date Data Source [id number] 06/19/2021 08:49:00 PM EDT [facility] Name Value Range Interpretation Code Description Data Dina rce(s) Supporting Document(s) Lipase [Enzymatic activity/volume] in Serum or Plasma 17 U/L 13 - 60 [facility] ID Date Data Source [id number] 06/19/2021 08:39:00 PM EDT [facility] Name Value Range Interpretation Code Description Data Dina rce(s) Supporting Document(s) CBC W/AUTOMATED DIFF [facility] COMPLETE BLOOD COUNT Leukocytes [#/volume] in Blood by Automated count 6.2 10^3/uL 4.2 - 1 1.0 [facility] Erythrocytes [#/volume] in Blood by Automated count 3.92 10^6/uL 4. 20 - 5.40 L [facility] Hemoglobin [Mass/volume] in Blood 10.5 g/dL 12.0 - 16.0 L [facility] Hematocrit [Volume Fraction] of Blood by Automated count 32.0 % 3 7.0 - 47.0 L [facility] Erythrocyte mean corpuscular volume [Entitic volume] by Auto mated count 81.6 fL 81.0 - 101 [facility] Erythrocyte mean corpuscular hemoglobin [Entitic mass] by Automated count 26.8 pg 27.0 - 34.0 L [facility] Erythrocyte mean corpuscular hemoglobin concentration [Mass/volume] by Automated count 32.8 g/dL 31.0 - 36.0 [facility] Erythrocyte distribution width [Ratio] by Automated count 14.1 % 11.5 - 14.5 [facility] Platelets [#/volume] in Blood by Automated count 295 10^3/uL 150 - 45 0 [facility] Platelet mean volume [Entitic volume] in Blood by Automated count 9.1 fL 7.4 - 10.4 [facility] Neutrophils/100 leukocytes in Blood by Automated count 44.3 % 37. 0 - 80.0 [facility] Lymphocytes/100 leukocytes in Blood by Manual count 41.6 % 25.0 - 40.0 H [facility] Monocytes/100 leukocytes in Blood by Automated count 8.8 % 3.0 - 8.0 H [facility] Eosinophils/100 leukocytes in Blood by Automated count 4.2 % 0.0 - 7.0 [facility] Basophils/100 leukocytes in Blood by Automated count 0.8 % 0.0 - 2.5 [facility] %IG 0.3 % 0.0 - 0.[address] [facility] 0.0 % 0.0 - 0.0 [facility] Neutrophils [#/volume] in Blood by Automated count 2.75 10^3/uL 2.00 - 6.90 [facility] Lymphocytes [#/volume] in Blood by Automated count 2.59 10^3/uL 0.60 - 3.40 [facility] Monocytes [#/volume] in Blood by Automated count 0.55 10^3/uL 0.00 - 0.90 [facility] Eosinophils [#/volume] in Blood by Automated count 0.26 10^3/uL 0.00 - 0.70 [facility] Basophils [#/volume] in Blood by Automated count 0.05 10^3/uL 0.00 - 0.20 [facility] #IG 0.02 10^3/uL 0.00 - 0.10 [facility] #NRBC 0.00 10^3/uL 0.00 - 0.00 [facility] MANUAL DIFF NOT INDICATED [facility] RBC MORPH NOT INDICATED [facility] ID Date Data Source [id number] 04/06/2021 07:36:00 AM EDT [facility]) Name Value Range Interpretation Code Description Data Dina rce(s) Supporting Document(s) white blood count 7.7 10 4.0-10.0 White Blood Count [facility] ([facility]) red blood count 3.11 10 4.00-5.40 Below low normal Red Blood Coun t [facility] ([facility]) hemoglobin 8.5 g/dL 12.0-15.5 Below low normal Hemoglobin [facility] ( [facility]) hematocrit 26.4 % 36.0-47.0 Below low normal Hematocrit [facility] ( [facility]) mean corpuscular volume 84.9 fL 80.0-96.0 Mean Corpusc ular Volume [facility] ([facility]) mean corpuscular hemoglobin 27.3 pg 27.0-33.0 Mean Cor puscular Hemoglobin [facility] ([facility]) mean corpuscular HGB conc 32.2 g/dL 32.0-36.5 Mean Corpu scular HGB Conc [facility] ([facility]) red cell distribution width 16.0 % 11.5-14.5 Above high no rmal Red Cell Distribution Width [facility] ([facility]) nucleated red blood cell % 0.0 % 0-0 Nucleated Red Blood Cell % [facility] ([facility]) platelet count, automated 237 10 150-450 Platelet C ount, Automated [facility]) ID Date Data Source [id number] 04/06/2021 07:36:00 AM EDT [facility] ([facility]) Name Value Range Interpretation Code Description Data Dina rce(s) Supporting Document(s) red blood count 3.11 10 4.00-5.40 Below low normal Red Blood Coun t [facility] ([facility]) white blood count 7.7 10 4.0-10.0 White Blood Count [facility] ([facility]) hematocrit 26.4 % 36.0-47.0 Below low normal Hematocrit [facility] ( [facility]) hemoglobin 8.5 g/dL 12.0-15.5 Below low normal Hemoglobin [facility] ( [facility]) mean corpuscular hemoglobin 27.3 pg 27.0-33.0 Mean Cor puscular Hemoglobin [facility] ([facility]) mean corpuscular HGB conc 32.2 g/dL 32.0-36.5 Mean Corpu scular HGB Conc [facility] ([facility]) mean corpuscular volume 84.9 fL 80.0-96.0 Mean Corpusc ular Volume [facility] ([facility]) platelet count, automated 237 10 150-450 Platelet C ount, Automated [facility] ([facility]) red cell distribution width 16.0 % 11.5-14.5 Above high no rmal Red Cell Distribution Width [facility] ([facility]) nucleated red blood cell % 0.0 % 0-0 Nucleated Red Blood Cell % [facility] ([facility]) ID Date Data Source [id number] 04/06/2021 07:36:00 AM EDT [facility] ([facility]) Name Value Range Interpretation Code Description Data Dina rce(s) Supporting Document(s) white blood count 7.7 10 4.0-10.0 White Blood Count [facility] ([facility]) hemoglobin 8.5 g/dL 12.0-15.5 Below low normal Hemoglobin [facility] ( [facility]) red blood count 3.11 10 4.00-5.40 Below low normal Red Blood Coun t [facility] ([facility]) mean corpuscular hemoglobin 27.3 pg 27.0-33.0 Mean Cor puscular Hemoglobin [facility] ([facility]) mean corpuscular volume 84.9 fL 80.0-96.0 Mean Corpusc ular Volume [facility] ([facility]) hematocrit 26.4 % 36.0-47.0 Below low normal Hematocrit [facility] ( [facility]) mean corpuscular HGB conc 32.2 g/dL 32.0-36.5 Mean Corpu scular HGB Conc [facility] ([facility]) red cell distribution width 16.0 % 11.5-14.5 Above high no rmal Red Cell Distribution Width [facility] ([facility]) nucleated red blood cell % 0.0 % 0-0 Nucleated Red Blood Cell % [facility] ([facility]) platelet count, automated 237 10 150-450 Platelet C ount, Automated [facility]) ID Date Data Source [id number] 04/05/2021 06:28:00 PM EDT [facility]) Name Value Range Interpretation Code Description Data Dina rce(s) Supporting Document(s) MRSA PCR screen not detected negative MRSA PCR Screen AT [facility]) ID Date Data Source [id number] 04/05/2021 06:28:00 PM EDT [facility]) Name Value Range Interpretation Code Description Data Dina rce(s) Supporting Document(s) MRSA PCR screen not detected negative MRSA PCR Screen AT [facility]) ID Date Data Source [id number] 04/05/2021 06:28:00 PM EDT [facility]) Name Value Range Interpretation Code Description Data Dina rce(s) Supporting Document(s) MRSA PCR screen not detected negative MRSA PCR Screen AT [facility]) ID Date Data Source [id number] 04/05/2021 05:50:00 AM EDT [facility] ([facility]) Name Value Range Interpretation Code Description Data Dina rce(s) Supporting Document(s) syphilis nonreactive nonreactive Syphilis [facility] ([facility]) ID Date Data Source [id number] 04/05/2021 05:50:00 AM EDT [facility] ([facility]) Name Value Range Interpretation Code Description Data Dina rce(s) Supporting Document(s) blood type O positive Blood Type [facility] ([facility]) Ab screen (indirect roseanna)vis negative Ab Sc reen (Indirect Roseanna)vis [facility] ([facility]) ID Date Data Source [id number] 04/05/2021 05:50:00 AM EDT [facility]) Name Value Range Interpretation Code Description Data Dina rce(s) Supporting Document(s) white blood count 6.6 10 4.0-10.0 White Blood Count [facility] ([facility]) red blood count 3.87 10 4.00-5.40 Below low normal Red Blood Coun t [facility] ([facility]) hematocrit 32.0 % 36.0-47.0 Below low normal Hematocrit [facility] ( [facility]) hemoglobin 10.6 g/dL 12.0-15.5 Below low normal Hemoglobin [facility] ( [facility]) mean corpuscular volume 82.7 fL 80.0-96.0 Mean Corpusc ular Volume [facility] ([facility]) mean corpuscular HGB conc 33.1 g/dL 32.0-36.5 Mean Corpu scular HGB Conc [facility] ([facility]) mean corpuscular hemoglobin 27.4 pg 27.0-33.0 Mean Cor puscular Hemoglobin [facility] ([facility]) platelet count, automated 266 10 150-450 Platelet C ount, Automated [facility] ([facility]) red cell distribution width 15.7 % 11.5-14.5 Above high no rmal Red Cell Distribution Width [facility] ([facility]) nucleated red blood cell % 0.0 % 0-0 Nucleated Red Blood Cell % [facility] ([facility]) ID Date Data Source [id number] 04/05/2021 05:50:00 AM EDT [facility] ([facility]) Name Value Range Interpretation Code Description Data Dina rce(s) Supporting Document(s) syphilis nonreactive nonreactive Syphilis [facility] ([facility]) ID Date Data Source [id number] 04/05/2021 05:50:00 AM EDT [facility] ([facility]) Name Value Range Interpretation Code Description Data Dina rce(s) Supporting Document(s) blood type O positive Blood Type [facility] ([facility]) Ab screen (indirect roseanna)vis negative Ab Sc reen (Indirect Roseanna)vis [facility] ([facility]) ID Date Data Source [id number] 04/05/2021 05:50:00 AM EDT [facility] ([facility]) Name Value Range Interpretation Code Description Data Dina rce(s) Supporting Document(s) white blood count 6.6 10 4.0-10.0 White Blood Count [facility] ([facility]) red blood count 3.87 10 4.00-5.40 Below low normal Red Blood Coun t [facility] ([facility]) hemoglobin 10.6 g/dL 12.0-15.5 Below low normal Hemoglobin [facility] ( [facility]) mean corpuscular volume 82.7 fL 80.0-96.0 Mean Corpusc ular Volume [facility] ([facility]) hematocrit 32.0 % 36.0-47.0 Below low normal Hematocrit [facility] ( [facility]) mean corpuscular HGB conc 33.1 g/dL 32.0-36.5 Mean Corpu scular HGB Conc [facility] ([facility]) mean corpuscular hemoglobin 27.4 pg 27.0-33.0 Mean Cor puscular Hemoglobin [facility] ([facility]) red cell distribution width 15.7 % 11.5-14.5 Above high no rmal Red Cell Distribution Width [facility] ([facility]) platelet count, automated 266 10 150-450 Platelet C ount, Automated [facility] ([facility]) nucleated red blood cell % 0.0 % 0-0 Nucleated Red Blood Cell % [facility] ([facility]) ID Date Data Source [id number] 04/05/2021 05:50:00 AM EDT [facility]) Name Value Range Interpretation Code Description Data Dina rce(s) Supporting Document(s) syphilis nonreactive nonreactive Syphilis [facility] ([facility]) ID Date Data Source [id number] 04/05/2021 05:50:00 AM EDT [facility]) Name Value Range Interpretation Code Description Data Dina rce(s) Supporting Document(s) Ab screen (indirect roseanna)vis negative Ab Sc reen (Indirect Roseanna)vis [facility] ([facility]) blood type O positive Blood Type [facility] ([facility]) ID Date Data Source [id number] 04/05/2021 05:50:00 AM EDT [facility]) Name Value Range Interpretation Code Description Data Dina rce(s) Supporting Document(s) white blood count 6.6 10 4.0-10.0 White Blood Count [facility] ([facility]) hematocrit 32.0 % 36.0-47.0 Below low normal Hematocrit [facility] ( [facility]) red blood count 3.87 10 4.00-5.40 Below low normal Red Blood Coun t [facility] ([facility]) hemoglobin 10.6 g/dL 12.0-15.5 Below low normal Hemoglobin [facility] ( [facility]) mean corpuscular volume 82.7 fL 80.0-96.0 Mean Corpusc ular Volume [facility] ([facility]) mean corpuscular hemoglobin 27.4 pg 27.0-33.0 Mean Cor puscular Hemoglobin [facility] ([facility]) red cell distribution width 15.7 % 11.5-14.5 Above high no rmal Red Cell Distribution Width [facility] ([facility]) mean corpuscular HGB conc 33.1 g/dL 32.0-36.5 Mean Corpu scular HGB Conc [facility] ([facility]) nucleated red blood cell % 0.0 % 0-0 Nucleated Red Blood Cell % [facility] ([facility]) platelet count, automated 266 10 150-450 Platelet C ount, Automated [facility] ([facility]) ID Date Data Source [id number] 03/31/2021 09:30:00 AM EDT [facility] Name Value Range Interpretation Code Description Data Dina rce(s) Supporting Document(s) SARS-CoV-2 (COVID-19) RNA [Presence] in Respiratory specimen by JOEL with probe detection Not Detected [facility] This lab was ordered by [facility] and reported by [facility]. ID Date Data Source GROUP B STREP CULTURE 03/17/2021 12:00:00 AM EDT [facility] ([facility]) Name Value Range Interpretation Code Description Data Dina rce(s) Supporting Document(s) GROUP B STREP CULTURE [facility] ([facility]) ID Date Data Source URINE CULTURE 01/25/2021 12:00:00 AM EDT [facility] ([facility]) Name Value Range Interpretation Code Description Data Dina rce(s) Supporting Document(s) URINE CULTURE [facility] ([facility]) ID Date Data Source [id number] URINALYSIS 01/25/2021 12:00:00 AM EDT [facility] ([facility]) Name Value Range Interpretation Code Description Data Dina rce(s) Supporting Document(s) UA URINALYSIS [facility] ([facility]) ID Date Data Source [id number] 10/11/2020 09:29:00 PM EST [facility] ([facility]) Name Value Range Interpretation Code Description Data Dina rce(s) Supporting Document(s) HCG, serum quantitative 32510 mIU/mL HCG, Serum Quantitative [facility] ([facility]) ID Date Data Source [id number] 10/11/2020 09:29:00 PM EST [facility] ([facility]) Name Value Range Interpretation Code Description Data Dina rce(s) Supporting Document(s) lipase 61 U/L 73-393 Below low normal Lipase [facility] ( [facility]) ID Date Data Source [id number] 10/11/2020 09:29:00 PM EST [facility] ([facility]) Name Value Range Interpretation Code Description Data Dina rce(s) Supporting Document(s) glucose, fasting 83 mg/dL 70-100 Glucose, Fasting AT [facility]) creatinine for GFR 0.54 mg/dL 0.55-1.30 Below low normal Creatinine for GFR [facility] ([facility]) glomerular filtration rate > 60.0 >60 Glomerula r Filtration Rate [facility] ([facility]) sodium level 138 mEq/L 136-145 Sodium Level [facility] ([facility]) blood urea nitrogen 10 mg/dL 7-18 Blood Urea Nitro gen [facility] ([facility]) chloride level 107 mEq/L 98-107 Chloride Level [facility] ([facility]) potassium serum 3.7 mEq/L 3.5-5.1 Potassium Serum AT[facility] ([facility]) carbon dioxide level 24 mEq/L 21-32 Carbon Dioxide Level [facility] ([facility]) calcium level 8.9 mg/dL 8.5-10.1 Calcium Level [facility] ( [facility]) anion gap 7 mEq/L 8-16 Below low normal Anion Gap [facility] ( [facility]) ID Date Data Source [id number] 10/11/2020 09:29:00 PM EST [facility] ([facility]) Name Value Range Interpretation Code Description Data Dina rce(s) Supporting Document(s) AST/SGOT 7 U/L 7-37 AST/SGOT [facility] ([facility]) ALT/SGPT 17 U/L 12-78 ALT/SGPT [facility] ([facility]) alkaline phosphatase 64 U/L 45-117 Alkaline Phosph atase [facility] ([facility]) bilirubin,direct < 0.1 0.0-0.2 Bilirubin,direct AT [facility] ([facility]) bilirubin,total < 0.1 0.2-1.0 Below low normal Bilirubin,tota l [facility] ([facility]) albumin 3.3 gm/dL 3.2-5.2 Albumin [facility] ([facility]) albumin/globulin ratio 1.2-2.2 Below low normal Albumin /globulin Ratio [facility] ([facility]) total protein 6.6 gm/dL 6.4-8.2 Total Protein [facility] ( [facility]) ID Date Data Source [id number] 10/11/2020 09:29:00 PM EST [facility] ([facility]) Name Value Range Interpretation Code Description Data Dina rce(s) Supporting Document(s) Ab screen (indirect roseanna)vis negative Ab Sc reen (Indirect Roseanna)vis [facility] ([facility]) blood type O positive Blood Type [facility] ([facility]) ID Date Data Source [id number] 10/11/2020 09:29:00 PM EST [facility] ([facility]) Name Value Range Interpretation Code Description Data Dina rce(s) Supporting Document(s) appearance, urine rfx hazy clear Appearance, Ur ine Rfx [facility] ([facility]) specific gravity ur auto rfx 1.002-1.035 Specif ic [place] Ur Auto Rfx [facility] ([facility]) pH,urine rfx 6.0 units 5.0-9.0 pH,urine Rfx [facility] ([facility]) color, urine rfx yellow yellow Color, Urine Rfx AT [facility] ([facility]) glucose, urine (UA) auto rfx negative negative Glucose , Urine (UA) Auto Rfx [facility] ([facility]) protein, urine auto rfx 1+ negative Above high normal Prote in, Urine Auto Rfx [facility] ([facility]) ketone, urine auto rfx negative negative Ketone, Urine Auto Rfx [facility] ([facility]) bilirubin, urine auto rfx negative negative Bilirubin, Urine Auto Rfx [facility] ([facility]) urobilinogen, urine auto rfx 4.0 mg/dL 0.0-2.0 Above high n ormal Urobilinogen, Urine Auto Rfx [facility] ([facility]) blood, urine blood rfx negative negative Blood, Urine Blood Rfx [facility] ([facility]) leukocyte esterase ur auto rfx negative negative Leukocyte Esterase Ur Auto Rfx [facility] ([facility]) nitrite, urine auto rfx negative negative Nitrite, Uri ne Auto Rfx [facility] ([facility]) bacteria, urine auto rfx negative negative Bacteria, U rine Auto Rfx [facility] ([facility]) WBC, urine auto rfx 1 /hpf 0-3 WBC, Urine Auto Rfx [facility] ([facility]) RBC, urine auto rfx 0 /hpf 0-3 RBC, Urine Auto Rfx [facility] ([facility]) mucus, urine rfx small negative Mucus, Urine Rfx AT [facility] ([facility]) hyaline cast, urine auto rfx 0 /lpf 0-1 Hyaline Cast, Urine Auto Rfx [facility] ([facility]) squam epithelial cell ur aurfx 3 /hpf 0-6 Squam Epithelial Cell Ur Aurfx [facility] ([facility]) ID Date Data Source [id number] 10/11/2020 09:29:00 PM EST [facility] ([facility]) Name Value Range Interpretation Code Description Data Dina rce(s) Supporting Document(s) white blood count 7.1 10 4.0-10.0 White Blood Count [facility] ([facility]) red blood count 3.95 10 4.00-5.40 Below low normal Red Blood Coun t [facility] ([facility]) hemoglobin 11.1 g/dL 12.0-15.5 Below low normal Hemoglobin [facility] ( [facility]) mean corpuscular volume 82.5 fL 80.0-96.0 Mean Corpusc ular Volume [facility] ([facility]) hematocrit 32.6 % 36.0-47.0 Below low normal Hematocrit [facility] ( [facility]) mean corpuscular hemoglobin 28.1 pg 27.0-33.0 Mean Cor puscular Hemoglobin [facility] ([facility]) mean corpuscular HGB conc 34.0 g/dL 32.0-36.5 Mean Corpu scular HGB Conc [facility] ([facility]) red cell distribution width 13.9 % 11.5-14.5 Red Cell Distribution Width [facility] ([facility]) platelet count, automated 313 10 150-450 Platelet C ount, Automated [facility] ([facility]) lymph % 40.8 % 24.0-44.0 Lymph % [facility] ([facility]) mono % 8.5 % 0.0-5.[address] [place] % [facility] ([facility]) neutrophils % 48.2 % 36.0-66.0 Neutrophils % [facility] ( [facility]) baso % 0.4 % 0.0-1.0 Baso % [facility] ([facility]) eos % 1.8 % 0.0-3.0 Eos % [facility] ([facility]) immature granulocyte % 0.3 % 0-3.0 Immature Gran ulocyte % [facility] ([facility]) nucleated red blood cell % 0.0 % 0-0 Nucleated Red Blood Cell % [facility] ([facility]) lymph # 2.9 10 1.5-5.0 Lymph # [facility] ([facility]) neutrophils # 3.4 10 1.5-8.5 Neutrophils # [facility] ( [facility]) eos # 0.1 10 0.0-0.5 Eos # [facility] ([facility]) mono # 0.6 10 0.0-0.8 [place] # [facility] ([facility]) baso # 0.0 10 0.0-0.2 Baso # [facility] ([facility]) ID Date Data Source [id number] 10/11/2020 09:29:00 PM EST [facility] ([facility]) Name Value Range Interpretation Code Description Data Dina rce(s) Supporting Document(s) HCG, serum quantitative 60551 mIU/mL HCG, Serum Quantitative [facility] ([facility]) ID Date Data Source [id number] 10/11/2020 09:29:00 PM EST [facility] ([facility]) Name Value Range Interpretation Code Description Data Dina rce(s) Supporting Document(s) lipase 61 U/L 73-393 Below low normal Lipase [facility] ( [facility]) ID Date Data Source [id number] 10/11/2020 09:29:00 PM EST [facility] ([facility]) Name Value Range Interpretation Code Description Data Dina rce(s) Supporting Document(s) blood urea nitrogen 10 mg/dL 7-18 Blood Urea Nitro gen [facility] ([facility]) glucose, fasting 83 mg/dL 70-100 Glucose, Fasting AT [facility]) creatinine for GFR 0.54 mg/dL 0.55-1.30 Below low normal Creatinine for GFR [facility] ([facility]) glomerular filtration rate > 60.0 >60 Glomerula r Filtration Rate [facility] ([facility]) sodium level 138 mEq/L 136-145 Sodium Level NATASHA (No [facility]) potassium serum 3.7 mEq/L 3.5-5.1 Potassium Serum ATH NA ([facility]) anion gap 7 mEq/L 8-16 Below low normal Anion Gap NATASHA ( [facility]) chloride level 107 mEq/L 98-107 Chloride Level NATASHA ([facility]) carbon dioxide level 24 mEq/L 21-32 Carbon Dioxide Level NATASHA ([facility]) calcium level 8.9 mg/dL 8.5-10.1 Calcium Level [facility]) ID Date Data Source [id number] 10/11/2020 09:29:00 PM EST [facility]) Name Value Range Interpretation Code Description Data Dina rce(s) Supporting Document(s) ALT/SGPT 17 U/L 12-78 ALT/SGPT NATASHA ([facility]) AST/SGOT 7 U/L 7-37 AST/SGOT [facility] ([facility]) bilirubin,total < 0.1 0.2-1.0 Below low normal Bilirubin,tota l [facility] ([facility]) total protein 6.6 gm/dL 6.4-8.2 Total Protein [facility] ( [facility]) alkaline phosphatase 64 U/L 45-117 Alkaline Phosph atase [facility] ([facility]) bilirubin,direct < 0.1 0.0-0.2 Bilirubin,direct AT [facility]) albumin 3.3 gm/dL 3.2-5.2 Albumin [facility] ([facility]) albumin/globulin ratio 1.2-2.2 Below low normal Albumin /globulin Ratio [facility] ([facility]) ID Date Data Source [id number] 10/11/2020 09:29:00 PM EST [facility] ([facility]) Name Value Range Interpretation Code Description Data Dina rce(s) Supporting Document(s) Ab screen (indirect roseanna)vis negative Ab Sc reen (Indirect Roseanna)vis [facility] ([facility]) blood type O positive Blood Type [facility] ([facility]) ID Date Data Source [id number] 10/11/2020 09:29:00 PM EST [facility] ([facility]) Name Value Range Interpretation Code Description Data Dina rce(s) Supporting Document(s) color, urine rfx yellow yellow Color, Urine Rfx AT [facility] ([facility]) appearance, urine rfx hazy clear Appearance, Ur ine Rfx [facility] ([facility]) pH,urine rfx 6.0 units 5.0-9.0 pH,urine Rfx [facility] ([facility]) glucose, urine (UA) auto rfx negative negative Glucose , Urine (UA) Auto Rfx [facility] ([facility]) protein, urine auto rfx 1+ negative Above high normal Prote in, Urine Auto Rfx NATASHA ([facility]) specific gravity ur auto rfx 1.002-1.035 Specif ic [place] Ur Auto Rfx NATASHA ([facility]) ketone, urine auto rfx negative negative Ketone, Urine Auto Rfx NATASHA ([facility]) bilirubin, urine auto rfx negative negative Bilirubin, Urine Auto Rfx [facility] ([facility]) urobilinogen, urine auto rfx 4.0 mg/dL 0.0-2.0 Above high n ormal Urobilinogen, Urine Auto Rfx [facility] ([facility]) blood, urine blood rfx negative negative Blood, Urine Blood Rfx [facility] ([facility]) nitrite, urine auto rfx negative negative Nitrite, Uri ne Auto Rfx [facility] ([facility]) leukocyte esterase ur auto rfx negative negative Leukocyte Esterase Ur Auto Rfx [facility] ([facility]) WBC, urine auto rfx 1 /hpf 0-3 WBC, Urine Auto Rfx [facility] ([facility]) RBC, urine auto rfx 0 /hpf 0-3 RBC, Urine Auto Rfx [facility] ([facility]) bacteria, urine auto rfx negative negative Bacteria, U rine Auto Rfx [facility] ([facility]) mucus, urine rfx small negative Mucus, Urine Rfx AT [facility] ([facility]) hyaline cast, urine auto rfx 0 /lpf 0-1 Hyaline Cast, Urine Auto Rfx [facility] ([facility]) squam epithelial cell ur aurfx 3 /hpf 0-6 Squam Epithelial Cell Ur Aurfx [facility] ([facility]) ID Date Data Source [id number] 10/11/2020 09:29:00 PM EST [facility] ([facility]) Name Value Range Interpretation Code Description Data Dina rce(s) Supporting Document(s) white blood count 7.1 10 4.0-10.0 White Blood Count [facility] ([facility]) hemoglobin 11.1 g/dL 12.0-15.5 Below low normal Hemoglobin [facility] ( [facility]) red blood count 3.95 10 4.00-5.40 Below low normal Red Blood Coun t NATASHA ([facility]) hematocrit 32.6 % 36.0-47.0 Below low normal Hematocrit NATASHA ( [facility]) mean corpuscular hemoglobin 28.1 pg 27.0-33.0 Mean Cor puscular Hemoglobin NATASHA ([facility]) mean corpuscular volume 82.5 fL 80.0-96.0 Mean Corpusc ular Volume NATASHA ([facility]) mean corpuscular HGB conc 34.0 g/dL 32.0-36.5 Mean Corpu scular HGB Conc NATASHA ([facility]) red cell distribution width 13.9 % 11.5-14.5 Red Cell Distribution Width [facility] ([facility]) platelet count, automated 313 10 150-450 Platelet C ount, Automated NATASHA ([facility]) neutrophils % 48.2 % 36.0-66.0 Neutrophils % NATASHA ( [facility]) lymph % 40.8 % 24.0-44.0 Lymph % [facility] ([facility]) mono % 8.5 % 0.0-5.[address] [place] % NATASHA ([facility]) eos % 1.8 % 0.0-3.0 Eos % NATASHA ([facility]) baso % 0.4 % 0.0-1.0 Baso % [facility] ([facility]) immature granulocyte % 0.3 % 0-3.0 Immature Gran ulocyte % NATASHA ([facility]) neutrophils # 3.4 10 1.5-8.5 Neutrophils # [facility] ( [facility]) nucleated red blood cell % 0.0 % 0-0 Nucleated Red Blood Cell % NATASHA ([facility]) eos # 0.1 10 0.0-0.5 Eos # NATASHA ([facility]) lymph # 2.9 10 1.5-5.0 Lymph # NATASHA ([facility]) mono # 0.6 10 0.0-0.8 [place] # NATASHA ([facility]) baso # 0.0 10 0.0-0.2 Baso # NATASHA ([facility]) ID Date Data Source [id number] 10/11/2020 09:29:00 PM EST NATASHA ([facility]) Name Value Range Interpretation Code Description Data Dina rce(s) Supporting Document(s) HCG, serum quantitative 40119 mIU/mL HCG, Serum Quantitative [facility]) ID Date Data Source [id number] 10/11/2020 09:29:00 PM EST NATASHA ([facility]) Name Value Range Interpretation Code Description Data Dina rce(s) Supporting Document(s) lipase 61 U/L 73-393 Below low normal Lipase [facility]) ID Date Data Source [id number] 10/11/2020 09:29:00 PM EST NATASHA ([facility]) Name Value Range Interpretation Code Description Data Dina rce(s) Supporting Document(s) glucose, fasting 83 mg/dL 70-100 Glucose, Fasting AT [facility]) blood urea nitrogen 10 mg/dL 7-18 Blood Urea Nitro gen NATASHA ([facility]) sodium level 138 mEq/L 136-145 Sodium Level NATASHA ([facility]) glomerular filtration rate > 60.0 >60 Glomerula r Filtration Rate NATASHA ([facility]) creatinine for GFR 0.54 mg/dL 0.55-1.30 Below low normal Creatinine for GFR NATASHA ([facility]) chloride level 107 mEq/L 98-107 Chloride Level [facility] ([facility]) potassium serum 3.7 mEq/L 3.5-5.1 Potassium Serum ATHE NA ([facility]) carbon dioxide level 24 mEq/L 21-32 Carbon Dioxide Level [facility] ([facility]) calcium level 8.9 mg/dL 8.5-10.1 Calcium Level [facility]) anion gap 7 mEq/L 8-16 Below low normal Anion Gap [facility]) ID Date Data Source [id number] 10/11/2020 09:29:00 PM EST [facility] ([facility]) Name Value Range Interpretation Code Description Data Dina rce(s) Supporting Document(s) AST/SGOT 7 U/L 7-37 AST/SGOT [facility] ([facility]) alkaline phosphatase 64 U/L 45-117 Alkaline Phosph atase NATASHA ([facility]) ALT/SGPT 17 U/L 12-78 ALT/SGPT [facility] ([facility]) bilirubin,total < 0.1 0.2-1.0 Below low normal Bilirubin,tota l [facility] ([facility]) bilirubin,direct < 0.1 0.0-0.2 Bilirubin,direct AT [facility]) albumin 3.3 gm/dL 3.2-5.2 Albumin [facility] ([facility]) total protein 6.6 gm/dL 6.4-8.2 Total Protein [facility] ( [facility]) albumin/globulin ratio 1.2-2.2 Below low normal Albumin /globulin Ratio [facility] ([facility]) ID Date Data Source [id number] 10/11/2020 09:29:00 PM EST NATASHA ([facility]) Name Value Range Interpretation Code Description Data Dina rce(s) Supporting Document(s) blood type O positive Blood Type [facility] ([facility]) Ab screen (indirect roseanna)vis negative Ab Sc reen (Indirect Roseanna)vis [facility] ([facility]) ID Date Data Source [id number] 10/11/2020 09:29:00 PM EST [facility] ([facility]) Name Value Range Interpretation Code Description Data Dina rce(s) Supporting Document(s) color, urine rfx yellow yellow Color, Urine Rfx AT [facility] ([facility]) appearance, urine rfx hazy clear Appearance, Ur ine Rfx [facility] ([facility]) protein, urine auto rfx 1+ negative Above high normal Prote in, Urine Auto Rfx [facility] ([facility]) specific gravity ur auto rfx 1.002-1.035 Specif ic [place] Ur Auto Rfx NATASHA ([facility]) pH,urine rfx 6.0 units 5.0-9.0 pH,urine Rfx [facility]HA ([facility]) ketone, urine auto rfx negative negative Ketone, Urine Auto Rfx NATASHA ([facility]) glucose, urine (UA) auto rfx negative negative Glucose , Urine (UA) Auto Rfx NATASHA ([facility]) bilirubin, urine auto rfx negative negative Bilirubin, Urine Auto Rfx [facility] ([facility]) urobilinogen, urine auto rfx 4.0 mg/dL 0.0-2.0 Above high n ormal Urobilinogen, Urine Auto Rfx [facility] ([facility]) nitrite, urine auto rfx negative negative Nitrite, Uri ne Auto Rfx [facility] ([facility]) leukocyte esterase ur auto rfx negative negative Leukocyte Esterase Ur Auto Rfx [facility] ([facility]) blood, urine blood rfx negative negative Blood, Urine Blood Rfx [facility] ([facility]) WBC, urine auto rfx 1 /hpf 0-3 WBC, Urine Auto Rfx [facility] ([facility]) RBC, urine auto rfx 0 /hpf 0-3 RBC, Urine Auto Rfx [facility] ([facility]) bacteria, urine auto rfx negative negative Bacteria, U rine Auto Rfx [facility] ([facility]) squam epithelial cell ur aurfx 3 /hpf 0-6 Squam Epithelial Cell Ur Aurfx NATASHA ([facility]) hyaline cast, urine auto rfx 0 /lpf 0-1 Hyaline Cast, Urine Auto Rfx NATASHA ([facility]) mucus, urine rfx small negative Mucus, Urine Rfx AT [facility] ([facility]) ID Date Data Source [id number] 10/11/2020 09:29:00 PM EST [facility] ([facility]) Name Value Range Interpretation Code Description Data Dina rce(s) Supporting Document(s) white blood count 7.1 10 4.0-10.0 White Blood Count [facility] ([facility]) red blood count 3.95 10 4.00-5.40 Below low normal Red Blood Coun t NATASHA ([facility]) hematocrit 32.6 % 36.0-47.0 Below low normal Hematocrit NATASHA ( [facility]) mean corpuscular volume 82.5 fL 80.0-96.0 Mean Corpusc ular Volume NATASHA ([facility]) hemoglobin 11.1 g/dL 12.0-15.5 Below low normal Hemoglobin NATASHA ( [facility]) red cell distribution width 13.9 % 11.5-14.5 Red Cell Distribution Width NATASHA ([facility]) mean corpuscular hemoglobin 28.1 pg 27.0-33.0 Mean Cor puscular Hemoglobin NATASHA ([facility]) mean corpuscular HGB conc 34.0 g/dL 32.0-36.5 Mean Corpu scular HGB Conc NATASHA ([facility]) platelet count, automated 313 10 150-450 Platelet C ount, Automated NATASHA ([facility]) neutrophils % 48.2 % 36.0-66.0 Neutrophils % NATASHA ( [facility]) lymph % 40.8 % 24.0-44.0 Lymph % [facility] ([facility]) mono % 8.5 % 0.0-5.[address] [place] % NATASHA ([facility]) eos % 1.8 % 0.0-3.0 Eos % NATASHA ([facility]) baso % 0.4 % 0.0-1.0 Baso % NATASHA ([facility]) nucleated red blood cell % 0.0 % 0-0 Nucleated Red Blood Cell % NATASHA ([facility]) immature granulocyte % 0.3 % 0-3.0 Immature Gran ulocyte % NATASHA ([facility]) lymph # 2.9 10 1.5-5.0 Lymph # [facility] ([facility]) neutrophils # 3.4 10 1.5-8.5 Neutrophils # NATASHA ( [facility]) mono # 0.6 10 0.0-0.8 [place] # NATASHA ([facility]) baso # 0.0 10 0.0-0.2 Baso # NATASHA ([facility]) eos # 0.1 10 0.0-0.5 Eos # NATASHA ([facility]) ID Date Data Source [id number] 09/21/2020 10:19:00 AM EST NATASHA ([facility]) Name Value Range Interpretation Code Description Data Dina rce(s) Supporting Document(s) HIV 1&2 screen centaur negative negative HIV 1&2 Scree n Centaur NATASHA ([facility]) ID Date Data Source [id number] 09/21/2020 10:19:00 AM EST NATASHA ([facility]) Name Value Range Interpretation Code Description Data Dina rce(s) Supporting Document(s) rubella IgG qualitative immune immune Rubella IgG Qualitative [facility] ([facility]) ID Date Data Source [id number] 09/21/2020 10:19:00 AM EST [facility] ([facility]) Name Value Range Interpretation Code Description Data Dina rce(s) Supporting Document(s) syphilis nonreactive nonreactive Syphilis NATASHA ([facility]) ID Date Data Source [id number] 09/21/2020 10:19:00 AM EST NATASHA ([facility]) Name Value Range Interpretation Code Description Data Dina rce(s) Supporting Document(s) HBsAg negative negative HBsAg [facility]) ID Date Data Source [id number] 09/21/2020 10:19:00 AM EST NATASHA ([facility]) Name Value Range Interpretation Code Description Data Dina rce(s) Supporting Document(s) glucose challenge test 1 hour 97 mg/dL less than 140 Glucose Challenge Test 1 Hour [facility] ([facility]) ID Date Data Source [id number] 09/21/2020 10:19:00 AM EST NATASHA ([facility]) Name Value Range Interpretation Code Description Data Dina rce(s) Supporting Document(s) hepatitis C virus marisol index < 0.0 <0.8 Hepatiti s C Virus Marisol Index NATASHA ([facility]) ID Date Data Source [id number] 09/21/2020 10:19:00 AM EST NATASHA ([facility]) Name Value Range Interpretation Code Description Data Dina rce(s) Supporting Document(s) Hemoglobin A1c/Hemoglobin.total in Blood 4.9 % Hemoglobin a1C NATASHA ([facility]) estimated average glucose 94 mg/dL 60-110 Estimated Average Glucose NATASHA ([facility]) ID Date Data Source [id number] 09/21/2020 10:19:00 AM EST NATASHA ([facility]) Name Value Range Interpretation Code Description Data Dina rce(s) Supporting Document(s) Ab screen pnp1 gel (vis) negative Ab Screen Pnp1 Gel (Vis) NATASHA ([facility]) blood type O positive Blood Type NATASHA ([facility]) ID Date Data Source [id number] 09/21/2020 10:19:00 AM EST NATASHA ([facility]) Name Value Range Interpretation Code Description Data Dina rce(s) Supporting Document(s) white blood count 6.6 10 4.0-10.0 White Blood Count NATASHA ([facility]) red blood count 4.33 10 4.00-5.40 Red Blood Count ATHE NA ([facility]) hematocrit 35.6 % 36.0-47.0 Below low normal Hematocrit NATASHA ( [facility]) hemoglobin 11.9 g/dL 12.0-15.5 Below low normal Hemoglobin NATASHA ( [facility]) mean corpuscular volume 82.2 fL 80.0-96.0 Mean Corpusc ular Volume NATASHA ([facility]) mean corpuscular hemoglobin 27.5 pg 27.0-33.0 Mean Cor puscular Hemoglobin NATASHA ([facility]) platelet count, automated 302 10 150-450 Platelet C ount, Automated NATASHA ([facility]) red cell distribution width 14.0 % 11.5-14.5 Red Cell Distribution Width NATASHA ([facility]) neutrophils % 60.8 % 36.0-66.0 Neutrophils % [facility] ( [facility]) mean corpuscular HGB conc 33.4 g/dL 32.0-36.5 Mean Corpu scular HGB Conc [facility] ([facility]) mono % 7.2 % 0.0-5.[address] [place] % [facility] ([facility]) eos % 0.9 % 0.0-3.0 Eos % [facility] ([facility]) baso % 0.3 % 0.0-1.0 Baso % [facility] ([facility]) lymph % 30.5 % 24.0-44.0 Lymph % [facility] ([facility]) neutrophils # 4.0 10 1.5-8.5 Neutrophils # [facility] ( [facility]) lymph # 2.0 10 1.5-5.0 Lymph # [facility] ([facility]) nucleated red blood cell % 0.0 % 0-0 Nucleated Red Blood Cell % [facility] ([facility]) immature granulocyte % 0.3 % 0-3.0 Immature Gran ulocyte % [facility] ([facility]) baso # 0.0 10 0.0-0.2 Baso # [facility] ([facility]) mono # 0.5 10 0.0-0.8 [place] # [facility] ([facility]) eos # 0.1 10 0.0-0.5 Eos # [facility] ([facility]) ID Date Data Source [id number] 09/21/2020 10:19:00 AM EST [facility] ([facility]) Name Value Range Interpretation Code Description Data Dina rce(s) Supporting Document(s) HIV 1&2 screen centaur negative negative HIV 1&2 Scree n Centaur NATASHA ([facility]) ID Date Data Source [id number] 09/21/2020 10:19:00 AM EST NATASHA ([facility]) Name Value Range Interpretation Code Description Data Dina rce(s) Supporting Document(s) rubella IgG qualitative immune immune Rubella IgG Qualitative [facility] ([facility]) ID Date Data Source [id number] 09/21/2020 10:19:00 AM EST NATASHA ([facility]) Name Value Range Interpretation Code Description Data Dina rce(s) Supporting Document(s) syphilis nonreactive nonreactive Syphilis NATASHA ([facility]) ID Date Data Source [id number] 09/21/2020 10:19:00 AM EST [facility]) Name Value Range Interpretation Code Description Data Dina rce(s) Supporting Document(s) HBsAg negative negative HBsAg [facility]) ID Date Data Source [id number] 09/21/2020 10:19:00 AM EST [facility]) Name Value Range Interpretation Code Description Data Dina rce(s) Supporting Document(s) glucose challenge test 1 hour 97 mg/dL less than 140 Glucose Challenge Test 1 Hour NATASHA ([facility]) ID Date Data Source [id number] 09/21/2020 10:19:00 AM EST [facility]) Name Value Range Interpretation Code Description Data Dina rce(s) Supporting Document(s) hepatitis C virus marisol index < 0.0 <0.8 Hepatiti s C Virus Marisol Index [facility]) ID Date Data Source [id number] 09/21/2020 10:19:00 AM EST [facility]) Name Value Range Interpretation Code Description Data Dina rce(s) Supporting Document(s) estimated average glucose 94 mg/dL 60-110 Estimated Average Glucose NATASHA ([facility]) Hemoglobin A1c/Hemoglobin.total in Blood 4.9 % Hemoglobin a1C NATASHA ([facility]) ID Date Data Source [id number] 09/21/2020 10:19:00 AM EST NATASHA ([facility]) Name Value Range Interpretation Code Description Data Dina rce(s) Supporting Document(s) Ab screen pnp1 gel (vis) negative Ab Screen Pnp1 Gel (Vis) NATASHA ([facility]) blood type O positive Blood Type NATASHA ([facility]) ID Date Data Source [id number] 09/21/2020 10:19:00 AM EST NATASHA ([facility]) Name Value Range Interpretation Code Description Data Dina rce(s) Supporting Document(s) red blood count 4.33 10 4.00-5.40 Red Blood Count ATHE ([facility]) white blood count 6.6 10 4.0-10.0 White Blood Count NATASHA ([facility]) hemoglobin 11.9 g/dL 12.0-15.5 Below low normal Hemoglobin NATASHA ( [facility]) mean corpuscular volume 82.2 fL 80.0-96.0 Mean Corpusc ular Volume NATASHA ([facility]) hematocrit 35.6 % 36.0-47.0 Below low normal Hematocrit NATASHA ( [facility]) red cell distribution width 14.0 % 11.5-14.5 Red Cell Distribution Width NATASHA ([facility]) mean corpuscular hemoglobin 27.5 pg 27.0-33.0 Mean Cor puscular Hemoglobin NATASHA ([facility]) mean corpuscular HGB conc 33.4 g/dL 32.0-36.5 Mean Corpu scular HGB Conc NATASHA ([facility]) lymph % 30.5 % 24.0-44.0 Lymph % NATASHA ([facility]) mono % 7.2 % 0.0-5.[address] [place] % NATASHA ([facility]) platelet count, automated 302 10 150-450 Platelet C ount, Automated NATASHA ([facility]) neutrophils % 60.8 % 36.0-66.0 Neutrophils % NATASHA ( [facility]) baso % 0.3 % 0.0-1.0 Baso % NATASHA ([facility]) eos % 0.9 % 0.0-3.0 Eos % NATASHA ([facility]) immature granulocyte % 0.3 % 0-3.0 Immature Gran ulocyte % NATASHA ([facility]) nucleated red blood cell % 0.0 % 0-0 Nucleated Red Blood Cell % NATASHA ([facility]) eos # 0.1 10 0.0-0.5 Eos # NATASHA ([facility]) mono # 0.5 10 0.0-0.8 [place] # [facility] ([facility]) lymph # 2.0 10 1.5-5.0 Lymph # NATASHA ([facility]) neutrophils # 4.0 10 1.5-8.5 Neutrophils # NATASHA ( [facility]) baso # 0.0 10 0.0-0.2 Baso # NATASHA ([facility]) ID Date Data Source [id number] 09/21/2020 10:19:00 AM EST NATASHA ([facility]) Name Value Range Interpretation Code Description Data Dina rce(s) Supporting Document(s) HIV 1&2 screen centaur negative negative HIV 1&2 Scree n Centaur NATASHA ([facility]) ID Date Data Source [id number] 09/21/2020 10:19:00 AM EST NATASHA ([facility]) Name Value Range Interpretation Code Description Data Dina rce(s) Supporting Document(s) rubella IgG qualitative immune immune Rubella IgG Qualitative [facility] ([facility]) ID Date Data Source [id number] 09/21/2020 10:19:00 AM EST NATASHA ([facility]) Name Value Range Interpretation Code Description Data Dina rce(s) Supporting Document(s) syphilis nonreactive nonreactive Syphilis NATASHA ([facility]) ID Date Data Source [id number] 09/21/2020 10:19:00 AM EST NATASHA ([facility]) Name Value Range Interpretation Code Description Data Dina rce(s) Supporting Document(s) HBsAg negative negative HBsAg SECOND MESA ([facility]) ID Date Data Source [id number] 09/21/2020 10:19:00 AM EST [facility]A ([facility]) Name Value Range Interpretation Code Description Data Dina rce(s) Supporting Document(s) glucose challenge test 1 hour 97 mg/dL less than 140 Glucose Challenge Test 1 Hour [facility]ESA ([facility]) ID Date Data Source [id number] 09/21/2020 10:19:00 AM EST [facility]) Name Value Range Interpretation Code Description Data Dina rce(s) Supporting Document(s) hepatitis C virus marisol index < 0.0 <0.8 Hepatiti s C Virus Marisol Index [facility] ([facility]) ID Date Data Source [id number] 09/21/2020 10:19:00 AM EST [facility] ([facility]) Name Value Range Interpretation Code Description Data Dina rce(s) Supporting Document(s) Hemoglobin A1c/Hemoglobin.total in Blood 4.9 % Hemoglobin a1C [facility] ([facility]) estimated average glucose 94 mg/dL 60-110 Estimated Average Glucose [facility] ([facility]) ID Date Data Source [id number] 09/21/2020 10:19:00 AM EST [facility]) Name Value Range Interpretation Code Description Data Dina rce(s) Supporting Document(s) blood type O positive Blood Type NATASHA ([facility]) Ab screen pnp1 gel (vis) negative Ab Screen Pnp1 Gel (Vis) NATASHA ([facility]) ID Date Data Source [id number] 09/21/2020 10:19:00 AM EST NATASHA ([facility]) Name Value Range Interpretation Code Description Data Dina rce(s) Supporting Document(s) white blood count 6.6 10 4.0-10.0 White Blood Count NATASHA ([facility]) red blood count 4.33 10 4.00-5.40 Red Blood Count ATHE ([facility]) hematocrit 35.6 % 36.0-47.0 Below low normal Hematocrit NATASHA ( [facility]) hemoglobin 11.9 g/dL 12.0-15.5 Below low normal Hemoglobin NATASHA ( [facility]) mean corpuscular volume 82.2 fL 80.0-96.0 Mean Corpusc ular Volume NATASHA ([facility]) mean corpuscular HGB conc 33.4 g/dL 32.0-36.5 Mean Corpu scular HGB Conc NATASHA ([facility]) mean corpuscular hemoglobin 27.5 pg 27.0-33.0 Mean Cor puscular Hemoglobin NATASHA ([facility]) platelet count, automated 302 10 150-450 Platelet C ount, Automated NATASHA ([facility]) red cell distribution width 14.0 % 11.5-14.5 Red Cell Distribution Width NATASHA ([facility]) lymph % 30.5 % 24.0-44.0 Lymph % [facility]A ([facility]) mono % 7.2 % 0.0-5.[address] [place] % NATASHA ([facility]) neutrophils % 60.8 % 36.0-66.0 Neutrophils % NATASHA ( [facility]) baso % 0.3 % 0.0-1.0 Baso % NATASHA ([facility]) nucleated red blood cell % 0.0 % 0-0 Nucleated Red Blood Cell % NATASHA ([facility]) eos % 0.9 % 0.0-3.0 Eos % NATASHA ([facility]) immature granulocyte % 0.3 % 0-3.0 Immature Gran ulocyte % NATASHA ([facility]) mono # 0.5 10 0.0-0.8 [place] # NATASHA ([facility]) neutrophils # 4.0 10 1.5-8.5 Neutrophils # NATASHA ( [facility]) lymph # 2.0 10 1.5-5.0 Lymph # NATASHA ([facility]) baso # 0.0 10 0.0-0.2 Baso # NATASHA ([facility]) eos # 0.1 10 0.0-0.5 Eos # NATASHA ([facility]) ID Date Data Source [id number] 09/21/2020 09:18:00 AM EST NATASHA ([facility]) Name Value Range Interpretation Code Description Data Dina rce(s) Supporting Document(s) ID Date Data Source [id number] 09/21/2020 09:18:00 AM EST NATASHA ([facility]) Name Value Range Interpretation Code Description Data Dina rce(s) Supporting Document(s) ID Date Data Source [id number] 09/21/2020 09:18:00 AM EST NATASHA ([facility]) Name Value Range Interpretation Code Description Data Dina rce(s) Supporting Document(s) ID Date Data Source [id number] 09/21/2020 09:16:00 AM EST NATASHA ([facility]) Name Value Range Interpretation Code Description Data Dina rce(s) Supporting Document(s) chlamydia DNA amplification negative negative Chlamydi a DNA Amplification NATASHA ([facility]) GC DNA amplification negative negative GC DNA Amplific ation NATASHA ([facility]) ID Date Data Source [id number] 09/21/2020 09:16:00 AM EST NATASHA ([facility]) Name Value Range Interpretation Code Description Data Dina rce(s) Supporting Document(s) GC DNA amplification negative negative GC DNA Amplific ation NATASHA ([facility]) chlamydia DNA amplification negative negative Chlamydi a DNA Amplification [facility] ([facility]) ID Date Data Source [id number] 09/21/2020 09:16:00 AM EST NATASHA ([facility]) Name Value Range Interpretation Code Description Data Dina rce(s) Supporting Document(s) chlamydia DNA amplification negative negative Chlamydi a DNA Amplification NATASHA ([facility]) GC DNA amplification negative negative GC DNA Amplific ation [facility] ([facility]) ID Date Data Source [id number] 09/21/2020 12:00:00 AM EST eCW1 ([facility]) Name Value Range Interpretation Code Description Data Dina rce(s) Supporting Document(s) Hemoglobin A1c/Hemoglobin.total in Blood 4.9 eCW1 ([facility]) ID Date Data Source HEPATITIS C ANTIBODY INDEX 09/21/2020 12:00:00 AM EST eCW1 ( [facility]) Name Value Range Interpretation Code Description Data Dina rce(s) Supporting Document(s) < 0.0 <0.8 W1 ([facility]) ID Date Data Source RUBELLA IMMUNE STATUS IgG 09/21/2020 12:00:00 AM EST eCW1 ([facility]) Name Value Range Interpretation Code Description Data Dina rce(s) Supporting Document(s) IMMUNE IMMUNE eCW1 ([facility]) ID Date Data Source SYPHILIS ANTIBODY (RPR SCREEN) 09/21/2020 12:00:00 AM EST eC W1 ([facility]) Name Value Range Interpretation Code Description Data Dina rce(s) Supporting Document(s) NONREACTIVE NONREACTIVE eCW1 ([facility]) ID Date Data Source [id number] 09/21/2020 12:00:00 AM EST eCW1 ([facility]) Name Value Range Interpretation Code Description Data Dina rce(s) Supporting Document(s) eCW1 ([facility]) ID Date Data Source CHLAMYDIA & GC DNA AMPLIFICAT 09/21/2020 12:00:00 AM EST eCW 1 ([facility]) Name Value Range Interpretation Code Description Data Dina rce(s) Supporting Document(s) Chlamydia trachomatis rRNA [Presence] in Unspecified specimen by Probe and target amplification method NEGATIVE NEGATIVE eCW1 ([facility]) ID Date Data Source CBC with Differential 09/21/2020 12:00:00 AM EST eCW1 ([facility]) Name Value Range Interpretation Code Description Data Dina rce(s) Supporting Document(s) 82.2 80.0-96.0 eCW1 ([facility]) 11.9 12.0-15.5 eCW1 ([facility]) 6.6 4.0-10.0 eCW1 ([facility]) 4.33 4.00-5.40 eCW1 ([facility]) 35.6 36.0-47.0 eCW1 ([facility]) 33.4 32.0-36.5 eCW1 ([facility]) 14.0 11.5-14.5 eCW1 ([facility]) 302 150-450 eCW1 ([facility]) 27.5 27.0-33.0 eCW1 ([facility]) 60.8 36.0-66.0 eCW1 ([facility]) 30.5 24.0-44.0 eCW1 ([facility]) 7.2 0.0-5.0 eCW1 ([facility]) 0.3 0.0-1.0 eCW1 ([facility]) 0.9 0.0-3.0 eCW1 ([facility]) 0.1 0.0-0.5 eCW1 ([facility]) 0.5 0.0-0.8 eCW1 ([facility]) 2.0 1.5-5.0 eCW1 ([facility]) 0.0 0.0-0.2 eCW1 ([facility]) 4.0 1.5-8.5 eCW1 ([facility]) ID Date Data Source Type and Screen Prenatal1 09/21/2020 12:00:00 AM EST eCW1 ([facility]) Name Value Range Interpretation Code Description Data Dina rce(s) Supporting Document(s) NEGATIVE eCW1 ([facility]) ID Date Data Source Glucose Challenge Test 1 Hour 09/21/2020 12:00:00 AM EST eCW 1 ([facility]) Name Value Range Interpretation Code Description Data Dina rce(s) Supporting Document(s) 97 LESS THAN 140 eCW1 ([facility]) ID Date Data Source [id number] 09/21/2020 12:00:00 AM EST eCW1 ([facility]) Name Value Range Interpretation Code Description Data Dina rce(s) Supporting Document(s) NEGATIVE NEGATIVE eCW1 ([facility]) ID Date Data Source [id number] 08/18/2020 09:44:38 AM EDT [facility] Measurements & CalculationsHeight: 66 inches (5 ft. 6 in.) 167.64 cm Weight: 211.6 pounds 96.18 kg Body Mass Index (BMI): 34.28BMI Interpretation: ObeseBody Surface Area (BSA): 2.05Weight Management Education Done (Nutrition/Physical Activity)Vital SignsTemperature: 98.1FPulse Rate: 82 beats/minuteRespiratory Rate: 16 respirations/minuteBlood Pressure: 138/79 O2 Saturation: 99% Vital Signs performed by: Margarita Recinos MA, August 18, 2020 9:56 AMVital Signs performed by: Margarita Recinos MA, August 18, 2020 9:56 AMInitial Intake Information From: patientRoom #: 8Infectious Disease / Travel ScreeningRecent travel for you or any close contacts? NoHave you had any close contact with anyone diagnosed with or under investigation for COVID-19 (coronavirus)? NoFever? NoRespiratory symptoms: cough, cold, congestion, shortness of breath, difficulty breathing? NoLoss of smell? NoLoss of taste? NoSmoking, Tobacco, Vaping or Smoke Exposure StatusSmoke Status: never smokerTobacco Use: NoDo you vape? NoPassive Smoke Exposure: YesPassive Smoke Exposure comments: neighborsMenstrual HistoryLast Menstrual Period (LMP): 06/19/2020Any possibility of ? YesComments: pt is currently Healthcare HistorySince your last office visit...Have you been admitted to the hospital? No - gave in jul Have you been to an emergency room (ER) or urgent care clinic? No - [facility] Emergency room (ER) or urgent care date reported today: 04/23/2020Have you seen another healthcare provider? Yes [facility] you seen a [facility]? Yes - [facility] Intake performed by: Margarita Recinos MA, August 18, 2020 9:50 AMRate Your HealthIn general, would you say your health is? GoodPain AssessmentAre you currently having any pain which... You would like your provider to address? Yes Affects your activity level? YesDepression Screening - PHQ-2Over the last two weeks, have you... Had little interest or pleasure in doing things? Not at all Been feeling down, depressed, or hopeless? Not at all PHQ-2 Score: 0Anxiety Screening - DESIREE-2Over the last two weeks, have you been... Feeling nervous, anxious, o r on edge? Not at all Unable to stop or control worrying? Not at all DESIREE-2 Score: 0Food InsecurityWithin the past year...Did you worry whether your food would run out before you got money to buy more? Never trueWas there a time when the food you bought didn't last and you didn't have money to get more? Never truePain AssessmentPain ScaleNumeric Rating Scale: 8 / 10Location: righ shoulderDuration: chronicFrequency: DailyCharacter/Quality: aching, burning, dull and stabbingIs the pain radiating? YesTo what body part(s) is the pain radiating? down to fingersScreening, Brief Intervention, & Referral to Treatment (SBIRT)Pre-Screening Questions How many times have you have 4 or more drinks in a day? 0How many times have you used an illegal drug or used a prescription medication for a non-medical reason? 0Performed by: Margarita Recinos MA, August 18, 2020 9:52 AMPatient History Medical History:AsthmaAnemiaanxietydepressionSurgical History: section h2Crvgzaycwfylmamvkav teeth removedFamily History:No known family historySocial/Personal History: Chief Complaintfollow-up visit shoulder pain room 8History of Present Illness (HPI)24 YO female here for right should pain follow up. She was previously seen for this after an injury several years ago. Diagnosed with rotator cuff tendinitis in the past. Has been taking tylenol sporadically along with heat/ice. Pt states pain is not getting better. Pain starts in right shoulder and radiates down arm. Intermittent numbness/tingling without weakness after prolonged overhead movement and sleeping on right side. No neck pain.Pt states she is currently and is suffering from nausea. Able to keep food down sporadically. Not current taking anything for nausea. Not currently on vitamin. Has history of middle ear effusion. Has not been taking flonase or OTC antihistamine. Would like refills. Right ear has been sporadically pain. Does not feel ill. Has not tried anything OTC for it.Pt has an appt to establish with OB next week. Transitions of Care InboundProblem ReviewProblem List was reviewed and/or updated during this visit.Medication Reconciliation & ReviewMedication List was reviewed and/or updated during this visit, including review of any lubn-[id number] medications, herbal therapies, and/or supplements.Allergy ReviewAllergy List was reviewed and/or updated during this visit.Adult Preventive CareProvider C alculated and Reviewed all Clinical Protocols for patient today. Labs/Meds/Other Counseling-Nutrition and Physical Activity:BMI Interpretation: Obese (08/18/2020) Counseling: Done (08/18/2020) Physical Activity: Done (08/18/2020)Review of Systems General: Denies loss of appetite, chills, dizziness, fatigue, fever, sweats. Ears/Nose/Throat: Complains of earache. Denies ear discharge, ringing in ears, decreased hearing, nasal congestion, nosebleeds, runny nose, sore throat, hoarseness, difficulty swallowing, dry mouth, tooth pain, bleeding gums, swollen glands. Cardiovascular: Denies chest pain, palpitations, feeling faint, trouble breathing w/exertion, SOB upon lying down, SOB at night, peripheral edema, elevated blood pressure, decreased heart rate. Respiratory: Denies cough, difficulty breathing, shortness of breath, excessive sputum, coughing up blood, wheezing, chest pain. Gastrointestinal: Complains of nausea, vomiting, heartburn. Denies bleeding, burning, itching, irritation, cramps, diarrhea, bloody diarrhea, watery diarrhea, constipation, pain or discomfort, feeling any lumps or bumps, pain with BM, pain during receptive anal sex, change in bowel habits, fecal incontinence, abdominal pain, blood in stool, black or tarry stools, jaundice, urge to defecate. Musculoskeletal: Complains of joint pain. Physical ExamGeneral Appearance: well nourished, well hydrated, no acute distressExternal Ears: normal, no lesions or deformitiesHearing: grossly intactOtoscopy: canals clear, tympanic membranes intact, no fluid, light reflex intact bilaterallyNasal: mucosa, septum, and turbinates normal, nares patentPharynx: tongue normal, posterior pharynx without erythema or exudate, no thrush/aphthous ulcerNeck: bruit bilateral ? radiation from murmur, normal ROM.Respiratory, Auscultation: clear to auscultation bilaterally; no rales, rhonchi, or wheezesRespiratory, Effort: no intercostal retractions or use of accessory musclesCardiovascular, Auscultation: S1, S2 audible; no murmur, rub, or gallop; RRRAbdomen: soft, non-tender, no masses, bowel sounds normalHead & Neck: normal alignment and mobilityUpper Extremity, Right: Moderately limited ROM right shoulder with abduction, extension, flexion, and behind back. Strength 5/5 bilateral upper extremities. Neck with FROM. No central point tenderness.Cervical Nodes: no adenopathyMood & Affect: no depression, anxiety, or agitationCare Management Plan Transitions of CareInboundRate Your HealthIn general, would you say your health is? GoodAssessment & Plan Problems:Added: Otalgia, right ear (ICD-388.70) (ICD10- H92.01) Assessment: likely intermittent effusion. refill of flonase and claritin sent. follow up if not improving or worsening. (ICD-V22.2) (AIU69-Z49.1) Assessment: Counseled patient at length on cautions during early , medications and supplements to avoid. We will start a vitamin. Seeing OB next week. Discussed s/s that would warrant ED eval. We discussed OTC supplements and supportive care for nausea and vomiting... we will also try B6 prn for nausea. Patient expresses understanding to plan.Assessed:Pain in right shoulder (ICD-719.41) (LQQ93-V61.511) Assessment: will get into pt. discussed supportive care. educated pt on medications she is allowed to take during . we will trial topical medication.Assessment not Saved (CZG75-W96.1): Comment OnlyCounseled patient at length on cautions during early , medications and supplements to avoid. We will start a vitamin. Seeing OB next week. Discussed s/s that would warrant ED eval. We discussed OTC supplements and supportive care for nausea and vomiting... we will also try B6 prn for nausea. Patient expresses understanding to plan.Medications:ASPERCREME LIDOCAINE 4 % EXTERNAL PATCHVITAMIN B-6 25 MG O RAL TABLETPRENATAL ADULT GUMMY/DHA/FA 0.4-25 MG ORAL TABLET CHEWABLECLARITIN 10 MG ORAL CAPSULESYMBICORT 160-4.5 MCG/ACT INHALATION AEROSOLIBUPROFEN 200 MG ORAL CAPSULEFLONASE ALLERGY RELIEF 50 MCG/ACT NASAL SUSPENSIONVITAMIN D3 87966 UNIT ORAL TABLETVENTOLIN HFA 108 (90 BASE) MCG/ACT INHALATION AEROSOL SOLUTIONPROZAC 10 MG ORAL CAPSULEMedication Changes:Refilled:FLONASE ALLERGY RELIEF 50 MCG/ACT NASAL SUSPENSION-one spray to each nostril daily as needed Qty: 1[Milliliter] Refills: 2 Method: ElectronicNew Prescription:CLARITIN 10 MG ORAL CAPSULE-1 tablet once daily Qty: 30[Capsule] Refills: 0 Method: ElectronicPRENATAL ADULT GUMMY/DHA/FA 0.4-25 MG ORAL TABLET CHEWABLE-1 tablet once daily Qty: 30[Tablet] Refills: 1 Method: ElectronicVITAMIN B-6 25 MG ORAL TABLET-1/2 tablet up to 4 times per day as needed for nausea Qty: 60[Tablet] Refills: 0 Method: ElectronicASPERCREME LIDOCAINE 4 % EXTERNAL PATCH-apply 1 patch to shoulder for up to 12 hours a day, MAX 1 PATCH PER DAY Qty: 30[Patch] Refills: 0 Method: ElectronicASPERCREME LIDOCAINE 4 % EXTERNAL PATCH-apply 1 patch to shoulder for up to 12 hours a day, MAX 1 PATCH PER DAY Qty: 30[Patch] Refills: 0 Method: ElectronicRemoved:HYDROXYZINE HCL 50 MG ORAL TABLET-take one to two tablet by mouth three times daily as needed for increased anxiety. Qty: 120[Tablet] Refills: 2, TRAZODONE HCL 50 MG ORAL TABLET-take one tablet by mouth at beditme nightly as needed for insomnia Qty: 30[Tablet] Refills: 3Allergies:AMOXICILLIN (Critical)NEOSPORIN (Critical)* LATEX (Critical)* NUTS (Critical)Orders:Physical Therapy Consult [CPT-47311] Adult - Ofc Vst, EST, Level III [CPT-15600] Follow-Up Return to clinic: if symptoms persist Clinical Visit Summary DeclinedMedications:Cancelled TRAZODONE HCL 50 MG ORAL TABLET (TRAZODONE HCL) take one tablet by mouth at beditme nightly as needed for insomnia #30[Tablet] x 3 Route:ORAL Entered by: Luanne CALHOUN Authorized by: Lluvia FUENETS Method used: Electronically to [facility] (retail) [address] [place] [address] RxID: [id number] HYDROXYZINE HCL 50 MG ORAL TABLET (HYDROXYZINE HCL) take one to two tablet by mouth three times daily as needed for increased anxiety. #120[Tablet] x 2 Route:ORAL Entered by: Luanne CALHOUN Authorized by: Lluvia FUENTES Method used: Electronically to [facility] (retail) [address] [place] [address] RxID: [id number] LIDOCAINE 4 % EXTERNAL PATCH (LIDOCAINE) apply 1 patch to shoulder for up to 12 hours a day, MAX 1 PATCH PER DAY #30[Patch] x 0 Route:EXTERNAL Entered and Authorized by: Luanne CALHOUN Electr onically signed by: Luanne CALHOUN on 08/18/2020 Method used: Electronically to [facility] (retail) [address] [place] [address] Note to Pharmacy: Route: EXT; RxID: [id number] LIDOCAINE 4 % EXTERNAL PATCH (LIDOCAINE) apply 1 patch to shoulder for up to 12 hours a day, MAX 1 PATCH PER DAY #30[Patch] x 0 Route:EXTERNAL Entered and Authorized by: Luanne CALHOUN Method used: E lectronically to [facility] (retail) [address] [place] [address] Note to Pharmacy: Route: EXTERNAL; RxID: [id number] 25 MG ORAL TABLET (PYRIDOXINE HCL) 1/2 tablet up to 4 times per day as needed for nausea #60[Tablet] x 0 Route:ORAL Entered and Authorized by: Luanne CALHOUN Method used: Electronically to [facility] (retail) [address] [place] [address] Note to Pharmacy: Route: ORAL; RxID: [id number] ADULT GUMMY/DHA/FA 0.4-25 MG ORAL TABLET CHEWABLE ( MV & MIN W/FA-DHA) 1 tablet once daily #30[Tablet] x 1 Route:ORAL Entered and Authorized by: Luanne CALHOUN Method used: Electronically to [facility] (retail) [address] [place] [address] Note to Pharmacy: Route: ORAL; RxID: [id number] 10 MG ORAL CAPSULE (LORATADINE) 1 tablet once daily #30[Capsule] x 0 Route:ORAL Entered and Authorized by: Luanne CALHOUN Method used: Electronically to [facility] (retail) [address] [place] [address] Note to Pharmacy: Route: ORAL; RxID: [id number] ALLERGY RELIEF 50 MCG/ACT NASAL SUSPENSION (FLUTICASONE PROPIONATE) one spray to each nostril daily as needed #1[Milliliter] x 2 Route:NASAL Entered and Authorized by: Luanne CALHOUN Method used: Electronically to [facility] (retail) [address] [place] [address] Note to Pharmacy: Route: NASAL; Indications: OTALGIA, BILATERAL RxID: [id number] signed by Luanne CALHOUN on 08/18/2020 at 11:20 AM Name Value Range Interpretation Code Description Data Dina rce(s) Supporting Document(s) Procedure Social History Code Duration Value Status Description Data Source(s ) Smoking 06/14/2021 12:00:00 AM EDT Never Smoker completed Never S shashi eCW1 ([facility]) Smoking 04/21/2021 12:00:00 AM EDT Never Smoker completed Never S moker eCW1 ([facility]) Smoking 03/29/2021 12:00:00 AM EDT Never Smoker completed Never S moker eCW1 ([facility]) Smoking 03/29/2021 12:00:00 AM EDT Never Smoker completed Never S moker eCW1 ([facility]) Smoking 03/29/2021 12:00:00 AM EDT Never Smoker completed Never S moker eCW1 ([facility]) Smoking 03/29/2021 12:00:00 AM EDT Never Smoker completed Never S moker eCW1 ([facility]) Smoking 03/17/2021 12:00:00 AM EDT Never Smoker completed Never S moker eCW1 ([facility]) Smoking 03/04/2021 12:00:00 AM EDT Never Smoker completed Never S moker eCW1 ([facility]) Smoking 02/17/2021 12:00:00 AM EDT Never Smoker completed Never S moker eCW1 ([facility]) Smoking 02/17/2021 12:00:00 AM EDT Never Smoker completed Never S moker eCW1 ([facility]) Smoking 02/17/2021 12:00:00 AM EDT Never Smoker completed Never S moker eCW1 ([facility]) Smoking 01/25/2021 12:00:00 AM EDT Never Smoker completed Never S moker eCW1 ([facility]) Smoking 01/25/2021 12:00:00 AM EDT Never Smoker completed Never S moker eCW1 ([facility]) Smoking 01/25/2021 12:00:00 AM EDT Never Smoker completed Never S moker eCW1 ([facility]) Smoking 01/25/2021 12:00:00 AM EDT Never Smoker completed Never S moker eCW1 ([facility]) Smoking 01/25/2021 12:00:00 AM EDT Never Smoker completed Never S moker eCW1 [facility] [facility] Smoking 01/25/2021 12:00:00 AM EDT Never Smoker completed Never S moker eCW1 ([facility]) Smoking 01/24/2021 12:00:00 AM EDT Never Smoker completed Never S moker eCW1 ([facility]) Smoking 01/03/2021 12:00:00 AM EST Never Smoker completed Never S moker eCW1 ([facility]) Smoking 01/03/2021 12:00:00 AM EST Never Smoker completed Never S moker eCW1 ([facility]) Smoking 01/03/2021 12:00:00 AM EST Never Smoker completed Never S moker eCW1 ([facility]) Smoking 12/24/2020 12:00:00 AM EST Unknown if ever smoked comp leted Unknown if ever smoked [facility] ([facility]) Smoking 12/10/2020 12:00:00 AM EST Unknown if ever smoked comp leted Unknown if ever smoked [facility] ([facility]) Smoking 12/09/2020 12:00:00 AM EST Never Smoker completed Never S moker eCW1 ([facility]) Smoking 11/19/2020 12:00:00 AM EST Unknown if ever smoked comp leted Unknown if ever smoked [facility] ([facility]) Smoking 10/18/2020 12:00:00 AM EST Never Smoker completed Never S moker eCW1 ([facility]) Smoking 10/18/2020 12:00:00 AM EST Never Smoker completed Never S moker eCW1 ([facility]) Smoking 10/18/2020 12:00:00 AM EST Never Smoker completed Never S moker eCW1 ([facility]) Smoking 10/18/2020 12:00:00 AM EST Never Smoker completed Never S moker eCW1 ([facility]) Smoking 09/09/2020 12:00:00 AM EST Never Smoker completed Never S moker eCW1 ([facility]) Smoking 09/09/2020 12:00:00 AM EST Never Smoker completed Never S moker eCW1 ([facility]) Vital Signs ID Date Data Source UNK Name Value Range Interpretation Code Description Data Source(s) Body height 66 [in_i] 66 [in_i] NATASHA ([facility]) Body weight 208 [lb_av] 208 [lb_av] eCW1 ([facility]) Body mass index (BMI) [Ratio] 36.84 kg/m2 36.84 kg/m2 W1 ([facility]) Body height 63 [in_i] 63 [in_i] eCW1 ([facility]) Body weight 94.35 kg 94.35 kg eCW1 ([facility]) Systolic blood pressure 120 mm[Hg] 120 mm[Hg] e CW1 ([facility]) Diastolic blood pressure 70 mm[Hg] 70 mm[Hg] eCW1 ([facility]) Diastolic blood pressure 76 mm[Hg] 76 mm[Hg] NATASHA ([facility]) Body height 66 [in_i] 66 [in_i] NATASHA ([facility]) Body mass index (BMI) [Ratio] 33.4 kg/m2 33.4 k g/m2 NATASHA ([facility]) Systolic blood pressure 124 mm[Hg] 124 mm[Hg] A [facility] ([facility]) Body weight 3313 [oz_av] 3313 [oz_av] NATASHA ([facility]) Diastolic blood pressure 76 mm[Hg] 76 mm[Hg] NATASHA ([facility]) Body height 66 [in_i] 66 [in_i] NATASHA ([facility]) Body mass index (BMI) [Ratio] 33.4 kg/m2 33.4 k g/m2 NATASHA ([facility]) Systolic blood pressure 124 mm[Hg] 124 mm[Hg] A [facility] ([facility]) Body weight 3313 [oz_av] 3313 [oz_av] NATASHA ([facility]) Body mass index (BMI) [Ratio] 35.0 kg/m2 35.0 k g/m2 MEDENT ([facility]) Body height 63.25 [in_i] 63.25 [in_i] MEDENT ([facility]) 5'3.25" Body temperature 96.6 [degF] 96.6 [degF] MEDENT ([facility]) Body weight 199.00 [lb_av] 199.00 [lb_av] MEDEN T ([facility]) Diastolic blood pressure 85 mm[Hg] 85 mm[Hg] NATASHA ([facility]) Body height 66 [in_i] 66 [in_i] NATASHA ([facility]) Body mass index (BMI) [Ratio] 31.2 kg/m2 31.2 k g/m2 NATASHA ([facility]) Systolic blood pressure 126 mm[Hg] 126 mm[Hg] [facility] Body weight 3088 [oz_av] 3088 [oz_av] NATASHA ([facility]) Diastolic blood pressure 85 mm[Hg] 85 mm[Hg] NATASHA ([facility]) Body height 66 [in_i] 66 [in_i] NATASHA ([facility]) Body mass index (BMI) [Ratio] 31.2 kg/m2 31.2 k g/m2 NATASHA ([facility]) Systolic blood pressure 126 mm[Hg] 126 mm[Hg] A THENA ([facility]) Body weight 3088 [oz_av] 3088 [oz_av] NATASHA ([facility]) Diastolic blood pressure 85 mm[Hg] 85 mm[Hg] NATASHA ([facility]) Body height 66 [in_i] 66 [in_i] NATASHA ([facility]) Body mass index (BMI) [Ratio] 31.2 kg/m2 31.2 k g/m2 NATASHA ([facility]) Systolic blood pressure 126 mm[Hg] 126 mm[Hg] A THENA ([facility]) Body weight 3088 [oz_av] 3088 [oz_av] NATASHA ([facility]) Body weight 193 [lb_av] 193 [lb_av] eCW1 ([facility]) Body height 63 [in_i] 63 [in_i] eCW1 ([facility]) Body mass index (BMI) [Ratio] 34.18 kg/m2 34.18 kg/m2 eCW1 ([facility]) Systolic blood pressure 116 mm[Hg] 116 mm[Hg] e CW1 ([facility]) Diastolic blood pressure 74 mm[Hg] 74 mm[Hg] eCW1 ([facility]) Systolic blood pressure 114 mm[Hg] 114 mm[Hg] e CW1 ([facility]) Body weight 205 [lb_av] 205 [lb_av] eCW1 ([facility]) Body weight 92.99 kg 92.99 kg eCW1 ([facility]) Diastolic blood pressure 78 mm[Hg] 78 mm[Hg] eCW1 ([facility]) Body height 63 [in_i] 63 [in_i] eCW1 ([facility]) Body mass index (BMI) [Ratio] 36.314 kg/m2 36.3 14 kg/m2 eCW1 ([facility]) Body weight 208.8 [lb_av] 208.8 [lb_av] eCW1 ([facility]) Body height 63 [in_i] 63 [in_i] eCW1 ([facility]) Body mass index (BMI) [Ratio] 36.987 kg/m2 36.9 87 kg/m2 W1 ([facility]) Systolic blood pressure 114 mm[Hg] 114 mm[Hg] e CW1 ([facility]) Diastolic blood pressure 68 mm[Hg] 68 mm[Hg] eCW1 ([facility]) Body weight 207.8 [lb_av] 207.8 [lb_av] eCW1 ([facility]) Body height 63 [in_i] 63 [in_i] eCW1 ([facility]) Body mass index (BMI) [Ratio] 36.81 kg/m2 36.81 kg/m2 W1 ([facility]) Systolic blood pressure 120 mm[Hg] 120 mm[Hg] e CW1 ([facility]) Diastolic blood pressure 70 mm[Hg] 70 mm[Hg] eCW1 ([facility]) Body weight 203.8 [lb_av] 203.8 [lb_av] eCW1 ([facility]) Body height 63 [in_i] 63 [in_i] eCW1 ([facility]) Body mass index (BMI) [Ratio] 36.1 kg/m2 36.1 k g/m2 eCW1 ([facility]) Systolic blood pressure 116 mm[Hg] 116 mm[Hg] e CW1 ([facility]) Diastolic blood pressure 72 mm[Hg] 72 mm[Hg] eCW1 ([facility]) Body weight 206.6 [lb_av] 206.6 [lb_av] eCW1 ([facility]) Body weight 93.71 kg 93.71 kg eCW1 ([facility]) Body height 63 [in_i] 63 [in_i] eCW1 ([facility]) Body mass index (BMI) [Ratio] 36.598 kg/m2 36.5 98 kg/m2 eCW1 ([facility]) Systolic blood pressure 114 mm[Hg] 114 mm[Hg] e CW1 ([facility]) Diastolic blood pressure 70 mm[Hg] 70 mm[Hg] eCW1 ([facility]) Body weight 203.4 [lb_av] 203.4 [lb_av] eCW1 ([facility]) Body height 63 [in_i] 63 [in_i] eCW1 ([facility]) Body mass index (BMI) [Ratio] 36.031 kg/m2 36.0 31 kg/m2 eCW1 ([facility]) Systolic blood pressure 102 mm[Hg] 102 mm[Hg] e CW1 ([facility]) Diastolic blood pressure 66 mm[Hg] 66 mm[Hg] eCW1 ([facility]) Body weight 200.8 [lb_av] 200.8 [lb_av] eCW1 ([facility]) Body weight 91.08 kg 91.08 kg eCW1 ([facility]) Body height 63 [in_i] 63 [in_i] eCW1 ([facility]) Body mass index (BMI) [Ratio] 35.57 kg/m2 35.57 kg/m2 eCW1 ([facility]) Systolic blood pressure 126 mm[Hg] 126 mm[Hg] e CW1 ([facility]) Diastolic blood pressure 72 mm[Hg] 72 mm[Hg] eCW1 ([facility]) Body weight 206 [lb_av] 206 [lb_av] eCW1 ([facility]) Body weight 93.44 kg 93.44 kg eCW1 ([facility]) Body height 63 [in_i] 63 [in_i] eCW1 ([facility]) Body mass index (BMI) [Ratio] 36.49 kg/m2 36.49 kg/m2 W1 ([facility]) Systolic blood pressure 120 mm[Hg] 120 mm[Hg] e CW1 ([facility]) Diastolic blood pressure 70 mm[Hg] 70 mm[Hg] eCW1 ([facility]) Body weight 202.4 [lb_av] 202.4 [lb_av] eCW1 ([facility]) Body weight 91.81 kg 91.81 kg eCW1 ([facility]) Body height 63 [in_i] 63 [in_i] eCW1 ([facility]) Body mass index (BMI) [Ratio] 35.854 kg/m2 35.8 54 kg/m2 eCW1 ([facility]) Systolic blood pressure 118 mm[Hg] 118 mm[Hg] e CW1 ([facility]) Diastolic blood pressure 62 mm[Hg] 62 mm[Hg] eCW1 ([facility]) Body weight 199.2 [lb_av] 199.2 [lb_av] eCW1 ([facility]) Body weight 90.36 kg 90.36 kg eCW1 ([facility]) Body height 63 [in_i] 63 [in_i] eCW1 ([facility]) Body mass index (BMI) [Ratio] 35.287 kg/m2 35.2 87 kg/m2 eCW1 ([facility]) Systolic blood pressure 110 mm[Hg] 110 mm[Hg] e CW1 ([facility]) Diastolic blood pressure 68 mm[Hg] 68 mm[Hg] eCW1 ([facility]) Body weight 197 [lb_av] 197 [lb_av] eCW1 ([facility]) Body weight 89.36 kg 89.36 kg eCW1 ([facility]) Body height 63 [in_i] 63 [in_i] eCW1 ([facility]) Body mass index (BMI) [Ratio] 34.89 kg/m2 34.89 kg/m2 eCW1 ([facility]) Systolic blood pressure 106 mm[Hg] 106 mm[Hg] e CW1 ([facility]) Diastolic blood pressure 64 mm[Hg] 64 mm[Hg] eCW1 ([facility]) Diastolic blood pressure 60 mm[Hg] 60 mm[Hg] eCW1 ([facility]) Body weight 195.2 [lb_av] 195.2 [lb_av] eCW1 ([facility]) Body weight 88.54 kg 88.54 kg eCW1 ([facility]) Body height 63 [in_i] 63 [in_i] eCW1 ([facility]) Body mass index (BMI) [Ratio] 34.578 kg/m2 34.5 78 kg/m2 eCW1 ([facility]) Systolic blood pressure 120 mm[Hg] 120 mm[Hg] e CW1 ([facility]) Body weight 203 [lb_av] 203 [lb_av] eCW1 ([facility]) Body weight 92.08 kg 92.08 kg eCW1 ([facility]) Body height 63 [in_i] 63 [in_i] eCW1 ([facility]) Body mass index (BMI) [Ratio] 35.96 kg/m2 35.96 kg/m2 eCW1 ([facility]) Systolic blood pressure 112 mm[Hg] 112 mm[Hg] e CW1 ([facility]) Diastolic blood pressure 72 mm[Hg] 72 mm[Hg] eCW1 ([facility]) Diastolic blood pressure 79 mm[Hg] 79 mm[Hg] NATASHA ([facility]) Body height 66 [in_i] 66 [in_i] NATASHA ([facility]) Body mass index (BMI) [Ratio] 34.28 kg/m2 34.28 kg/m2 NATASHA ([facility]) Systolic blood pressure 138 mm[Hg] 138 mm[Hg] [facility] Body weight 3385.6 [oz_av] 3385.6 [oz_av] ATHEN A ([facility]) Diastolic blood pressure 79 mm[Hg] 79 mm[Hg] NATASHA ([facility]) Body height 66 [in_i] 66 [in_i] NATASHA ([facility]) Body mass index (BMI) [Ratio] 34.28 kg/m2 34.28 kg/m2 NATASHA ([facility]) Systolic blood pressure 138 mm[Hg] 138 mm[Hg] [facility] Body weight 3385.6 [oz_av] 3385.6 [oz_av] ATHEN A ([facility]) Diastolic blood pressure 79 mm[Hg] 79 mm[Hg] NATASHA ([facility]) Body height 66 [in_i] 66 [in_i] NATASHA ([facility]) Body mass index (BMI) [Ratio] 34.28 kg/m2 34.28 kg/m2 NATASHA ([facility]) Systolic blood pressure 138 mm[Hg] 138 mm[Hg] [facility] Body weight 3385.6 [oz_av] 3385.6 [oz_av] ATHEN A ([facility]) Patient Treatment Plan of Care Planned Activity Planned Date Details Description Data Source (s) Cephalexin 500 MG Oral Capsule 03/18/2021 12:00:00 AM EDT eCW1 ([facility]) Fluoxetine 40 MG Oral Capsule [Prozac] 10/18/2020 12:00:00 AM EST eCW1 ([facility]) Fluoxetine 40 MG Oral Capsule [Prozac] 10/18/2020 12:00:00 AM EST eCW1 ([facility]) Fluoxetine 40 MG Oral Capsule [Prozac] 10/18/2020 12:00:00 AM EST eCW1 ([facility]) Pyridoxine Hydrochloride 25 MG Oral Tablet NATASHA ([facility]) Trazodone Hydrochloride 50 MG Oral Tablet NATASHA ([facility]) Sulfamethoxazole 800 MG / Trimethoprim 160 MG Oral Tablet NATASHA ([facility]) Prednisone 10 MG Oral Tablet NATASHA ([facility]) Ondansetron 4 MG Oral Tablet NATASHA ([facility]) Ondansetron 4 MG Disintegrating Oral Tablet NATASHA ([facility]) Naproxen 500 MG Oral Tablet NATASHA ([facility]) methylprednisolone 4 mg tablets in a dose pack TAKE BY MOUTH DIR ECTED NATASHA ([facility]) Methocarbamol 500 MG Oral Tablet NATASHA ([facility]) meloxicam 15 MG Oral Tablet NATASHA ([facility]) Meclizine Hydrochloride 25 MG Oral Tablet NATASHA ([facility]) Loratadine 10 MG Oral Tablet NATASHA ([facility]) Ibuprofen 600 MG Oral Tablet NATASHA ([facility]) Hydroxyzine Hydrochloride 50 MG Oral Tablet NATASHA ([facility]) Fluoxetine 40 MG Oral Capsule NATASHA ([facility]) Fluoxetine 10 MG Oral Capsule NATASHA ([facility]) Dicyclomine Hydrochloride 20 MG Oral Tablet NATASHA ([facility]) Cyclobenzaprine hydrochloride 5 MG Oral Tablet NATASHA ([facility]) Cyclobenzaprine hydrochloride 10 MG Oral Tablet NATASHA ([facility]) Ciprofloxacin 500 MG Oral Tablet NATASHA ([facility]) Cephalexin 500 MG Oral Capsule NATASHA ([facility]) Aspercreme (lidocaine) 4 % topical patch APPLY 1 PATCH TO AFFECTED SHOULDER FOR UP TO 12 HOURS A DAY MAX OF 1 PATCH DAILY NATASHA ([facility]) Pyridoxine Hydrochloride 25 MG Oral Tablet NATASHA ([facility]) Trazodone Hydrochloride 50 MG Oral Tablet NATASHA ([facility]) Sulfamethoxazole 800 MG / Trimethoprim 160 MG Oral Tablet NATASHA ([facility]) Prednisone 10 MG Oral Tablet NATASHA ([facility]) Ondansetron 4 MG Oral Tablet NATASHA ([facility]) Ondansetron 4 MG Disintegrating Oral Tablet NATASHA ([facility]) Naproxen 500 MG Oral Tablet NATASHA ([facility]) methylprednisolone 4 mg tablets in a dose pack TAKE BY MOUTH DIR ECTED NATASHA ([facility]) Methocarbamol 500 MG Oral Tablet NATASHA ([facility]) meloxicam 15 MG Oral Tablet NATASHA ([facility]) Meclizine Hydrochloride 25 MG Oral Tablet NATASHA ([facility]) Loratadine 10 MG Oral Tablet NATASHA ([facility]) Pyridoxine Hydrochloride 25 MG Oral Tablet NATASHA ([facility]) Trazodone Hydrochloride 50 MG Oral Tablet NATASHA ([facility]) Sulfamethoxazole 800 MG / Trimethoprim 160 MG Oral Tablet NATASHA ([facility]) Sertraline 25 MG Oral Tablet NATASHA ([facility]) Prednisone 10 MG Oral Tablet NATASHA ([facility]) Ondansetron 4 MG Oral Tablet NATASHA ([facility]) Ondansetron 4 MG Disintegrating Oral Tablet NATASHA ([facility]) Naproxen 500 MG Oral Tablet NATASHA ([facility]) methylprednisolone 4 mg tablets in a dose pack TAKE BY MOUTH DIR ECTED NATASHA ([facility]) Methocarbamol 500 MG Oral Tablet NATASHA ([facility]) meloxicam 15 MG Oral Tablet NATASHA ([facility]) Meclizine Hydrochloride 25 MG Oral Tablet NATASHA ([facility]) Loratadine 10 MG Oral Tablet NATASHA ([facility]) Ibuprofen 600 MG Oral Tablet NATASHA ([facility]) Fluoxetine 40 MG Oral Capsule NATASHA ([facility]) Fluoxetine 10 MG Oral Capsule NATASHA ([facility]) Dicyclomine Hydrochloride 20 MG Oral Tablet NATASHA ([facility]) Cyclobenzaprine hydrochloride 5 MG Oral Tablet NATASHA ([facility]) Ciprofloxacin 500 MG Oral Tablet NATASHA ([facility]) Cephalexin 500 MG Oral Capsule NATASHA ([facility]) Aspercreme (lidocaine) 4 % topical patch APPLY 1 PATCH TO AFFECTED SHOULDER FOR UP TO 12 HOURS A DAY MAX OF 1 PATCH DAILY NATASHA ([facility]) Hydroxyzine Hydrochloride 50 MG Oral Tablet NATASHA ([facility]) Fluoxetine 40 MG Oral Capsule NATASHA ([facility]) Fluoxetine 10 MG Oral Capsule NATASHA ([facility]) Dicyclomine Hydrochloride 20 MG Oral Tablet NATASHA ([facility]) Cyclobenzaprine hydrochloride 5 MG Oral Tablet NATASHA ([facility]) Cyclobenzaprine hydrochloride 10 MG Oral Tablet NATASHA ([facility]) Ciprofloxacin 500 MG Oral Tablet NATASHA ([facility]) Cephalexin 500 MG Oral Capsule NATASHA ([facility]) Aspercreme (lidocaine) 4 % topical patch APPLY 1 PATCH TO AFFECTED SHOULDER FOR UP TO 12 HOURS A DAY MAX OF 1 PATCH DAILY NATASHA ([facility])
[2021-10-06 09:18] LABS: RSV AMPLIFICATION NEGATIVE (NEGATIVE)
[2021-10-06] MEDS ORDERED: NS 1,000 ML IV ONE (11:00)
[2021-10-06] MEDS ORDERED: ONDANSETRON 4MG/2ML VIAL IV ONE (11:00)
[2021-10-06] MEDS ORDERED: KETOROLAC 30 MG/ML 1ML VIAL IV ONE (11:00)
--- OUTSIDE RECORDS SUMMARY | 2021-10-06 11:17 | CCD ---
Author Author [facility] Organization [facility] Address Unknown Phone Unavailable Support Name Relationship Address Phone CRISTA BARRETT Next Of Kin [address] [facility] [address] [place] [address] CRISTA HOLLOWAY Next Of Kin [address] [facility] [address] [place] [address] Herson Young Next Of Kin Unknown Unavailable Lluvia Yao Next Of Kin [address] [place] [address] UN Next Of Kin Unknown Unavailable Alma Simpson Next Of Kin [address] [place], [place] [id number] GITA HORTONS Next Of Kin [address] [place] [address] [place] [address] HERSON YOUNG Next Of Kin [address] [place] [address] NOAH Next Of Kin [address] [place] [address] SIMON THORNE Next Of Kin [address] [address] NO ONE, [place] [address] Next Of Kin Unknown Unavailable HILTON MCINTOSH Next Of Kin [address] [place] [address] SHASHI ELAINE Next Of Kin Unknown SHASHI MUÑOZ Next Of Kin [address] [place] [address] SHASHI JENKINS Next Of Kin [address] [facility] [address] UE Next Of Kin Unknown Unavailable YOLIHERSON EDWARDS Next Of Kin [address] [place] [address] IVCKJAZIEL Carrington Next Of Kin [address] [place] [address] [place] [address] - DAYNAJAZIEL Josue Next Of Kin [address] [place] [address] DAYNAJAZ[place]EL ECON [address] [place] [address] [phone] HERSON YOUNG [address] [place] [address] Care Team Providers Care Flavoring Maker Name Role Phone Rohit, Lluvia BLOCK HACKER BLOCK HACKER Unavailable Unavailable Ted Mary MD Unavailable Unavailable Ted Mary MD Unavailable Unavailable Ted Mary MD Unavailable Unavailable Ted Mary MD Unavailable Unavailable Ted Mary MD Unavailable Unavailable Ted Mary MD Unavailable Unavailable Hurlock, A Lluvia BLOCK HACKER Unavailable Unavailable Hurlock, A Lluvia BLOCK HACKER Unavailable Unavailable Hurlock, A Lluvia BLOCK HACKER Unavailable Unavailable Hurlock, A Lluvia BLOCK HACKER Unavailable Unavailable Hurlock, A Lluvia BLOCK HACKER Unavailable Unavailable Hurlock, A Lluvia BLOCK HACKER Unavailable Unavailable Hurlock, A Lluvia BLOCK HACKER Unavailable Unavailable Hurlock, A Lluvia BLOCK HACKER Unavailable Unavailable Hurlock, A Lluvia BLOCK HACKER Unavailable Unavailable Hurlock, A Lluvia BLOCK HACKER Unavailable Unavailable Hurlock, A Lluvia BLOCK HACKER Unavailable Unavailable Hurlock, A Lluvia BLOCK HACKER Unavailable Unavailable Hurlock, A Lluvia BLOCK HACKER Unavailable Unavailable Hurlock, A Lluvia BLOCK HACKER Unavailable Unavailable Hurlock, A Lluvia BLOCK HACKER Unavailable Unavailable Hurlock, A Lluvia BLOCK HACKER Unavailable Unavailable Hurlock, A Lluvia BLOCK HACKER Unavailable Unavailable Hurlock, A Lluvia BLOCK HACKER Unavailable Unavailable Hurlock, A Lluvia BLOCK HACKER Unavailable Unavailable Rohit, A Lluvia BLOCK HACKER Unavailable Unavailable Hurlock, A Lluvia BLOCK HACKER Unavailable Unavailable Hurlock, A Lluvia BLOCK HACKER Unavailable Unavailable Hurlock, A Lluvia BLOCK HACKER Unavailable Unavailable Rohit, A Lluvia BLOCK HACKER Unavailable Unavailable Rohit, A Lluvia BLOCK HACKER Unavailable Unavailable Rohit, A Lluvia BLOCK HACKER Unavailable Unavailable Rohit, A Lluvia BLOCK HACKER Unavailable Unavailable Rohit, A Lluvia BLOCK HACKER Unavailable Unavailable Rohit, A Lluvia BLOCK HACKER Unavailable Unavailable Hurlock, A Lluvia BLOCK HACKER Unavailable Unavailable Hurlock, A Lluvia BLOCK HACKER Unavailable Unavailable Eve Quick Unavailable Rohit, A Lluvia BLOCK HACKER Unavailable Unavailable Hurlock, A Lluvia BLOCK HACKER Unavailable Unavailable Hurlock, A Lluvia BLOCK HACKER Unavailable Unavailable Hurlock, A Lluvia BLOCK HACKER Unavailable Unavailable Hurlock, A Lluvia BLOCK HACKER Unavailable Unavailable Hurlock, A Lluvia BLOCK HACKER Unavailable Unavailable Hurlock, A Lluvia BLOCK HACKER Unavailable Unavailable Hurlock, A Lluvia BLOCK HACKER Unavailable Unavailable Hurlock, A Lluvia BLOCK HACKER Unavailable Unavailable Hurlock, A Lluvia BLOCK HACKER Unavailable Unavailable Hurlock, A Lluvia BLOCK HACKER Unavailable Unavailable Hurlock, A Lluvia BLOCK HACKER Unavailable Unavailable Hurlock, A Lluvia BLOCK HACKER Unavailable Unavailable Hurlock, A Lluvia BLOCK HACKER Unavailable Unavailable Hurlock, A Lluvia BLOCK HACKER Unavailable Unavailable Hurlock, A Lluvia BLOCK HACKER Unavailable Unavailable Hurlock, A Lluvia BLOCK HACKER Unavailable Unavailable Hurlock, A Lluiva BLOCK HACKER Unavailable Unavailable Hurlock, A Lluvia BLOCK HACKER Unavailable Unavailable Hurlock, A Lluvia BLOCK HACKER Unavailable Unavailable Hurlock, A Lluvia BLOCK HACKER Unavailable Unavailable Hurlock, A Lluvia BLOCK HACKER Unavailable Unavailable Hurlock, A Lluvia BLOCK HACKER Unavailable Unavailable Hurlock, A Lulvia BLOCK HACKER Unavailable Unavailable Hurlock, A Lluvia BLOCK HACKER Unavailable Unavailable Hurlock, A Lluvia BLOCK HACKER Unavailable Unavailable Hurlock, A Lluvia BLOCK HACKER Unavailable Unavailable Hurlock, A Lluvia BLOCK HACKER Unavailable Unavailable Hurlock, A Lluvia BLOCK HACKER Unavailable Unavailable Hurlock, A Lluvia BLOCK HACKER Unavailable Unavailable Hurlock, A Lluvia BLOCK HACKER Unavailable Unavailable Maring, Gita PA Unavailable Unavailable Maring, Gita PA Unavailable Unavailable Maring, Gita PA Unavailable Unavailable Maring, Gita PA Unavailable Unavailable Maring, Gita PA Unavailable Unavailable Maring, Gita PA Unavailable Unavailable Maring, Gita PA Unavailable Unavailable Maring, Gita PA Unavailable Unavailable Maring, Gita PA Unavailable Unavailable Maring, Gtia PA Unavailable Unavailable Maring, Gita PA Unavailable [...] Unavailable Unavailable MCELHERAN, CAITLYN PA Unavailable Unavailable MCELHERFATUAM, CAITLYN PA Unavailable Unavailable MCELHERAN, CAITLYN PA [...] Patricia PA Unavailable Unavailable Rohit, Josue GruberLluvia BLOCK HACKER Unavailable Unavailable Rohit, Josue Lluvia BLOCK HACKER Unavailable Unavailable Rohit, A Lluvia BLOCK HACKER Unavailable Unavailable Rohit, A Lluvia BLOCK HACKER Unavailable Unavailable Rohit, A Lluvia BLOCK HACKER Unavailable Unavailable Rohit, A Lluvia BLOCK HACKER Unavailable Unavailable Rohit, A Lluvia BLOCK HACKER Unavailable Unavailable Rohit, A Lluvia BLOCK HACKER Unavailable Unavailable Rohit, A Lluvia BLOCK HACKER Unavailable Unavailable Rohit, A Lluvia BLOCK HACKER Unavailable Unavailable Rohit, A Lluvia BLOCK HACKER Unavailable Unavailable Rohit, A Lluvia BLOCK HACKER Unavailable Unavailable Rohit, A Lluvia BLOCK HACKER Unavailable Unavailable Rohit, A Lluvia BLOCK HACKER Unavailable Unavailable Rohit, A Lluvia BLOCK HACKER Unavailable Unavailable Rohit, A Lluvia BLOCK HACKER Unavailable Unavailable Rohit, A Lluvia BLOCK HACKER Unavailable Unavailable Rohit, A Lluvia BLOCK HACKER Unavailable Unavailable Rohit, A Lluvia BLOCK HACKER Unavailable Unavailable Rohit, A Lluvia BLOCK HACKER Unavailable Unavailable Rohit, A Lluvia BLOCK HACKER Unavailable Unavailable Rohit, A Lluvia BLOCK HACKER Unavailable Unavailable Rohit, A Lluvia BLOCK HACKER Unavailable Unavailable Rohit, A Lluvia BLOCK HACKER Unavailable Unavailable Rohit, A Lluvia BLOCK HACKER Unavailable Unavailable Rohit, A Lluvia BLOCK HACKER Unavailable Unavailable Rohit, A Lluvia BLOCK HACKER Unavailable Unavailable Rohit, A Lluvia BLOCK HACKER Unavailable Unavailable Rohit, A Lluvia BLOCK HACKER Unavailable Unavailable Rohit, A Lluvia BLOCK HACKER Unavailable Unavailable Rohit, A Lluvia BLOCK HACKER Unavailable Unavailable Clarissa Chamberlain Unavailable DRAZEK, I [...] Unavailable So, M Christopher PA-C Unavailable Unavailable Os, M Christopher PA-C Unavailable Unavailable So, M [...] is protected by Article 27-F of the [facility] Public Health law. If you continue you may have access to information: Regarding HIV / AIDS; Provided by facilities licensed or operated by the [facility] Office of Mental Health; or Provided by the [facility] Office for People With Developmental Disabilities. If such information is present, then the following [facility] mandated warning applies: This information has been [...] law may result in a fine or assisted sentence or both. A general authorization for the release of medical or other information is NOT sufficient authorization for further disc losure. Allergies and Adverse Reactions Type Description Substance Reaction Status Data Source(s ) Drug allergy PEROXIDE PEROXIDE [facility] Propensity to adverse reactions NEOSPORIN NEOSPORIN [facility] Propensity to adverse reactions MARYCRUZ MARYCRUZ [facility] Drug allergy NICKEL NICKEL [facility] Food allergy NUTS NUTS [facility] Propensity to adverse reactions LATEX LATEX RASH [facility] Propensity to adverse reactions Benzonatate benzonatate tongue swelling Unknown Active [facility] ([facility]) Family History Family Member Name Family Member Gender Family Member Status Date o f Status Description Data Source(s) Unknown Male Problem MEDENT ([facility]) Encounters Encounter Providers Location Date Indications Data Source(s ) Outpatient Attender: CAITLYN MARTNI PAConsultant: Tamir Bee BLOCK HACKER 09/28/2021 07:21:00 AM EST - 09/28/2021 08:21:00 AM [facility] Outpatient Attender: ADDI CALHOUN Physical Therapy 09/07/2021 1 0:00:00 AM EDT [facility] ([facility]) Office Visit Attender: CAITLYN CALHOUN Physical Therapy 08/31/2021 12:00:00 PM EDT [facility] ([facility]) OFFICE OUTPATIENT VISIT 15 MINUTES Attender: CAITLYN CALHOUN Physical Therapy 08/18/2021 08:00:00 AM EDT [facility] ([facility]) [facility] [address] [place] [address], Ph. Attender: Lluvia Bee [facility] Medical 08/03/2021 12:00:00 AM EDT NATASHA ([facility]) Outpatient Attender: CAITLYN CALHOUN Physical Therapy 07/21/2021 04:15:00 PM EDT [facility] ([facility]) Emergency Attender: Ted Mary MDConsultant: Lluvia bautista [facility] 06/19/2021 07:42:00 PM EDT - 06/19/2021 09:29:00 PM EDT [facility] Patient discharged. Outpatient Attender: Justin CALHOUN-C 06/19/2021 02:40:15 PM EDT - 06/19/2021 03:35:51 PM EDT [facility]ap ([facility]) (WC ESTOB) WCenter Est OB [address] [place] [address] 06/14/2021 12:00:00 AM EDT eCW1 ([facility]) Lluvia Bee [facility]: [address], [place] [address], Ph. Attender: Lluvia Bee [facility] Medical 06/10/2021 12:00:00 AM EDT NATASHA ([facility]) Lluvia Bee [facility]: [address], [place] [address], Ph. Attender: Lluvia Bee [facility] Medical 06/10/2021 12:00:00 AM EDT NATASHA ([facility]) OFFICE OUTPATIENT VISIT 15 MINUTES Attender: Herson Rosen hysical Therapy 05/17/2021 02:30:00 PM EDT MEDENT ([facility]) Outpatient Attender: Patricia CALHOUN 021 11:55:43 AM EDT - 05/14/2021 02:00:00 PM EDT [facility] ([facility] ) Outpatient Attender: Gita CALHOUN 05/10/20 05:00:43 PM EDT - 05/10/2021 05:18:14 PM EDT [facility] ([facility] ) [facility] [address], [place] [address], Ph. Attender: Lluvia Bee [facility] Medical 04/22/2021 12:00:00 AM EDT MARLETTE ([facility]) [facility] [address] [place] [address], Ph. Attender: Lluvia Bee [facility] Medical 04/22/2021 12:00:00 AM EDT MARLETTE ([facility]) [facility] [address] [place] [address], Ph. Attender: Lluvia Bee [facility] Medical 04/22/2021 12:00:00 AM EDT NATASHA ([facility]) ( ESTOB) enter Est OB [address] [place] [address] 04/21/2021 12:00:00 AM EDT eCW1 ([facility]) [place] [address] [facility] [address] 04/07/2021 12:00:00 AM EDT eCW1 ([facility]) ( ESTOB) WCenter Est OB [address] [place] [address] 03/29/2021 12:00:00 AM EDT eCW1 ([facility]) (WC ESTOB) WCenter Est OB [address] [place] [address] 03/21/2021 12:00:00 AM EDT eCW1 ([facility]) [place] [address] [facility] [address] 03/18/2021 12:00:00 AM EDT eCW1 ([facility]) (WC ESTOB) WCenter Est OB [address] [place] [address] 03/17/2021 12:00:00 AM EDT eCW1 ([facility]) (WC ESTOB) WCenter Est OB [address] [place] [address] 03/04/2021 12:00:00 AM EDT eCW1 ([facility]) [place] [address] [facility] [address] 02/24/2021 12:00:00 AM EDT eCW1 ([facility]) [place] [address] [facility] [address] 02/22/2021 12:00:00 AM EDT eCW1 ([facility]) (WC ESTOB) WCenter Est OB [address] [place] [address] 02/18/2021 12:00:00 AM EDT eCW1 ([facility]) [place] [address] [facility] [address] 02/14/2021 12:00:00 AM EDT eCW1 ([facility]) (WC ESTOB) WCenter Est OB [address] [place] [address] 02/04/2021 12:00:00 AM EDT eCW1 ([facility]) [place] [address] [facility] [address] 01/28/2021 12:00:00 AM EDT eCW1 ([facility]) (WC ESTOB) WCenter Est OB [address] [place] [address] 01/25/2021 12:00:00 AM EDT eCW1 ([facility]) [place] [address] [facility] [address] 01/25/2021 12:00:00 AM EDT eCW1 ([facility]) ( ESTOB) WCenter Est OB [address] [place] [address] 01/24/2021 12:00:00 AM EDT eCW1 ([facility]) [place] [address] [facility] [address] 01/21/2021 12:00:00 AM EDT eCW1 ([facility]) [place] [address] [facility] [address] 01/12/2021 12:00:00 AM EST eCW1 ([facility]) ( ESTOB) WCenter Est OB [address] [place] [address] 01/10/2021 12:00:00 AM EST eCW1 ([facility]) [place] [address] [facility] [address] 12/30/2020 12:00:00 AM EST eCW1 ([facility]) Extended Individual Psychotherapy - 45 min Attender: Nany Chamberlain [facility] 12/24/2020 03:00:00 AM EST - 12/24/2020 03:00:00 AM EST [facility] ([facility]) Attender: Clarissa Chamberlain 12/24/2020 12:00:00 AM EST [facility] ([facility]) ( ESTOB) enter Est OB [address] [place] [address] 12/13/2020 12:00:00 AM EST eCW1 ([facility]) [facility] ED Ricarda Eval no med Attender: Clarissa Chamberlain [facility] 12/10/2020 08:30:00 AM EST - 12/10/2020 08:30:00 AM EST [facility] ([facility]) Attender: Clarissa Chamberlain 12/10/2020 12:00:00 AM EST [facility] ([facility]) Extended Individual Psychotherapy - 45 min Attender: Lizzie Quick [facility] 11/19/2020 09:30:00 AM EST - 11/19/2020 09:30:00 AM EST [facility] ([facility]) Attender: Eve Quick 11/19/2020 12:00:00 AM EST [facility] ([facility]) ( ESTOB) [facility] Est OB [address] [place] [address] 11/16/2020 12:00:00 AM EST eCW1 ([facility]) ( [place]) [facility] Nurse Visit [address] [place] [address] 10/26/2020 12:00:00 AM EST eCW1 ([facility]) ( ESTOB) [facility] Est OB [address] [place] [address] 10/18/2020 12:00:00 AM EST eCW1 ([facility]) [place] [address] [facility] [address] 09/10/2020 12:00:00 AM EST eCW1 ([facility]) [place] [address] [facility] [address] 09/09/2020 12:00:00 AM EST eCW1 ([facility]) ( NEWOB) [facility] New OB Visit [address] [place] [address] 09/09/2020 12:00:00 AM EST eCW1 ([facility]) Outpatient Attender: Lluvia MCKEON 08/25/2020 07:4 0:59 AM EDT [facility] Outpatient Attender: ALFREDO MCKEON 08/18/2020 11:22:02 A M EDT [facility] Outpatient Attender: Lluvia MCKEON 08/18/2020 11:2 1:02 AM EDT [facility] Outpatient Attender: ALFREDO MCKEON 08/18/2020 09:14:00 A M EDT [facility] Outpatient Attender: Lluvia Bee BLOCK HACKER FP 08/16/2020 09:5 5:01 AM EDT [facility] Immunizations Vaccine Date Status Description Data Source(s) 10/26/2020 01:30:00 PM EST completed e CW1 ([facility]) 10/26/2020 01:30:00 PM EST completed e CW1 ([facility]) 10/26/2020 01:30:00 PM EST completed e CW1 ([facility]) 10/26/2020 01:30:00 PM EST completed e CW1 ([facility]) 10/26/2020 01:30:00 PM EST completed e CW1 ([facility]) 10/26/2020 01:30:00 PM EST completed e CW1 ([facility]) 10/26/2020 01:30:00 PM EST completed e CW1 ([facility]) 10/26/2020 01:30:00 PM EST completed e CW1 ([facility]) 10/26/2020 01:30:00 PM EST completed e CW1 ([facility]) 10/26/2020 01:30:00 PM EST completed e CW1 ([facility]) 10/26/2020 01:30:00 PM EST completed e CW1 ([facility]) 10/26/2020 01:30:00 PM EST completed e CW1 ([facility]) 10/26/2020 01:30:00 PM EST completed e CW1 ([facility]) 10/26/2020 01:30:00 PM EST completed e CW1 ([facility]) 10/26/2020 01:30:00 PM EST completed e CW1 ([facility]) 10/26/2020 01:30:00 PM EST completed e CW1 ([facility]) 10/26/2020 01:30:00 PM EST completed e CW1 ([facility]) 10/26/2020 01:30:00 PM EST completed e CW1 ([facility]) 10/26/2020 01:30:00 PM EST completed e CW1 ([facility]) 10/26/2020 01:30:00 PM EST completed e CW1 ([facility]) 10/26/2020 01:30:00 PM EST completed e CW1 ([facility]) 10/26/2020 01:30:00 PM EST completed e CW1 ([facility]) 10/26/2020 01:30:00 PM EST completed e CW1 ([facility]) 10/26/2020 01:30:00 PM EST completed e CW1 ([facility]) Medications Medication Brand Name Start Date Product Form Dose Route Admi nistrative Instructions Pharmacy Instructions Status Indications Reaction Description Data Source(s) meloxicam 7.5 MG Oral Tablet [Mobic] Mobic 09/07/2021 12:00:00 AM EDT ORAL active [facility] ([facility] ) Cephalexin 500 MG Oral Capsule Cephalexin 500 MG 03/18/2021 12:00:0 0 AM EDT 1.0 {capsule} suspended Cephalexin 500 M G eCW1 ([facility]) Cephalexin 500 MG Oral Capsule Cephalexin 500 MG 03/18/2021 12:00:0 0 AM EDT 1.0 {capsule} suspended eCW1 ([facility]) Cephalexin 500 MG Oral Capsule Cephalexin 500 MG 03/18/2021 12:00:0 0 AM EDT 1.0 {capsule} active Cephalexin 500 MG eCW1 ([facility]) Cephalexin 500 MG Oral Capsule Cephalexin 500 MG 03/18/2021 12:00:0 0 AM EDT 1.0 {capsule} suspended Cephalexin 500 M G eCW1 ([facility]) Cephalexin 500 MG Oral Capsule Cephalexin 500 MG 03/18/2021 12:00:0 0 AM EDT 1.0 {capsule} suspended Cephalexin 500 M G eCW1 ([facility]) Cephalexin 500 MG Oral Capsule Cephalexin 500 MG 03/18/2021 12:00:0 0 AM EDT 1.0 {capsule} suspended Cephalexin 500 M G eCW1 ([facility]) Cephalexin 500 MG Oral Capsule Cephalexin 500 MG 03/18/2021 12:00:0 0 AM EDT 1.0 {capsule} suspended Cephalexin 500 M G eCW1 ([facility]) 325 mg (65 mg iron) 01/22/2021 12:00:00 [...] Ferrous Sulfate 325 (65 Fe) MG eCW1 ([facility]) ferrous sulfate 325 MG Oral Tablet Ferrous Sulfate 325 (65 Fe) MG Ferrous Sulfate 325 (65 Fe) MG 01/21/2021 12:00:00 AM EDT 1.0 {tablet} active Ferrous Sulfate 325 (65 Fe) MG eCW1 ([facility]) ferrous sulfate 325 MG Oral Tablet Ferrous Sulfate 325 (65 Fe) MG Ferrous Sulfate 325 (65 Fe) MG 01/21/2021 12:00:00 AM EDT 1.0 {tablet} active Ferrous Sulfate 325 (65 Fe) MG eCW1 ([facility]) ferrous sulfate 325 MG Oral Tablet Ferrous Sulfate 325 (65 Fe) MG Ferrous Sulfate 325 (65 Fe) MG 01/21/2021 12:00:00 AM EDT 1.0 {tablet} active Ferrous Sulfate 325 (65 Fe) MG eCW1 ([facility]) ferrous sulfate 325 MG Oral Tablet Ferrous Sulfate 325 (65 Fe) MG Ferrous Sulfate 325 (65 Fe) MG 01/21/2021 12:00:00 AM EDT 1.0 {tablet} active Ferrous Sulfate 325 (65 Fe) MG eCW1 ([facility]) ferrous sulfate 325 MG Oral Tablet Ferrous Sulfate 325 (65 Fe) MG Ferrous Sulfate 325 (65 Fe) MG 01/21/2021 12:00:00 AM EDT 1.0 {tablet} active Ferrous Sulfate 325 (65 Fe) MG eCW1 ([facility]) ferrous sulfate 325 MG Oral Tablet Ferrous Sulfate 325 (65 Fe) MG Ferrous Sulfate 325 (65 Fe) MG 01/21/2021 12:00:00 AM EDT 1.0 {tablet} active Ferrous Sulfate 325 (65 Fe) MG eCW1 ([facility]) ferrous sulfate 325 MG Oral Tablet Ferrous Sulfate 325 (65 Fe) MG Ferrous Sulfate 325 (65 Fe) MG 01/21/2021 12:00:00 AM EDT 1.0 {tablet} active Ferrous Sulfate 325 (65 Fe) MG eCW1 ([facility]) ferrous sulfate 325 MG Oral Tablet Ferrous Sulfate 325 (65 Fe) MG Ferrous Sulfate 325 (65 Fe) MG 01/21/2021 12:00:00 AM EDT 1.0 {tablet} active Ferrous Sulfate 325 (65 Fe) MG eCW1 ([facility]) ferrous sulfate 325 MG Oral Tablet Ferrous Sulfate 325 (65 Fe) MG Ferrous Sulfate 325 (65 Fe) MG 01/21/2021 12:00:00 AM EDT 1.0 {tablet} active Ferrous Sulfate 325 (65 Fe) MG eCW1 ([facility]) ferrous sulfate 325 MG Oral Tablet Ferrous Sulfate 325 (65 Fe) MG Ferrous Sulfate 325 (65 Fe) MG 01/21/2021 12:00:00 AM EDT 1.0 {tablet} active Ferrous Sulfate 325 (65 Fe) MG eCW1 ([facility]) ferrous sulfate 325 MG Oral Tablet Ferrous Sulfate 325 (65 Fe) MG Ferrous Sulfate 325 (65 Fe) MG 01/21/2021 12:00:00 AM EDT 1.0 {tablet} active eCW1 ([facility]) ferrous sulfate 325 MG Oral Tablet Ferrous Sulfate 325 (65 Fe) MG Ferrous Sulfate 325 (65 Fe) MG 01/21/2021 12:00:00 AM EDT 1.0 {tablet} active Ferrous Sulfate 325 (65 Fe) MG eCW1 ([facility]) ferrous sulfate 325 MG Oral Tablet Ferrous Sulfate 325 (65 Fe) MG Ferrous Sulfate 325 (65 Fe) MG 01/21/2021 12:00:00 AM EDT 1.0 {tablet} active Ferrous Sulfate 325 (65 Fe) MG eCW1 ([facility]) ferrous sulfate 325 MG Oral Tablet Ferrous Sulfate 325 (65 Fe) MG Ferrous Sulfate 325 (65 Fe) MG 01/21/2021 12:00:00 AM EDT 1.0 {tablet} active Ferrous Sulfate 325 (65 Fe) MG eCW1 ([facility]) ferrous sulfate 325 MG Oral Tablet Ferrous Sulfate 325 (65 Fe) MG Ferrous Sulfate 325 (65 Fe) MG 01/21/2021 12:00:00 AM EDT 1.0 {tablet} active Ferrous Sulfate 325 (65 Fe) MG eCW1 ([facility]) ferrous sulfate 325 MG Oral Tablet Ferrous Sulfate 325 (65 Fe) MG Ferrous Sulfate 325 (65 Fe) MG 01/21/2021 12:00:00 AM EDT 1.0 {tablet} active Ferrous Sulfate 325 (65 Fe) MG eCW1 ([facility]) ferrous sulfate 325 MG Oral Tablet Ferrous Sulfate 325 (65 Fe) MG Ferrous Sulfate 325 (65 Fe) MG 01/21/2021 12:00:00 AM EDT 1.0 {tablet} active Ferrous Sulfate 325 (65 Fe) MG eCW1 ([facility]) 4 mg 11/18/2020 12:00:00 AM EST tablet [...] 1.0 {capsule} suspended PROzac 40 MG eCW1 ([facility]) Fluoxetine 40 MG Oral Capsule [Prozac] PROzac 40 MG PROzac 4 0 MG 10/18/2020 12:00:00 AM EST 1.0 {capsule} active P ROzac 40 MG eCW1 ([facility]) Fluoxetine 40 MG Oral Capsule [Prozac] PROzac 40 MG PROzac 4 0 MG 10/18/2020 12:00:00 AM EST 1.0 {capsule} active P ROzac 40 MG eCW1 ([facility]) Fluoxetine 40 MG Oral Capsule [Prozac] PROzac 40 MG PROzac 4 0 MG 10/18/2020 12:00:00 AM EST 1.0 {capsule} suspended PROzac 40 MG eCW1 ([facility]) Fluoxetine 40 MG Oral Capsule [Prozac] PROzac 40 MG PROzac 4 0 MG 10/18/2020 12:00:00 AM EST 1.0 {capsule} active P ROzac 40 MG eCW1 ([facility]) Fluoxetine 40 MG Oral Capsule [Prozac] PROzac 40 MG PROzac 4 0 MG 10/18/2020 12:00:00 AM EST 1.0 {capsule} suspended PROzac 40 MG eCW1 ([facility]) Fluoxetine 40 MG Oral Capsule [Prozac] PROzac 40 MG PROzac 4 0 MG 10/18/2020 12:00:00 AM EST 1.0 {capsule} suspended PROzac 40 MG eCW1 ([facility]) 40 mg 10/18/2020 12:00:00 AM EST capsule [...] 1.0 {capsule} suspended PROzac 40 MG eCW1 ([facility]) Fluoxetine 40 MG Oral Capsule [Prozac] PROzac 40 MG PROzac 4 0 MG 10/18/2020 12:00:00 AM EST 1.0 {capsule} suspended PROzac 40 MG eCW1 ([facility]) Fluoxetine 40 MG Oral Capsule [Prozac] PROzac 40 MG PROzac 4 0 MG 10/18/2020 12:00:00 AM EST 1.0 {capsule} suspended PROzac 40 MG eCW1 ([facility]) 40 mg 10/18/2020 12:00:00 AM EST capsule 30 TAKE 1 CAPSULE BY MOUTH ONCE A DAY TAKE 1 CAPSULE BY MOUTH ONCE A DAY SOLD: 11/16/2020 [facility] Fluoxetine 40 MG Oral Capsule [Prozac] PROzac 40 MG PROzac 4 0 MG 10/18/2020 12:00:00 AM EST 1.0 {capsule} suspended PROzac 40 MG eCW1 ([facility]) Fluoxetine 40 MG Oral Capsule [Prozac] PROzac 40 MG PROzac 4 0 MG 10/18/2020 12:00:00 AM EST 1.0 {capsule} suspended PROzac 40 MG eCW1 ([facility]) Fluoxetine 40 MG Oral Capsule [Prozac] PROzac 40 MG PROzac 4 0 MG 10/18/2020 12:00:00 AM EST 1.0 {capsule} suspended PROzac 40 MG eCW1 ([facility]) Fluoxetine 40 MG Oral Capsule [Prozac] PROzac 40 MG PROzac 4 0 MG 10/18/2020 12:00:00 AM EST 1.0 {capsule} suspended PROzac 40 MG eCW1 ([facility]) Fluoxetine 40 MG Oral Capsule [Prozac] PROzac 40 MG PROzac 4 0 MG 10/18/2020 12:00:00 AM EST 1.0 {capsule} suspended PROzac 40 MG eCW1 ([facility]) Fluoxetine 40 MG Oral Capsule [Prozac] PROzac 40 MG PROzac 4 0 MG 10/18/2020 12:00:00 AM EST 1.0 {capsule} suspended PROzac 40 MG eCW1 ([facility]) 40 mg 10/18/2020 12:00:00 AM EST capsule 30 TAKE 1 CAPSULE BY MOUTH ONCE A DAY TAKE 1 CAPSULE BY MOUTH ONCE A DAY SOLD: 02/23/2021 [facility] Fluoxetine 40 MG Oral Capsule [Prozac] PROzac 40 MG PROzac 4 0 MG 10/18/2020 12:00:00 AM EST 1.0 {capsule} suspended PROzac 40 MG eCW1 ([facility]) Fluoxetine 40 MG Oral Capsule [Prozac] PROzac 40 MG PROzac 4 0 MG 10/18/2020 12:00:00 AM EST 1.0 {capsule} active P ROzac 40 MG eCW1 ([facility]) Fluoxetine 40 MG Oral Capsule [Prozac] PROzac 40 MG PROzac 4 0 MG 10/18/2020 12:00:00 AM EST 1.0 {capsule} suspended PROzac 40 MG eCW1 ([facility]) Fluoxetine 40 MG Oral Capsule [Prozac] PROzac 40 MG PROzac 4 0 MG 10/18/2020 12:00:00 AM EST 1.0 {capsule} suspended PROzac 40 MG eCW1 ([facility]) 90 mcg/actuation 10/08/2020 12:00:00 AM EST HFA [...] a dose pack TAKE BY MOUTH DIRECTED [id number] completed methylpredniso lone 4 mg tablets in a dose pack NATASHA ([facility]) Methocarbamol 500 MG Oral Tablet methoca rbamol 500 mg tablet TAKE ONE TABLET BY MOUTH THREE TIMES A DAY methocarbamol 500 mg tablet TAKE ONE TAB LET BY MOUTH THREE TIMES A DAY completed meth ocarbamol 500 MG Oral Tablet NATASHA ([facility]) Hydroxyzine Hydrochloride 50 MG Oral Tab let hydroxyzine HCl 50 mg tablet TAKE 1 2 TABLETS BY MOUTH THREE TIMES A DAY NEEDED FOR INCREASED ANXIETY hydroxyzine HCl 50 mg tablet TAKE 1 2 TABLETS BY MOUTH THREE TIMES A DAY NEEDED FOR INCREASED ANXIETY completed hydroxyzine hydrochloride 50 MG Oral Tablet NATASHA ([facility]) Ibuprofen 600 MG Oral Tablet ibuprofen 6 00 mg tablet TAKE ONE TABLET BY MOUTH EVERY 6 HOURS NEEDED FOR PAIN ibuprofen 600 mg tablet TAKE ONE TABLET BY MOUTH EVERY 6 HOURS NEEDED FOR PAIN completed ibuprofen 600 MG Oral Tablet NATASHA ([facility]) Loratadine 10 MG Oral Tablet loratadine 10 mg tablet TAKE 1 TABLET BY MOUTH ONCE DAILY loratadine 10 mg tablet TAKE 1 TABLET BY MOUTH ONCE DAILY completed loratadine 10 MG Oral Tablet ATH [facility] ([facility]) Naproxen 500 MG Oral Tablet naproxen 500 mg tablet TAKE ONE TABLET BY MOUTH TWO TIMES A DAY WITH FOOD naproxen 500 mg tablet TAKE ONE TABLET B Y MOUTH TWO TIMES A DAY WITH FOOD completed naprox en 500 MG Oral Tablet MARLETTE ([facility]) Cyclobenzaprine hydrochloride 10 MG Oral Tablet cyclobenzaprine 10 mg tablet TAKE ONE TABLET BY MOUTH THREE TIMES A DAY NEEDED SPASM cyclobenzaprine 10 mg tablet TAKE ONE TABLET BY MOUTH THREE TIMES A DAY NEEDED SPASM completed cyclobenzaprine hydrochloride 10 MG Oral Tablet MARLETTE ([facility]) Fluoxetine 10 MG Oral Capsule fluoxetine 10 mg capsule TAKE 1 CAPSULE BY MOUTH DAILY fluoxetine 10 mg capsule TAKE 1 CAPSULE BY MOUTH DAILY completed fluoxetine 10 MG Oral Capsule AT [facility]) Prednisone 10 MG Oral Tablet prednisone 10 mg tablet TAKE 40MG 4 TABLETS BY MOUTH ONCE DAILY AND DECREASE BY 10MG 1 TABLET DAILY EVERY 3 DAYS prednisone 10 mg tablet TAKE 40MG 4 TABLETS BY MOUTH ONCE DAILY AND DECREASE BY 10MG 1 TABLET DAILY EVERY 3 DAYS completed prednisone 10 MG Oral Tablet MARLETTE ([facility]) Fluoxetine 10 MG Oral Capsule fluoxetine 10 mg capsule TAKE 1 CAPSULE BY MOUTH DAILY fluoxetine 10 mg capsule TAKE 1 CAPSULE BY MOUTH DAILY completed fluoxetine 10 MG Oral Capsule AT [facility]) Fluoxetine 10 MG Oral Capsule fluoxetine 10 mg capsule TAKE 1 CAPSULE BY MOUTH DAILY fluoxetine 10 mg capsule TAKE 1 CAPSULE BY MOUTH DAILY completed fluoxetine 10 MG Oral Capsule AT [facility] ([facility]) Pyridoxine Hydrochloride 25 MG Oral Tabl et Vitamin B-6 25 mg tablet TAKE 1/2 TABLET BY MOUTH UP TO FOUR TIMES A DAY NEEDED FOR NAUSEA Vitamin B-6 25 mg tablet TAKE 1/2 TABLET BY MOUTH UP TO FOUR TIMES A DAY NEEDED FOR NAUSEA completed pyridoxine hydrochlori de 25 MG Oral Tablet NATASHA ([facility]) Fluoxetine 40 MG Oral Capsule fluoxetine 40 mg capsule TAKE ONE CAPSULE BY MOUTH EVERY DAY fluoxetine 40 mg capsule TAKE ONE CAPSULE BY MOUTH EVERY DAY completed fluoxetine 40 MG Oral Cap spike NATASHA ([facility]) Sertraline 25 MG Oral Tablet sertraline 25 mg tablet TAKE ONE TABLET BY MOUTH EVERY DAY sertraline 25 mg tablet TAKE ONE TABLET BY MOUTH EVERY DAY completed sertraline 25 MG Oral Tablet NATASHA ([facility]) meloxicam 15 MG Oral Tablet meloxicam 15 mg tablet TAKE ONE TABLET BY MOUTH EVERY DAY WITH FOOD OR MILK meloxicam 15 mg tablet TAKE ONE TABLET B Y MOUTH EVERY DAY WITH FOOD OR MILK completed meloxicam 15 MG Oral Tablet NATASHA ([facility]) Naproxen 500 MG Oral Tablet naproxen 500 mg tablet TAKE ONE TABLET BY MOUTH TWO TIMES A DAY WITH FOOD naproxen 500 mg tablet TAKE ONE TABLET B Y MOUTH TWO TIMES A DAY WITH FOOD completed naprox en 500 MG Oral Tablet NATASHA ([facility]) Ondansetron 4 MG Disintegrating Oral Tab let ondansetron 4 mg disintegrating tablet TAKE 1 TABLET BY MOUTH EVERY 4 TO 6 HOURS NEEDED FOR NAUSEA AND VOMITING ondansetron 4 mg disintegrating tablet T CECILIO 1 TABLET BY MOUTH EVERY 4 TO 6 HOURS NEEDED FOR NAUSEA AND VOMITING completed ondansetron 4 MG Disintegrating Oral Tablet NATASHA ([facility]) Aspercreme (lidocaine) 4 % topical patch APPLY 1 PATCH TO AFFECTED SHOULDER FOR UP TO 12 HOURS A DAY MAX OF 1 PATCH DAILY [id number] completed lidocaine 0.04 MG/MG Medicated Patch NATASHA ([facility]) Fluoxetine 40 MG Oral Capsule fluoxetine 40 mg capsule TAKE ONE CAPSULE BY MOUTH EVERY DAY fluoxetine 40 mg capsule TAKE ONE CAPSULE BY MOUTH EVERY DAY completed fluoxetine 40 MG Oral Cap spike NATASHA ([facility]) Cephalexin 500 MG Oral Capsule cephalexi n 500 mg capsule TAKE ONE CAPSULE BY MOUTH EVERY 6 HOURS FOR 10 DAYS cephalexin 500 mg capsule TAKE ONE CAPSU LE BY MOUTH EVERY 6 HOURS FOR 10 DAYS comple ryan cephalexin 500 MG Oral Capsule NATASHA ([facility]) Hydroxyzine Hydrochloride 50 MG Oral Tab let hydroxyzine HCl 50 mg tablet TAKE 1 2 TABLETS BY MOUTH THREE TIMES A DAY NEEDED FOR INCREASED ANXIETY hydroxyzine HCl 50 mg tablet TAKE 1 2 TABLETS BY MOUTH THREE TIMES A DAY NEEDED FOR INCREASED ANXIETY completed hydroxyzine hydrochloride 50 MG Oral Tablet NATASHA ([facility]) Trazodone Hydrochloride 50 MG Oral Table t trazodone 50 mg tablet TAKE 1 TABLET BY MOUTH NIGHTLY AT BEDTIME NEEDED FOR INSOMNIA trazodone 50 mg tablet TAKE 1 TABLET BY MOUTH NIGHTLY AT BEDTIME NEEDED FOR INSOMNIA completed trazodone hydrochloride 50 MG Or al Tablet NATASHA ([facility]) Meclizine Hydrochloride 25 MG Oral Table t meclizine 25 mg tablet TAKE ONE TABLET BY MOUTH THREE TIMES A DAY NEEDED meclizine 25 mg tablet TAKE ONE TABLET B Y MOUTH THREE TIMES A DAY NEEDED comp leted meclizine hydrochloride 25 MG Oral Tablet NATASHA ([facility]) Methocarbamol 500 MG Oral Tablet methoca rbamol 500 mg tablet TAKE ONE TABLET BY MOUTH THREE TIMES A DAY methocarbamol 500 mg tablet TAKE ONE TAB LET BY MOUTH THREE TIMES A DAY completed meth ocarbamol 500 MG Oral Tablet NATASHA ([facility]) Ciprofloxacin 500 MG Oral Tablet ciprofloxacin 500 mg tablet ciprofloxacin 500 mg tablet completed ciprofloxaci n 500 MG Oral Tablet NATASHA ([facility]) Cyclobenzaprine hydrochloride 10 MG Oral Tablet cyclobenzaprine 10 mg tablet TAKE ONE TABLET BY MOUTH THREE TIMES A DAY NEEDED SPASM cyclobenzaprine 10 mg tablet TAKE ONE TABLET BY MOUTH THREE TIMES A DAY NEEDED SPASM completed cyclobenzaprine hydrochloride 10 MG Oral Tablet NATASHA ([facility]) Dicyclomine Hydrochloride 20 MG Oral Tab let dicyclomine 20 mg tablet TAKE ONE TABLET BY MOUTH TWICE A DAY FOR CRAMPING / DIARRHEA dicyclomine 20 mg tablet TAKE ONE TABLET BY MOUTH TWICE A DAY FOR CRAMPING / DIARRHEA completed dicyclomine hydrochloride 20 MG Oral Tablet NATASHA ([facility]) Loratadine 10 MG Oral Tablet loratadine 10 mg tablet TAKE 1 TABLET BY MOUTH ONCE DAILY loratadine 10 mg tablet TAKE 1 TABLET BY MOUTH ONCE DAILY completed loratadine 10 MG Oral Tablet ATH [facility] ([facility]) Aspercreme (lidocaine) 4 % topical patch APPLY 1 PATCH TO AFFECTED SHOULDER FOR UP TO 12 HOURS A DAY MAX OF 1 PATCH DAILY [id number] completed lidocaine 0.04 MG/MG Medicated Patch NATASHA ([facility]) methylprednisolone 4 mg tablets in a dose pack TAKE BY MOUTH DIRECTED [id number] completed methylpredniso lone 4 mg tablets in a dose pack NATASHA ([facility]) Pyridoxine Hydrochloride 25 MG Oral Tabl et Vitamin B-6 25 mg tablet TAKE 1/2 TABLET BY MOUTH UP TO FOUR TIMES A DAY NEEDED FOR NAUSEA Vitamin B-6 25 mg tablet TAKE 1/2 TABLET BY MOUTH UP TO FOUR TIMES A DAY NEEDED FOR NAUSEA completed pyridoxine hydrochlori de 25 MG Oral Tablet NATASHA ([facility]) Ibuprofen 600 MG Oral Tablet ibuprofen 6 00 mg tablet TAKE ONE TABLET BY MOUTH EVERY 6 HOURS NEEDED FOR PAIN ibuprofen 600 mg tablet TAKE ONE TABLET BY MOUTH EVERY 6 HOURS NEEDED FOR PAIN completed ibuprofen 600 MG Oral Tablet NATASHA ([facility]) Fluoxetine 40 MG Oral Capsule fluoxetine 40 mg capsule TAKE ONE CAPSULE BY MOUTH EVERY DAY fluoxetine 40 mg capsule TAKE ONE CAPSULE BY MOUTH EVERY DAY completed fluoxetine 40 MG Oral Cap spike NATASHA ([facility]) Cephalexin 500 MG Oral Capsule cephalexi n 500 mg capsule TAKE ONE CAPSULE BY MOUTH EVERY 6 HOURS FOR 10 DAYS cephalexin 500 mg capsule TAKE ONE CAPSU LE BY MOUTH EVERY 6 HOURS FOR 10 DAYS comple ryan cephalexin 500 MG Oral Capsule NATASHA ([facility]) Ciprofloxacin 500 MG Oral Tablet ciprofloxacin 500 mg tablet ciprofloxacin 500 mg tablet completed ciprofloxaci n 500 MG Oral Tablet NATASHA ([facility]) Sulfamethoxazole 800 MG / Trimethoprim 1 60 MG Oral Tablet sulfamethoxazole 800 mg-trimethoprim 160 mg tablet TAKE ONE TABLET BY MOUTH EVERY 12 HOURS sulfamethoxazole 800 mg-trimethoprim 160 mg tablet TAKE ONE TABLET BY MOUTH EVERY 12 HOURS completed sulfamethoxazole 800 MG / trimethoprim 160 MG Oral Tablet NATASHA ([facility]) Ondansetron 4 MG Oral Tablet ondansetron HCl 4 mg tabl et ondansetron HCl 4 mg tablet completed ondansetron 4 M G Oral Tablet NATASHA ([facility]) Cyclobenzaprine hydrochloride 5 MG Oral Tablet cyclobenzaprine 5 mg tablet TAKE 1 TABLET 5MG BY MOUTH THREE TIMES A DAY NEEDED FOR MUSCLE SPASMS cyclobenzaprine 5 mg tablet TAKE 1 TABLET 5MG BY MOUTH THREE TIMES A DAY NEEDED FOR MUSCLE SPASMS completed cyclobenzaprine hydrochloride 5 MG Oral Tablet NATASHA ([facility]) Cephalexin 500 MG Oral Capsule cephalexi n 500 mg capsule TAKE ONE CAPSULE BY MOUTH EVERY 6 HOURS FOR 10 DAYS cephalexin 500 mg capsule TAKE ONE CAPSU LE BY MOUTH EVERY 6 HOURS FOR 10 DAYS comple ryan cephalexin 500 MG Oral Capsule NATASHA ([facility]) Naproxen 500 MG Oral Tablet naproxen 500 mg tablet TAKE ONE TABLET BY MOUTH TWO TIMES A DAY WITH FOOD naproxen 500 mg tablet TAKE ONE TABLET B Y MOUTH TWO TIMES A DAY WITH FOOD completed naprox en 500 MG Oral Tablet NATASHA ([facility]) Trazodone Hydrochloride 50 MG Oral Table t trazodone 50 mg tablet TAKE 1 TABLET BY MOUTH NIGHTLY AT BEDTIME NEEDED FOR INSOMNIA trazodone 50 mg tablet TAKE 1 TABLET BY MOUTH NIGHTLY AT BEDTIME NEEDED FOR INSOMNIA completed trazodone hydrochloride 50 MG Or al Tablet NATASHA ([facility]) Sulfamethoxazole 800 MG / Trimethoprim 1 60 MG Oral Tablet sulfamethoxazole 800 mg-trimethoprim 160 mg tablet TAKE ONE TABLET BY MOUTH EVERY 12 HOURS sulfamethoxazole 800 mg-trimethoprim 160 mg tablet TAKE ONE TABLET BY MOUTH EVERY 12 HOURS completed sulfamethoxazole 800 MG / trimethoprim 160 MG Oral Tablet NATASHA ([facility]) Ciprofloxacin 500 MG Oral Tablet ciprofloxacin 500 mg tablet ciprofloxacin 500 mg tablet completed ciprofloxaci n 500 MG Oral Tablet NATASHA ([facility]) Loratadine 10 MG Oral Tablet loratadine 10 mg tablet TAKE 1 TABLET BY MOUTH ONCE DAILY loratadine 10 mg tablet TAKE 1 TABLET BY MOUTH ONCE DAILY completed loratadine 10 MG Oral Tablet ATH [facility] ([facility]) Trazodone Hydrochloride 50 MG Oral Table t trazodone 50 mg tablet TAKE 1 TABLET BY MOUTH NIGHTLY AT BEDTIME NEEDED FOR INSOMNIA trazodone 50 mg tablet TAKE 1 TABLET BY MOUTH NIGHTLY AT BEDTIME NEEDED FOR INSOMNIA completed trazodone hydrochloride 50 MG Or al Tablet NATASHA ([facility]) Sulfamethoxazole 800 MG / Trimethoprim 1 60 MG Oral Tablet sulfamethoxazole 800 mg-trimethoprim 160 mg tablet TAKE ONE TABLET BY MOUTH EVERY 12 HOURS sulfamethoxazole 800 mg-trimethoprim 160 mg tablet TAKE ONE TABLET BY MOUTH EVERY 12 HOURS completed sulfamethoxazole 800 MG / trimethoprim 160 MG Oral Tablet NATASHA ([facility]) Meclizine Hydrochloride 25 MG Oral Table t meclizine 25 mg tablet TAKE ONE TABLET BY MOUTH THREE TIMES A DAY NEEDED meclizine 25 mg tablet TAKE ONE TABLET B Y MOUTH THREE TIMES A DAY NEEDED comp leted meclizine hydrochloride 25 MG Oral Tablet MARLETTE ([facility]) Aspercreme (lidocaine) 4 % topical patch APPLY 1 PATCH TO AFFECTED SHOULDER FOR UP TO 12 HOURS A DAY MAX OF 1 PATCH DAILY [id number] completed lidocaine 0.04 MG/MG Medicated Patch MARLETTE ([facility]) Pyridoxine Hydrochloride 25 MG Oral Tabl et Vitamin B-6 25 mg tablet TAKE 1/2 TABLET BY MOUTH UP TO FOUR TIMES A DAY NEEDED FOR NAUSEA Vitamin B-6 25 mg tablet TAKE 1/2 TABLET BY MOUTH UP TO FOUR TIMES A DAY NEEDED FOR NAUSEA completed pyridoxine hydrochlori de 25 MG Oral Tablet MARLETTE ([facility]) Prednisone 10 MG Oral Tablet prednisone 10 mg tablet TAKE 40MG 4 TABLETS BY MOUTH ONCE DAILY AND DECREASE BY 10MG 1 TABLET DAILY EVERY 3 DAYS prednisone 10 mg tablet TAKE 40MG 4 TABLETS BY MOUTH ONCE DAILY AND DECREASE BY 10MG 1 TABLET DAILY EVERY 3 DAYS completed prednisone 10 MG Oral Tablet NATASHA ([facility]) meloxicam 15 MG Oral Tablet meloxicam 15 mg tablet TAKE ONE TABLET BY MOUTH EVERY DAY WITH FOOD OR MILK meloxicam 15 mg tablet TAKE ONE TABLET B Y MOUTH EVERY DAY WITH FOOD OR MILK completed meloxicam 15 MG Oral Tablet MARLETTE ([facility]) Meclizine Hydrochloride 25 MG Oral Table t meclizine 25 mg tablet TAKE ONE TABLET BY MOUTH THREE TIMES A DAY NEEDED meclizine 25 mg tablet TAKE ONE TABLET B Y MOUTH THREE TIMES A DAY NEEDED comp leted meclizine hydrochloride 25 MG Oral Tablet NATASHA ([facility]) Ondansetron 4 MG Oral Tablet ondansetron HCl 4 mg tabl et ondansetron HCl 4 mg tablet completed ondansetron 4 M G Oral Tablet NATASHA ([facility]) Ondansetron 4 MG Disintegrating Oral Tab let ondansetron 4 mg disintegrating tablet TAKE 1 TABLET BY MOUTH EVERY 4 TO 6 HOURS NEEDED FOR NAUSEA AND VOMITING ondansetron 4 mg disintegrating tablet T CECILIO 1 TABLET BY MOUTH EVERY 4 TO 6 HOURS NEEDED FOR NAUSEA AND VOMITING completed ondansetron 4 MG Disintegrating Oral Tablet NATASHA ([facility]) methylprednisolone 4 mg tablets in a dose pack TAKE BY MOUTH DIRECTED [id number] completed methylpredniso lone 4 mg tablets in a dose pack MARLETTE ([facility]) Cyclobenzaprine hydrochloride 5 MG Oral Tablet cyclobenzaprine 5 mg tablet TAKE 1 TABLET 5MG BY MOUTH THREE TIMES A DAY NEEDED FOR MUSCLE SPASMS cyclobenzaprine 5 mg tablet TAKE 1 TABLET 5MG BY MOUTH THREE TIMES A DAY NEEDED FOR MUSCLE SPASMS completed cyclobenzaprine hydrochloride 5 MG Oral Tablet NATASHA ([facility]) Cyclobenzaprine hydrochloride 5 MG Oral Tablet cyclobenzaprine 5 mg tablet TAKE 1 TABLET 5MG BY MOUTH THREE TIMES A DAY NEEDED FOR MUSCLE SPASMS cyclobenzaprine 5 mg tablet TAKE 1 TABLET 5MG BY MOUTH THREE TIMES A DAY NEEDED FOR MUSCLE SPASMS completed cyclobenzaprine hydrochloride 5 MG Oral Tablet NATASHA ([facility]) Ondansetron 4 MG Oral Tablet ondansetron HCl 4 mg tabl et ondansetron HCl 4 mg tablet completed ondansetron 4 M G Oral Tablet NATASHA ([facility]) Dicyclomine Hydrochloride 20 MG Oral Tab let dicyclomine 20 mg tablet TAKE ONE TABLET BY MOUTH TWICE A DAY FOR CRAMPING / DIARRHEA dicyclomine 20 mg tablet TAKE ONE TABLET BY MOUTH TWICE A DAY FOR CRAMPING / DIARRHEA completed dicyclomine hydrochloride 20 MG Oral Tablet NATASHA ([facility]) Dicyclomine Hydrochloride 20 MG Oral Tab let dicyclomine 20 mg tablet TAKE ONE TABLET BY MOUTH TWICE A DAY FOR CRAMPING / DIARRHEA dicyclomine 20 mg tablet TAKE ONE TABLET BY MOUTH TWICE A DAY FOR CRAMPING / DIARRHEA completed dicyclomine hydrochloride 20 MG Oral Tablet NATASHA ([facility]) Methocarbamol 500 MG Oral Tablet methoca rbamol 500 mg tablet TAKE ONE TABLET BY MOUTH THREE TIMES A DAY methocarbamol 500 mg tablet TAKE ONE TAB LET BY MOUTH THREE TIMES A DAY completed meth ocarbamol 500 MG Oral Tablet NATASHA ([facility]) meloxicam 15 MG Oral Tablet meloxicam 15 mg tablet TAKE ONE TABLET BY MOUTH EVERY DAY WITH FOOD OR MILK meloxicam 15 mg tablet TAKE ONE TABLET B Y MOUTH EVERY DAY WITH FOOD OR MILK completed meloxicam 15 MG Oral Tablet NATASHA ([facility]) Prednisone 10 MG Oral Tablet prednisone 10 mg tablet TAKE 40MG 4 TABLETS BY MOUTH ONCE DAILY AND DECREASE BY 10MG 1 TABLET DAILY EVERY 3 DAYS prednisone 10 mg tablet TAKE 40MG 4 TABLETS BY MOUTH ONCE DAILY AND DECREASE BY 10MG 1 TABLET DAILY EVERY 3 DAYS completed prednisone 10 MG Oral Tablet NATASHA ([facility]) Ondansetron 4 MG Disintegrating Oral Tab let ondansetron 4 mg disintegrating tablet TAKE 1 TABLET BY MOUTH EVERY 4 TO 6 HOURS NEEDED FOR NAUSEA AND VOMITING ondansetron 4 mg disintegrating tablet T CECILIO 1 TABLET BY MOUTH EVERY 4 TO 6 HOURS NEEDED FOR NAUSEA AND VOMITING completed ondansetron 4 MG Disintegrating Oral Tablet NATASHA ([facility]) Insurance Providers Payer name Policy type / Coverage type Policy ID Covered green party ID Covered green party's relationship to doyle Policy Doyle Plan Information [facility] I [id number] Self [id number] [facility] Community Plan Medigap Part B [id number] Self [id number] [facility] Community Plan Commercial [id number] Self MEDICAID M [id number] Self [id number] Medicaid [place] Medigap Part B [id number] Family Dependent [id number] [place] Medicaid/CHP/FHP Medigap Part B [id number] Self [id number] [place]/CHP/FHP Medigap Part B [id number] Self [id number] [place]/CHP/FHP Medigap Part B [id number] Self [id number] [facility] I [id number] Self [id number] [place] [id number] SP [id number] [place] Medicaid/CHP/FHP Medigap Part B [id number] Self [id number] [place] Medicaid/CHP/FHP Medigap Part B [id number] Self [id number] [place] Medicaid/CHP/FHP Medigap Part B [id number] Self [id number] [place] Medicaid/CHP/FHP Commercial [id number] Self [id number] [place] Medicaid/CHP/FHP Medigap Part B [id number] Self [id number] [place] Medicaid/CHP/FHP Medigap Part B [id number] Self [id number] [facility] [id number] SP [id number] [facility] [place] P [id number] S [id number] [place] Medicaid/CHP/FHP Commercial [id number] Self [id number] Medicaid S [id number] S [id number] Medicaid S [id number] S [id number] [facility] [id number] SP [id number] [place] [id number] SP [id number] [place] [id number] SP [id number] Medicaid S [id number] S [id number] Medicaid S [id number] S [id number] [place] [employer] [id number] Self [id number] MEDICAID [id number] SP [id number] Medicaid [facility] Part B [id number] Self [id number] [place] Care [place] Medicaid [id number] Self [id number] UNAVAILABLE UNAVAILA BLE MEDICAID GME [id number] [facility] [facility] [id number] [place] [facility] [id number] Medicaid [facility] Part [id number] Self [place] [facility] [place] Medicaid [id number] Self MEDICAID [id number] SP [id number] SELF PAY ONLY 111 SP 111 SELF PAY ONLY UNAVAILABLE UNAV AILABLE [employer]AN MCDO [id number] SP [id number] O UNAVAILABLE UNAVAILA BLE SELF PAY UNAVAILABLE SP UNAVAILA BLE KG BLAIR SERVIC O [id number] S [id number] [facility](MCAID) O [id number] S 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 [id number] SP [id number] MEDICAID LEFTY [id number] S [id number] [place] [id number] SP [id number] [facility] MEDICAID LEFTY HMO [id number] S [id number] MEDICAID GME W [id number] S [id number] E [facility] COMM PLAN LEFTY W [id number] S [id number] [facility] COMM PLAN CHP O [id number] S [id number] [facility] COMM PLAN CHP O [id number] S [id number] [facility] COMM PLAN CHP O UNAVAILABLE S UNAVAILABLE SELF PAY SP [id number] S [id number] BLUE CROSS JACOBO PLAN [id number] SP [id number] HMO BLUE [id number] SP [id number] [facility] [id number] SP [id number] MEDICAID - CLINIC [id number] [facility] [place] [id number] 18 [id number] [facility] [place] [id number] S [id number] [facility] [place] [id number] SP [id number] [facility] [id number] 18 [id number] [facility] [place] [facility] [place] [id number] 18 [id number] [facility] [id number] SP [id number] [facility] [place] MAN -I/P [id number] 18 [id number] [facility] [place] Commercial [id number] .[id number] 9.510.58486.0 Self [id number] [facility] [place] [id number] 18 [id number] [facility] [place] [id number] 2.0.1.710193.3.227.9 9.510.98516.0 Self [id number] [facility] [place] [id number] .0.1.919290.3.227.9 9.510.24377.0 Self [id number] [facility] [place] [id number] 2.840.1.732368.3.227.9 9.510.17184.0 Self [id number] [facility] [place] [id number] .840.1.497243.3.227.9 9.510.75444.0 Self [id number] [facility] [place] [employer] [id number] 9.510.24410.0 Self [id number] [facility] [place] [id number] 2.16840.1.195978.3.227.9 9.510.24881.0 Self [id number] [facility] [place] [id number] 2.16840.1.269304.3.227.9 9.510.79572.0 Self [id number] [facility] [place] [id number] 2.16840.1.445689.3.227.9 9.510.74310.0 Self [id number] [facility] [place] [id number] 2.840.1.181285.3.227.9 9.510.01725.0 Self [id number] [facility] [place] [id number] 2.840.1.478084.3.227.9 9.510.00615.0 Self [id number] [facility] [place] [id number] 2.16840.1.124340.3.227.9 9.510.15346.0 Self [id number] [facility] [place] [id number] 2.840.1.549603.3.227.9 9.510.59705.0 Self [id number] [facility] [place] [id number] 2.16840.1.772161.3.227.9 9.510.07583.0 Self [id number] [facility] [place] [id number] 2.16840.1.817388.3.227.9 9.510.64099.0 Self [id number] [facility] [place] [id number] 2.16840.1.058234.3.227.9 9.510.71140.0 Self [id number] [facility] [place] [id number] 2.16840.1.378458.3.227.9 9.510.39829.0 Self [id number] [facility] [place] [id number] 2.16840.1.835738.3.227.9 9.510.48685.0 Self [id number] Problems, Conditions, and Diagnoses Code Display Name Description Problem Type Effective Dates Data Source(s) R14435 Latex allergy status Latex allergy status Diagnosis 06/19/2021 07:42:00 PM EDT [facility] D41449 Unspecified asthma, uncomplicated Unspecified as thma, uncomplicated Diagnosis 06/19/2021 07:42:00 PM EDT [facility] M940 Chondrocostal junction syndrome [Tietze] Chondrocostal junction syndrome [Tietze] Diagnosis 06/19/2021 07:42:00 PM EDT [facility] R079 Chest pain, unspecified Chest pain, unspecified Diagno sis 06/19/2021 07:42:00 PM EDT [facility] O99.213 Maternal obesity complicatin g , childbirth and the puerperium, antepartum Obesity affecting in third trimester Problem 01/24/2021 12:00:00 AM EDT eCW1 ([facility]) O99.019 Anemia in mother complicating , childbirth AND/OR puerperium Anemia affecting Problem 01/21/2021 12:00:00 AM EDT eCW1 ( [facility]) E66.9 Obesity Obesity Problem 01/07/2021 12:00:00 AM ES T eCW1 ([facility]) O99.212 Maternal obesity complicatin g , childbirth and the puerperium, antepartum Obesity complicating in second trimester Problem 01/07/2021 12:00:00 AM EST eCW1 ([facility]) F43.9 Reaction to severe stress, unspecified U nspecified Trauma- and Stressor- Related Disorder Condition 12/24/2020 12:00:00 AM EST [facility] ([facility]) O99.211 Obesity complicating , first tr imester Obesity complicating in first trimester Problem 09/09/2020 12:00:00 AM EST eCW1 ([facility]) Z34.80 care Supervision of other normal P papito 08/24/2020 12:00:00 AM EDT eCW1 ([facility]) V22.2 08/18/2020 11:20:06 AM ED T [facility] 388.70 Otalgia, right ear Otalgia, right ear 0 11:20:06 AM EDT [facility] [id number] Clinical finding Clinical Finding Problem 08/18/2020 12 :00:00 AM EDT [facility] ([facility]) [id number] Clinical finding Clinical Finding Problem 08/18/2020 12 :00:00 AM EDT [facility] ([facility]) [id number] Clinical finding Clinical Finding Problem 08/18/2020 12 :00:00 AM EDT [facility] ([facility]) Surgeries/Procedures Procedure Description Date Indications [...] - 12/24/2020 12:00:00 AM EST [facility] ([facility]) Extended Individual Psychotherapy - 45 min 12:00:00 AM EST [facility] ([facility]) [facility] Telemed Diag Eval no med 12/10/2020 12:00:00 AM EST - 12/10/2020 12:00:00 AM EST [facility] ([facility]) [facility] Telemed Diag Eval no med 12/10/2020 12:00:00 AM ES T [facility] ([facility]) Extended Individual Psychotherapy - 45 min 11/19/2020 12:00:00 AM EST - 11/19/2020 12:00:00 AM EST [facility] ([facility]) Extended Individual Psychotherapy - 45 min 12:00:00 AM EST [facility] ([facility]) Medication: [place] 250 mg/mL IM (Hydroxyprogesterone) 10/26/2020 12:00:00 AM EST eC1 ([facility]) Results ID Date Data Source [id number] 09/28/2021 03:35:00 [place] [address] PHONE: [phone] FAX: [phone] Name .................. : HECTOR Cox Acct Number.................. : [id number] ROOM. ................. : MR Number ................... : [id number] Stay type ............. : O/P Discharge Date......... ... : 09/28/21 Admit Date ......... : 09/28/21 Admit Phys .................... : MARIO Date of ....... : 1995 Family Phys ................... : ROHIT PARRA Phone .................. : [phone] Age ................................ : 25 Film# .................. .:[id number] Sex ................................. : F Unsigned transcriptions are preliminary reports and do not represent a medical or legal document MRI CERVICAL SPINE W/O CONTRA [id number] COMPLETE:09/28/21 09:19 [facility] [address]130 Reason for Exam: SPONDYLOSIS R/O HNP MRI [...] MARIO Hsu via fax Copy for: [facility] REC Page 1 of 1 Name Value Range Interpretation Code Description Data Dina rce(s) Supporting Document(s) ID Date Data Source [id number] 06/20/2021 10:07:00 PM EDT [facility] [address] [place] [address] PHONE: [phone] FAX: [phone] Name .................. : HECTOR Cox Acct Number.................. : [id number] ROOM. ................. : TR-03 MR Number ................... : [id number] Stay type ............. : E/R Discharge Date......... ... : 06/19/21 Admit Date ......... : 06/19/21 Admit Phys .................... : KRISTIN Swan Date of ....... : 1995 Family Phys ................... : ROHIT PARRA Phone .................. : [phone] Age ................................ : 25 Film# .................. .:[id number] Sex ................................. : F Unsigned transcriptions are preliminary reports and do not represent a medical or legal document CHEST 2 VIEWS [id number] COMPLETE:06/19/21 20:53 [facility] 55137 Reason(s): Chest Pain FRONTAL AND LATERAL CHEST [...] rce(s) Supporting Document(s) ID Date Data Source [id number] 06/19/2021 07:42:00 PM EDT [facility] 1 OrderSheet [facility] Emergency Department [address] [place] [address] Phone #: ext- [phone] 06/19/2021 19:38 Patient: SAAD YOUNG Sex: F : 1995 Age: 25yWEIGHT:94.3 kg (S) HEIGHT:63 inches (S) BMI:36.8ALLERGIES: Almonds, Benzonatate, Latex, Neosporan, NickelCHIEF COMPLAINT: chest painDIAGNOSIS: Costal chondritisLAB ORDERSOrder Description Priority Entered Acknowledged InitialedCMP STAT 20:20 06/19/2021 20:24 Ted Matt ; novelties sales representative, [facility] ER [id number] w Diff STAT 20:20 06/19/2021 20:24 Ted Matt ; novelties sales representative, [facility] ER [id number] STAT 20:20 06/19/2021 20:24 Ted Matt ; novelties sales representative, [facility] ER [id number] STUDY ORDERSOrder Description Priority Entered Acknowledged InitialedChest [...] by Lulu Waddell (21:29 06/19/2021)] 2 OrderSheet [facility] Emergency Department [address] [place] [address] Phone #: ext- [phone] 06/19/2021 19:38 Patient: SAAD YOUNG Sex: F : 1995 Age: 25y Name Value Range Interpretation Code Description Data Dina rce(s) Supporting Document(s) ID Date Data Source [id number] 06/19/2021 07:42:00 PM EDT [facility] 1 Medication Reconciliation Report [facility] Emergency Department [address] [place] [address] Phone #: ext- [phone] 06/19/2021 19:38 Patient: SAAD YOUNG Sex: F [...] Dispense 15 tablet. Refills:0. Substitution permitted.Pharmacy - [facility] - [address] ; [place], [place] [phone]. . -- Ted Mary Name Value Range Interpretation Code Description Data [facility](s) Supporting Document(s) ID Date Data Source [id number] 06/19/2021 07:42:00 PM EDT [facility] 1 Medication Administration Record [facility] Emergency Department [address] [place] [address] Phone #: ext- [phone] 06/19/2021 19:38 Patient: SAAD YOUNG Sex: F : 1995 Age: 25yWeight: 94.3 kgHeight/Length: 63 inBMI: 36.8ALLERGIES: Benzonatate, Almonds, Neosporan, Nickel, Latex Date/Time Medication Administered Medication OrderedGiven TORADOL [IVP] (KETOROLAC Toradol IVP 30 mg (NOW x1)20:33 06/19/2021 TROMETHAMINE)Joyce Cobian R.N. Dose: 30 mg IVP Site: 1 [facility] Name Value Range Interpretation Code Description Data Dina rce(s) Supporting Document(s) ID Date Data Source [id number] 06/19/2021 07:42:00 PM EDT [facility] 1 General Instructions [facility] Emergency Department [address] [place] [address] Phone #: ext- [phone] 06/19/2021 19:38 Patient: [...] Dispense 15 tablet. Refills:0. Substitution permitted.Pharmacy - [facility] - [id number] ; [place], [place] [id number]. Phone: .Understanding of the discharge instructions verbalized by patient. ADDITIONAL INFORMATIONChest Wall Pain: Costochondritis 2 General Instructions [facility] Emergency Department [address] [place] [address] Phone #: ext- [phone] 06/19/2021 19:38 Patient: SAAD YOUNG Sex: F [...] that worsens the pain. 3 General Instructions [facility] Emergency Department [address] [place] [address] Phone #: ext- [phone] 06/19/2021 19:38 Patient: [...] or as directed by your healthcare provider [phone] [employer]. [address] [place] [address]. All rights reserved. This information is not intended as asubstitute for professional medical care. Always follow your healthcare professional's instructions. 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 (last dose 0800). --19:45 [...] carrierof CRE. 2 Clinical Report - Nurses [facility] Emergency Department [address] [place] [address] Phone #: ext- [phone] 06/19/2021 19:38 [id number] Sex: [facility] : 1995 Age: 25y SELF [...] Cobian R.N. 3 Clinical Report - Nurses [facility] Emergency Department [address] [place] [address] Phone #: ext- [phone] 06/19/2021 19:38 Patient: [...] Patient verbalized understanding. Written instructions provided in Slovak. The patient was discharged by the physician. [...] rce(s) Supporting Document(s) ID Date Data Source [id number] 06/19/2021 07:42:00 PM EDT [facility] 1 Clinical Report - Physicians/Mid Levels [facility] Emergency Department [address] [place] [address] Phone #: ext- [phone] 06/19/2021 19:38 Patient: SAAD YOUNG Sex: F [...] rib pain has gotten worse. Went to [facility] and was referred for possible GB disease). No additional chest pain. Similar symptoms previously. None. Recent medical care: The patient was seen recently in a clinic. ( Referred to ED from [facility]).REVIEW OF SYSTEMSNo fever, cough, calf pain, headache [...] Almonds. 2 Clinical Report - Physicians/Mid Levels [facility] Emergency Department [address] [place] [address] Phone #: ext- [phone] 06/19/2021 19:38 Patient: [...] 99) 3 Clinical Report - Physicians/Mid Levels [facility] Emergency Department [address] [place] [address] Phone #: ext- [phone] 06/19/2021 19:38 Patient: SAAD YOUNG Sex: F [...] Male GFR Interprentation 20-49 yrs >60 mL/min Bcfwqb80-43 yrs >56 mL/min Normal 60-69 yrs >49 mL/min Normal 70-79yrs>42 mL/min Normal 80 and above >35 mL/min Normal Female GFRInterpretation 20-39 yrs >60 mL/min Normal 40-49 yrs >58 mL/minNormal 50-59 yrs >51 mL/min Normal 60-69 yrs >45 mL/min Kcpfdq18-61 yrs >39 mL/min Normal 80 and above [...] 60) 4 Clinical Report - Physicians/Mid Levels [facility] Emergency Department [address] [place] [address] Phone #: ext- [phone] 06/19/2021 19:38 Patient: SAAD YOUNG Sex: F [...] tablet. Refills: 0. Substitution permitted. Pharmacy - [facility] - [address] ; [place], [place] [phone]. . 5 Clinical Report - Physicians/Mid Levels [facility] Emergency Department [address] [place] [address] Phone #: ext- [phone] 06/19/2021 19:38 Patient: SAAD YOUNG [facility]#: [id number] Sex: F : 1995 Age: 25y Understanding of the discharge instructions verbalized by patient.(Electronically signed by Ted Mary 06/19/2021 23:18) Name Value Range Interpretation Code Description Data Dina rce(s) Supporting Document(s) ID Date Data Source [id number] 06/19/2021 09:07:00 PM EDT [facility] Name Value Range Interpretation Code Description Data Dina rce(s) Supporting Document(s) COMPREHENSIVE METABOLIC PANEL [facility] COMPREHENSIVE METABOLIC PANEL Sodium [Moles/volume] in Serum or Plasma 137 mEq/L 134 - 153 [facility] Potassium [Moles/volume] in Serum or Plasma 3.8 mEq/L 3.6 - 5.0 [facility] Chloride [Moles/volume] in Serum or Plasma 104 mEq/L 98 - 107 [facility] Carbon dioxide, total [Moles/volume] in Serum or Plasma 23 MEQ/L 22 - 30 [facility] Glucose [Mass/volume] in Serum or Plasma 96 MG/DL 70 - 99 [facility] BUN 15 MG/DL 7 - 21 [facility] Creatinine [Mass/volume] in Serum or Plasma 0.6 MG/DL 0.7 - 1.5 L [facility] BUN/CREAT 25 8 - 27 [facility] al Protein [Mass/volume] in Serum or Plasma 6.6 G/DL 6.3 - 8.2 [facility] Albumin [Mass/volume] in Serum or Plasma 4.1 G/DL 3.9 - 5.0 [facility] Globulin [Mass/volume] in Serum by calculation 2.5 GM/DL 2.4 - 3.2 [facility] A/G RATIO 1.6 0.8 - 2.0 [facility] Calcium [Mass/volume] in Serum or Plasma 9.1 MG/DL 8.4 - 10.2 [facility] Bilirubin.total [Mass/volume] in Serum or Plasma <0.7 MG/DL 0.2 - 1.3 [facility] Alkaline phosphatase [Enzymatic activity/volume] in Serum or Plasma 79 U/L 38 - 126 [facility] Aspartate aminotransferase [Enzymatic activity/volume] in Serum or Plasma 25 U/L 5 - 40 [facility] Alanine aminotransferase [Enzymatic activity/volume] in Seru m or Plasma 37 U/L 7 - 56 [facility] Anion gap 3 in Serum or Plasma 10.0 mmol/L 8.0 - 16.0 [facility] AGE 25 yrs [facility] NON-AA GFR >60 mL/min [facility] AFR AMER GFR >60 mL/min [facility] Male GFR In terprentation 20-49 [...] >32 mL/min Normal ID Date Data Source [id number] 06/19/2021 08:49:00 PM EDT [facility] Name Value Range Interpretation Code Description Data Dina rce(s) Supporting Document(s) Lipase [Enzymatic activity/volume] in Serum or Plasma 17 U/L 13 - 60 [facility] ID Date Data Source [id number] 06/19/2021 08:39:00 PM EDT [facility] Name Value Range Interpretation Code Description Data Dina rce(s) Supporting Document(s) CBC W/AUTOMATED DIFF [facility] COMPLETE BLOOD COUNT Leukocytes [#/volume] in Blood by Automated count 6.2 10^3/uL 4.2 - 1 1.0 [facility] Erythrocytes [#/volume] in Blood by Automated count 3.92 10^6/uL 4. 20 - 5.40 L [facility] Hemoglobin [Mass/volume] in Blood 10.5 g/dL 12.0 - 16.0 L [facility] Hematocrit [Volume Fraction] of Blood by Automated count 32.0 % 3 7.0 - 47.0 L [facility] Erythrocyte mean corpuscular volume [Entitic volume] by Auto mated count 81.6 fL 81.0 - 101 [facility] Erythrocyte mean corpuscular hemoglobin [Entitic mass] by Automated count 26.8 pg 27.0 - 34.0 L [facility] Erythrocyte mean corpuscular hemoglobin concentration [Mass/volume] by Automated count 32.8 g/dL 31.0 - 36.0 [facility] Erythrocyte distribution width [Ratio] by Automated count 14.1 % 11.5 - 14.5 [facility] Platelets [#/volume] in Blood by Automated count 295 10^3/uL 150 - 45 0 [facility] Platelet mean volume [Entitic volume] in Blood by Automated count 9.1 fL 7.4 - 10.4 [facility] Neutrophils/100 leukocytes in Blood by Automated count 44.3 % 37. 0 - 80.0 [facility] Lymphocytes/100 leukocytes in Blood by Manual count 41.6 % 25.0 - 40.0 H [facility] Monocytes/100 leukocytes in Blood by Automated count 8.8 % 3.0 - 8.0 H [facility] Eosinophils/100 leukocytes in Blood by Automated count 4.2 % 0.0 - 7.0 [facility] Basophils/100 leukocytes in Blood by Automated count 0.8 % 0.0 - 2.5 [facility] %IG 0.3 % 0.0 - 0.0 [facility] 0.0 % 0.0 - 0.0 [facility] al Neutrophils [#/volume] in Blood by Automated count 2.75 10^3/uL 2.00 - 6.90 [facility] Lymphocytes [#/volume] in Blood by Automated count 2.59 10^3/uL 0.60 - 3.40 [facility] Monocytes [#/volume] in Blood by Automated count 0.55 10^3/uL 0.00 - 0.90 [facility] Eosinophils [#/volume] in Blood by Automated count 0.26 10^3/uL 0.00 - 0.70 [facility] Basophils [#/volume] in Blood by Automated count 0.05 10^3/uL 0.00 - 0.20 [facility] #IG 0.02 10^3/uL 0.00 - 0.10 [facility] #NRBC 0.00 10^3/uL 0.00 - 0.00 [facility] MANUAL DIFF NOT INDICATED [facility] RBC MORPH NOT INDICATED [facility] ID Date Data Source [id number] 04/06/2021 07:36:00 AM EDT [facility] ([facility]) Name Value Range Interpretation Code Description Data Dina rce(s) Supporting Document(s) white blood count 7.7 10 4.0-10.0 White Blood Count [facility] ([facility]) red blood count 3.11 10 4.00-5.40 Below low normal Red Blood Coun t [facility] ([facility]) hemoglobin 8.5 g/dL 12.0-15.5 Below low normal Hemoglobin [facility] ( [facility]) hematocrit 26.4 % 36.0-47.0 Below low normal Hematocrit [facility] ( [facility]) mean corpuscular volume 84.9 fL 80.0-96.0 Mean Corpusc ular Volume [facility] ([facility]) mean corpuscular hemoglobin 27.3 pg 27.0-33.0 Mean Cor puscular Hemoglobin [facility] ([facility]) mean corpuscular HGB conc 32.2 g/dL 32.0-36.5 Mean Corpu scular HGB Conc [facility] ([facility]) red cell distribution width 16.0 % 11.5-14.5 Above high no rmal Red Cell Distribution Width [facility] ([facility]) nucleated red blood cell % 0.0 % 0-0 Nucleated Red Blood Cell % [facility] ([facility]) platelet count, automated 237 10 150-450 Platelet C ount, Automated [facility]) ID Date Data Source [id number] 04/06/2021 07:36:00 AM EDT [facility] ([facility]) Name Value Range Interpretation Code Description Data Dina rce(s) Supporting Document(s) red blood count 3.11 10 4.00-5.40 Below low normal Red Blood Coun t [facility] ([facility]) white blood count 7.7 10 4.0-10.0 White Blood Count NATASHA ([facility]) hematocrit 26.4 % 36.0-47.0 Below low normal Hematocrit NATASHA ( [facility]) hemoglobin 8.5 g/dL 12.0-15.5 Below low normal Hemoglobin NATASHA ( [facility]) mean corpuscular hemoglobin 27.3 pg 27.0-33.0 Mean Cor puscular Hemoglobin [facility] ([facility]) mean corpuscular HGB conc 32.2 g/dL 32.0-36.5 Mean Corpu scular HGB Conc [facility] ([facility]) mean corpuscular volume 84.9 fL 80.0-96.0 Mean Corpusc ular Volume [facility] ([facility]) platelet count, automated 237 10 150-450 Platelet C ount, Automated NATASHA ([facility]) red cell distribution width 16.0 % 11.5-14.5 Above high no rmal Red Cell Distribution Width [facility] ([facility]) nucleated red blood cell % 0.0 % 0-0 Nucleated Red Blood Cell % [facility] ([facility]) ID Date Data Source [id number] 04/06/2021 07:36:00 AM EDT [facility] ([facility]) Name Value Range Interpretation Code Description Data Dina rce(s) Supporting Document(s) white blood count 7.7 10 4.0-10.0 White Blood Count NATASHA ([facility]) hemoglobin 8.5 g/dL 12.0-15.5 Below low normal Hemoglobin NATASHA ( [facility]) red blood count 3.11 10 4.00-5.40 Below low normal Red Blood Coun t [facility] ([facility]) mean corpuscular hemoglobin 27.3 pg 27.0-33.0 Mean Cor puscular Hemoglobin [facility] ([facility]) mean corpuscular volume 84.9 fL 80.0-96.0 Mean Corpusc ular Volume [facility] ([facility]) hematocrit 26.4 % 36.0-47.0 Below low normal Hematocrit [place] ( [facility]) mean corpuscular HGB conc 32.2 g/dL 32.0-36.5 Mean Corpu scular HGB Conc [place] ([facility]) red cell distribution width 16.0 % 11.5-14.5 Above high no rmal Red Cell Distribution Width [place] ([facility]) nucleated red blood cell % 0.0 % 0-0 Nucleated Red Blood Cell % [place] ([facility]) platelet count, automated 237 10 150-450 Platelet C ount, Automated [facility]) ID Date Data Source [id number] 04/05/2021 06:28:00 PM EDT [facility]) Name Value Range Interpretation Code Description Data Dina rce(s) Supporting Document(s) MRSA PCR screen not detected negative MRSA PCR Screen AT [facility]) ID Date Data Source [id number] 04/05/2021 06:28:00 PM EDT [facility]) Name Value Range Interpretation Code Description Data Dina rce(s) Supporting Document(s) MRSA PCR screen not detected negative MRSA PCR Screen AT [facility]) ID Date Data Source [id number] 04/05/2021 06:28:00 PM EDT [facility]) Name Value Range Interpretation Code Description Data Dina rce(s) Supporting Document(s) MRSA PCR screen not detected negative MRSA PCR Screen AT [facility]) ID Date Data Source [id number] 04/05/2021 05:50:00 AM EDT NATASHA ([facility]) Name Value Range Interpretation Code Description Data Dina rce(s) Supporting Document(s) syphilis nonreactive nonreactive Syphilis NATASHA ([facility]) ID Date Data Source [id number] 04/05/2021 05:50:00 AM EDT [place] ([facility]) Name Value Range Interpretation Code Description Data Dina rce(s) Supporting Document(s) blood type O positive Blood Type [place] ([facility]) Ab screen (indirect roseanna)vis negative Ab Sc reen (Indirect Roseanna)vis [place] ([facility]) ID Date Data Source [id number] 04/05/2021 05:50:00 AM EDT [facility]) Name Value Range Interpretation Code Description Data Dina rce(s) Supporting Document(s) white blood count 6.6 10 4.0-10.0 White Blood Count [place] ([facility]) red blood count 3.87 10 4.00-5.40 Below low normal Red Blood Coun t [place] ([facility]) hematocrit 32.0 % 36.0-47.0 Below low normal Hematocrit [place] ( [facility]) hemoglobin 10.6 g/dL 12.0-15.5 Below low normal Hemoglobin [place] ( [facility]) mean corpuscular volume 82.7 fL 80.0-96.0 Mean Corpusc ular Volume [place] ([facility]) mean corpuscular HGB conc 33.1 g/dL 32.0-36.5 Mean Corpu scular HGB Conc NATASHA ([facility]) mean corpuscular hemoglobin 27.4 pg 27.0-33.0 Mean Cor puscular Hemoglobin [place] ([facility]) platelet count, automated 266 10 150-450 Platelet C ount, Automated [place] ([facility]) red cell distribution width 15.7 % 11.5-14.5 Above high no rmal Red Cell Distribution Width [place] ([facility]) nucleated red blood cell % 0.0 % 0-0 Nucleated Red Blood Cell % NATASHA ([facility]) ID Date Data Source [id number] 04/05/2021 05:50:00 AM EDT [place] ([facility]) Name Value Range Interpretation Code Description Data Dina rce(s) Supporting Document(s) syphilis nonreactive nonreactive Syphilis NATASHA ([facility]) ID Date Data Source [id number] 04/05/2021 05:50:00 AM EDT NATASHA ([facility]) Name Value Range Interpretation Code Description Data Dina rce(s) Supporting Document(s) blood type O positive Blood Type [place] ([facility]) Ab screen (indirect roseanna)vis negative Ab Sc reen (Indirect Roseanna)vis [place] ([facility]) ID Date Data Source [id number] 04/05/2021 05:50:00 AM EDT [place] ([facility]) Name Value Range Interpretation Code Description Data Dina rce(s) Supporting Document(s) white blood count 6.6 10 4.0-10.0 White Blood Count [place] ([facility]) red blood count 3.87 10 4.00-5.40 Below low normal Red Blood Coun t NATASHA ([facility]) hemoglobin 10.6 g/dL 12.0-15.5 Below low normal Hemoglobin [place] ( [facility]) mean corpuscular volume 82.7 fL 80.0-96.0 Mean Corpusc ular Volume NATASHA ([facility]) hematocrit 32.0 % 36.0-47.0 Below low normal Hematocrit NTAASHA ( [facility]) mean corpuscular HGB conc 33.1 g/dL 32.0-36.5 Mean Corpu scular HGB Conc NATASHA ([facility]) mean corpuscular hemoglobin 27.4 pg 27.0-33.0 Mean Cor puscular Hemoglobin NATASHA ([facility]) red cell distribution width 15.7 % 11.5-14.5 Above high no rmal Red Cell Distribution Width NATASHA ([facility]) platelet count, automated 266 10 150-450 Platelet C ount, Automated NATASHA ([facility]) nucleated red blood cell % 0.0 % 0-0 Nucleated Red Blood Cell % [place] ([facility]) ID Date Data Source [id number] 04/05/2021 05:50:00 AM EDT [facility]) Name Value Range Interpretation Code Description Data Dina rce(s) Supporting Document(s) syphilis nonreactive nonreactive Syphilis [place] ([facility]) ID Date Data Source [id number] 04/05/2021 05:50:00 AM EDT [facility]) Name Value Range Interpretation Code Description Data Dina rce(s) Supporting Document(s) Ab screen (indirect roseanna)vis negative Ab Sc reen (Indirect Roseanna)vis [place] ([facility]) blood type O positive Blood Type [place] ([facility]) ID Date Data Source [id number] 04/05/2021 05:50:00 AM EDT [facility]) Name Value Range Interpretation Code Description Data Dina rce(s) Supporting Document(s) white blood count 6.6 10 4.0-10.0 White Blood Count [place] ([facility]) hematocrit 32.0 % 36.0-47.0 Below low normal Hematocrit [place] ( [facility]) red blood count 3.87 10 4.00-5.40 Below low normal Red Blood Coun t [place] ([facility]) hemoglobin 10.6 g/dL 12.0-15.5 Below low normal Hemoglobin [place] ( [facility]) mean corpuscular volume 82.7 fL 80.0-96.0 Mean Corpusc ular Volume [place] ([facility]) mean corpuscular hemoglobin 27.4 pg 27.0-33.0 Mean Cor puscular Hemoglobin [place] ([facility]) red cell distribution width 15.7 % 11.5-14.5 Above high no rmal Red Cell Distribution Width [place] ([facility]) mean corpuscular HGB conc 33.1 g/dL 32.0-36.5 Mean Corpu scular HGB Conc [place] ([facility]) nucleated red blood cell % 0.0 % 0-0 Nucleated Red Blood Cell % [place] ([facility]) platelet count, automated 266 10 150-450 Platelet C ount, Automated [place] ([facility]) ID Date Data Source [id number] 03/31/2021 09:30:00 AM EDT [facility] Name Value Range Interpretation Code Description Data Dina rce(s) Supporting Document(s) SARS-CoV-2 (COVID-19) RNA [Presence] in Respiratory specimen by JOEL with probe detection Not Detected [facility] This lab was ordered by [facility] and reported by [employer]. ID Date Data Source GROUP B STREP CULTURE 03/17/2021 12:00:00 AM EDT [facility] ([facility] Name Value Range Interpretation Code Description Data Dina rce(s) Supporting Document(s) GROUP B STREP CULTURE [facility] ([facility]) ID Date Data Source URINE CULTURE 01/25/2021 12:00:00 AM EDT [facility] ([facility]) Name Value Range Interpretation Code Description Data Dina rce(s) Supporting Document(s) URINE CULTURE eCW ([facility]) ID Date Data Source [id number] URINALYSIS 01/25/2021 12:00:00 AM EDT [facility] ([facility]) Name Value Range Interpretation Code Description Data Dina rce(s) Supporting Document(s) UA URINALYSIS [facility] ([facility]) ID Date Data Source [id number] 10/11/2020 09:29:00 PM EST NATASHA ([facility]) Name Value Range Interpretation Code Description Data Dina rce(s) Supporting Document(s) HCG, serum quantitative 91455 mIU/mL HCG, Serum Quantitative [place] ([facility]) ID Date Data Source [id number] 10/11/2020 09:29:00 PM EST NATASHA ([facility]) Name Value Range Interpretation Code Description Data Dina rce(s) Supporting Document(s) lipase 61 U/L 73-393 Below low normal Lipase NATASHA ( [facility]) ID Date Data Source [id number] 10/11/2020 09:29:00 PM EST NATASHA ([facility]) Name Value Range Interpretation Code Description Data Dina rce(s) Supporting Document(s) glucose, fasting 83 mg/dL 70-100 Glucose, Fasting AT [facility]) creatinine for GFR 0.54 mg/dL 0.55-1.30 Below low normal Creatinine for GFR NATASHA ([facility]) glomerular filtration rate > 60.0 >60 Glomerula r Filtration Rate NATASHA ([facility]) sodium level 138 mEq/L 136-145 Sodium Level NATASHA ([facility]) blood urea nitrogen 10 mg/dL 7-18 Blood Urea Nitro gen NATASHA ([facility]) chloride level 107 mEq/L 98-107 Chloride Level [place] ([facility]) potassium serum 3.7 mEq/L 3.5-5.1 Potassium Serum ATHE NA ([facility]) carbon dioxide level 24 mEq/L 21-32 Carbon Dioxide Level [place] ([facility]) calcium level 8.9 mg/dL 8.5-10.1 Calcium Level NATASHA ( [facility]) anion gap 7 mEq/L 8-16 Below low normal Anion Gap NATASHA ( [facility]) ID Date Data Source [id number] 10/11/2020 09:29:00 PM EST NATASHA ([facility]) Name Value Range Interpretation Code Description Data Dina rce(s) Supporting Document(s) AST/SGOT 7 U/L 7-37 AST/SGOT NATASHA ([facility]) ALT/SGPT 17 U/L 12-78 ALT/SGPT NATASHA ([facility]) alkaline phosphatase 64 U/L 45-117 Alkaline Phosph atase [place] ([facility]) bilirubin,direct < 0.1 0.0-0.2 Bilirubin,direct AT [facility] ([facility]) bilirubin,total < 0.1 0.2-1.0 Below low normal Bilirubin,tota l [place] ([facility]) albumin 3.3 gm/dL 3.2-5.2 Albumin [place] ([facility]) albumin/globulin ratio 1.2-2.2 Below low normal Albumin /globulin Ratio [place] ([facility]) total protein 6.6 gm/dL 6.4-8.2 Total Protein [place] ( [facility]) ID Date Data Source [id number] 10/11/2020 09:29:00 PM EST [place] ([facility]) Name Value Range Interpretation Code Description Data Dina rce(s) Supporting Document(s) Ab screen (indirect roseanna)vis negative Ab Sc reen (Indirect Roseanna)vis [place] ([facility]) blood type O positive Blood Type [place] ([facility]) ID Date Data Source [id number] 10/11/2020 09:29:00 PM EST [place] ([facility]) Name Value Range Interpretation Code Description Data Dina rce(s) Supporting Document(s) appearance, urine rfx hazy clear Appearance, Ur ine Rfx [place] ([facility]) specific gravity ur auto rfx 1.002-1.035 Specif ic Tie Siding Ur Auto Rfx [place] ([facility]) pH,urine rfx 6.0 units 5.0-9.0 pH,urine Rfx [place] ([facility]) color, urine rfx yellow yellow Color, Urine Rfx AT [facility] ([facility]) glucose, urine (UA) auto rfx negative negative Glucose , Urine (UA) Auto Rfx [place] ([facility]) protein, urine auto rfx 1+ negative Above high normal Prote in, Urine Auto Rfx [place] ([facility]) ketone, urine auto rfx negative negative Ketone, Urine Auto Rfx NATASHA ([facility]) bilirubin, urine auto rfx negative negative Bilirubin, Urine Auto Rfx [place] ([facility]) urobilinogen, urine auto rfx 4.0 mg/dL 0.0-2.0 Above high n ormal Urobilinogen, Urine Auto Rfx [place] ([facility]) blood, urine blood rfx negative negative Blood, Urine Blood Rfx [place] ([facility]) leukocyte esterase ur auto rfx negative negative Leukocyte Esterase Ur Auto Rfx [place]HA ([facility]) nitrite, urine auto rfx negative negative Nitrite, Uri ne Auto Rfx [place] ([facility]) bacteria, urine auto rfx negative negative Bacteria, U rine Auto Rfx [place] ([facility]) WBC, urine auto rfx 1 /hpf 0-3 WBC, Urine Auto Rfx [place] ([facility]) RBC, urine auto rfx 0 /hpf 0-3 RBC, Urine Auto Rfx [place]HA ([facility]) mucus, urine rfx small negative Mucus, Urine Rfx AT [facility] ([facility]) hyaline cast, urine auto rfx 0 /lpf 0-1 Hyaline Cast, Urine Auto Rfx [place] ([facility]) squam epithelial cell ur aurfx 3 /hpf 0-6 Squam Epithelial Cell Ur Aurfx [place] ([facility]) ID Date Data Source [id number] 10/11/2020 09:29:00 PM EST [place] ([facility]) Name Value Range Interpretation Code Description Data Dina rce(s) Supporting Document(s) white blood count 7.1 10 4.0-10.0 White Blood Count [place] ([facility]) red blood count 3.95 10 4.00-5.40 Below low normal Red Blood Coun t [place] ([facility]) hemoglobin 11.1 g/dL 12.0-15.5 Below low normal Hemoglobin [place] ( [facility]) mean corpuscular volume 82.5 fL 80.0-96.0 Mean Corpusc ular Volume [place] ([facility]) hematocrit 32.6 % 36.0-47.0 Below low normal Hematocrit NATASHA ( [facility]) mean corpuscular hemoglobin 28.1 pg 27.0-33.0 Mean Cor puscular Hemoglobin NATASHA ([facility]) mean corpuscular HGB conc 34.0 g/dL 32.0-36.5 Mean Corpu scular HGB Conc NAT[place]HA ([facility]) red cell distribution width 13.9 % 11.5-14.5 Red Cell Distribution Width [place]HA ([facility]) platelet count, automated 313 10 150-450 Platelet C ount, Automated [place]HA ([facility]) lymph % 40.8 % 24.0-44.0 Lymph % [place] ([facility]) mono % 8.5 % 0.0-5.0 Above high normal [place] % NATASHA ([facility]) neutrophils % 48.2 % 36.0-66.0 Neutrophils % NATASHA ( [facility]) baso % 0.4 % 0.0-1.0 Baso % NTAASHA ([facility]) eos % 1.8 % 0.0-3.0 Eos % NAT[place]HA ([facility]) immature granulocyte % 0.3 % 0-3.0 Immature Gran ulocyte % [place] ([facility]) nucleated red blood cell % 0.0 % 0-0 Nucleated Red Blood Cell % NATASHA ([facility]) lymph # 2.9 10 1.5-5.0 Lymph # NATASHA ([facility]) neutrophils # 3.4 10 1.5-8.5 Neutrophils # NATASHA ( [facility]) eos # 0.1 10 0.0-0.5 Eos # NAT[place]HA ([facility]) mono # 0.6 10 0.0-0.8 [place] # NATASHA ([facility]) baso # 0.0 10 0.0-0.2 Baso # NATASHA ([facility]) ID Date Data Source [id number] 10/11/2020 09:29:00 PM EST [place]HA ([facility]) Name Value Range Interpretation Code Description Data Dina rce(s) Supporting Document(s) HCG, serum quantitative 77393 mIU/mL HCG, Serum Quantitative [place]HA ([facility]) ID Date Data Source [id number] 10/11/2020 09:29:00 PM EST [place]HA ([facility]) Name Value Range Interpretation Code Description Data Dina rce(s) Supporting Document(s) lipase 61 U/L 73-393 Below low normal Lipase NATASHA ( [facility]) ID Date Data Source [id number] 10/11/2020 09:29:00 PM EST NATASHA ([facility]) Name Value Range Interpretation Code Description Data Dina rce(s) Supporting Document(s) blood urea nitrogen 10 mg/dL 7-18 Blood Urea Nitro gen NATASHA ([facility]) glucose, fasting 83 mg/dL 70-100 Glucose, Fasting AT [facility]) creatinine for GFR 0.54 mg/dL 0.55-1.30 Below low normal Creatinine for GFR [place] ([facility]) glomerular filtration rate > 60.0 >60 Glomerula r Filtration Rate NATASHA ([facility]) sodium level 138 mEq/L 136-145 Sodium Level NATASHA ([facility]) potassium serum 3.7 mEq/L 3.5-5.1 Potassium Serum ATH NA ([facility]) anion gap 7 mEq/L 8-16 Below low normal Anion Gap NATASHA ( [facility]) chloride level 107 mEq/L 98-107 Chloride Level NATASHA ([facility]) carbon dioxide level 24 mEq/L 21-32 Carbon Dioxide Level NATASHA ([facility]) calcium level 8.9 mg/dL 8.5-10.1 Calcium Level [facility]) ID Date Data Source [id number] 10/11/2020 09:29:00 PM EST [facility]) Name Value Range Interpretation Code Description Data Dina rce(s) Supporting Document(s) ALT/SGPT 17 U/L 12-78 ALT/SGPT NATASHA ([facility]) AST/SGOT 7 U/L 7-37 AST/SGOT [place] ([facility]) bilirubin,total < 0.1 0.2-1.0 Below low normal Bilirubin,tota l [place] ([facility]) total protein 6.6 gm/dL 6.4-8.2 Total Protein [place] ( [facility]) alkaline phosphatase 64 U/L 45-117 Alkaline Phosph atase [place] ([facility]) bilirubin,direct < 0.1 0.0-0.2 Bilirubin,direct AT [facility]) albumin 3.3 gm/dL 3.2-5.2 Albumin [place] ([facility]) albumin/globulin ratio 1.2-2.2 Below low normal Albumin /globulin Ratio [place] ([facility]) ID Date Data Source [id number] 10/11/2020 09:29:00 PM EST [place] ([facility]) Name Value Range Interpretation Code Description Data Dina rce(s) Supporting Document(s) Ab screen (indirect roseanna)vis negative Ab Sc reen (Indirect Roseanna)vis [place] ([facility]) blood type O positive Blood Type [place] ([facility]) ID Date Data Source [id number] 10/11/2020 09:29:00 PM EST [place] ([facility]) Name Value Range Interpretation Code Description Data Dina rce(s) Supporting Document(s) color, urine rfx yellow yellow Color, Urine Rfx AT [facility] ([facility]) appearance, urine rfx hazy clear Appearance, Ur ine Rfx [place] ([facility]) pH,urine rfx 6.0 units 5.0-9.0 pH,urine Rfx [place] ([facility]) glucose, urine (UA) auto rfx negative negative Glucose , Urine (UA) Auto Rfx [place] ([facility]) protein, urine auto rfx 1+ negative Above high normal Prote in, Urine Auto Rfx NATASHA ([facility]) specific gravity ur auto rfx 1.002-1.035 Specif ic Tie Siding Ur Auto Rfx NATASHA ([facility]) ketone, urine auto rfx negative negative Ketone, Urine Auto Rfx NATASHA ([facility]) bilirubin, urine auto rfx negative negative Bilirubin, Urine Auto Rfx [place] ([facility]) urobilinogen, urine auto rfx 4.0 mg/dL 0.0-2.0 Above high n ormal Urobilinogen, Urine Auto Rfx [place] ([facility]) blood, urine blood rfx negative negative Blood, Urine Blood Rfx [place] ([facility]) nitrite, urine auto rfx negative negative Nitrite, Uri ne Auto Rfx [place] ([facility]) leukocyte esterase ur auto rfx negative negative Leukocyte Esterase Ur Auto Rfx [place] ([facility]) WBC, urine auto rfx 1 /hpf 0-3 WBC, Urine Auto Rfx [place] ([facility]) RBC, urine auto rfx 0 /hpf 0-3 RBC, Urine Auto Rfx [place] ([facility]) bacteria, urine auto rfx negative negative Bacteria, U rine Auto Rfx [place] ([facility]) mucus, urine rfx small negative Mucus, Urine Rfx AT [facility] ([facility]) hyaline cast, urine auto rfx 0 /lpf 0-1 Hyaline Cast, Urine Auto Rfx [place] ([facility]) squam epithelial cell ur aurfx 3 /hpf 0-6 Squam Epithelial Cell Ur Aurfx [place] ([facility]) ID Date Data Source [id number] 10/11/2020 09:29:00 PM EST [place] ([facility]) Name Value Range Interpretation Code Description Data Dina rce(s) Supporting Document(s) white blood count 7.1 10 4.0-10.0 White Blood Count MARLETTE ([facility]) hemoglobin 11.1 g/dL 12.0-15.5 Below low normal Hemoglobin [place]E ( [facility]) red blood count 3.95 10 4.00-5.40 Below low normal Red Blood Coun t NATASHA ([facility]) hematocrit 32.6 % 36.0-47.0 Below low normal Hematocrit NATASHA ( [facility]) mean corpuscular hemoglobin 28.1 pg 27.0-33.0 Mean Cor puscular Hemoglobin NATASHA ([facility]) mean corpuscular volume 82.5 fL 80.0-96.0 Mean Corpusc ular Volume NATASHA ([facility]) mean corpuscular HGB conc 34.0 g/dL 32.0-36.5 Mean Corpu scular HGB Conc NATASHA ([facility]) red cell distribution width 13.9 % 11.5-14.5 Red Cell Distribution Width [place] ([facility]) platelet count, automated 313 10 150-450 Platelet C ount, Automated NATASHA ([facility]) neutrophils % 48.2 % 36.0-66.0 Neutrophils % NATASHA ( [facility]) lymph % 40.8 % 24.0-44.0 Lymph % [place]TTE ([facility]) mono % 8.5 % 0.0-5.0 Above high normal [place] % NATASHA ([facility]) eos % 1.8 % 0.0-3.0 Eos % NATASHA ([facility]) baso % 0.4 % 0.0-1.0 Baso % [place]E ([facility]) immature granulocyte % 0.3 % 0-3.0 Immature Gran ulocyte % NATASHA ([facility]) neutrophils # 3.4 10 1.5-8.5 Neutrophils # MAR[place]TTE ( [facility]) nucleated red blood cell % 0.0 % 0-0 Nucleated Red Blood Cell % NATASHA ([facility]) eos # 0.1 10 0.0-0.5 Eos # NATASHA ([facility]) lymph # 2.9 10 1.5-5.0 Lymph # NATASHA ([facility]) mono # 0.6 10 0.0-0.8 [place] # NATASHA ([facility]) baso # 0.0 10 0.0-0.2 Baso # NATASHA ([facility]) ID Date Data Source [id number] 10/11/2020 09:29:00 PM EST NATASHA ([facility]) Name Value Range Interpretation Code Description Data Dina rce(s) Supporting Document(s) HCG, serum quantitative 98446 mIU/mL HCG, Serum Quantitative [facility]) ID Date Data Source [id number] 10/11/2020 09:29:00 PM EST NATASHA ([facility]) Name Value Range Interpretation Code Description Data Dina rce(s) Supporting Document(s) lipase 61 U/L 73-393 Below low normal Lipase [facility]) ID Date Data Source [id number] 10/11/2020 09:29:00 PM EST NATASHA ([facility]) Name Value Range Interpretation Code Description Data Dina rce(s) Supporting Document(s) glucose, fasting 83 mg/dL 70-100 Glucose, Fasting AT [facility]) blood urea nitrogen 10 mg/dL 7-18 Blood Urea Nitro gen NATASHA ([facility]) sodium level 138 mEq/L 136-145 Sodium Level NATASHA ([facility]) glomerular filtration rate > 60.0 >60 Glomerula r Filtration Rate NATASHA ([facility]) creatinine for GFR 0.54 mg/dL 0.55-1.30 Below low normal Creatinine for GFR NATASHA ([facility]) chloride level 107 mEq/L 98-107 Chloride Level [place] ([facility]) potassium serum 3.7 mEq/L 3.5-5.1 Potassium Serum ATHE NA ([facility]) carbon dioxide level 24 mEq/L 21-32 Carbon Dioxide Level [place] ([facility]) calcium level 8.9 mg/dL 8.5-10.1 Calcium Level [facility]) anion gap 7 mEq/L 8-16 Below low normal Anion Gap [facility]) ID Date Data Source [id number] 10/11/2020 09:29:00 PM EST [place]E ([facility]) Name Value Range Interpretation Code Description Data Dina rce(s) Supporting Document(s) AST/SGOT 7 U/L 7-37 AST/SGOT [place] ([facility]) alkaline phosphatase 64 U/L 45-117 Alkaline Phosph atase NATASHA ([facility]) ALT/SGPT 17 U/L 12-78 ALT/SGPT [place] ([facility]) bilirubin,total < 0.1 0.2-1.0 Below low normal Bilirubin,tota l [place] ([facility]) bilirubin,direct < 0.1 0.0-0.2 Bilirubin,direct AT [facility]) albumin 3.3 gm/dL 3.2-5.2 Albumin [place] ([facility]) total protein 6.6 gm/dL 6.4-8.2 Total Protein [place] ( [facility]) albumin/globulin ratio 1.2-2.2 Below low normal Albumin /globulin Ratio [place] ([facility]) ID Date Data Source [id number] 10/11/2020 09:29:00 PM EST NATASHA ([facility]) Name Value Range Interpretation Code Description Data Dina rce(s) Supporting Document(s) blood type O positive Blood Type [place]E ([facility]) Ab screen (indirect roseanna)vis negative Ab Sc reen (Indirect Roseanna)vis [place] ([facility]) ID Date Data Source [id number] 10/11/2020 09:29:00 PM EST [place] ([facility]) Name Value Range Interpretation Code Description Data Dina rce(s) Supporting Document(s) color, urine rfx yellow yellow Color, Urine Rfx AT [facility] ([facility]) appearance, urine rfx hazy clear Appearance, Ur ine Rfx [place] ([facility]) protein, urine auto rfx 1+ negative Above high normal Prote in, Urine Auto Rfx [place] ([facility]) specific gravity ur auto rfx 1.002-1.035 Specif ic Tie Siding Ur Auto Rfx NATASHA ([facility]) pH,urine rfx 6.0 units 5.0-9.0 pH,urine Rfx [place]HA ([facility] ketone, urine auto rfx negative negative Ketone, Urine Auto Rfx NATASHA ([facility]) glucose, urine (UA) auto rfx negative negative Glucose , Urine (UA) Auto Rfx NATASHA ([facility]) bilirubin, urine auto rfx negative negative Bilirubin, Urine Auto Rfx [place] ([facility]) urobilinogen, urine auto rfx 4.0 mg/dL 0.0-2.0 Above high n ormal Urobilinogen, Urine Auto Rfx [place] ([facility]) nitrite, urine auto rfx negative negative Nitrite, Uri ne Auto Rfx [place] ([facility]) leukocyte esterase ur auto rfx negative negative Leukocyte Esterase Ur Auto Rfx [place] ([facility]) blood, urine blood rfx negative negative Blood, Urine Blood Rfx [place] ([facility]) WBC, urine auto rfx 1 /hpf 0-3 WBC, Urine Auto Rfx [place] ([facility]) RBC, urine auto rfx 0 /hpf 0-3 RBC, Urine Auto Rfx [place] ([facility]) bacteria, urine auto rfx negative negative Bacteria, U rine Auto Rfx [place] ([facility]) squam epithelial cell ur aurfx 3 /hpf 0-6 Squam Epithelial Cell Ur Aurfx NATASHA ([facility]) hyaline cast, urine auto rfx 0 /lpf 0-1 Hyaline Cast, Urine Auto Rfx NATASHA ([facility]) mucus, urine rfx small negative Mucus, Urine Rfx AT [facility] ([facility]) ID Date Data Source [id number] 10/11/2020 09:29:00 PM EST [place] ([facility]) Name Value Range Interpretation Code Description Data Dina rce(s) Supporting Document(s) white blood count 7.1 10 4.0-10.0 White Blood Count [place] ([facility]) red blood count 3.95 10 4.00-5.40 Below low normal Red Blood Coun t NATASHA ([facility]) hematocrit 32.6 % 36.0-47.0 Below low normal Hematocrit NATASHA ( [facility]) mean corpuscular volume 82.5 fL 80.0-96.0 Mean Corpusc ular Volume NATASHA ([facility]) hemoglobin 11.1 g/dL 12.0-15.5 Below low normal Hemoglobin NATASHA ( [facility]) red cell distribution width 13.9 % 11.5-14.5 Red Cell Distribution Width NAT[place]HA ([facility]) mean corpuscular hemoglobin 28.1 pg 27.0-33.0 Mean Cor puscular Hemoglobin NATASHA ([facility]) mean corpuscular HGB conc 34.0 g/dL 32.0-36.5 Mean Corpu scular HGB Conc NATASHA ([facility]) platelet count, automated 313 10 150-450 Platelet C ount, Automated NATASHA ([facility]) neutrophils % 48.2 % 36.0-66.0 Neutrophils % NATASHA ( [facility]) lymph % 40.8 % 24.0-44.0 Lymph % [place] ([facility]) mono % 8.5 % 0.0-5.0 Above high normal [place] % NAT[place]HA ([facility]) eos % 1.8 % 0.0-3.0 Eos % NATASHA ([facility]) baso % 0.4 % 0.0-1.0 Baso % NATASHA ([facility]) nucleated red blood cell % 0.0 % 0-0 Nucleated Red Blood Cell % NATASHA ([facility]) immature granulocyte % 0.3 % 0-3.0 Immature Gran ulocyte % NATASHA ([facility]) lymph # 2.9 10 1.5-5.0 Lymph # [place] ([facility]) neutrophils # 3.4 10 1.5-8.5 Neutrophils # NATASHA ( [facility]) mono # 0.6 10 0.0-0.8 [place] # NATASHA ([facility]) baso # 0.0 10 0.0-0.2 Baso # NATASHA ([facility]) eos # 0.1 10 0.0-0.5 Eos # NATASHA ([facility]) ID Date Data Source [id number] 09/21/2020 10:19:00 AM EST NATASHA ([facility]) Name Value Range Interpretation Code Description Data Dina rce(s) Supporting Document(s) HIV 1&2 screen centaur negative negative HIV 1&2 Scree n Centaur NATASHA ([facility]) ID Date Data Source [id number] 09/21/2020 10:19:00 AM EST NATASHA ([facility]) Name Value Range Interpretation Code Description Data Dina rce(s) Supporting Document(s) rubella IgG qualitative immune immune Rubella IgG Qualitative [place] ([facility]) ID Date Data Source [id number] 09/21/2020 10:19:00 AM EST [place] ([facility]) Name Value Range Interpretation Code Description Data Dina rce(s) Supporting Document(s) syphilis nonreactive nonreactive Syphilis NATASHA ([facility]) ID Date Data Source [id number] 09/21/2020 10:19:00 AM EST NATASHA ([facility]) Name Value Range Interpretation Code Description Data Dina rce(s) Supporting Document(s) HBsAg negative negative HBsAg [facility]) ID Date Data Source [id number] 09/21/2020 10:19:00 AM EST NATASHA ([facility]) Name Value Range Interpretation Code Description Data Dina rce(s) Supporting Document(s) glucose challenge test 1 hour 97 mg/dL less than 140 Glucose Challenge Test 1 Hour [place] ([facility]) ID Date Data Source [id number] 09/21/2020 10:19:00 AM EST NATASHA ([facility]) Name Value Range Interpretation Code Description Data Dina rce(s) Supporting Document(s) hepatitis C virus marisol index < 0.0 <0.8 Hepatiti s C Virus Marisol Index NATASHA ([facility]) ID Date Data Source [id number] 09/21/2020 10:19:00 AM EST NATASHA ([facility]) Name Value Range Interpretation Code Description Data Dina rce(s) Supporting Document(s) Hemoglobin A1c/Hemoglobin.total in Blood 4.9 % Hemoglobin a1C NATASHA ([facility]) estimated average glucose 94 mg/dL 60-110 Estimated Average Glucose NATASHA ([facility]) ID Date Data Source [id number] 09/21/2020 10:19:00 AM EST NATASHA ([facility]) Name Value Range Interpretation Code Description Data Dina rce(s) Supporting Document(s) Ab screen pnp1 gel (vis) negative Ab Screen Pnp1 Gel (Vis) NATASHA ([facility]) blood type O positive Blood Type NATASHA ([facility]) ID Date Data Source [id number] 09/21/2020 10:19:00 AM EST NATASHA ([facility]) Name Value Range Interpretation Code Description Data Dina rce(s) Supporting Document(s) white blood count 6.6 10 4.0-10.0 White Blood Count NATASHA ([facility]) red blood count 4.33 10 4.00-5.40 Red Blood Count ATHE NA ([facility]) hematocrit 35.6 % 36.0-47.0 Below low normal Hematocrit NATASHA ( [facility]) hemoglobin 11.9 g/dL 12.0-15.5 Below low normal Hemoglobin NATASHA ( [facility]) mean corpuscular volume 82.2 fL 80.0-96.0 Mean Corpusc ular Volume NATASHA ([facility]) mean corpuscular hemoglobin 27.5 pg 27.0-33.0 Mean Cor puscular Hemoglobin NATASHA ([facility]) platelet count, automated 302 10 150-450 Platelet C ount, Automated NATASHA ([facility]) red cell distribution width 14.0 % 11.5-14.5 Red Cell Distribution Width NATASHA ([facility]) neutrophils % 60.8 % 36.0-66.0 Neutrophils % [place] ( [facility]) mean corpuscular HGB conc 33.4 g/dL 32.0-36.5 Mean Corpu scular HGB Conc [place]E ([facility]) mono % 7.2 % 0.0-5.0 Above high normal [place] % [place] ([facility]) eos % 0.9 % 0.0-3.0 Eos % [place] ([facility]) baso % 0.3 % 0.0-1.0 Baso % [place] ([facility]) lymph % 30.5 % 24.0-44.0 Lymph % [place] ([facility]) neutrophils # 4.0 10 1.5-8.5 Neutrophils # [place] ( [facility]) lymph # 2.0 10 1.5-5.0 Lymph # [place] ([facility]) nucleated red blood cell % 0.0 % 0-0 Nucleated Red Blood Cell % [place] ([facility]) immature granulocyte % 0.3 % 0-3.0 Immature Gran ulocyte % [place] ([facility]) baso # 0.0 10 0.0-0.2 Baso # [place] ([facility]) mono # 0.5 10 0.0-0.8 [place] # [place] ([facility]) eos # 0.1 10 0.0-0.5 Eos # [place] ([facility]) ID Date Data Source [id number] 09/21/2020 10:19:00 AM EST [place] ([facility]) Name Value Range Interpretation Code Description Data Dina rce(s) Supporting Document(s) HIV 1&2 screen centaur negative negative HIV 1&2 Scree n Centaur NATASHA ([facility]) ID Date Data Source [id number] 09/21/2020 10:19:00 AM EST NATASHA ([facility]) Name Value Range Interpretation Code Description Data Idna rce(s) Supporting Document(s) rubella IgG qualitative immune immune Rubella IgG Qualitative [place] ([facility]) ID Date Data Source [id number] 09/21/2020 10:19:00 AM EST NATASHA ([facility]) Name Value Range Interpretation Code Description Data Dina rce(s) Supporting Document(s) syphilis nonreactive nonreactive Syphilis NATASHA ([facility]) ID Date Data Source [id number] 09/21/2020 10:19:00 AM EST [facility]) Name Value Range Interpretation Code Description Data Dina rce(s) Supporting Document(s) HBsAg negative negative HBsAg [facility]) ID Date Data Source [id number] 09/21/2020 10:19:00 AM EST [facility]) Name Value Range Interpretation Code Description Data Dina rce(s) Supporting Document(s) glucose challenge test 1 hour 97 mg/dL less than 140 Glucose Challenge Test 1 Hour NATASHA ([facility]) ID Date Data Source [id number] 09/21/2020 10:19:00 AM EST [facility]) Name Value Range Interpretation Code Description Data Dina rce(s) Supporting Document(s) hepatitis C virus marisol index < 0.0 <0.8 Hepatiti s C Virus Amrisol Index [facility]) ID Date Data Source [id number] 09/21/2020 10:19:00 AM EST [facility]) Name Value Range Interpretation Code Description Data Dina rce(s) Supporting Document(s) estimated average glucose 94 mg/dL 60-110 Estimated Average Glucose NATASHA ([facility]) Hemoglobin A1c/Hemoglobin.total in Blood 4.9 % Hemoglobin a1C NATASHA ([facility]) ID Date Data Source [id number] 09/21/2020 10:19:00 AM EST NATASHA ([facility]) Name Value Range Interpretation Code Description Data Dina rce(s) Supporting Document(s) Ab screen pnp1 gel (vis) negative Ab Screen Pnp1 Gel (Vis) NATASHA ([facility]) blood type O positive Blood Type NATASHA ([facility]) ID Date Data Source [id number] 09/21/2020 10:19:00 AM EST NATASHA ([facility]) Name Value Range Interpretation Code Description Data Dina rce(s) Supporting Document(s) red blood count 4.33 10 4.00-5.40 Red Blood Count ATHE ([facility]) white blood count 6.6 10 4.0-10.0 White Blood Count NATASHA ([facility]) hemoglobin 11.9 g/dL 12.0-15.5 Below low normal Hemoglobin NATASHA ( [facility]) mean corpuscular volume 82.2 fL 80.0-96.0 Mean Corpusc ular Volume NATASHA ([facility]) hematocrit 35.6 % 36.0-47.0 Below low normal Hematocrit NATASHA ( [facility]) red cell distribution width 14.0 % 11.5-14.5 Red Cell Distribution Width NATASHA ([facility]) mean corpuscular hemoglobin 27.5 pg 27.0-33.0 Mean Cor puscular Hemoglobin NATASHA ([facility]) mean corpuscular HGB conc 33.4 g/dL 32.0-36.5 Mean Corpu scular HGB Conc NATASHA ([facility]) lymph % 30.5 % 24.0-44.0 Lymph % NATASHA ([facility]) mono % 7.2 % 0.0-5.0 Above high normal [place] % NATASHA ([facility]) platelet count, automated 302 10 150-450 Platelet C ount, Automated NATASHA ([facility]) neutrophils % 60.8 % 36.0-66.0 Neutrophils % NATASHA ( [facility]) baso % 0.3 % 0.0-1.0 Baso % NATASHA ([facility]) eos % 0.9 % 0.0-3.0 Eos % NATASHA ([facility]) immature granulocyte % 0.3 % 0-3.0 Immature Gran ulocyte % NATASHA ([facility]) nucleated red blood cell % 0.0 % 0-0 Nucleated Red Blood Cell % NATASHA ([facility]) eos # 0.1 10 0.0-0.5 Eos # NATASHA ([facility]) mono # 0.5 10 0.0-0.8 [place] # [place]TTE ([facility]) lymph # 2.0 10 1.5-5.0 Lymph # NATASHA ([facility]) neutrophils # 4.0 10 1.5-8.5 Neutrophils # NATASHA ( [facility]) baso # 0.0 10 0.0-0.2 Baso # NATASHA ([facility]) ID Date Data Source [id number] 09/21/2020 10:19:00 AM EST NATASHA ([facility]) Name Value Range Interpretation Code Description Data Dina rce(s) Supporting Document(s) HIV 1&2 screen centaur negative negative HIV 1&2 Scree n Centaur NATASHA ([facility]) ID Date Data Source [id number] 09/21/2020 10:19:00 AM EST NATASHA ([facility]) Name Value Range Interpretation Code Description Data Dina rce(s) Supporting Document(s) rubella IgG qualitative immune immune Rubella IgG Qualitative [place] ([facility]) ID Date Data Source [id number] 09/21/2020 10:19:00 AM EST NATASHA ([facility]) Name Value Range Interpretation Code Description Data Dina rce(s) Supporting Document(s) syphilis nonreactive nonreactive Syphilis NATASHA ([facility]) ID Date Data Source [id number] 09/21/2020 10:19:00 AM EST NATASHA ([facility]) Name Value Range Interpretation Code Description Data Dina rce(s) Supporting Document(s) HBsAg negative negative HBsAg [place] ([facility]) ID Date Data Source [id number] 09/21/2020 10:19:00 AM EST [place] ([facility]) Name Value Range Interpretation Code Description Data Dina rce(s) Supporting Document(s) glucose challenge test 1 hour 97 mg/dL less than 140 Glucose Challenge Test 1 Hour [place] ([facility]) ID Date Data Source [id number] 09/21/2020 10:19:00 AM EST [facility]) Name Value Range Interpretation Code Description Data Dina rce(s) Supporting Document(s) hepatitis C virus marisol index < 0.0 <0.8 Hepatiti s C Virus Marisol Index [place] ([facility]) ID Date Data Source [id number] 09/21/2020 10:19:00 AM EST [place] ([facility]) Name Value Range Interpretation Code Description Data Dina rce(s) Supporting Document(s) Hemoglobin A1c/Hemoglobin.total in Blood 4.9 % Hemoglobin a1C [place] ([facility]) estimated average glucose 94 mg/dL 60-110 Estimated Average Glucose [place] ([facility]) ID Date Data Source [id number] 09/21/2020 10:19:00 AM EST [facility]) Name Value Range Interpretation Code Description Data Dina rce(s) Supporting Document(s) blood type O positive Blood Type NATASHA ([facility]) Ab screen pnp1 gel (vis) negative Ab Screen Pnp1 Gel (Vis) NATASHA ([facility]) ID Date Data Source [id number] 09/21/2020 10:19:00 AM EST NATASHA ([facility]) Name Value Range Interpretation Code Description Data Dina rce(s) Supporting Document(s) white blood count 6.6 10 4.0-10.0 White Blood Count NATASHA ([facility]) red blood count 4.33 10 4.00-5.40 Red Blood Count ATHE ([facility]) hematocrit 35.6 % 36.0-47.0 Below low normal Hematocrit NATASHA ( [facility]) hemoglobin 11.9 g/dL 12.0-15.5 Below low normal Hemoglobin NATASHA ( [facility]) mean corpuscular volume 82.2 fL 80.0-96.0 Mean Corpusc ular Volume NATASHA ([facility]) mean corpuscular HGB conc 33.4 g/dL 32.0-36.5 Mean Corpu scular HGB Conc NATASHA ([facility]) mean corpuscular hemoglobin 27.5 pg 27.0-33.0 Mean Cor puscular Hemoglobin NATASHA ([facility]) platelet count, automated 302 10 150-450 Platelet C ount, Automated NATASHA ([facility]) red cell distribution width 14.0 % 11.5-14.5 Red Cell Distribution Width NATASHA ([facility]) lymph % 30.5 % 24.0-44.0 Lymph % MARLETTE ([facility]) mono % 7.2 % 0.0-5.0 Above high normal [place] % NATASHA ([facility]) neutrophils % 60.8 % 36.0-66.0 Neutrophils % NATASHA ( [facility]) baso % 0.3 % 0.0-1.0 Baso % NATASHA ([facility]) nucleated red blood cell % 0.0 % 0-0 Nucleated Red Blood Cell % NATASHA ([facility]) eos % 0.9 % 0.0-3.0 Eos % NATASHA ([facility]) immature granulocyte % 0.3 % 0-3.0 Immature Gran ulocyte % NATASHA ([facility]) mono # 0.5 10 0.0-0.8 [place] # NATASHA ([facility]) neutrophils # 4.0 10 1.5-8.5 Neutrophils # NATASHA ( [facility]) lymph # 2.0 10 1.5-5.0 Lymph # NATASHA ([facility]) baso # 0.0 10 0.0-0.2 Baso # NATASHA ([facility]) eos # 0.1 10 0.0-0.5 Eos # NATASHA ([facility]) ID Date Data Source [id number] 09/21/2020 09:18:00 AM EST NATASHA ([facility]) Name Value Range Interpretation Code Description Data Dina rce(s) Supporting Document(s) ID Date Data Source [id number] 09/21/2020 09:18:00 AM EST NATASHA ([facility]) Name Value Range Interpretation Code Description Data Dina rce(s) Supporting Document(s) ID Date Data Source [id number] 09/21/2020 09:18:00 AM EST NATASHA ([facility]) Name Value Range Interpretation Code Description Data Dina rce(s) Supporting Document(s) ID Date Data Source [id number] 09/21/2020 09:16:00 AM EST NATASHA ([facility]) Name Value Range Interpretation Code Description Data Dina rce(s) Supporting Document(s) chlamydia DNA amplification negative negative Chlamydi a DNA Amplification NATASHA ([facility]) GC DNA amplification negative negative GC DNA Amplific ation NATASHA ([facility]) ID Date Data Source [id number] 09/21/2020 09:16:00 AM EST NATASHA ([facility]) Name Value Range Interpretation Code Description Data Dina rce(s) Supporting Document(s) GC DNA amplification negative negative GC DNA Amplific ation NATASHA ([facility]) chlamydia DNA amplification negative negative Chlamydi a DNA Amplification MARLETTE ([facility]) ID Date Data Source [id number] 09/21/2020 09:16:00 AM EST NATASHA ([facility]) Name Value Range Interpretation Code Description Data Dina rce(s) Supporting Document(s) chlamydia DNA amplification negative negative Chlamydi a DNA Amplification NATASHA ([facility]) GC DNA amplification negative negative GC DNA Amplific ation MARLETTE ([facility]) ID Date Data Source [id number] 09/21/2020 12:00:00 AM EST eCW1 ([facility]) Name Value Range Interpretation Code Description Data Dina rce(s) Supporting Document(s) Hemoglobin A1c/Hemoglobin.total in Blood 4.9 eCW1 ([facility]) ID Date Data Source HEPATITIS C ANTIBODY INDEX 09/21/2020 12:00:00 AM EST eCW1 ( [facility]) Name Value Range Interpretation Code Description Data Dina rce(s) Supporting Document(s) < 0.0 <0.8 W1 ([facility]) ID Date Data Source RUBELLA IMMUNE STATUS IgG 09/21/2020 12:00:00 AM EST eCW1 ([facility]) Name Value Range Interpretation Code Description Data Dina rce(s) Supporting Document(s) IMMUNE IMMUNE eCW1 ([facility]) ID Date Data Source SYPHILIS ANTIBODY (RPR SCREEN) 09/21/2020 12:00:00 AM EST eC W1 ([facility]) Name Value Range Interpretation Code Description Data Dina rce(s) Supporting Document(s) NONREACTIVE NONREACTIVE eCW1 ([facility]) ID Date Data Source [id number] 09/21/2020 12:00:00 AM EST eCW1 ([facility]) Name Value Range Interpretation Code Description Data Dina rce(s) Supporting Document(s) eCW1 ([facility]) ID Date Data Source CHLAMYDIA & GC DNA AMPLIFICAT 09/21/2020 12:00:00 AM EST eCW 1 ([facility]) Name Value Range Interpretation Code Description Data Dina rce(s) Supporting Document(s) Chlamydia trachomatis rRNA [Presence] in Unspecified specimen by Probe and target amplification method NEGATIVE NEGATIVE eCW1 ([facility]) ID Date Data Source CBC with Differential 09/21/2020 12:00:00 AM EST [facility]CW[facility] Name Value Range Interpretation Code Description Data Dina rce(s) Supporting Document(s) 82.2 80.0-96.0 eCW1 ([facility]) 11.9 12.0-15.5 eCW1 ([facility]) 6.6 4.0-10.0 eCW1 ([facility]) 4.33 4.00-5.40 eCW1 ([facility]) 35.6 36.0-47.0 eCW1 ([facility]) 33.4 32.0-36.5 eCW1 ([facility]) 14.0 11.5-14.5 eCW1 ([facility]) 302 150-450 eCW1 ([facility]) 27.5 27.0-33.0 eCW1 ([facility]) 60.8 36.0-66.0 eCW1 ([facility]) 30.5 24.0-44.0 eCW1 ([facility]) 7.2 0.0-5.0 eCW1 ([facility]) 0.3 0.0-1.0 eCW1 ([facility]) 0.9 0.0-3.0 eCW1 ([facility]) 0.1 0.0-0.5 eCW1 ([facility]) 0.5 0.0-0.8 eCW1 ([facility]) 2.0 1.5-5.0 eCW1 ([facility]) 0.0 0.0-0.2 eCW1 ([facility]) 4.0 1.5-8.5 eCW1 ([facility]) ID Date Data Source Type and Screen Prenatal1 09/21/2020 12:00:00 AM EST eCW1 ([facility]) Name Value Range Interpretation Code Description Data Dina rce(s) Supporting Document(s) NEGATIVE eCW1 ([facility]) ID Date Data Source Glucose Challenge Test 1 Hour 09/21/2020 12:00:00 AM EST eCW 1 ([facility]) Name Value Range Interpretation Code Description Data Dina rce(s) Supporting Document(s) 97 LESS THAN 140 eCW1 ([facility]) ID Date Data Source [id number] 09/21/2020 12:00:00 AM EST eCW1 ([facility]) Name Value Range Interpretation Code Description Data Dina rce(s) Supporting Document(s) NEGATIVE NEGATIVE eCW1 ([facility]) ID Date Data Source [id number] 08/18/2020 09:44:38 AM EDT [facility] Measurements [...] (ER) or urgent care clinic? No - [facility] Emergency room (ER) or urgent care date [...] 9:52 AMPatient History Medical History:AsthmaAnemiaanxietydepressionSurgical History: section k6Mddrevramlxhlngqgba teeth removedFamily History:No known family historySocial/Personal History: [...] during this visit, including review of any iudo-miz-ccgxfom medications, herbal therapies, and/or supplements.Allergy ReviewAllergy List [...] up if not improving or worsening. (ICD-V22.2) (TGV50-R67.1) Assessment: Counseled patient at length on cautions during early , medications and supplements to avoid. We will start a vitamin. Seeing OB next week. Discussed s/s that would warrant ED eval. We discussed OTC supplements and supportive care for nausea and vomiting... we will also try B6 prn for nausea. Patient expresses understanding to plan.Assessed:Pain in right shoulder (ICD-719.41) (KIN36-H64.511) Assessment: will get into pt. discussed supportive care. educated pt on medications she is allowed to take during . we will trial topical medication.Assessment not Saved (HAU55-V12.1): Comment OnlyCounseled patient at length on cautions [...] ALLERGY RELIEF 50 MCG/ACT NASAL SUSPENSIONVITAMIN D3 88233 UNIT ORAL TABLETVENTOLIN HFA 108 (90 BASE) [...] (Critical)* LATEX (Critical)* NUTS (Critical)Orders:Physical Therapy Consult [CPT-41486] Adult - Ofc Vst, EST, Level III [CPT-44214] Follow-Up Return to clinic: if symptoms persist Clinical Visit Summary DeclinedMedications:Cancelled TRAZODONE HCL 50 MG ORAL TABLET (TRAZODONE HCL) take one tablet by mouth at beditme nightly as needed for insomnia #30[Tablet] x 3 Route:ORAL Entered by: Luanne CALHOUN Authorized by: Lluvia FUENTES Method used: Electronically to [email or web address] (retail) [address] [place] [address] RxID: [id number] HYDROXYZINE HCL 50 MG ORAL TABLET (HYDROXYZINE HCL) take one to two tablet by mouth three times daily as needed for increased anxiety. #120[Tablet] x 2 Route:ORAL Entered by: Luanne CALHOUN Authorized by: Lluvia FUENTES Method used: Electronically to [email or web address] (retail) [address] [place] [address] RxID: [id number] LIDOCAINE 4 % EXTERNAL PATCH (LIDOCAINE) apply 1 patch to shoulder for up to 12 hours a day, MAX 1 PATCH PER DAY #30[Patch] x 0 Route:EXTERNAL Entered and Authorized by: Luanne CALHOUN Electr onically signed by: Luanne CALHOUN on 08/18/2020 Method used: Electronically to [email or web address] (retail) [address] [place] [address] Note to Pharmacy: Route: EXT; RxID: [id number] LIDOCAINE 4 % EXTERNAL PATCH (LIDOCAINE) apply 1 patch to shoulder for up to 12 hours a day, MAX 1 PATCH PER DAY #30[Patch] x 0 Route:EXTERNAL Entered and Authorized by: Luanne CALHOUN Method used: E lectronically to [email or web address] (retail) [address] [place] [address] Note to Pharmacy: Route: EXTERNAL; RxID: [id number] 25 MG ORAL TABLET (PYRIDOXINE HCL) 1/2 tablet up to 4 times per day as needed for nausea #60[Tablet] x 0 Route:ORAL Entered and Authorized by: Luanne CALHOUN Method used: Electronically to [email or web address] (retail) [address] [place] [address] Note to Pharmacy: Route: ORAL; RxID: [id number] ADULT GUMMY/DHA/FA 0.4-25 MG ORAL TABLET CHEWABLE ( MV & MIN W/FA-DHA) 1 tablet once daily #30[Tablet] x 1 Route:ORAL Entered and Authorized by: Luanne CALHOUN Method used: Electronically to [email or web address] (retail) [address] [place] [address] Note to Pharmacy: Route: ORAL; RxID: [id number] 10 MG ORAL CAPSULE (LORATADINE) 1 tablet once daily #30[Capsule] x 0 Route:ORAL Entered and Authorized by: Luanne CALHOUN Method used: Electronically to [email or web address] (retail) [address] [place] [address] Note to Pharmacy: Route: ORAL; RxID: [id number] ALLERGY RELIEF 50 MCG/ACT NASAL SUSPENSION (FLUTICASONE PROPIONATE) one spray to each nostril daily as needed #1[Milliliter] x 2 Route:NASAL Entered and Authorized by: Luanne CALHOUN Method used: Electronically to [email or web address] (retail) [address] [place] [address] Note to Pharmacy: Route: NASAL; Indications: OTALGIA, BILATERAL RxID: [id number] signed by Luanne CALHOUN on 08/18/2020 at 11:20 AM Name Value Range Interpretation Code Description Data Dina rce(s) Supporting Document(s) Procedure Social History Code Duration Value Status Description Data Source(s ) Smoking 06/14/2021 12:00:00 AM EDT Never Smoker completed Never S shashi eCW1 ([facility]) Smoking 04/21/2021 12:00:00 AM EDT Never Smoker completed Never S moker eCW1 ([facility]) Smoking 03/29/2021 12:00:00 AM EDT Never Smoker completed Never S moker eCW1 ([facility]) Smoking 03/29/2021 12:00:00 AM EDT Never Smoker completed Never S moker eCW1 ([facility]) Smoking 03/29/2021 12:00:00 AM EDT Never Smoker completed Never S moker eCW1 ([facility]) Smoking 03/29/2021 12:00:00 AM EDT Never Smoker completed Never S moker eCW1 ([facility]) Smoking 03/17/2021 12:00:00 AM EDT Never Smoker completed Never S moker eCW1 ([facility]) Smoking 03/04/2021 12:00:00 AM EDT Never Smoker completed Never S moker eCW1 ([facility]) Smoking 02/17/2021 12:00:00 AM EDT Never Smoker completed Never S moker eCW1 ([facility]) Smoking 02/17/2021 12:00:00 AM EDT Never Smoker completed Never S moker eCW1 ([facility]) Smoking 02/17/2021 12:00:00 AM EDT Never Smoker completed Never S moker eCW1 ([facility]) Smoking 01/25/2021 12:00:00 AM EDT Never Smoker completed Never S moker eCW1 ([facility]) Smoking 01/25/2021 12:00:00 AM EDT Never Smoker completed Never S moker eCW1 ([facility]) Smoking 01/25/2021 12:00:00 AM EDT Never Smoker completed Never S moker eCW1 ([facility]) Smoking 01/25/2021 12:00:00 AM EDT Never Smoker completed Never S moker eCW1 ([facility]) Smoking 01/25/2021 12:00:00 AM EDT Never Smoker completed Never S moker eCW1 ([facility]) Smoking 01/25/2021 12:00:00 AM EDT Never Smoker completed Never S moker eCW1 ([facility]) Smoking 01/24/2021 12:00:00 AM EDT Never Smoker completed Never S moker eCW1 ([facility]) Smoking 01/03/2021 12:00:00 AM EST Never Smoker completed Never S moker eCW1 ([facility]) Smoking 01/03/2021 12:00:00 AM EST Never Smoker completed Never S moker eCW1 ([facility]) Smoking 01/03/2021 12:00:00 AM EST Never Smoker completed Never S moker eCW1 ([facility]) Smoking 12/24/2020 12:00:00 AM EST Unknown if ever smoked comp leted Unknown if ever smoked [facility] ([facility]) Smoking 12/10/2020 12:00:00 AM EST Unknown if ever smoked comp leted Unknown if ever smoked [facility] ([facility]) Smoking 12/09/2020 12:00:00 AM EST Never Smoker completed Never S moker eCW1 ([facility]) Smoking 11/19/2020 12:00:00 AM EST Unknown if ever smoked comp leted Unknown if ever smoked [facility] ([facility]) Smoking 10/18/2020 12:00:00 AM EST Never Smoker completed Never S moker eCW1 ([facility]) Smoking 10/18/2020 12:00:00 AM EST Never Smoker completed Never S moker eCW1 ([facility]) Smoking 10/18/2020 12:00:00 AM EST Never Smoker completed Never S moker eCW1 ([facility]) Smoking 10/18/2020 12:00:00 AM EST Never Smoker completed Never S moker eCW1 ([facility]) Smoking 09/09/2020 12:00:00 AM EST Never Smoker completed Never S moker eCW1 ([facility]) Smoking 09/09/2020 12:00:00 AM EST Never Smoker completed Never S moker eCW1 ([facility]) Vital Signs ID Date Data Source UNK Name Value Range Interpretation Code Description Data Source(s) Body height 66 [in_i] 66 [in_i] NATASHA ([facility]) Body weight 208 [lb_av] 208 [lb_av] eCW[facility] Body weight 94.35 kg 94.35 kg W1 ([facility]) Body height 63 [in_i] 63 [in_i] eCW1 ([facility]) Body mass index (BMI) [Ratio] 36.84 kg/m2 36.84 kg/m2 eCW1 ([facility]) Systolic blood pressure 120 mm[Hg] 120 mm[Hg] e CW1 ([facility]) Diastolic blood pressure 70 mm[Hg] 70 mm[Hg] eCW1 ([facility]) Diastolic blood pressure 76 mm[Hg] 76 mm[Hg] NATASHA ([facility]) Body height 66 [in_i] 66 [in_i] NATASHA ([facility]) Body mass index (BMI) [Ratio] 33.4 kg/m2 33.4 k g/m2 NATASHA ([facility]) Systolic blood pressure 124 mm[Hg] 124 mm[Hg] A [facility] ([facility]) Body weight 3313 [oz_av] 3313 [oz_av] NATASHA ([facility]) Diastolic blood pressure 76 mm[Hg] 76 mm[Hg] NATASHA ([facility]) Body height 66 [in_i] 66 [in_i] NATASHA ([facility]) Body mass index (BMI) [Ratio] 33.4 kg/m2 33.4 k g/m2 NATASHA ([facility]) Systolic blood pressure 124 mm[Hg] 124 mm[Hg] A THENA ([facility]) Body weight 3313 [oz_av] 3313 [oz_av] NATASHA ([facility]) Body temperature 96.6 [degF] 96.6 [degF] MEDENT ([facility]) Body height 63.25 [in_i] 63.25 [in_i] MEDENT ([facility]) 5'3.25" Body mass index (BMI) [Ratio] 35.0 kg/m2 35.0 k g/m2 MEDENT ([facility] ) Body weight 199.00 [lb_av] 199.00 [lb_av] MEDEN T ([facility] ) Diastolic blood pressure 85 mm[Hg] 85 mm[Hg] NATASHA ([facility]) Body height 66 [in_i] 66 [in_i] NATASHA ([facility]) Body mass index (BMI) [Ratio] 31.2 kg/m2 31.2 k g/m2 NATASHA ([facility]) Systolic blood pressure 126 mm[Hg] 126 mm[Hg] A THENA ([facility]) Body weight 3088 [oz_av] 3088 [oz_av] NATASHA ([facility]) Diastolic blood pressure 85 mm[Hg] 85 mm[Hg] NATASHA ([facility]) Body height 66 [in_i] 66 [in_i] NATASHA ([facility]) Body mass index (BMI) [Ratio] 31.2 kg/m2 31.2 k g/m2 NATASHA ([facility]) Systolic blood pressure 126 mm[Hg] 126 mm[Hg] A THENA ([facility]) Body weight 3088 [oz_av] 3088 [oz_av] NATASHA ([facility]) Diastolic blood pressure 85 mm[Hg] 85 mm[Hg] NATASHA ([facility]) Body height 66 [in_i] 66 [in_i] NATASHA ([facility]) Body mass index (BMI) [Ratio] 31.2 kg/m2 31.2 k g/m2 NATASHA ([facility]) Systolic blood pressure 126 mm[Hg] 126 mm[Hg] A THENA ([facility]) Body weight 3088 [oz_av] 3088 [oz_av] NATASHA ([facility]) Body weight 193 [lb_av] 193 [lb_av] eCW1 [facility] Body height 63 [in_i] 63 [in_i] eCW1 ([facility]) Body mass index (BMI) [Ratio] 34.18 kg/m2 34.18 kg/m2 eCW1 ([facility]) Systolic blood pressure 116 mm[Hg] 116 mm[Hg] e CW1 ([facility]) Diastolic blood pressure 74 mm[Hg] 74 mm[Hg] eCW1 ([facility]) Body weight 205 [lb_av] 205 [lb_av] eCW1 ([facility] Body weight 92.99 kg 92.99 kg eCW1 ([facility]) Body height 63 [in_i] 63 [in_i] eCW1 ([facility]) Body mass index (BMI) [Ratio] 36.314 kg/m2 36.3 14 kg/m2 eCW1 ([facility]) Systolic blood pressure 114 mm[Hg] 114 mm[Hg] e CW1 ([facility]) Diastolic blood pressure 78 mm[Hg] 78 mm[Hg] eCW1 ([facility]) Body weight 208.8 [lb_av] 208.8 [lb_av] eCW1 ([facility]) Body height 63 [in_i] 63 [in_i] eCW1 ([facility]) Body mass index (BMI) [Ratio] 36.987 kg/m2 36.9 87 kg/m2 eCW1 ([facility]) Systolic blood pressure 114 mm[Hg] 114 mm[Hg] e CW1 ([facility]) Diastolic blood pressure 68 mm[Hg] 68 mm[Hg] eCW1 ([facility]) Body weight 207.8 [lb_av] 207.8 [lb_av] eCW1 ([facility]) Body height 63 [in_i] 63 [in_i] eCW1 ([facility]) Body mass index (BMI) [Ratio] 36.81 kg/m2 36.81 kg/m2 W1 ([facility]) Systolic blood pressure 120 mm[Hg] 120 mm[Hg] e CW1 ([facility]) Diastolic blood pressure 70 mm[Hg] 70 mm[Hg] eCW1 ([facility]) Body weight 203.8 [lb_av] 203.8 [lb_av] eCW1 ([facility]) Body height 63 [in_i] 63 [in_i] eCW1 ([facility]) Body mass index (BMI) [Ratio] 36.1 kg/m2 36.1 k g/m2 eCW1 ([facility]) Systolic blood pressure 116 mm[Hg] 116 mm[Hg] e CW1 ([facility]) Diastolic blood pressure 72 mm[Hg] 72 mm[Hg] eCW1 ([facility]) Body weight 206.6 [lb_av] 206.6 [lb_av] eCW1 ([facility]) Body weight 93.71 kg 93.71 kg eCW1 ([facility]) Body height 63 [in_i] 63 [in_i] eCW1 ([facility]) Body mass index (BMI) [Ratio] 36.598 kg/m2 36.5 98 kg/m2 eCW1 ([facility]) Systolic blood pressure 114 mm[Hg] 114 mm[Hg] e CW1 ([facility]) Diastolic blood pressure 70 mm[Hg] 70 mm[Hg] eCW1 ([facility]) Body weight 203.4 [lb_av] 203.4 [lb_av] eCW1 ([facility]) Body height 63 [in_i] 63 [in_i] eCW1 ([facility]) Body mass index (BMI) [Ratio] 36.031 kg/m2 36.0 31 kg/m2 eCW1 ([facility]) Systolic blood pressure 102 mm[Hg] 102 mm[Hg] e CW1 ([facility]) Diastolic blood pressure 66 mm[Hg] 66 mm[Hg] eCW1 ([facility]) Body weight 200.8 [lb_av] 200.8 [lb_av] eCW1 ([facility]) Body weight 91.08 kg 91.08 kg eCW1 ([facility]) Body height 63 [in_i] 63 [in_i] eCW1 ([facility]) Body mass index (BMI) [Ratio] 35.57 kg/m2 35.57 kg/m2 eCW1 ([facility]) Systolic blood pressure 126 mm[Hg] 126 mm[Hg] e CW1 ([facility]) Diastolic blood pressure 72 mm[Hg] 72 mm[Hg] eCW1 ([facility]) Body weight 206 [lb_av] 206 [lb_av] eCW1 [facility] Body weight 93.44 kg 93.44 kg eCW1 ([facility]) Body height 63 [in_i] 63 [in_i] eCW1 ([facility]) Body mass index (BMI) [Ratio] 36.49 kg/m2 36.49 kg/m2 W1 ([facility]) Systolic blood pressure 120 mm[Hg] 120 mm[Hg] e CW1 ([facility]) Diastolic blood pressure 70 mm[Hg] 70 mm[Hg] eCW1 ([facility]) Body weight 202.4 [lb_av] 202.4 [lb_av] eCW1 ([facility]) Body weight 91.81 kg 91.81 kg eCW1 ([facility]) Body height 63 [in_i] 63 [in_i] eCW1 ([facility]) Body mass index (BMI) [Ratio] 35.854 kg/m2 35.8 54 kg/m2 eCW1 ([facility]) Systolic blood pressure 118 mm[Hg] 118 mm[Hg] e CW1 ([facility]) Diastolic blood pressure 62 mm[Hg] 62 mm[Hg] eCW1 ([facility]) Body weight 199.2 [lb_av] 199.2 [lb_av] eCW1 ([facility]) Body weight 90.36 kg 90.36 kg eCW1 ([facility]) Body height 63 [in_i] 63 [in_i] eCW1 ([facility]) Body mass index (BMI) [Ratio] 35.287 kg/m2 35.2 87 kg/m2 eCW1 ([facility]) Systolic blood pressure 110 mm[Hg] 110 mm[Hg] e CW1 ([facility]) Diastolic blood pressure 68 mm[Hg] 68 mm[Hg] eCW1 ([facility]) Body weight 197 [lb_av] 197 [lb_av] eCW1 ([facility] Body weight 89.36 kg 89.36 kg eCW1 ([facility]. [facility]) Body height 63 [in_i] 63 [in_i] eCW1 ([facility]) Body mass index (BMI) [Ratio] 34.89 kg/m2 34.89 kg/m2 eCW1 ([facility]) Systolic blood pressure 106 mm[Hg] 106 mm[Hg] e CW1 ([facility]) Diastolic blood pressure 64 mm[Hg] 64 mm[Hg] eCW1 ([facility]) Body weight 195.2 [lb_av] 195.2 [lb_av] eCW1 ([facility]) Body weight 88.54 kg 88.54 kg eCW1 ([facility]) Body height 63 [in_i] 63 [in_i] eCW1 ([facility]) Body mass index (BMI) [Ratio] 34.578 kg/m2 34.5 78 kg/m2 eCW1 ([facility]) Systolic blood pressure 120 mm[Hg] 120 mm[Hg] e CW1 ([facility]) Diastolic blood pressure 60 mm[Hg] 60 mm[Hg] eCW1 ([facility]) Body weight 203 [lb_av] 203 [lb_av] [facility] Body weight 92.08 kg 92.08 kg eCW1 ([facility]) Body height 63 [in_i] 63 [in_i] eCW1 ([facility]) Body mass index (BMI) [Ratio] 35.96 kg/m2 35.96 kg/m2 eCW1 ([facility]) Systolic blood pressure 112 mm[Hg] 112 mm[Hg] e CW1 ([facility]) Diastolic blood pressure 72 mm[Hg] 72 mm[Hg] eCW1 ([facility]) Diastolic blood pressure 79 mm[Hg] 79 mm[Hg] NATASHA ([facility]) Body height 66 [in_i] 66 [in_i] NATASHA ([facility]) Body mass index (BMI) [Ratio] 34.28 kg/m2 34.28 kg/m2 NATASHA ([facility]) Systolic blood pressure 138 mm[Hg] 138 mm[Hg] [facility] Body weight 3385.6 [oz_av] 3385.6 [oz_av] ATHEN A ([facility]) Diastolic blood pressure 79 mm[Hg] 79 mm[Hg] NATASHA ([facility]) Body height 66 [in_i] 66 [in_i] NATASHA ([facility]) Body mass index (BMI) [Ratio] 34.28 kg/m2 34.28 kg/m2 NATASHA ([facility]) Systolic blood pressure 138 mm[Hg] 138 mm[Hg] [facility] Body weight 3385.6 [oz_av] 3385.6 [oz_av] ATHEN A ([facility]) Diastolic blood pressure 79 mm[Hg] 79 mm[Hg] NATASHA ([facility]) Body height 66 [in_i] 66 [in_i] NATASHA ([facility]) Body mass index (BMI) [Ratio] 34.28 kg/m2 34.28 kg/m2 NATASHA ([facility]) Systolic blood pressure 138 mm[Hg] 138 mm[Hg] [facility] Body weight 3385.6 [oz_av] 3385.6 [oz_av] ATHEN A ([facility]) Patient Treatment Plan of Care Planned Activity Planned Date Details Description Data Source (s) Cephalexin 500 MG Oral Capsule 03/18/2021 12:00:00 AM EDT eCW1 ([facility]) Fluoxetine 40 MG Oral Capsule [Prozac] 10/18/2020 12:00:00 AM EST eCW1 ([facility]) Fluoxetine 40 MG Oral Capsule [Prozac] 10/18/2020 12:00:00 AM EST eCW1 ([facility]) Fluoxetine 40 MG Oral Capsule [Prozac] 10/18/2020 12:00:00 AM EST eCW1 ([facility]) Pyridoxine Hydrochloride 25 MG Oral Tablet NATASHA ([facility]) Trazodone Hydrochloride 50 MG Oral Tablet NATASHA ([facility]) Sulfamethoxazole 800 MG / Trimethoprim 160 MG Oral Tablet NATASHA ([facility]) Prednisone 10 MG Oral Tablet NATASHA ([facility]) Ondansetron 4 MG Oral Tablet NATASHA ([facility]) Ondansetron 4 MG Disintegrating Oral Tablet NATASHA ([facility]) Naproxen 500 MG Oral Tablet NATASHA ([facility]) methylprednisolone 4 mg tablets in a dose pack TAKE BY MOUTH DIR ECTED NATASHA ([facility]) Methocarbamol 500 MG Oral Tablet NATASHA ([facility]) meloxicam 15 MG Oral Tablet NATASHA ([facility]) Meclizine Hydrochloride 25 MG Oral Tablet NATASHA ([facility]) Loratadine 10 MG Oral Tablet NATASHA ([facility]) Ibuprofen 600 MG Oral Tablet NATASHA ([facility]) Hydroxyzine Hydrochloride 50 MG Oral Tablet NATASHA ([facility]) Fluoxetine 40 MG Oral Capsule NATASHA ([facility]) Fluoxetine 10 MG Oral Capsule NATASHA ([facility]) Dicyclomine Hydrochloride 20 MG Oral Tablet NATASHA ([facility]) Cyclobenzaprine hydrochloride 5 MG Oral Tablet NATASHA ([facility]) Cyclobenzaprine hydrochloride 10 MG Oral Tablet NATASHA ([facility]) Ciprofloxacin 500 MG Oral Tablet NATASHA ([facility]) Cephalexin 500 MG Oral Capsule NATASHA ([facility]) Aspercreme (lidocaine) 4 % topical patch APPLY 1 PATCH TO AFFECTED SHOULDER FOR UP TO 12 HOURS A DAY MAX OF 1 PATCH DAILY NATASHA ([facility]) Pyridoxine Hydrochloride 25 MG Oral Tablet NATASHA ([facility]) Trazodone Hydrochloride 50 MG Oral Tablet NATASHA ([facility]) Sulfamethoxazole 800 MG / Trimethoprim 160 MG Oral Tablet NATASHA ([facility]) Prednisone 10 MG Oral Tablet NATASHA ([facility]) Ondansetron 4 MG Oral Tablet NATASHA ([facility]) Ondansetron 4 MG Disintegrating Oral Tablet NATASHA ([facility]) Naproxen 500 MG Oral Tablet NATASHA ([facility]) methylprednisolone 4 mg tablets in a dose pack TAKE BY MOUTH DIR ECTED NATASHA ([facility]) Methocarbamol 500 MG Oral Tablet NATASHA ([facility]) meloxicam 15 MG Oral Tablet NATASHA ([facility]) Meclizine Hydrochloride 25 MG Oral Tablet NATASHA ([facility]) Loratadine 10 MG Oral Tablet NATASHA ([facility]) Pyridoxine Hydrochloride 25 MG Oral Tablet NATASHA ([facility]) Trazodone Hydrochloride 50 MG Oral Tablet NATASHA ([facility]) Sulfamethoxazole 800 MG / Trimethoprim 160 MG Oral Tablet NATASHA ([facility]) Sertraline 25 MG Oral Tablet NATASHA ([facility]) Prednisone 10 MG Oral Tablet NATASHA ([facility]) Ondansetron 4 MG Oral Tablet NATASHA ([facility]) Ondansetron 4 MG Disintegrating Oral Tablet NATASHA ([facility]) Naproxen 500 MG Oral Tablet NATASHA ([facility]) methylprednisolone 4 mg tablets in a dose pack TAKE BY MOUTH DIR ECTED NATASHA ([facility]) Methocarbamol 500 MG Oral Tablet NATASHA ([facility]) meloxicam 15 MG Oral Tablet NATASHA ([facility]) Meclizine Hydrochloride 25 MG Oral Tablet NATASHA ([facility]) Loratadine 10 MG Oral Tablet NATASHA ([facility]) Ibuprofen 600 MG Oral Tablet NATASHA ([facility]) Fluoxetine 40 MG Oral Capsule NATASHA ([facility]) Fluoxetine 10 MG Oral Capsule NATASHA ([facility]) Dicyclomine Hydrochloride 20 MG Oral Tablet NATASHA ([facility]) Cyclobenzaprine hydrochloride 5 MG Oral Tablet NATASHA ([facility]) Ciprofloxacin 500 MG Oral Tablet NATASHA ([facility]) Cephalexin 500 MG Oral Capsule NATASHA ([facility]) Aspercreme (lidocaine) 4 % topical patch APPLY 1 PATCH TO AFFECTED SHOULDER FOR UP TO 12 HOURS A DAY MAX OF 1 PATCH DAILY NATASHA ([facility]) Hydroxyzine Hydrochloride 50 MG Oral Tablet NATASHA ([facility]) Fluoxetine 40 MG Oral Capsule NATASHA ([facility]) Fluoxetine 10 MG Oral Capsule NATASHA ([facility]) Dicyclomine Hydrochloride 20 MG Oral Tablet NATASHA ([facility]) Cyclobenzaprine hydrochloride 5 MG Oral Tablet NATASHA ([facility]) Cyclobenzaprine hydrochloride 10 MG Oral Tablet NATASHA ([facility]) Ciprofloxacin 500 MG Oral Tablet NATASHA ([facility]) Cephalexin 500 MG Oral Capsule NATASHA ([facility]) Aspercreme (lidocaine) 4 % topical patch APPLY 1 PATCH TO AFFECTED SHOULDER FOR UP TO 12 HOURS A DAY MAX OF 1 PATCH DAILY NATASHA ([facility])
[2021-10-06 11:33] LABS: BASO # 0.1 10^3/uL (0.0-0.2); EOS # 0.2 10^3/uL (0.0-0.5); EOS % 4.5 % (0.0-3.0); HEMATOCRIT 36.8 % (36.0-47.0); HEMOGLOBIN 11.8 g/dl (12.0-15.5); LYMPH # 2.3 10^3/uL (1.5-5.0); LYMPH % 47.4 % (24.0-44.0); MEAN CORPUSCULAR HEMOGLOBIN 26.2 pg (27.0-33.0); MEAN CORPUSCULAR HGB CONC 32.1 g/dl (32.0-36.5); MEAN CORPUSCULAR VOLUME 81.6 fl (80.0-96.0); MONO # 0.5 10^3/uL (0.0-0.8); MONO % 10.3 % (2.0-8.0); NEUTROPHILS # 1.8 10^3/uL (1.5-8.5); NEUTROPHILS % 36.4 % (36.0-66.0); PLATELET COUNT, AUTOMATED 375 10^3/uL (150-450); RED BLOOD COUNT 4.51 10^6/uL (4.00-5.40); WHITE BLOOD COUNT 4.9 10^3/uL (4.0-10.0)
--- NOTE | 2021-10-06 11:37 | REP ---
INDICATION: R shoulder and chest pain, SOB COMPARISON: None. TECHNIQUE: Real time compression and duplex Doppler evaluation of the Right upper extremity deep venous system is performed. FINDINGS: The Right subclavian, jugular, axillary, brachial, basilic and cephalic veins are fully compressible where accessible with transducer pressure, and demonstrate no intraluminal thrombus and normal venous waveforms. There is no evidence of deep venous thrombosis.The Left subclavian vein is fully compressible where accessible with transducer pressure, and demonstrates no intraluminal thrombus and normal venous waveforms. IMPRESSION: No evidence of deep venous thrombosis of the Right upper extremity deep vein system. <Electronically signed by Devan Bean > 10/06/21 [id number]
[2021-10-06 11:45] LABS: INR 0.98; PROTHROMBIN TIME 13.3 SECONDS (12.7-14.5)
[2021-10-06 11:46] LABS: PARTIAL THROMBOPLASTIN TIME 30.4 SECONDS (25.9-37.0)
[2021-10-06 11:49] LABS: D-DIMER QUANT 349.69 ng/ml (<500)
--- NOTE | 2021-10-06 14:49 | REP ---
INDICATION: R shoulder pain, R chest pain, SOB COMPARISON: 08/12/2019. TECHNIQUE: PA/Lateral FINDINGS: Lungs: Clear, no infiltrate. Heart: Normal in size. Mediastinum: Mediastinal silhouette unremarkable. Pleural angles: Unremarkable.. Bones and soft tissues: Unremarkable. IMPRESSION: No acute pulmonary disease. <Electronically signed by Devan Bean > 10/06/21 1379
[2021-10-06] MEDS ORDERED: ONDA4TAB6 PO (14:51)
[2021-10-06 15:20] VITALS: BP 120/65
== END 2021-10-06 15:37 | disposition home or self-care (01) ==
LOC: M ED 07:47
DX: R07.89 Other chest pain (principal); R06.00 Dyspnea, unspecified; M25.511 Pain in right shoulder; R51.9 Headache, unspecified; R11.0 Nausea; J45.909 Unspecified asthma, uncomplicated; Z88.1 Allergy status to other antibiotic agents; Z88.8 Allergy status to other drugs, medicaments and biological substances; Z91.040 Latex allergy status; Z79.899 Other long term (current) drug therapy
CPT/HCPCS: 71046; 80047; 84702; 85025; 85379; 85610; 85730; 87631; 93971; 96361; 96374; 96375; 99284; J1885; J2405

== ENCOUNTER → 2021-11-01 | Outpatient (CLI) | payer OTHER ==
[~2021-11-01] MED LIST changes: -DICY20TA11 PO; +DICY20TA20 PO; -FLUO10CA16; +FLUO10CA18; +HYDR50TA70; +SERTRALINE
== END ==
LOC: M PLALAB 15:12
PROVIDERS: ATTEND Obstetrics & Gynecology
DX: N91.2 Amenorrhea, unspecified (principal)

== ENCOUNTER → 2021-12-12 | Outpatient (CLI) | payer OTHER | LOC: M RAD 12:23 | PROVIDERS: ATTEND Physician Assistant Medical | DX: M25.572 Pain in left ankle and joints of left foot (principal) ==

== ENCOUNTER → 2022-01-17 | Outpatient (CLI) | payer OTHER | LOC: M RAD 08:18 | PROVIDERS: ATTEND Physician Assistant Surgical | DX: M79.645 Pain in left finger(s) (principal) ==

== ENCOUNTER → 2022-02-09 | Outpatient (CLI) | payer OTHER ==
[2022-02-09 11:38] LABS: BASO # 0.1 10^3/uL (0.0-0.2); BASO % 0.8 % (0.0-1.0); EOS # 0.4 10^3/uL (0.0-0.5); EOS % 5.6 % (0.0-3.0); HEMOGLOBIN 13.4 g/dl (12.0-15.5); LYMPH # 2.2 10^3/uL (1.5-5.0); LYMPH % 34.4 % (24.0-44.0); MEAN CORPUSCULAR HGB CONC 33.5 g/dl (32.0-36.5); MEAN CORPUSCULAR VOLUME 83.5 fl (80.0-96.0); MONO # 0.5 10^3/uL (0.0-0.8); MONO % 7.5 % (2.0-8.0); NEUTROPHILS # 3.3 10^3/uL (1.5-8.5); NEUTROPHILS % 51.5 % (36.0-66.0); PLATELET COUNT, AUTOMATED 378 10^3/uL (150-450); RED BLOOD COUNT 4.79 10^6/uL (4.00-5.40); WHITE BLOOD COUNT 6.4 10^3/uL (4.0-10.0)
[2022-02-09 12:03] LABS: ERYTHROCYTE SEDIMENTATION RATE 9 mm/hr (0-20)
[2022-02-09 12:17] LABS: C REACTIVE PROTEIN QUANTITATIV 0.52 MG/DL (0.00-0.30); CHOLESTEROL LEVEL 139 MG/DL (<200); CHOLESTEROL RISK RATIO 3.232 (<5); GLUCOSE, FASTING 80 MG/DL (70-100); HDL CHOLESTEROL 43 MG/DL (>40); LDL CHOLESTEROL 83 MG/DL (<100); NON-HDL-C 96 MG/DL; RHEUMATOID FACTOR QUANT < 10.0 IU/ML (<15.0); TRIGLYCERIDES LEVEL 63 MG/DL (<150)
[2022-02-09 12:43] LABS: HEMOGLOBIN A1c 5.2 %
== END ==
LOC: M LAB 09:16
PROVIDERS: ATTEND Physician Assistant
DX: H35.60 Retinal hemorrhage, unspecified eye (principal)

== ENCOUNTER 2022-03-03 20:00 | Emergency (ER) | payer OTHER ==
[~2022-03-03] VITALS: Ht 160 cm; Wt 105.8 kg
[2022-03-03 20:01] VITALS: BP 132/76
== END 2022-03-04 02:19 | disposition left against medical advice (07) ==
LOC: M ED 20:00
DX: Z53.21 Procedure and treatment not carried out due to patient leaving prior to being seen by health care provider (principal); Z91.040 Latex allergy status; Z88.1 Allergy status to other antibiotic agents; Z88.8 Allergy status to other drugs, medicaments and biological substances

== ENCOUNTER 2022-03-04 19:07 | Emergency (ER) | payer OTHER ==
[~2022-03-04] VITALS: Ht 160 cm; Wt 102.3 kg
[2022-03-04 19:08] VITALS: BP 124/80
== END 2022-03-04 23:40 | disposition left against medical advice (07) ==
LOC: M ED 19:07
DX: Z53.21 Procedure and treatment not carried out due to patient leaving prior to being seen by health care provider (principal); Z91.040 Latex allergy status; Z88.1 Allergy status to other antibiotic agents

== ENCOUNTER → 2022-04-15 | Outpatient (CLI) | payer OTHER ==
[~2022-04-15] MED LIST changes: +DULO1CAP5; +IBUP-1114
== END ==
LOC: M RAD 12:10
PROVIDERS: ATTEND Family Medicine Addiction Medicine
DX: M25.542 Pain in joints of left hand (principal)

== ENCOUNTER 2022-04-17 10:51 | Emergency (ER) | payer OTHER ==
[~2022-04-17] VITALS: Ht 160 cm; Wt 102.3 kg
[~2022-04-17 10:51] MED LIST changes: -DULO1CAP5; -IBUP-1114
[2022-04-17] MEDS ORDERED: DULO1CAP5 (11:12)
[2022-04-17] MEDS ORDERED: IBUP-1114 (11:12)
[2022-04-17] MEDS ORDERED: KETOROLAC 30 MG/ML 1ML VIAL IV ONE (11:55)
[2022-04-17 12:24] LABS: BASO # 0.1 10^3/uL (0.0-0.2); BASO % 0.8 % (0.0-1.0); EOS # 0.5 10^3/uL (0.0-0.5); EOS % 6.5 % (0.0-3.0); HEMATOCRIT 37.9 % (36.0-47.0); HEMOGLOBIN 12.8 g/dl (12.0-15.5); LYMPH # 2.3 10^3/uL (1.5-5.0); LYMPH % 32.7 % (24.0-44.0); MEAN CORPUSCULAR HEMOGLOBIN 29.1 pg (27.0-33.0); MEAN CORPUSCULAR HGB CONC 33.8 g/dl (32.0-36.5); MEAN CORPUSCULAR VOLUME 86.1 fl (80.0-96.0); MONO # 0.7 10^3/uL (0.0-0.8); MONO % 9.3 % (2.0-8.0); NEUTROPHILS # 3.6 10^3/uL (1.5-8.5); NEUTROPHILS % 50.4 % (36.0-66.0); PLATELET COUNT, AUTOMATED 328 10^3/uL (150-450); WHITE BLOOD COUNT 7.1 10^3/uL (4.0-10.0)
[2022-04-17] MEDS ORDERED: ISOVUE-370 76% 100ML VIAL As Ordered ONE (12:46)
[2022-04-17 12:50] LABS: ALBUMIN 3.9 GM/DL (3.2-5.2); BILIRUBIN,DIRECT 0.2 MG/DL (0.0-0.2); BILIRUBIN,TOTAL 0.3 MG/DL (0.2-1.0); TOTAL PROTEIN 7.2 GM/DL (6.4-8.2)
[2022-04-17 14:01] VITALS: BP 135/78
== END 2022-04-17 14:08 | disposition home or self-care (01) ==
LOC: M ED 10:51
DX: N83.201 Unspecified ovarian cyst, right side (principal); S30.0XXA Contusion of lower back and pelvis, initial encounter; X58.XXXA Exposure to other specified factors, initial encounter; Y92.89 Other specified places as the place of occurrence of the external cause; J45.909 Unspecified asthma, uncomplicated; F33.9 Major depressive disorder, recurrent, unspecified; F41.9 Anxiety disorder, unspecified; Z88.1 Allergy status to other antibiotic agents; Z88.8 Allergy status to other drugs, medicaments and biological substances; Z91.018 Allergy to other foods; Z91.048 Other nonmedicinal substance allergy status; Z79.899 Other long term (current) drug therapy
CPT/HCPCS: 72220; 74177; 80047; 80076; 81001; 83690; 84702; 85025; 96374; 99284; J1885; Q9967

== ENCOUNTER → 2022-05-05 | Outpatient (REF) | payer OTHER ==
[~2022-05-05] MED LIST changes: +DULO1CAP5; +IBUP-1114
== END ==
LOC: M LAB REF 12:47
PROVIDERS: ATTEND Physician Assistant
DX: R05.9 Cough, unspecified (principal); R09.89 Other specified symptoms and signs involving the circulatory and respiratory systems

== ENCOUNTER 2022-05-26 13:58 | Emergency (ER) | payer OTHER ==
[~2022-05-26] VITALS: Ht 160 cm; Wt 101.4 kg
[2022-05-26 16:55] LABS: BASO # 0.1 10^3/uL (0.0-0.2); BASO % 0.6 % (0.0-1.0); EOS # 0.4 10^3/uL (0.0-0.5); EOS % 4.5 % (0.0-3.0); HEMATOCRIT 37.8 % (36.0-47.0); HEMOGLOBIN 12.5 g/dl (12.0-15.5); LYMPH # 2.7 10^3/uL (1.5-5.0); LYMPH % 32.8 % (24.0-44.0); MEAN CORPUSCULAR HGB CONC 33.1 g/dl (32.0-36.5); MEAN CORPUSCULAR VOLUME 87.7 fl (80.0-96.0); MONO # 0.7 10^3/uL (0.0-0.8); MONO % 8.8 % (2.0-8.0); NEUTROPHILS # 4.3 10^3/uL (1.5-8.5); NEUTROPHILS % 53.1 % (36.0-66.0); PLATELET COUNT, AUTOMATED 301 10^3/uL (150-450); RED BLOOD COUNT 4.31 10^6/uL (4.00-5.40); WHITE BLOOD COUNT 8.2 10^3/uL (4.0-10.0)
[2022-05-26 17:20] LABS: ALBUMIN 4.2 GM/DL (3.2-5.2); ALT/SGPT 18 U/L (12-78); BILIRUBIN,DIRECT 0.1 MG/DL (0.0-0.2); BILIRUBIN,TOTAL 0.3 MG/DL (0.2-1.0); BLOOD UREA NITROGEN 10 MG/DL (7-18); CALCIUM LEVEL 9.2 MG/DL (8.5-10.1); CARBON DIOXIDE LEVEL 27 MEQ/L (21-32); CHLORIDE LEVEL 109 MEQ/L (98-107); CREATININE FOR GFR 0.62 MG/DL (0.55-1.30); GLOMERULAR FILTRATION RATE > 60.0 (>60); GLUCOSE, FASTING 89 MG/DL (70-100); HCG, SERUM QUANTITATIVE < 1.0 MIU/ML; LIPASE 68 U/L (73-393); POTASSIUM SERUM 3.8 MEQ/L (3.5-5.1); SODIUM LEVEL 143 MEQ/L (136-145); TOTAL PROTEIN 7.3 GM/DL (6.4-8.2)
[2022-05-26] MEDS ORDERED: KETOROLAC 30 MG/ML 1ML VIAL IV ONE (18:20)
[2022-05-26] MEDS ORDERED: ISOVUE-370 76% 100ML VIAL As Ordered ONE (18:21)
[2022-05-26] MEDS ORDERED: CEPH500C PO (19:38)
[2022-05-26 19:45] VITALS: BP 149/80
== END 2022-05-26 19:54 | disposition home or self-care (01) ==
LOC: M ED 13:58
DX: N39.0 Urinary tract infection, site not specified (principal); J45.909 Unspecified asthma, uncomplicated; F32.A Depression, unspecified; F41.9 Anxiety disorder, unspecified; E66.9 Obesity, unspecified; Z87.442 Personal history of urinary calculi; Z79.899 Other long term (current) drug therapy; Z88.1 Allergy status to other antibiotic agents; Z88.8 Allergy status to other drugs, medicaments and biological substances; Z91.018 Allergy to other foods; Z91.040 Latex allergy status
CPT/HCPCS: 74177; 80048; 80076; 81001; 83690; 84702; 85025; 87086; 96374; 99284; J1885; Q9967

== ENCOUNTER 2022-08-02 00:07 | Emergency (ER) | payer MEDICAID, OTHER ==
[~2022-08-02] VITALS: Ht 160 cm; Wt 95.5 kg
[2022-08-02] MEDS ORDERED: FERR325T3 PO (00:22)
[2022-08-02] MEDS ORDERED: OFLO3OPSO OD (06:46)
[2022-08-02 06:59] VITALS: BP 124/63
== END 2022-08-02 07:37 | disposition home or self-care (01) ==
LOC: M ED 00:07
DX: H10.31 Unspecified acute conjunctivitis, right eye (principal); Z88.1 Allergy status to other antibiotic agents; Z91.018 Allergy to other foods; Z91.040 Latex allergy status; Z91.048 Other nonmedicinal substance allergy status

== ENCOUNTER 2022-08-08 17:02 | Emergency (ER) | payer MEDICAID, OTHER ==
[~2022-08-08] VITALS: Ht 160 cm; Wt 95.9 kg
[~2022-08-08 17:02] MED LIST changes: +OFLO3OPSO OD
[2022-08-08] MEDS ORDERED: LIDOCAINE 4% CREAM 5GM (LMX4) TOP ONE (20:00)
[2022-08-08] MEDS ORDERED: ACETAMINOPHEN 500 MG TAB PO ONE (20:00)
[2022-08-08] MEDS ORDERED: NAPROXEN 250 MG TAB PO ONE (20:00)
[2022-08-08 21:15] VITALS: BP 144/94
== END 2022-08-08 21:17 | disposition home or self-care (01) ==
LOC: M ED 17:02
DX: S89.92XA Unspecified injury of left lower leg, initial encounter (principal); X50.0XXA Overexertion from strenuous movement or load, initial encounter; W01.0XXA Fall on same level from slipping, tripping and stumbling without subsequent striking against object, initial encounter; Y92.009 Unspecified place in unspecified non-institutional (private) residence as the place of occurrence of the external cause; Z88.1 Allergy status to other antibiotic agents; Z88.8 Allergy status to other drugs, medicaments and biological substances; Z91.040 Latex allergy status; Z91.018 Allergy to other foods

== ENCOUNTER → 2022-09-04 | Outpatient (REF) | payer OTHER | LOC: M LAB REF 12:01 | PROVIDERS: ATTEND Physician Assistant Medical | DX: R50.9 Fever, unspecified (principal) ==

== ENCOUNTER 2022-09-16 10:07 | Emergency (ER) | payer OTHER ==
[~2022-09-16] VITALS: Ht 160 cm; Wt 96.4 kg
[2022-09-16 11:09] LABS: BASO # 0.1 10^3/uL (0.0-0.2); BASO % 0.7 % (0.0-1.0); EOS # 0.6 10^3/uL (0.0-0.5); EOS % 7.6 % (0.0-3.0); HEMATOCRIT 37.1 % (36.0-47.0); HEMOGLOBIN 12.6 g/dl (12.0-15.5); LYMPH # 2.3 10^3/uL (1.5-5.0); LYMPH % 31.6 % (24.0-44.0); MEAN CORPUSCULAR VOLUME 85.3 fl (80.0-96.0); MONO # 0.5 10^3/uL (0.0-0.8); MONO % 7.2 % (2.0-8.0); NEUTROPHILS # 3.8 10^3/uL (1.5-8.5); NEUTROPHILS % 52.5 % (36.0-66.0); PLATELET COUNT, AUTOMATED 345 10^3/uL (150-450); RED BLOOD COUNT 4.35 10^6/uL (4.00-5.40); WHITE BLOOD COUNT 7.3 10^3/uL (4.0-10.0)
[2022-09-16 12:19] LABS: ALBUMIN 3.9 GM/DL (3.2-5.2); ALT/SGPT 27 U/L (12-78); BILIRUBIN,DIRECT 0.1 MG/DL (0.0-0.2); BILIRUBIN,TOTAL 0.4 MG/DL (0.2-1.0); BLOOD UREA NITROGEN 8 MG/DL (7-18); CARBON DIOXIDE LEVEL 26 MEQ/L (21-32); CHLORIDE LEVEL 103 MEQ/L (98-107); CREATININE FOR GFR 0.56 MG/DL (0.55-1.30); GLOMERULAR FILTRATION RATE > 60.0 (>60); GLUCOSE, FASTING 77 MG/DL (70-100); HCG, SERUM QUANTITATIVE 14527 MIU/ML; LIPASE 73 U/L (73-393); POTASSIUM SERUM 3.8 MEQ/L (3.5-5.1); SODIUM LEVEL 135 MEQ/L (136-145); TOTAL PROTEIN 7.3 GM/DL (6.4-8.2)
[2022-09-16] MEDS ORDERED: ONDA4TAB6 PO (14:48)
[2022-09-16 14:56] VITALS: BP 131/71
== END 2022-09-16 14:58 | disposition home or self-care (01) ==
LOC: M ED 10:07
DX: O21.9 Vomiting of pregnancy, unspecified (principal); O99.281 Endocrine, nutritional and metabolic diseases complicating pregnancy, first trimester; O99.511 Diseases of the respiratory system complicating pregnancy, first trimester; O99.611 Diseases of the digestive system complicating pregnancy, first trimester; O99.411 Diseases of the circulatory system complicating pregnancy, first trimester; Z79.899 Other long term (current) drug therapy; Z91.010 Allergy to peanuts; Z91.89 Other specified personal risk factors, not elsewhere classified; Z91.040 Latex allergy status; Z88.0 Allergy status to penicillin; Z88.1 Allergy status to other antibiotic agents; Z88.8 Allergy status to other drugs, medicaments and biological substances

== ENCOUNTER 2022-10-13 18:11 | Emergency (ER) | payer OTHER ==
[~2022-10-13] VITALS: Ht 160 cm; Wt 88.5 kg
[2022-10-13] MEDS ORDERED: PROMETHAZINE 25 MG TAB PO ONE (19:50)
[2022-10-13] MEDS ORDERED: PROM25TA12 PO (20:40)
[2022-10-13 20:46] VITALS: BP 123/83
== END 2022-10-13 20:48 | disposition home or self-care (01) ==
LOC: M ED 18:11
DX: O21.0 Mild hyperemesis gravidarum (principal); Z3A.10 10 weeks gestation of pregnancy; Z79.899 Other long term (current) drug therapy; Z88.2 Allergy status to sulfonamides; Z88.1 Allergy status to other antibiotic agents; Z88.8 Allergy status to other drugs, medicaments and biological substances; Z91.010 Allergy to peanuts; Z91.040 Latex allergy status; Z91.89 Other specified personal risk factors, not elsewhere classified

== ENCOUNTER → 2022-10-26 | Outpatient (CLI) | payer OTHER ==
[~2022-10-26] MED LIST changes: +PROM25TA12 PO
[2022-10-26 10:53] LABS: HEMOGLOBIN 12.1 g/dl (12.0-15.5); MEAN CORPUSCULAR HEMOGLOBIN 29.2 pg (27.0-33.0); MEAN CORPUSCULAR HGB CONC 34.6 g/dl (32.0-36.5); MEAN CORPUSCULAR VOLUME 84.3 fl (80.0-96.0); PLATELET COUNT, AUTOMATED 296 10^3/uL (150-450); RED BLOOD COUNT 4.15 10^6/uL (4.00-5.40); WHITE BLOOD COUNT 7.4 10^3/uL (4.0-10.0)
[2022-10-26 11:50] LABS: HIV 1&2 SCREEN CENTAUR NEGATIVE (NEGATIVE)
[2022-10-26 11:58] LABS: HEPATITIS C VIRUS ABY INDEX 0.1 INDEX (<0.8)
[2022-10-26 13:23] LABS: GC DNA AMPLIFICATION NEGATIVE (NEGATIVE)
== END ==
LOC: M PLALAB 09:12
PROVIDERS: ATTEND Advanced Practice Midwife
DX: Z34.91 Encounter for supervision of normal pregnancy, unspecified, first trimester (principal)

== ENCOUNTER 2022-11-02 10:46 | Emergency (ER) | payer OTHER ==
[~2022-11-02] VITALS: Ht 160 cm; Wt 86.6 kg
[2022-11-02] MEDS ORDERED: METOCLOPRAMIDE INJ 10MG/2ML VIAL IV ONE (12:35)
[2022-11-02] MEDS ORDERED: NS 1,000 ML IV ONE (12:35)
[2022-11-02] MEDS ORDERED: valACYclovir HCL 500 MG TAB PO ONE (12:40)
[2022-11-02] MEDS ORDERED: ABRE10CR TOP (12:42)
[2022-11-02] MEDS ORDERED: VALT500T PO (12:43)
[2022-11-02 13:07] LABS: BASO % 0.4 % (0.0-1.0); EOS # 0.1 10^3/uL (0.0-0.5); EOS % 1.5 % (0.0-3.0); HEMATOCRIT 36.9 % (36.0-47.0); HEMOGLOBIN 12.8 g/dl (12.0-15.5); LYMPH # 1.4 10^3/uL (1.5-5.0); LYMPH % 28.9 % (24.0-44.0); MEAN CORPUSCULAR HEMOGLOBIN 29.4 pg (27.0-33.0); MEAN CORPUSCULAR HGB CONC 34.7 g/dl (32.0-36.5); MEAN CORPUSCULAR VOLUME 84.8 fl (80.0-96.0); MONO # 0.4 10^3/uL (0.0-0.8); MONO % 8.3 % (2.0-8.0); NEUTROPHILS # 2.9 10^3/uL (1.5-8.5); NEUTROPHILS % 60.5 % (36.0-66.0); PLATELET COUNT, AUTOMATED 261 10^3/uL (150-450); RED BLOOD COUNT 4.35 10^6/uL (4.00-5.40); WHITE BLOOD COUNT 4.8 10^3/uL (4.0-10.0)
[2022-11-02 13:40] LABS: ALBUMIN 3.5 G/DL (3.2-5.2); BILIRUBIN,DIRECT 0.1 MG/DL (<0.4); BILIRUBIN,TOTAL 0.5 MG/DL (0.3-1.2); TOTAL PROTEIN 6.8 G/DL (5.7-8.2)
[2022-11-02] MEDS ORDERED: POTASSIUM CHLORIDE 10MEQ SR TABLET PO ONE (14:00)
[2022-11-02 15:11] VITALS: BP 116/74
== END 2022-11-02 15:30 | disposition home or self-care (01) ==
LOC: M ED 10:46
DX: O21.1 Hyperemesis gravidarum with metabolic disturbance (principal); E86.0 Dehydration; E87.6 Hypokalemia; O98.311 Other infections with a predominantly sexual mode of transmission complicating pregnancy, first trimester; Z3A.12 12 weeks gestation of pregnancy; Z88.1 Allergy status to other antibiotic agents; Z88.8 Allergy status to other drugs, medicaments and biological substances; Z91.040 Latex allergy status; Z79.899 Other long term (current) drug therapy
CPT/HCPCS: 76801; 80047; 80076; 84702; 85025; 87428; 96361; 96374; 99284; J2765

== ENCOUNTER → 2022-11-23 | Outpatient (REF) | payer OTHER ==
[~2022-11-23] MED LIST changes: +ABRE10CR TOP; +PNV1TABL16 PO; +VALT500T PO
== END ==
LOC: M SFHCWAGY 17:07
PROVIDERS: ATTEND Advanced Practice Midwife
DX: Z34.82 Encounter for supervision of other normal pregnancy, second trimester (principal)

== ENCOUNTER 2022-11-24 08:53 | Emergency (ER) | payer OTHER ==
[~2022-11-24] VITALS: Ht 160 cm; Wt 101.0 kg
[~2022-11-24 08:53] MED LIST changes: -PNV1TABL16 PO
[2022-11-24] MEDS ORDERED: PNV1TABL16 PO (11:09)
[2022-11-24] MEDS ORDERED: ACETAMINOPHEN 500 MG TAB PO ONE (11:20)
[2022-11-24 11:53] LABS: BASO % 0.3 % (0.0-1.0); EOS # 0.1 10^3/uL (0.0-0.5); EOS % 1.9 % (0.0-3.0); HEMATOCRIT 34.7 % (36.0-47.0); LYMPH % 31.6 % (24.0-44.0); MEAN CORPUSCULAR HEMOGLOBIN 29.6 pg (27.0-33.0); MEAN CORPUSCULAR HGB CONC 34.6 g/dl (32.0-36.5); MEAN CORPUSCULAR VOLUME 85.5 fl (80.0-96.0); MONO # 0.6 10^3/uL (0.0-0.8); MONO % 8.6 % (2.0-8.0); NEUTROPHILS # 3.7 10^3/uL (1.5-8.5); NEUTROPHILS % 57.3 % (36.0-66.0); PLATELET COUNT, AUTOMATED 297 10^3/uL (150-450); RED BLOOD COUNT 4.06 10^6/uL (4.00-5.40); WHITE BLOOD COUNT 6.4 10^3/uL (4.0-10.0)
[2022-11-24 12:20] LABS: LIPASE 25 U/L (12-53)
[2022-11-24 12:22] LABS: BILIRUBIN,DIRECT 0.1 MG/DL (<0.4)
[2022-11-24 12:23] LABS: ALBUMIN 3.7 G/DL (3.2-5.2); ALKALINE PHOSPHATASE 49 U/L (46-116); ALT/SGPT 10 U/L (7.0-40); AST/SGOT 19 U/L (<34); BILIRUBIN,TOTAL 0.4 MG/DL (0.3-1.2); BLOOD UREA NITROGEN 7 MG/DL (9-23); CALCIUM LEVEL 8.7 MG/DL (8.5-10.1); CARBON DIOXIDE LEVEL 23 MMOL/L (20-31); CHLORIDE LEVEL 104 MMOL/L (98-107); CREATININE FOR GFR 0.47 MG/DL (0.55-1.30); GLOMERULAR FILTRATION RATE > 60.0 (>60); GLUCOSE, FASTING 77 MG/DL (60-100); POTASSIUM SERUM 4.3 MMOL/L (3.5-5.1); SODIUM LEVEL 135 MMOL/L (136-145)
[2022-11-24] MEDS ORDERED: MACR100C43 PO (13:03)
[2022-11-24] MEDS ORDERED: NITROFURANTOIN (MACROBID) 100 MG CAP PO ONE (13:05)
[2022-11-24 13:21] VITALS: BP 123/75
== END 2022-11-24 13:28 | disposition home or self-care (01) ==
LOC: M ED 08:53
DX: O23.12 Infections of bladder in pregnancy, second trimester (principal); O26.612 Liver and biliary tract disorders in pregnancy, second trimester; O26.832 Pregnancy related renal disease, second trimester; Z88.1 Allergy status to other antibiotic agents; Z91.048 Other nonmedicinal substance allergy status; Z91.040 Latex allergy status; Z88.8 Allergy status to other drugs, medicaments and biological substances; Z79.899 Other long term (current) drug therapy; Z3A.00 Weeks of gestation of pregnancy not specified

== ENCOUNTER → 2022-11-29 | Outpatient (REF) | payer OTHER ==
[~2022-11-29] MED LIST changes: +PNV1TABL16 PO
[2022-11-29 13:42] LABS: ALBUMIN 3.6 G/DL (3.2-5.2); ALKALINE PHOSPHATASE 50 U/L (46-116); ALT/SGPT < 9 U/L (7.0-40); AST/SGOT 11 U/L (<34); BILIRUBIN,TOTAL 0.3 MG/DL (0.3-1.2); BLOOD UREA NITROGEN 6 MG/DL (9-23); CALCIUM LEVEL 8.7 MG/DL (8.5-10.1); CARBON DIOXIDE LEVEL 26 MMOL/L (20-31); CHLORIDE LEVEL 104 MMOL/L (98-107); CHOLESTEROL LEVEL 198 MG/DL (<200); CHOLESTEROL RISK RATIO 3.65 (<5); CREATININE FOR GFR 0.45 MG/DL (0.55-1.30); GLOMERULAR FILTRATION RATE > 60.0 (>60); GLUCOSE, FASTING 78 MG/DL (60-100); HDL CHOLESTEROL 54.1 MG/DL (>40); LDL CHOLESTEROL 117.5 MG/DL (<100); NON-HDL-C 144 MG/DL; POTASSIUM SERUM 3.8 MMOL/L (3.5-5.1); SODIUM LEVEL 136 MMOL/L (136-145); TOTAL PROTEIN 6.7 G/DL (5.7-8.2); TRIGLYCERIDES LEVEL 132 MG/DL (<150)
[2022-11-29 13:44] LABS: THYROID STIMULATING HORMONE 1.476 uIU/ML (0.55-4.78)
== END ==
LOC: M LAB REF 12:28
PROVIDERS: ATTEND Family Medicine Addiction Medicine
DX: Z68.36 Body mass index [BMI] 36.0-36.9, adult (principal)

== ENCOUNTER 2022-12-12 15:55 | Emergency (ER) | payer OTHER ==
[~2022-12-12] VITALS: Ht 160 cm; Wt 85.6 kg
[2022-12-12] MEDS ORDERED: ACET325C5 PO (16:03)
[2022-12-12] MEDS ORDERED: METO5TAB2 (16:03)
[2022-12-12] MEDS ORDERED: ACETAMINOPHEN TAB 650MG DOSE (2X325MG) PO ONE (17:30)
[2022-12-12 17:44] VITALS: BP 129/75
== END 2022-12-12 17:50 | disposition home or self-care (01) ==
LOC: M ED 15:55
DX: S39.012A Strain of muscle, fascia and tendon of lower back, initial encounter (principal); W01.0XXA Fall on same level from slipping, tripping and stumbling without subsequent striking against object, initial encounter; Y92.009 Unspecified place in unspecified non-institutional (private) residence as the place of occurrence of the external cause; Z88.0 Allergy status to penicillin; Z91.040 Latex allergy status; Z88.1 Allergy status to other antibiotic agents; Z88.9 Allergy status to unspecified drugs, medicaments and biological substances; Z79.899 Other long term (current) drug therapy

== ENCOUNTER → 2022-12-14 | Outpatient (CLI) | payer OTHER ==
[~2022-12-14] MED LIST changes: +METO5TAB2
== END ==
LOC: M WHC 09:04
PROVIDERS: ATTEND Specialist
DX: Z34.82 Encounter for supervision of other normal pregnancy, second trimester (principal); Z3A.19 19 weeks gestation of pregnancy

== ENCOUNTER → 2023-02-01 | Outpatient (CLI) | payer OTHER | LOC: M WHC 09:28 | PROVIDERS: ATTEND Specialist | DX: Z34.82 Encounter for supervision of other normal pregnancy, second trimester (principal) ==

== ENCOUNTER → 2023-03-16 | Outpatient (CLI) | payer OTHER ==
[~2023-03-16] MED LIST changes: -OFLO3OPSO OD; +OFLO5DRO OD
[2023-03-16 13:41] LABS: HEMATOCRIT 31.7 % (36.0-47.0); HEMOGLOBIN 10.7 g/dl (12.0-15.5); MEAN CORPUSCULAR HEMOGLOBIN 29.7 pg (27.0-33.0); MEAN CORPUSCULAR HGB CONC 33.8 g/dl (32.0-36.5); MEAN CORPUSCULAR VOLUME 88.1 fl (80.0-96.0); PLATELET COUNT, AUTOMATED 254 10^3/uL (150-450); WHITE BLOOD COUNT 7.4 10^3/uL (4.0-10.0)
[2023-03-16 15:07] LABS: GC DNA AMPLIFICATION NEGATIVE (NEGATIVE)
== END ==
LOC: M PLALAB 09:06
PROVIDERS: ATTEND Specialist
DX: Z34.82 Encounter for supervision of other normal pregnancy, second trimester (principal)

== ENCOUNTER 2023-04-07 10:05 | Outpatient (CLI) | payer OTHER ==
[~2023-04-07] VITALS: Ht 160 cm; Wt 90.1 kg
[2023-04-07 10:21] VITALS: BP 120/73
[2023-04-07] MEDS ORDERED: ACET325C5 PO (10:24)
[2023-04-07] MEDS ORDERED: LR 1,000 ML IV SCH (10:30)
[2023-04-07] MEDS ORDERED: HOME MED LIST COMPLETE! XX SCH (10:30)
[2023-04-07] MEDS ORDERED: LR 1,000 ML IV ONE ×2 (10:30)
[2023-04-07 11:00] LABS: HEMATOCRIT 29.1 % (36.0-47.0); HEMOGLOBIN 10.1 g/dl (12.0-15.5); MEAN CORPUSCULAR HEMOGLOBIN 29.3 pg (27.0-33.0); MEAN CORPUSCULAR HGB CONC 34.7 g/dl (32.0-36.5); MEAN CORPUSCULAR VOLUME 84.3 fl (80.0-96.0); PLATELET COUNT, AUTOMATED 211 10^3/uL (150-450); RED BLOOD COUNT 3.45 10^6/uL (4.00-5.40); WHITE BLOOD COUNT 8.2 10^3/uL (4.0-10.0)
[2023-04-07 11:46] VITALS: BP 122/69
== END 2023-04-07 12:00 | disposition home or self-care (01) ==
LOC: M LDO 10:05
PROVIDERS: ATTEND Obstetrics & Gynecology
DX: O99.283 Endocrine, nutritional and metabolic diseases complicating pregnancy, third trimester (principal); E86.0 Dehydration; O34.219 Maternal care for unspecified type scar from previous cesarean delivery; Z3A.35 35 weeks gestation of pregnancy; O26.893 Other specified pregnancy related conditions, third trimester; R10.2 Pelvic and perineal pain
CPT/HCPCS: 36415; 59025; 81001; 85027; 87086; 96360; G0463

== ENCOUNTER 2023-04-17 07:30 | Inpatient (IN) | payer OTHER ==
[~2023-04-17] VITALS: Ht 160 cm; Wt 89.1 kg
[2023-04-26] VITALS (8 sets, daily range): BP systolic 108–127; BP diastolic 55–82; O2SAT 96–99
[2023-04-26] MEDS ORDERED: LACTATED RINGER'S 1000 ML IV STA (05:12)
[2023-04-26] MEDS ORDERED: BICITRA 30ML SOLN UDC PO ONE (05:15)
[2023-04-26] MEDS ORDERED: LR 1,000 ML IV SCH (05:15)
[2023-04-26] MEDS ORDERED: ceFAZolin SOD 2 GM in IV 1 EA IV ONE (05:15)
[2023-04-26 05:46] LABS: HEMATOCRIT 30.6 % (36.0-47.0); HEMOGLOBIN 10.3 g/dl (12.0-15.5); MEAN CORPUSCULAR HEMOGLOBIN 28.1 pg (27.0-33.0); MEAN CORPUSCULAR HGB CONC 33.7 g/dl (32.0-36.5); MEAN CORPUSCULAR VOLUME 83.4 fl (80.0-96.0); PLATELET COUNT, AUTOMATED 234 10^3/uL (150-450); RED BLOOD COUNT 3.67 10^6/uL (4.00-5.40); WHITE BLOOD COUNT 6.5 10^3/uL (4.0-10.0)
[2023-04-26] MEDS ORDERED: OXYTOCIN INJ 10UNITS/ML 1ML VIAL As Ordered ONE ×2 (07:20→08:30)
[2023-04-26] MEDS ORDERED: KETOROLAC 60MG 2ML VIAL As Ordered ONE (07:20)
[2023-04-26] MEDS ORDERED: MORPHINE PRES-FREE INJ 10 MG/10 ML VIAL As Ordered ONE (07:20)
[2023-04-26] MEDS ORDERED: ONDANSETRON 4MG 2ML VIAL As Ordered ONE (07:55)
[2023-04-26] MEDS ORDERED: PHENYLephrine 500MCG 5ML (100MCG/ML) SYRINGE As Ordered ONE (07:55)
[2023-04-26 08:51] LABS: CORD GAS ABE V -0.6; CORD GAS HCO3 V 25.2 MMOL/L; CORD GAS O2 SAT V 72.4 %; CORD GAS PCO2 V 45.2 mmHg; CORD GAS PH V 7.364 UNITS; CORD GAS PO2 V 28.8 mmHg; CORD GAS SBC V 23.2 MMOL/L; CORD GAS TCO2 V 26.6 MMOL/L
[2023-04-26 08:53] LABS: CORD GAS HCO3 A 26.2 MMOL/L; CORD GAS O2 SAT A 68.9 %; CORD GAS PCO2 A 52.2 mmHg; CORD GAS PH A 7.319 UNITS; CORD GAS PO2 A 27.6 mmHg; CORD GAS SBC A 22.8 MMOL/L; CORD GAS TCO2 A 27.8 MMOL/L
[2023-04-26] MEDS: PRENATAL VITAMINS CHEWABLE TABLET PO SCH (09:00)
[2023-04-26] MEDS ORDERED: RHOGAM 300MCG (1500IU) INJ IM SCH (09:05)
[2023-04-26] MEDS ORDERED: SIMETHICONE 80MG CHEW TAB PO PRN (09:05)
[2023-04-26] MEDS ORDERED: OXYTOCIN DRIP 30 UNITS in IV 1 EA IV SCH (09:05)
[2023-04-26] MEDS ORDERED: PERCOCET 5MG/325MG TAB PO PRN ×2 (09:05)
[2023-04-26] MEDS ORDERED: ONDANSETRON 4MG 2ML VIAL IV PRN ×2 (09:05→09:15)
[2023-04-26] MEDS ORDERED: OXYC1TAB23 PO (09:14)
[2023-04-26] MEDS ORDERED: IBUP80TA PO (09:14)
[2023-04-26] MEDS ORDERED: MEPERIDINE 25 MG/ML 1ML VIAL IV PRN (09:15)
[2023-04-26] MEDS ORDERED: diphenhydrAMINE 50MG/ML VIAL IV PRN (09:15)
[2023-04-26] MEDS ORDERED: METOCLOPRAMIDE INJ 10MG/2ML VIAL IV PRN (09:15)
[2023-04-26] MEDS: SLF 3 ML SYR IV SCH ×2 (09:15→17:18)
[2023-04-26] MEDS ORDERED: HYDROMORPHONE HCL 0.5 MG/ 0.5 ML SYRINGE IV PRN (09:15)
[2023-04-26] MEDS ORDERED: NALOXONE INJ 0.4MG/1ML VIAL IV PRN ×2 (09:15)
[2023-04-26] MEDS ORDERED: fentaNYL 100 MCG/2 ML INJECTION IV PRN (09:15)
[2023-04-26] MEDS ORDERED: oxyCODONE 5MG TAB PO PRN (09:15)
[2023-04-26] MEDS ORDERED: **NOTE PATIENT COMMENT** MISC XX SCH (09:15)
[2023-04-26] MEDS ORDERED: OXYTOCIN 30UNITS IN 0.9% NaCl 500ML IV BAG As Ordered ONE (09:26)
[2023-04-26] MEDS: LR 1,000 ML IV SCH ×3 (09:46→22:18)
[2023-04-26] MEDS ORDERED: METOCLOPRAMIDE INJ 10MG/2ML VIAL As Ordered ONE (10:07)
[2023-04-26] MEDS: KETOROLAC 30 MG/ML 1ML VIAL IV SCH ×2 (15:08→21:09)
[2023-04-26] MEDS ORDERED: LR 1,000 ML IV ONE (16:40)
[2023-04-27] VITALS (13 sets, daily range): BP systolic 112–129; BP diastolic 56–74; TEMP 97–99; O2SAT 96–100
[2023-04-27] MEDS: SLF 3 ML SYR IV SCH (02:06)
[2023-04-27] MEDS: KETOROLAC 30 MG/ML 1ML VIAL IV SCH (03:10)
[2023-04-27 06:08] LABS: MEAN CORPUSCULAR HEMOGLOBIN 29.1 pg (27.0-33.0); MEAN CORPUSCULAR HGB CONC 34.2 g/dl (32.0-36.5); PLATELET COUNT, AUTOMATED 190 10^3/uL (150-450); RED BLOOD COUNT 2.34 10^6/uL (4.00-5.40); WHITE BLOOD COUNT 7.6 10^3/uL (4.0-10.0)
[2023-04-27 06:49] LABS: HEMATOCRIT 19.9 % (36.0-47.0); HEMOGLOBIN 6.8 g/dl (12.0-15.5)
[2023-04-27] MEDS: PRENATAL VITAMINS CHEWABLE TABLET PO SCH (09:05)
[2023-04-27] MEDS: LR 1,000 ML IV SCH ×2 (09:05→17:05)
[2023-04-27] MEDS: IBUPROFEN 800 MG TAB PO SCH ×2 (10:59→20:16)
[2023-04-28] VITALS (11 sets, daily range): BP systolic 114–139; BP diastolic 57–87; TEMP 97.2–98; O2SAT 96–100
[2023-04-28] MEDS: IBUPROFEN 800 MG TAB PO SCH ×3 (02:58→23:18)
[2023-04-28] MEDS ORDERED: MEASLES,MUMPS,RUBELLA VACCINE INJ (MMR-II) SC.IMMUN ONE (09:00)
[2023-04-28] MEDS: LR 1,000 ML IV SCH ×2 (09:05→17:05)
[2023-04-28 10:16] LABS: HEMATOCRIT 26.8 % (36.0-47.0); MEAN CORPUSCULAR HEMOGLOBIN 28.7 pg (27.0-33.0); MEAN CORPUSCULAR HGB CONC 33.2 g/dl (32.0-36.5); MEAN CORPUSCULAR VOLUME 86.5 fl (80.0-96.0); PLATELET COUNT, AUTOMATED 221 10^3/uL (150-450); WHITE BLOOD COUNT 10.1 10^3/uL (4.0-10.0)
[2023-04-28 10:20] LABS: HEMOGLOBIN 8.9 g/dl (12.0-15.5)
[2023-04-28] MEDS: PRENATAL VITAMINS CHEWABLE TABLET PO SCH (10:46)
[2023-04-28 18:17] LABS: HEMOGLOBIN 7.7 g/dl (12.0-15.5)
[2023-04-29 00:10] VITALS: BP 129/77; TEMP 98; O2SAT 98
[2023-04-29 06:00] VITALS: BP 118/71; O2SAT 97
[2023-04-29 06:53] LABS: HEMATOCRIT 27.4 % (36.0-47.0); HEMOGLOBIN 9.2 g/dl (12.0-15.5); MEAN CORPUSCULAR HGB CONC 33.6 g/dl (32.0-36.5); MEAN CORPUSCULAR VOLUME 86.4 fl (80.0-96.0); PLATELET COUNT, AUTOMATED 174 10^3/uL (150-450); RED BLOOD COUNT 3.17 10^6/uL (4.00-5.40); WHITE BLOOD COUNT 8.2 10^3/uL (4.0-10.0)
[2023-04-29] MEDS: IBUPROFEN 800 MG TAB PO SCH ×2 (07:47→11:00)
[2023-04-29] MEDS: LR 1,000 ML IV SCH (09:05)
[2023-04-29] MEDS: PRENATAL VITAMINS CHEWABLE TABLET PO SCH (09:50)
[2023-04-29 10:00] VITALS: BP 174/107; O2SAT 99
[2023-04-29 10:14] VITALS: BP 128/78
[2023-04-29] MEDS ORDERED: COLA100C5 PO (11:01)
[2023-04-29] MEDS ORDERED: FERR325T3 PO (11:01)
== END 2023-04-29 13:00 | disposition home or self-care (01) | DRG 540 ==
LOC: M LDI 04-26 04:51 → M OBS 04-26 11:04
PROVIDERS: ADMIT Specialist; ATTEND Specialist
PROC: 0UB50ZZ Excision of Right Fallopian Tube, Open Approach (ICD-10-PCS; 2023-04-26)
PROC: 10D00Z1 Extraction of Products of Conception, Low, Open Approach (ICD-10-PCS; principal; 2023-04-26 07:30)
DX: O34.211 Maternal care for low transverse scar from previous cesarean delivery (principal); D64.9 Anemia, unspecified; Z3A.38 38 weeks gestation of pregnancy; Z37.0 Single live birth; Z90.79 Acquired absence of other genital organ(s); O99.02 Anemia complicating childbirth; Z30.2 Encounter for sterilization

== ENCOUNTER 2023-06-07 15:46 | Emergency (ER) | payer OTHER ==
[~2023-06-07] VITALS: Ht 160 cm; Wt 83.5 kg
[~2023-06-07 15:46] MED LIST changes: +COLA100C5 PO
[2023-06-07] MEDS ORDERED: FLUT12HF3 (15:59)
[2023-06-07] MEDS ORDERED: NAPROXEN 250 MG TAB PO ONE (19:15)
[2023-06-07 19:25] VITALS: BP 131/78; TEMP 98.3; O2SAT 100
== END 2023-06-07 19:30 | disposition home or self-care (01) ==
LOC: M ED 15:46
DX: S90.31XA Contusion of right foot, initial encounter (principal); W22.8XXA Striking against or struck by other objects, initial encounter; Y92.008 Other place in unspecified non-institutional (private) residence as the place of occurrence of the external cause; Y93.89 Activity, other specified; Y99.8 Other external cause status; F41.9 Anxiety disorder, unspecified; F32.A Depression, unspecified; Z91.010 Allergy to peanuts; Z88.8 Allergy status to other drugs, medicaments and biological substances; Z88.0 Allergy status to penicillin; Z91.040 Latex allergy status; Z79.899 Other long term (current) drug therapy

== ENCOUNTER → 2023-06-28 | Outpatient (CLI) | payer OTHER ==
[~2023-06-28] MED LIST changes: +FLUT12HF3
== END ==
LOC: M CARPUL 08:38
PROVIDERS: ATTEND Physician Assistant
DX: R06.00 Dyspnea, unspecified (principal)

== ENCOUNTER → 2023-07-17 | Outpatient (CLI) | payer OTHER ==
[~2023-07-17] MED LIST changes: +LORA-1041 PO; -LORA-674 PO; +MECL-209; +MECL-209 PO; -MECL1TAB31; -MECL1TAB31 PO
== END ==
LOC: M RAD 17:23
PROVIDERS: ATTEND Physician Assistant Medical
DX: M25.511 Pain in right shoulder (principal)

== ENCOUNTER → 2023-08-16 | Outpatient (CLI) | payer OTHER ==
[~2023-08-16] MED LIST changes: +METHACHOLINE KIT INH ONE
== END ==
LOC: M CARPUL 08:30
PROVIDERS: ATTEND Physician Assistant
DX: R06.00 Dyspnea, unspecified (principal)
CPT/HCPCS: 94070; 95070; J7674

== ENCOUNTER 2023-10-03 08:49 | Emergency (ER) | payer OTHER ==
[~2023-10-03] VITALS: Ht 157.5 cm; Wt 94.6 kg
[~2023-10-03 08:49] MED LIST changes: -METHACHOLINE KIT INH ONE
[2023-10-03 08:50] VITALS: BP 136/79; TEMP 97.5; O2SAT 100
[2023-10-03] MEDS ORDERED: CETI-24 (09:04)
[2023-10-03] MEDS ORDERED: BUPR150T12 (09:04)
[2023-10-03] MEDS ORDERED: MELO15TA28 (09:04)
[2023-10-03] MEDS ORDERED: KETOROLAC 30 MG/ML 1ML VIAL IV ONE (10:00)
[2023-10-03 11:40] LABS: BASO # 0.1 10^3/uL (0.0-0.2); BASO % 0.9 % (0.0-1.0); EOS # 0.5 10^3/uL (0.0-0.5); EOS % 7.9 % (0.0-3.0); HEMATOCRIT 38.9 % (36.0-47.0); HEMOGLOBIN 13.2 g/dl (12.0-15.5); LYMPH # 2.5 10^3/uL (1.5-5.0); MEAN CORPUSCULAR HEMOGLOBIN 28.6 pg (27.0-33.0); MEAN CORPUSCULAR HGB CONC 33.9 g/dl (32.0-36.5); MEAN CORPUSCULAR VOLUME 84.4 fl (80.0-96.0); MONO # 0.6 10^3/uL (0.0-0.8); MONO % 8.4 % (2.0-8.0); NEUTROPHILS # 2.9 10^3/uL (1.5-8.5); NEUTROPHILS % 44.5 % (36.0-66.0); PLATELET COUNT, AUTOMATED 332 10^3/uL (150-450); RED BLOOD COUNT 4.61 10^6/uL (4.00-5.40); WHITE BLOOD COUNT 6.6 10^3/uL (4.0-10.0)
[2023-10-03 12:09] LABS: ALKALINE PHOSPHATASE 66 U/L (46-116); ALT/SGPT 25 U/L (7.0-40); AST/SGOT 15 U/L (<34); BILIRUBIN,TOTAL 0.5 MG/DL (0.3-1.2); BLOOD UREA NITROGEN 11 MG/DL (9-23); CALCIUM LEVEL 8.9 MG/DL (8.5-10.1); CARBON DIOXIDE LEVEL 28 MMOL/L (20-31); CHLORIDE LEVEL 103 MMOL/L (98-107); CREATININE FOR GFR 0.65 MG/DL (0.55-1.30); GLOMERULAR FILTRATION RATE > 60.0 (>60); GLUCOSE, FASTING 81 MG/DL (60-100); POTASSIUM SERUM 4.2 MMOL/L (3.5-5.1); SODIUM LEVEL 138 MMOL/L (136-145); TOTAL PROTEIN 7.1 G/DL (5.7-8.2)
== END 2023-10-03 13:01 | disposition home or self-care (01) ==
LOC: M ED 08:49
DX: J06.9 Acute upper respiratory infection, unspecified (principal); B34.0 Adenovirus infection, unspecified; B34.8 Other viral infections of unspecified site; J45.909 Unspecified asthma, uncomplicated; D64.9 Anemia, unspecified; F41.9 Anxiety disorder, unspecified; Z88.1 Allergy status to other antibiotic agents; Z88.8 Allergy status to other drugs, medicaments and biological substances; Z91.040 Latex allergy status; Z79.899 Other long term (current) drug therapy
CPT/HCPCS: 71046; 80053; 85025; 87486; 87581; 87633; 87798; 87880; 93005; 96374; 99284; J1885

== ENCOUNTER → 2023-11-22 | Outpatient (CLI) | payer OTHER ==
[~2023-11-22] MED LIST changes: +BUPR150T12; +CETI-24
== END ==
LOC: M RAD 10:46
PROVIDERS: ATTEND Nurse Practitioner Family
DX: M25.562 Pain in left knee (principal)

== ENCOUNTER 2023-12-07 19:54 | Emergency (ER) | payer OTHER ==
[~2023-12-07] VITALS: Ht 157.5 cm; Wt 101.0 kg
[2023-12-07 22:40] VITALS: BP 119/61; TEMP 97.7; O2SAT 99
== END 2023-12-07 22:43 | disposition home or self-care (01) ==
LOC: M ED 19:54
DX: M25.562 Pain in left knee (principal); F10.10 Alcohol abuse, uncomplicated; Z88.1 Allergy status to other antibiotic agents; Z88.8 Allergy status to other drugs, medicaments and biological substances; Z91.018 Allergy to other foods; Z79.899 Other long term (current) drug therapy

== ENCOUNTER 2024-03-25 09:02 | Outpatient (RCR) | payer OTHER ==
[~2024-03-25 09:02] MED LIST changes: +FLUO-290; -FLUO10CA18
== END 2024-04-04 ==
LOC: M PT 09:02
PROVIDERS: ATTEND Student in an Organized Health Care Education/Training Program
DX: M25.562 Pain in left knee (principal)

== ENCOUNTER 2024-04-18 08:46 | Outpatient (RCR) | payer OTHER ==
[~2024-04-18 08:46] MED LIST changes: +ONDA-282 PO; -ONDA4TAB6 PO
== END 2024-05-04 ==
LOC: M PT 08:46
PROVIDERS: ATTEND Student in an Organized Health Care Education/Training Program
DX: M25.562 Pain in left knee (principal)

== ENCOUNTER 2024-05-11 14:11 | Emergency (ER) | payer OTHER ==
[~2024-05-11] VITALS: Ht 160 cm; Wt 107.2 kg
[2024-05-11] MEDS ORDERED: MIRT1TAB16 PO (14:17)
[2024-05-11] MEDS ORDERED: ANEC4CRE3 TOP (16:12)
[2024-05-11] MEDS ORDERED: METH-1165 PO (16:12)
[2024-05-11] MEDS ORDERED: IBUP-1022 PO (16:12)
[2024-05-11 16:23] VITALS: BP 134/88; TEMP 96.9; O2SAT 99
[2024-05-11] MEDS: methocarbamoL 750 MG TAB PO ONE (16:27)
[2024-05-11] MEDS: KETOROLAC 60MG 2ML VIAL IM ONE (16:27)
== END 2024-05-11 16:33 | disposition home or self-care (01) ==
LOC: M ED 14:11
DX: M25.512 Pain in left shoulder (principal); Z88.1 Allergy status to other antibiotic agents; Z88.8 Allergy status to other drugs, medicaments and biological substances; Z91.040 Latex allergy status; Z91.018 Allergy to other foods; Z79.1 Long term (current) use of non-steroidal anti-inflammatories (NSAID); Z79.899 Other long term (current) drug therapy
CPT/HCPCS: 73030; 96372; 99283; J1885

== ENCOUNTER 2024-06-02 12:45 | Outpatient (RCR) | payer OTHER ==
[~2024-06-02 12:45] MED LIST changes: +ANEC4CRE3 TOP; +METH-1165 PO; +MIRT1TAB16 PO
== END 2024-06-04 ==
LOC: M PT 12:45
PROVIDERS: ATTEND Student in an Organized Health Care Education/Training Program
DX: M25.562 Pain in left knee (principal)

== ENCOUNTER → 2024-11-26 | Outpatient (CLI) | payer OTHER ==
[~2024-11-26] MED LIST changes: -CYCL5TAB PO; +CYCL5TAB4 PO; -SIME180C25 PO; +SIME1CAP4 PO
== END ==
LOC: M RAD 09:17
PROVIDERS: ATTEND Family Medicine Addiction Medicine
DX: M54.50 Low back pain, unspecified (principal)

== ENCOUNTER → 2024-12-03 | Outpatient (CLI) | payer OTHER | LOC: M RAD 09:08 | PROVIDERS: ATTEND Family Medicine Addiction Medicine | DX: M43.16 Spondylolisthesis, lumbar region (principal) ==

== ENCOUNTER → 2025-01-11 | Outpatient (CLI) | payer OTHER | LOC: M RAD 09:20 | PROVIDERS: ATTEND Family Medicine Addiction Medicine | DX: M25.551 Pain in right hip (principal) ==

== ENCOUNTER 2025-05-19 17:08 | Emergency (ER) | payer OTHER ==
[~2025-05-19] VITALS: Ht 160 cm; Wt 109.0 kg
[~2025-05-19 17:08] MED LIST changes: +LIDO1ADH93 TD; -LIDO5DIS41 TD
[2025-05-19] MEDS: ACETAMINOPHEN 500 MG TAB PO ONE (19:50)
[2025-05-19 20:14] VITALS: BP 120/77; TEMP 97.9; O2SAT 99
[2025-05-19] MEDS ORDERED: ONDA-282 PO (21:18)
[2025-05-19] MEDS: ONDANSETRON 4MG ORAL DISINTEGRATING TAB PO ONE (21:21)
== END 2025-05-19 21:23 | disposition home or self-care (01) ==
LOC: M ED 17:08
DX: S06.0X0A Concussion without loss of consciousness, initial encounter (principal); Y92.019 Unspecified place in single-family (private) house as the place of occurrence of the external cause; Y93.9 Activity, unspecified; Y99.9 Unspecified external cause status; W22.09XA Striking against other stationary object, initial encounter; F41.9 Anxiety disorder, unspecified; Z88.1 Allergy status to other antibiotic agents; Z88.8 Allergy status to other drugs, medicaments and biological substances; Z91.040 Latex allergy status; Z91.018 Allergy to other foods; Z79.1 Long term (current) use of non-steroidal anti-inflammatories (NSAID); Z79.899 Other long term (current) drug therapy

== ENCOUNTER 2025-05-20 10:33 | Outpatient (RCR) | payer OTHER | END 2025-06-04 | LOC: M PT 10:33 | PROVIDERS: ATTEND Family Medicine Addiction Medicine | DX: M54.50 Low back pain, unspecified (principal) ==

== ENCOUNTER 2025-07-01 09:15 | Outpatient (RCR) | payer OTHER ==
[~2025-07-01 09:15] MED LIST changes: -IBUP-1022 PO; +IBUP600T42 PO
== END 2025-07-05 ==
LOC: M PT 09:15
PROVIDERS: ATTEND Family Medicine Addiction Medicine
DX: M54.50 Low back pain, unspecified (principal)